=== PATIENT | female | born 1930 | race Hispanic/Latino ===

== ENCOUNTER 2016-07-04 18:50 | Inpatient (IN) | payer MEDICARE, BC ==
[2016-07-04 18:51] VITALS: PULSE 64
--- NOTE | 2016-07-04 19:13 | ED PDOC ---
Arrival/HPI - General Chief Complaint: Altered Mental Status Time Seen by Provider: 07/04/16 19:09 - History of Present Illness Narrative History of Present Illness (Text): 07/04/16 19:38 85-year-old female presents the emergency department stating that she is seeing things and hearing things that are not there. Patient states that she has had these symptoms for the last few weeks. No relieving or exacerbating factors. States her hallucinations are not command, and she denies any suicidal or homicidal ideations. Patient is alert to name, does not know the location or the date. Past Medical History - Provider Review Nursing Documentation Reviewed: Yes - Infectious Disease Hx of Infectious Diseases: None - Tetanus Immunization Tetanus Immunization: Unknown - Reproductive Menopause: Yes - Cardiac Hx Cardiac Disorders: Yes Hx Hypertension: Yes - Pulmonary Hx Chronic Obstructive Pulmonary Disease (COPD): Yes - Neurological HX Cerebrovascular Accident: Yes - HEENT Hx HEENT Disorder: Yes ([place]) - Renal Hx Renal Disorder: No - Endocrine/Metabolic Hx Diabetes Mellitus Type 2: Yes - Hematological/Oncological Hx Cancer: Yes (breast) - Integumentary Hx Dermatological Disorder: No - Musculoskeletal/Rheumatological Hx Falls: Yes - Gastrointestinal Hx Gastrointestinal Disorders: Yes (POOR APPETTITE,) - Genitourinary/Gynecological Hx Genitourinary Disorders: No Hx Reproductive Disorders: No - Psychiatric Hx Psychophysiologic Disorder: No Hx Substance Use: No - Surgical History Hx Open Heart Surgery: Yes Other/Comment: Radical mastectomy. - Anesthesia Hx Anesthesia: Yes Hx Anesthesia Reactions: No Hx Malignant Hyperthermia: No - Suicidal Assessment Feels Threatened In Home Enviroment: No Family/Social History - Physician Review Nursing Documentation Reviewed: Yes Family/Social History: Unknown Family HX Smoking Status: Never Smoked Hx Alcohol Use: No Hx Substance Use: No Hx Substance Use Treatment: No Allergies/Home Meds Allergies/Adverse Reactions: Allergies FISH Allergy (Verified 03/04/16 16:35) NAUSEA Sulfa (Sulfonamide Antibiotics) Allergy (Verified 03/04/16 16:35) HEADACHE Review of Systems - Review of Systems Systems not reviewed;Unavailable: Altered Mental Status Physical Exam - Physical Exam Narrative Physical Exam (Text): Physical exam Patient appears age appropriate in no distress, speaking full sentences without difficulty - Systems Exam Head: Present: Atraumatic, Normocephalic Pupils: Present: PERRL Extroacular Muscles: Present: EOMI Conjunctiva: Present: Normal Mouth: Present: Dry Mucous Membranes Neck: Present: Normal Range of Motion. No: MIDLINE TENDERNESS, Paraspinal Tenderness Respiratory/Chest: Present: Clear to Auscultation, Good Air Exchange. No: Respiratory Distress, Accessory Muscle Use, Tachypneic Cardiovascular: Present: Irregular, Peripheal Pulses Present. Abdomen: Present: Normal Bowel Sounds. No: Tenderness, Distention, Peritoneal Signs, Rebound, Guarding Back: Present: Normal Inspection. No: Midline Tenderness, Paraspinal Tenderness Upper Extremity: Present: Normal Inspection. No: Cyanosis, Edema Lower Extremity: Present: Normal Inspection. No: Edema Neurological: Present: GCS=15, Speech Normal, cranial nerves II through XII fully intact with no cerebellar abnormality, neurosensory fully intact. No focal neurological deficits. Skin: Present: Warm, Dry, Normal Color. No: Rashes Lymphatic: Present: OX3, NI, NC Psychiatric: Present: Alert, not agitated Vital Signs Reviewed: Yes Vital Signs Temp Pulse Resp BP Pulse Ox 07/04/16 21:45 122 H 20 123/91 H 97 07/04/16 21:29 142 H 151/91 H 92 L 07/04/16 21:24 120 H 23 136/114 H 93 L 07/04/16 21:09 119 H 19 150/85 93 L 07/04/16 20:57 155 H 160/107 H 07/04/16 20:55 169 H 160/107 H 07/04/16 20:39 161 H 24 136/105 H 91 L 07/04/16 20:24 151 H 123/74 07/04/16 20:09 130 H 143/88 07/04/16 20:02 130 H 139/63 07/04/16 19:57 172 H 203/127 H 07/04/16 19:55 166 H 197/117 H 07/04/16 19:04 98.3 F 115 H 20 186/109 H 95 Temperature: Afebrile Blood Pressure: Hypertensive Pulse: Tachycardic Respiratory Rate: Normal Appearance: Positive for: Non-Toxic, Comfortable Pain Distress: None Mental Status: Positive for: Confused. No: Agitated, Lethargic Medical Decision Making ED Course and Treatment: 07/04/16 19:13 Previous records reviewed, patient was hospitalized 03/04/16 with altered mental status. Patient has a history of atrial fibrillation on Coumadin, hypertension, diabetes, breast cancer, dementia. 07/04/16 19:40 Elderly female in the emergency department with hallucinations. No focal neurological deficits on examination. Patient is alert to name only. Labs, imaging ordered. Differential diagnoses includes but not limited to: Worsening dementia versus infection versus UTI versus pneumonia 07/04/16 20:31 CXR shows vasc. congestion with L. lobar infiltrate. Cardiomegaly. Interpreted by me. 07/04/16 20:[address] Reyna, recommends lopressor first, and states will send resident to evaluate 07/04/16 21:[address] Reyna to the MICU Dr. Najera paged 07/04/16 22:[address] Najera, accepted pt to her service - Critical Care Critical Care Minutes: 30 minutes Narrative Critical Care (Text): 07/04/16 20:00 Patient in rapid A. fib, also hypertensive, Cardizem IV push ordered - Lab Interpretations Lab Results: 07/04/16 19:30 07/04/16 19:30 Lab Results 07/04/16 21:02: Urine Color Yellow, Urine Appearance Clear, Urine pH 6.0, Ur Specific Campbell 1.020, Urine Protein 30 H, Urine Glucose (UA) 100 H, Urine Ketones 15 H, Urine Blood Trace-intact H, Urine Nitrate Negative, Urine Bilirubin Negative, Urine Urobilinogen 0.2, Ur Leukocyte Esterase Negative, Urine RBC 0 - 2, Urine WBC 0 - 2, Ur Epithelial Cells 0 - 2, Urine Bacteria Few 07/04/16 19:30: WBC 12.3 H D, RBC 4.31, Hgb 13.6, Hct 38.8, MCV 90.0, MCH 31.6, MCHC 35.1, RDW 12.7, Plt Count 242, MPV 10.0, Gran % 74.3 H, Lymph % (Auto) 14.0 L, [place] % (Auto) 9.8 H, Eos % (Auto) 1.3 L, Baso % (Auto) 0.6, Gran # 9.10 H, Lymph # 1.7, [place] # 1.2 H, Eos # 0.2, Baso # 0.07, PT 10.8, INR 1.00, APTT 26.4, pO2 115 H, VBG pH 7.43, VBG pCO2 39.0 L, VBG HCO3 25.9, VBG Total CO2 27.1 , VBG O2 Sat (Calc) 99.5 H, VBG Base Excess 1.5, VBG Potassium 5.3 H, Glucose 196 H, Lactate 1.3, FiO2 21.0, Sodium 137.0, Potassium 3.5 L, Chloride 107.0, Carbon Dioxide 25, Anion Gap 18, BUN 32 H, Creatinine 0.6, Est GFR ( Amer ) > 60, Est GFR (Non-Af Amer) > 60, Random Glucose 186 H, Calcium 9.6, Phosphorus 3.2, Magnesium 1.8, Total Bilirubin 1.1, AST 38, ALT 40, Alkaline Phosphatase 62, Lactate Dehydrogenase 789 H, Total Creatine Kinase 176, Troponin I 0.02 D, NT-Pro-B Natriuret Pep 997 H, Total Protein 8.0, Albumin 4.3 , Globulin 3.6, Albumin/Globulin Ratio 1.2, Free T4 1.31, TSH 3rd Generation 1.13, Venous Blood Potassium 5.3 H - RAD Interpretation Radiology Orders: 07/04/16 19:28 HEAD W/O CONTRAST [CT] Stat CHEST PORTABLE [RAD] Stat - Medication Orders Current Medication Orders: Enoxaparin Sodium (Lovenox) 60 mg SC Q12H REGGIE PRN Reason: Protocol Last Admin: 07/04/16 23:15 Dose: 60 MG Subcutaneous Administrations Document 07/04/16 23:15 YP (Rec: 07/04/16 23:15 YP [id number]) Injection Site MAR Injection Site Right Abdomen Charges for Administration # of Subcutaneous Administrations 1 diltiaZEM IVPB 100mg in NS (Cardizem 100mg In Ns) 100 mls @ 5 mls/hr IV .Q20H PRN; Protocol; 5 MG/HR PRN Reason: TITRATE PER MD ORDER Last Admin: 07/04/16 23:33 Dose: 5 MLS/HR Titration Intervention Document 07/04/16 23:33 MKN (Rec: 07/04/16 23:34 Jameel [id number]) Titration Intake Container Volume 100 Titration Dosing Titration Dose 5 IV Rate 5 Intake/Decrease Start eMAR Start Stop Document 07/04/16 23:33 MKN (Rec: 07/04/16 23:34 [facility] [id number]) Intravenous Solution Start Date 07/04/16 Start Time 23:34 Sodium Chloride (Sodium Chloride 0.9%) 1,000 mls @ 100 mls/hr IV .Q10H REGGIE Last Admin: 07/04/16 23:16 Dose: 100 MLS/HR eMAR Start Stop Document 07/04/16 23:16 YP (Rec: 07/04/16 23:16 YP [id number]) Intravenous Solution Start Date 07/04/16 Start Time 23:16 Pantoprazole Sodium (Protonix Ec Tab) 40 mg PO 0630 REGGIE Last Admin: 07/05/16 06:41 Dose: 40 MG Warfarin Sodium (Coumadin) 3 mg PO 1800 REGGIE PRN Reason: Protocol Discontinued Medications Diltiazem HCl (Cardizem) Confirm Administered Dose 25 mg .ROUTE .STK-MED ONE Stop: 07/04/16 19:57 Last Admin: 07/04/16 20:00 Dose: Diltiazem HCl (Cardizem) 20 mg IVP STAT STA Stop: 07/04/16 20:00 Last Admin: 07/04/16 19:57 Dose: 20 MG MAR Pulse and Blood Pressure Document 07/04/16 19:57 YP (Rec: 07/04/16 20:01 YP [id number]) Pulse Pulse Rate (60-90) 172 Blood Pressure Blood Pressure (100/60-150/90) 203/127 IVP Administration Document 07/04/16 19:57 YP (Rec: 07/04/16 20:01 YP [id number]) Charges for Administration # of IVP Administrations 1 Furosemide (Lasix) 40 mg IVP STAT STA Stop: 07/04/16 20:32 Last Admin: 07/04/16 20:57 Dose: 40 MG MAR Blood Pressure Document 07/04/16 20:57 YP (Rec: 07/04/16 20:57 YP [id number]) Blood Pressure Blood Pressure (100/60-150/90) 160/107 IVP Administration Document 07/04/16 20:57 YP (Rec: 07/04/16 20:57 YP [id number]) Charges for Administration # of IVP Administrations 1 Magnesium Sulfate/Dextrose (Magnesium Sulfate 1 Gm/100 Ml D5w) 100 mls @ 100 mls/hr IVPB ONCE ONE Stop: 07/04/16 21:27 Last Admin: 07/04/16 20:58 Dose: 100 MLS/HR eMAR Start Stop Document 07/04/16 20:58 YP (Rec: 07/04/16 20:58 YP [id number]) Intravenous Solution Start Date 07/04/16 Start Time 20:58 End Date 07/04/16 End time 21:58 Total Infusion Time 60 Azithromycin (Zithromax 500mg In Ns) 250 mls @ 167 mls/hr IVPB STAT STA PRN Reason: Protocol Stop: 07/04/16 22:00 Last Admin: 07/04/16 21:39 Dose: 167 MLS/HR eMAR Start Stop Document 07/04/16 21:39 YP (Rec: 07/04/16 21:39 YP [id number]) Intravenous Solution Start Date 07/04/16 Start Time 21:39 End Date 07/04/16 End time 23:09 Total Infusion Time 90 Ceftriaxone Sodium (Rocephin 1 Gram Ivpb) 100 mls @ 200 mls/hr IV STAT STA PRN Reason: Protocol Stop: 07/04/16 21:00 Last Admin: 07/04/16 20:57 Dose: 200 MLS/HR eMAR Start Stop Document 07/04/16 20:57 YP (Rec: 07/04/16 20:57 YP [id number]) Intravenous Solution Start Date 07/04/16 Start Time 20:57 End Date 07/04/16 End time 21:27 Total Infusion Time 30 Potassium Chloride (Potassium Chloride 20 Meq/100 Ml) 100 mls @ 50 mls/hr IVPB ONCE ONE Stop: 07/04/16 22:42 Last Admin: 07/04/16 20:57 Dose: 50 MLS/HR eMAR Start Stop Document 07/04/16 20:57 YP (Rec: 07/04/16 20:58 YP [id number]) Intravenous Solution Start Date 07/04/16 Start Time 20:57 End Date 07/04/16 End time 22:57 Total Infusion Time 120 Metoprolol Tartrate (Lopressor) 5 mg IVP STAT STA Stop: 07/04/16 20:41 Last Admin: 07/04/16 20:57 Dose: 5 MG MAR Pulse and Blood Pressure Document 07/04/16 20:57 YP (Rec: 07/04/16 20:57 YP [id number]) Pulse Pulse Rate (60-90) 155 Blood Pressure Blood Pressure (100/60-150/90) 160/107 IVP Administration Document 07/04/16 20:57 YP (Rec: 07/04/16 20:57 YP [id number]) Charges for Administration # of IVP Administrations 1 Disposition/Present on Arrival - Present on Arrival Any Indicators Present on Arrival: No History of DVT/PE: No History of Uncontrolled Diabetes: Yes Urinary Catheter: No History of Decub. Ulcer: No History Surgical Site Infection Following: None - Disposition Have Diagnosis and Disposition been Completed?: Yes Diagnosis: Altered mental status Disposition: HOSPITALIZED Disposition Time: 21:38 Patient Plan: Admission Patient Problems: Current Active Problems Problem Status Diagnosed Altered mental status Acute Condition: FAIR
[2016-07-04 20:00] LABS: ADD MANUAL DIFF? NO
[2016-07-04 20:06] LABS: VENOUS BLOOD GAS BASE EXCESS 1.5 mmol/L (0.0-2.0); VENOUS BLOOD PH 7.43 (7.32-7.43)
[2016-07-04 20:12] LABS: BASO # 0.07 K/mm3 (0.0-2.0); BASO % 0.6 % (0.0-3.0); EOS # 0.2 (0.0-0.7); EOS % 1.3 % (1.5-5.0); GRAN % 74.3 % (50.0-68.0); HEMATOCRIT 38.8 % (36.0-48.0); LYMPH # 1.7 (1.2-3.4); MEAN CORPUSCULAR HEMOGLOBIN 31.6 pg (25.0-35.0); MEAN CORPUSCULAR HGB CONC 35.1 g/dl (31.0-37.0); MONO # 1.2 (0.1-0.6); MONO % 9.8 % (1.0-6.0); PLATELET COUNT 242 10^3/uL (120.0-450.0); RED CELL DISTRIBUTION WIDTH 12.7 % (11.5-14.5); WHITE BLOOD COUNT 12.3 10^3/ul (4.5-11.0)
[2016-07-04 20:15] LABS: ALB/GLOB RATIO 1.2 (1.1-1.8); ALKALINE PHOSPHATASE 62 U/L (38-133); ALT/SGPT 40 U/L (7-56); AST/SGOT 38 U/L (15-39); BILIRUBIN,TOTAL 1.1 mg/dL (0.2-1.3); BLOOD UREA NITROGEN 32 mg/dL (7-21); CALCIUM 9.6 mg/dL (8.4-10.5); CARBON DIOXIDE 25 mmol/L (21-33); CHLORIDE 103 mmol/L (98-107); GFR AFRICAN-AMERICAN > 60; GLUCOSE,RANDOM 186 mg/dL (70-110); POTASSIUM 3.5 mmol/L (3.6-5.0); SODIUM 142 mmol/L (132-148)
[2016-07-04 20:23] LABS: PARTIAL THROMBOPLASTIN TIME 26.4 Seconds (23.7-30.8)
[2016-07-04] MEDS ORDERED: Potassium Chloride 20 mEq ER Tab PO STA (20:28)
[2016-07-04] MEDS ORDERED: Azithromycin 500MG/NS 250ml 250 ML IVPB STA (20:31)
[2016-07-04] MEDS ORDERED: cefTRIAXone 1 gm 100 ML IV STA (20:31)
[2016-07-04] MEDS ORDERED: diltiaZEM IVPB 100mg in NS 100 ML IV PRN (20:35)
[2016-07-04] MEDS ORDERED: Metoprolol 1 mg/ml Inj IVP STA (20:40)
[2016-07-04] MEDS ORDERED: Potassium Chloride 20 mEq 100 ML IVPB ONE (20:43)
[2016-07-04 20:48] LABS: TROPONIN I 0.02 ng/mL
[2016-07-04 21:05] LABS: URINE BILIRUBIN NEGATIVE (NEGATIVE); URINE BLOOD TRACE-INTACT (NEGATIVE); URINE GLUCOSE (UA) 100 mg/dL (NEGATIVE); URINE KETONE 15 mg/dL (NEGATIVE); URINE LEUKOCYTE ESTERASE NEGATIVE Leu/uL (NEGATIVE); URINE PROTEIN 30 mg/dL (<30 mg/dL); URINE UROBILINOGEN 0.2 E.U./dL (<1 E.U./dL)
[2016-07-04 21:10] LABS: URINE COLOR YELLOW (YELLOW)
[2016-07-04 21:11] LABS: URINE APPEARANCE CLEAR (CLEAR)
[2016-07-04 21:17] LABS: URINE BACTERIA FEW (NEG); URINE EPITHELIAL CELLS 0 - 2 /hpf (0-5); URINE RBC 0 - 2 /hpf (0-2); URINE WBC 0 - 2 /hpf (0-6)
--- NOTE | 2016-07-04 22:24 | CP.PCM.CON ---
<Laisha Yanes - Last Filed: 07/04/16 22:44> History of Present Illness - History of Present Illness History of Present Illness: Laisha Yanes, PGY-1 Consult Note for ICU Service 85 F with PMHx of HTN, NIDDM, COPD, CAD s/p CABG, Afib on coumadin, breast cancer s/p mastectomy and chemotherapy and dementia presenting [place] [facility] with complaints of AMS. Pt was brought to [facility] by EMS, who reported that she was hallucinating in her apartment. As per EMS, pt was experiencing auditory and visual hallucinations, as she was seeing her dog and hearing laughter. Pt denied homicidal or suicidal ideation. She states that she is currently feeling weak, and has insight into the fact that she is confused. She is alert, orientated to person and more recently to place, is able to follows commands, however is easily distracted. Pt stated that she feels she is on a tv show, everyone is looking at her and laughing. ROS unable to be obtained on account of pts AMS. PMHx: HTN, NIDDM, COPD, CAD s/p CABG, Afib on coumadin, breast cancer and dementia PSHx: Double mastectomy, CABG, "valve replacement" SHx: Denied tobacco/etoh/illicit drug use. Live in [facility] Famhx: Noncontributory Meds: metformin, coumadin, sotolol, seroquel, losartan, glipizide, lipitor Allergies: Fish, Sulfa Review of Systems - Review of Systems Systems not reviewed;Unavailable: Altered Mental Status Past Patient History - Infectious Disease Hx of Infectious Diseases: None - Tetanus Immunizations Tetanus Immunization: Unknown - Past Social History Smoking Status: Never Smoked - CARDIAC Hx Cardiac Disorders: Yes Hx Hypertension: Yes - PULMONARY Hx Chronic Obstructive Pulmonary Disease (COPD): Yes - NEUROLOGICAL HX Cerebrovascular Accident: Yes - HEENT Hx HEENT Problems: Yes ([place]) - RENAL Hx Chronic Kidney Disease: No - ENDOCRINE/METABOLIC Hx Diabetes Mellitus Type 2: Yes - HEMATOLOGICAL/ONCOLOGICAL Hx Cancer: Yes (breast) - INTEGUMENTARY Hx Dermatological Problems: No - MUSCULOSKELETAL/RHEUMATOLOGICAL Hx Falls: Yes - GASTROINTESTINAL Hx Gastrointestinal Disorders: Yes (POOR APPETTITE,) - GENITOURINARY/GYNECOLOGICAL Hx Genitourinary Disorders: No Hx Reproductive Disorders: No - PSYCHIATRIC Hx Psychophysiologic Disorder: No Hx Substance Use: No - SURGICAL HISTORY Hx Open Heart Surgery: Yes Other/Comment: Radical mastectomy. - ANESTHESIA Hx Anesthesia: Yes Hx Anesthesia Reactions: No Hx Malignant Hyperthermia: No Meds Allergies/Adverse Reactions: Allergies Allergy/AdvReac Type Severity Reaction Status Date / Time FISH Allergy NAUSEA Verified 03/04/16 16:35 Sulfa (Sulfonamide Allergy HEADACHE Verified 03/04/16 16:35 Antibiotics) - Medications Medications: Current Medications Enoxaparin Sodium (Lovenox) 60 mg SC Q12H REGGIE PRN Reason: Protocol Potassium Chloride (Potassium Chloride 20 Meq/100 Ml) 100 mls @ 50 mls/hr IVPB ONCE ONE Stop: 07/04/16 22:42 Last Admin: 07/04/16 20:57 Dose: 50 mls/hr diltiaZEM IVPB 100mg in NS (Cardizem 100mg In Ns) 100 mls @ 5 mls/hr IV .Q20H PRN; Protocol; 5 MG/HR PRN Reason: TITRATE PER MD ORDER Sodium Chloride (Sodium Chloride 0.9%) 1,000 mls @ 100 mls/hr IV .Q10H REGGIE Pantoprazole Sodium (Protonix Ec Tab) 40 mg PO 0630 REGGIE Warfarin Sodium (Coumadin) 3 mg PO 1800 REGGIE PRN Reason: Protocol Physical Exam - Constitutional Appears: No Acute Distress, Confused - Head Exam Head Exam: ATRAUMATIC, NORMAL INSPECTION, NORMOCEPHALIC - Eye Exam Eye Exam: EOMI, Normal appearance, PERRL Pupil Exam: NORMAL ACCOMODATION, PERRL - ENT Exam ENT Exam: Mucous Membranes Dry - Neck Exam Neck exam: Positive for: Normal Inspection - Respiratory Exam Respiratory Exam: Clear to Auscultation Bilateral, NORMAL BREATHING PATTERN - Cardiovascular Exam Cardiovascular Exam: Tachycardia, Irregular Rhythm, +S1, +S2 - GI/Abdominal Exam GI & Abdominal Exam: Distended (mildly), Normal Bowel Sounds, Soft. absent: Tenderness - Extremities Exam Extremities exam: Positive for: normal inspection, pedal pulses present. Negative for: pedal edema, tenderness - Back Exam Back exam: NORMAL INSPECTION - Neurological Exam Neurological exam: Alert, Altered, CN II-XII Intact - Psychiatric Exam Psychiatric exam: Normal Affect, Normal Mood - Skin Skin Exam: Dry, Intact, Normal Color, Warm Additional comments: chest scars well healed Results - Vital Signs Recent Vital Signs: Last Vital Signs Temp 98.3 F 07/04/16 19:04 Pulse 142 H 07/04/16 21:29 Resp 23 07/04/16 21:24 BP 151/91 H 07/04/16 21:29 Pulse Ox 92 L 07/04/16 21:29 - Labs Result Diagrams: 07/04/16 19:30 07/04/16 19:30 Assessment & Plan - Assessment and Plan (Free Text) Assessment: 85 F with PMHx of HTN, NIDDM, COPD, CAD s/p CABG, Afib on coumadin, breast cancer and dementia presenting [place] [facility] with complaints of AMS secondary to an unclear etiology, admitted to ICU on account of HD instability. Neuro: - AAOx2, person and place, speaking in full sentences and following commands - Hx of isolated Mood disorder and psychosis - Experiencing Auditory and Visual hallucinations - Neurocheck q4h to monitor for improvement of altered status - CTH pending Pulm: - Hx of COPD - Sat 95% on RA - CXR: Questionable LLL PNA; pt has residual breast tissue s/p mastectomy - Administered Empiric Abx: Rocephin and Azithromax, will hold for now - 02 NC PRN to maintain 02 sat >88% CVS: - Pt is dehydrated, as demonstrated by labwork, will begin IVF, NS@100ml/hr - Hx of Afib on coumadin - currently in Afib with RVR, will begin Cardizem drip and titrate to targer HR <130bpm - Target MAP >70 GI: - Mildly distended abdomen - F/u CT Abd/pelv - Protonix GI ppx - NPO Renal: - Monitor I&Os - Monitor renal fcn - Hypokalemic, supplemented - will continue to monitor electrolytes and supplement as needed ID: - Leukocytosis, empiric abx for questionable pna - Fu Bcx and Ua - Lactate 1.3 - Tylenol prn for fever Heme: - Leukocytosis with WBC of 12.3, Azithromycin and Rocephin empirically administered - Subtherapeutic INR: 1.00, will give therapeutic Lovenox 60mg q12 in addition to home coumadin 3mg 1800 - Fu INR Seen reviewed and discussed with attending <Robert Reyna Q - Last Filed: 07/05/16 04:37> Meds - Medications Medications: Current Medications Enoxaparin Sodium (Lovenox) 60 mg SC Q12H REGGIE PRN Reason: Protocol Last Admin: 07/04/16 23:15 Dose: 60 mg diltiaZEM IVPB 100mg in NS (Cardizem 100mg In Ns) 100 mls @ 5 mls/hr IV .Q20H PRN; Protocol; 5 MG/HR PRN Reason: TITRATE PER MD ORDER Last Admin: 07/04/16 23:33 Dose: 5 mls/hr Sodium Chloride (Sodium Chloride 0.9%) 1,000 mls @ 100 mls/hr IV .Q10H REGGIE Last Admin: 07/04/16 23:16 Dose: 100 mls/hr Pantoprazole Sodium (Protonix Ec Tab) 40 mg PO 0630 REGGIE Warfarin Sodium (Coumadin) 3 mg PO 1800 REGGIE PRN Reason: Protocol Results - Vital Signs Recent Vital Signs: Last Vital Signs Temp 97.1 F L 07/04/16 23:46 Pulse 97 H 07/05/16 00:00 Resp 39 H 07/05/16 00:00 BP 133/76 07/05/16 00:00 Pulse Ox 98 07/05/16 00:00 - Labs Result Diagrams: 07/04/16 19:30 07/04/16 19:30 Attending/Attestation - Attestation I have personally seen and examined this patient.: Yes I have fully participated in the care of the patient.: Yes I have reviewed all pertinent clinical information: Yes Notes (Text): 07/05/16 04:33 I agree with the above mentioned note and exam by Dr. Yanes with the addition/ exception of the followin85 y/o female with a PMHx as listed above was brought in to the ED by EMS due to an apparent "altered mental status." There was not much information available in the ED regarding what prompted the phone call or who called and why regarding the patient's change in mental condition; attempts made to reach the phone numbers in the chart without success. The patient herself happens to be AAOx3 however does speak as if she is having visual hallucinations seeing people and objects that are not present. She also had Afib with RVR in the ED without a clear cut cause as to what caused this. She was admitted to the ICU given that a bolus dose of cardizem did not alleviate her tachycardia; she was placed on a drip and rate controlled. 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 We will have a better picture as to what the patient's baseline is later today when she is seen and examined by her PMD. Case discussed at length with Dr. Rasmussen in the ED labs and images reviewed personally Total time of care: 40 minutes
[2016-07-04 22:37] LABS: MAGNESIUM 1.8 mg/dL (1.7-2.2); PHOSPHOROUS 3.2 mg/dL (2.5-4.5)
[2016-07-04 22:53] LABS: FREE T4 1.31 ng/dL (0.78-2.19)
[2016-07-04 23:07] LABS: THYROID STIMULATING HORMONE 1.13 mIU/mL (0.46-4.68)
[2016-07-04] MEDS: Enoxaparin 60 mg Syringe SC SCH (23:15)
[2016-07-04] MEDS: Sodium Chloride 0.9% 1,000 ML IV SCH (23:16)
[2016-07-04] MEDS: diltiaZEM IVPB 100mg in NS 100 ML IV PRN (23:33)
[2016-07-05 00:39] VITALS: BMI 22.4
[2016-07-05 05:58] LABS: ADD MANUAL DIFF? NO
[2016-07-05 06:03] LABS: BASO # 0.06 K/mm3 (0.0-2.0); BASO % 0.5 % (0.0-3.0); EOS # 0.1 (0.0-0.7); EOS % 0.8 % (1.5-5.0); GRAN # 8.13 (1.4-6.5); GRAN % 71.9 % (50.0-68.0); HEMATOCRIT 40.1 % (36.0-48.0); LYMPH # 1.8 (1.2-3.4); LYMPH % 16.2 % (22.0-35.0); MEAN CELL VOLUME 89.5 fL (80.0-105.0); MEAN CORPUSCULAR HEMOGLOBIN 30.8 pg (25.0-35.0); MEAN CORPUSCULAR HGB CONC 34.4 g/dl (31.0-37.0); MEAN PLATELET VOLUME 10.1 fl (7.0-11.0); MONO # 1.2 (0.1-0.6); MONO % 10.6 % (1.0-6.0); PLATELET COUNT 256 10^3/uL (120.0-450.0); RED CELL DISTRIBUTION WIDTH 12.9 % (11.5-14.5); WHITE BLOOD COUNT 11.3 10^3/ul (4.5-11.0)
[2016-07-05 06:15] LABS: INR 1.07 (0.93-1.08)
[2016-07-05 06:29] LABS: ALB/GLOB RATIO 1.1 (1.1-1.8); ALKALINE PHOSPHATASE 65 U/L (38-133); ALT/SGPT 35 U/L (7-56); AST/SGOT 37 U/L (15-39); BILIRUBIN,TOTAL 1.3 mg/dL (0.2-1.3); BLOOD UREA NITROGEN 23 mg/dL (7-21); CALCIUM 8.6 mg/dL (8.4-10.5); CARBON DIOXIDE 26 mmol/L (21-33); CHLORIDE 102 mmol/L (98-107); GFR AFRICAN-AMERICAN > 60; GLUCOSE,RANDOM 147 mg/dL (70-110); MAGNESIUM 1.8 mg/dL (1.7-2.2); PHOSPHOROUS 3.5 mg/dL (2.5-4.5); POTASSIUM 3.7 mmol/L (3.6-5.0); SODIUM 142 mmol/L (132-148)
[2016-07-05] MEDS: Pantoprazole 40 mg EC Tab PO SCH (06:41)
--- NOTE | 2016-07-05 08:05 | CT ---
PROCEDURE: CT HEAD WITHOUT CONTRAST. HISTORY: MILLER x2 weeks COMPARISON: None available. TECHNIQUE: Axial computed tomography images were obtained through the head/brain without intravenous contrast. Radiation dose: Total exam DLP = mGy-cm. This CT exam was performed using one or more of the following dose reduction techniques: Automated exposure control, adjustment of the mA and/or kV according to patient size, and/or use of iterative reconstruction technique. FINDINGS: HEMORRHAGE: No intracranial hemorrhage. BRAIN: No mass effect or edema. No atrophy or chronic microvascular ischemic changes. VENTRICLES: Unremarkable. No hydrocephalus. CALVARIUM: Unremarkable. PARANASAL SINUSES: Unremarkable as visualized. No significant inflammatory changes. MASTOID AIR CELLS: Unremarkable as visualized. No inflammatory changes. OTHER FINDINGS: None. IMPRESSION: Limited by motion artifact. No acute intracranial hemorrhage.
--- NOTE | 2016-07-05 08:11 | CT ---
PROCEDURE: CT Abdomen and Pelvis without intravenous contrast HISTORY: distended COMPARISON: None. TECHNIQUE: Technique. Contrast Dose: Radiation dose: Total exam DLP = mGy-cm. This CT exam was performed using one or more of the following dose reduction techniques: Automated exposure control, adjustment of the mA and/or kV according to patient size, and/or use of iterative reconstruction technique. FINDINGS: LOWER THORAX: Unremarkable. LIVER: Unremarkable. No gross lesion or ductal dilatation. GALLBLADDER AND BILE DUCTS: Gallstones. PANCREAS: Unremarkable. No gross lesion or ductal dilatation. SPLEEN: Unremarkable. ADRENALS: Unremarkable. No mass. KIDNEYS AND URETERS: Unremarkable. No hydronephrosis. No solid mass. VASCULATURE: Unremarkable. No aortic aneurysm. BOWEL: Colonic diverticulosis. APPENDIX: Unremarkable. Normal appendix. PERITONEUM: 4 centimeter calcified mass in the central mesenteric root. LYMPH NODES: Unremarkable. No enlarged lymph nodes. BLADDER: Unremarkable. REPRODUCTIVE: Unremarkable. BONES: No acute fracture. OTHER FINDINGS: None. IMPRESSION: 4 centimeter calcified mass in the central mesenteric root which is nonspecific. Carcinoid tumor is not excluded. Cholelithiasis.
--- NOTE | 2016-07-05 08:27 | RAD ---
HISTORY: cough COMPARISON: No prior. FINDINGS: LUNGS: Chronic interstitial changes. PLEURA: No significant pleural effusion identified, no pneumothorax apparent. CARDIOVASCULAR: Normal. Status post CABG. OSSEOUS STRUCTURES: No significant abnormalities. VISUALIZED UPPER ABDOMEN: Normal. OTHER FINDINGS: None. IMPRESSION: Chronic interstitial changes. Status post CABG.
--- NOTE | 2016-07-05 08:56 | CON ---
DATE: 07/05/2016 HISTORY OF PRESENT ILLNESS: This is an 85-year-old lady with history of dementia, hypertension, diabetes mellitus, and paroxysmal atrial fibrillation, who presented this time with altered mental status/lethargy. She had mild leukocytosis and concern for community-acquired pneumonia was raised by ER physician. The patient was started on ceftriaxone and azithromycin. IV fluids were initiated. The patient was also noted to have uncontrolled afib with RVR, thus she was put on Cardizem drip with subsequent spontaneous conversion to sinus rhythm. The patient was admitted to ICU with prelim diagnosis of severe sepsis, dehydration, and questionable ability to protect airways. No nausea, no vomiting, no diarrhea, no constipation. PAST MEDICAL HISTORY: Diabetes, hypertension, COPD, coronary artery disease, paroxysmal afib, history of breast cancer with mastectomy, dementia. ALLERGIES: SULFA DRUGS FISH. FAMILY HISTORY: Noncontributory. SOCIAL HISTORY: No alcohol or illicit drug abuse. No tobacco smoking. REVIEW OF SYSTEMS: Revealed 12 organ system other than mentioned in history of present illness is negative. MEDICATIONS AT HOME: Metformin, warfarin, sotalol, Seroquel, Cozaar, glipizide , bacitracin, Lipitor. PHYSICAL EXAMINATION: VITAL SIGNS: Heart rate 88, blood pressure is 191/119 (patient is on Cozaar, which was held yesterday and will be restarted today), Cardizem drip at 5 mg per hour, respiratory rate 20, oxygen saturation 99% on nasal cannula 2 liters per minute. HEAD AND NECK: Atraumatic. LUNGS: Clear to auscultation bilaterally. HEART: Regular rate and rhythm. S1, S2 normal. ABDOMEN: Soft, nontender, nondistended. MUSCULOSKELETAL: No C/C/E. NEUROLOGIC: The patient moves all extremities spontaneously. SKIN: Moist. PSYCHIATRIC: The patient is alert, confused, but not lethargic and clearly able to protect her airways. LABORATORY DATA: WBC 11.3, hemoglobin 13.8, platelet count 256. Sodium 142, potassium 3.7, chloride 102, carbon dioxide 26, BUN 23, creatinine 0.6, glucose 147. Troponin 0.02. INR 1.07. Lactic acid 1.3. Urine showed no nitrites and no leukocyte esterase. BUN 23, creatinine 0.6. MEDICATIONS IN THE HOSPITAL: Cardizem drip 5 per hour, warfarin, Cozaar, metoprolol 25 mg p.o. b.i.d., Lovenox 60 mg subQ q. 12, Protonix 40 mg p.o., ceftriaxone, azithromycin given yesterday. Chest x-ray: No active pulmonary disease. ASSESSMENT AND PLAN: This is an 85-year-old lady who presented with some degree of dehydration that led to atrial fibrillation with rapid ventricular rate and some altered mental status. The patient was fluid resuscitated and started on Cardizem drip with subsequent spontaneous conversion to sinus rhythm. There are no signs of potential sources of infection. Urinalysis is negative for urine nitrites and leukocyte esterase, chest x-ray did not show any distinct infiltrate. The patient is afebrile and has only minimal leukocytosis at 11.3, which likely reactive. The patient is comfortable, able to protect her airways, slightly hypertensive, but otherwise hemodynamically relatively stable. Her oral medication will be restarted. Okay to downgrade to telemetry. We will continue to target euvolemia, euglycemia, normothermia and oxygen saturation more than 90%. We will continue IV fluid until oral hydration and nutrition deemed to be adequate. We will continue with GI prophylaxis. The patient on therapeutic anticoagulation to prevent stroke, proximal atrial fibrillation. Cardiology consult is pending ccm time 40 min Salo Taylor MD cc: [id number] TT: 07/05/2016 08:55:08 Confirmation # [id number] Dictation # [id number] MTDD
[2016-07-05] MEDS: Sodium Chloride 0.9% 1,000 ML IV SCH ×2 (10:56→22:15)
[2016-07-05] MEDS: Enoxaparin 60 mg Syringe SC SCH ×2 (10:57→22:15)
--- NOTE | 2016-07-05 17:06 | CON ---
DATE: 07/05/2016 PULMONARY CRITICAL CARE CONSULTATION I am also covering Dr. Najera for today. REASON FOR CONSULT: Change of mental status, chronic lung disease. HISTORY OF PRESENT ILLNESS: This is an 85-year-old female with known history of hypertension, diabet es, paroxysmal atrial fibrillation, dementia, chronic lung disease, found to be lethargic. In the ER had AFib with rapid ventricular response. Was admitted to intensive care unit. Her atrial fibrilla tion converted to sinus rhythm spontaneously. She was started on antibiotics, fluids, and feels bett er this morning, more awake. No significant cough or sputum production. No chest pain. No hematuri a, no diarrhea. PAST MEDICAL HISTORY: Chronic lung disease, hypertension, diabetes, coronary artery disease, paroxys mal atrial fibrillation, history of breast cancer requiring mastectomy, Alzheimer-type dementia. ALLERGIES: SULFA. SOCIAL HISTORY: No history of smoking or alcohol use. FAMILY HISTORY: No significant cardiopulmonary disease reported. MEDICATIONS: She is on presently diltiazem IV drip, Coumadin 3 mg will be given tonight, Cozaar 100 mg daily, metoprolol tartrate 25 mg twice a day, Lovenox 60 mg subcutaneous twice a day, Protonix 40 mg daily, IV fluid normal saline 100 mL per hour. PHYSICAL EXAMINATION: HEENT: Moist mucous membranes. Crowded. NECK: Supple. No JVD. LUNGS: Have a few scattered rhonchi. HEART: S1 and S2. ABDOMEN: Soft, nontender. No organomegaly. EXTREMITIES: There is no edema. NEUROLOGIC: Awake, alert, follows simple commands, but confused. LABORATORY DATA: Shows hemoglobin 13.8, hematocrit 40.1, WBC 11.3, platelet is 256. INR 1.07. Had a VBG done yesterday, shows pH 7.43, pCO2 39, O2 115. Sodium 142, potassium 3.7, chloride 102, bicar bonate 26, BUN 23, creatinine 0.6, glucose 147, calcium 8.6, phosphorus 3.5, magnesium 1.8, AST 37, A LT 35, alk phos is 65. ProBNP 2180. Albumin is 4.2. TSH is 1.13. Urinalysis shows WBCs 0-2, RBCs 0-2. Had a CAT scan of the abdomen and pelvis done on admission, which shows a 4 cm calcified mass i n the central mesenteric root, which is nonspecific. Carcinoid tumor cannot be excluded. CAT scan o f the head was done, which shows motion artifact, but no sign of a bleed or stroke observed. Chest x -ray done on admission shows chronic interstitial changes. IMPRESSION AND PLAN: Atrial fibrillation with rapid ventricular response with change of mental statu s, chronic lung disease, interstitial lung disease, abdominal mass, Alzheimer-type dementia, hyperten tatyana. I agree with the present management. Continue anticoagulation. Supplement oxygen. Continue IV Cardizem for now. We will get gastroenterology consult to further evaluate the abdominal mass. F ollow up ProBNP, procalcitonin. Continue gastric prophylaxis, anticoagulation. Mynor Ames MD cc: [id number] TT: 07/05/2016 17:05:40 Confirmation # [id number] Dictation # [id number] brittny
[2016-07-05] MEDS: diltiaZEM IVPB 100mg in NS 100 ML IV PRN (17:16)
--- NOTE | 2016-07-05 20:07 | CARD ---
APPROVED REPORT EKG Measurement Heart [id number] <Conclusion> Atrial fibrillation with rapid ventricular response Left axis deviation Moderate voltage criteria for LVH, may be normal variant ST depression, consider subendocardial injury or digitalis effect Abnormal ECG
[2016-07-05 20:42] LABS: FT3 3.4 pg/mL (2.77-5.27)
[2016-07-06 05:45] LABS: ADD MANUAL DIFF? NO
[2016-07-06 05:56] LABS: BASO # 0.07 K/mm3 (0.0-2.0); BASO % 0.7 % (0.0-3.0); EOS # 0.3 (0.0-0.7); GRAN # 7.19 (1.4-6.5); GRAN % 68.2 % (50.0-68.0); HEMATOCRIT 36.1 % (36.0-48.0); LYMPH % 18.6 % (22.0-35.0); MEAN CELL VOLUME 91.9 fL (80.0-105.0); MEAN CORPUSCULAR HEMOGLOBIN 30.5 pg (25.0-35.0); MEAN CORPUSCULAR HGB CONC 33.2 g/dl (31.0-37.0); MEAN PLATELET VOLUME 9.9 fl (7.0-11.0); MONO % 9.5 % (1.0-6.0); PLATELET COUNT 217 10^3/uL (120.0-450.0); WHITE BLOOD COUNT 10.5 10^3/ul (4.5-11.0)
[2016-07-06 06:05] LABS: INR 1.02 (0.93-1.08)
[2016-07-06 06:39] LABS: ALKALINE PHOSPHATASE 51 U/L (38-133); ALT/SGPT 33 U/L (7-56); AST/SGOT 31 U/L (15-39); BILIRUBIN,TOTAL 0.8 mg/dL (0.2-1.3); BLOOD UREA NITROGEN 27 mg/dL (7-21); CALCIUM 8.6 mg/dL (8.4-10.5); CARBON DIOXIDE 28 mmol/L (21-33); CHLORIDE 105 mmol/L (98-107); GFR AFRICAN-AMERICAN > 60; GLUCOSE,RANDOM 145 mg/dL (70-110); POTASSIUM 3.6 mmol/L (3.6-5.0); SODIUM 142 mmol/L (132-148); TOTAL PROTEIN 6.5 g/dL (5.8-8.3)
[2016-07-06] MEDS: Pantoprazole 40 mg EC Tab PO SCH (06:44)
--- NOTE | 2016-07-06 08:17 | RAD ---
HISTORY: chf COMPARISON: No prior. FINDINGS: LUNGS: Chronic interstitial changes. PLEURA: No significant pleural effusion identified, no pneumothorax apparent. CARDIOVASCULAR: Normal. OSSEOUS STRUCTURES: No significant abnormalities. VISUALIZED UPPER ABDOMEN: Normal. OTHER FINDINGS: Status post CABG. IMPRESSION: Chronic interstitial changes.
[2016-07-06] MEDS: Enoxaparin 60 mg Syringe SC SCH ×2 (09:54→21:58)
--- NOTE | 2016-07-06 11:16 | CP.CCUPN ---
<Michael Duke - Last Filed: 07/06/16 11:26> CCU Subjective - Physician Review Subjective (Free Text): 07/06/16 11:07 Patient seen and examined at bedside in the ICU. This is hospital day Overnight , patient's Afib with RVR was brought under control on cardizem drip, and the HR decreased to 50's-60's, so the drip was stopped. This AM however, the AFib with RVR resumed, and with HR from 130-150's, so Cardizem drip was restarted and patient was also started on oral cardizem, 60mg q8h. Today, patient remains AAOx3, but remains intermittently confused, with poor insight into her condition or why she is in the hospital. She denies continued sensation of "being on TV with everyone watching me," but frequently requires re-orientation regarding who staff is and why she was brought to the hospital. ROS limited due to patient's mentation, but denies chest pain, shortness of breath, or new focal deficits. CCU Objective - Vital Signs / Intake & Output Vital Signs (Last 4 hours): Vital Signs Temp Pulse Resp BP Pulse Ox 07/06/16 09:00 119 H 28 H 97/55 L 94 L 07/06/16 08:00 98.6 F 126 H 24 139/79 91 L 07/06/16 07:53 133 H 165/71 H 07/06/16 07:48 135 H 24 07/06/16 07:47 133 H 27 H 07/06/16 07:16 140 H 19 07/06/16 07:15 143 H 19 07/06/16 07:14 135 H 22 Intake and Output (Last 8hrs): Intake & Output 07/05/16 07/06/16 07/06/16 22:59 06:59 14:59 Intake Total 1500 1200 Output Total 400 1040 Balance 1100 160 Weight 56.245 kg Intake: IV 1260 1200 rfa 1200 right forearm 60 1200 Oral 240 Output: Urine 400 1040 Urethral (Milian) 400 1040 Other: # Bowel Movements 0 - Physical Exam Head: Positive for: Atraumatic, Normocephalic. Negative for: Contusion, Swelling, Ecchymosis, Abrasion Pupils: Negative for: Pinpoint Extroacular Muscles: Positive for: EOMI. Negative for: Gaze Palsy, Entrapment Conjunctiva: Positive for: Normal. Negative for: Injected, Icteric Mouth: Positive for: Moist Mucous Membranes, Normal Tounge Nose (External): Positive for: Atraumatic. Negative for: Abrasion, Contusion, Laceration Neck: Positive for: Normal Range of Motion, Trachea Midline. Negative for: MIDLINE TENDERNESS, JVD Respiratory/Chest: Positive for: Clear to Auscultation, Good Air Exchange. Negative for: Respiratory Distress, Accessory Muscle Use, Wheezes, Decreased Breath Sounds, Rales, Rhonchi, Tachypneic, Tender to Palpation Cardiovascular: Positive for: Normal S1, S2, Irregular Rhythm, Peripheal Pulses Present (+2 radials bilaterally), Tachycardic, Other (irregularly irregular, rate on bedside monitor 90's-110's throughout exam). Negative for: Regular Rate and Rhythm, Murmurs, Bradycardic Abdomen: Positive for: Normal Bowel Sounds. Negative for: Tenderness, Distention, Peritoneal Signs, Mass/Organomegaly Upper Extremity: Positive for: Normal Inspection, Normal ROM, NORMAL PULSES (+2 radials bilaterally). Negative for: Cyanosis, Edema, Tenderness, Swelling, Erythema Lower Extremity: Positive for: Normal Inspection. Negative for: CALF TENDERNESS , Cyanosis Neurological: Positive for: GCS=15, CN II-XII Intact, Speech Normal, Motor Func Grossly Intact Skin: Positive for: Warm, Dry, Normal Color. Negative for: Rashes Psychiatric: Positive for: Alert, Oriented x 3 (oriented to self, location, year , president, but intermittenly confused regarding who she is speaking to ( requires freqent re-orientation to staff)), Normal Affect, Anxious. Negative for: Normal Insight, Normal Concentration - Medications Active Medications: Active Medications Generic Name Dose Route Start Last Admin Trade Name Freq PRN Reason Stop Dose Admin Diltiazem HCl 60 mg 07/06/16 14:00 Cardizem PO Q8H [facility] Enoxaparin Sodium 60 mg 07/04/16 22:00 07/06/16 09:54 Lovenox SC 60 mg Q12H [facility] Administration Protocol diltiaZEM IVPB 100mg in NS 100 mls @ 5 mls/hr 07/04/16 21:41 07/05/16 17:16 Cardizem 100mg In Ns IV 5 mls/hr .Q20H PRN Administration TITRATE PER MD ORDER Protocol 5 MG/HR Sodium Chloride 1,000 mls @ 100 mls/hr 07/04/16 22:00 07/05/16 22:15 Sodium Chloride 0.9% IV 100 mls/hr .Q10H REGGIE Administration Losartan Potassium 100 mg 07/05/16 10:00 07/06/16 09:55 Cozaar PO 100 mg DAILY REGGIE Administration Pantoprazole Sodium 40 mg 07/05/16 06:30 07/06/16 06:44 Protonix Ec Tab PO 40 mg 0630 REGGIE Administration Warfarin Sodium 3 mg 07/05/16 18:00 07/05/16 17:19 Coumadin PO 3 mg 1800 REGGIE Administration Protocol - Patient Studies Lab Studies: Microbiology Studies 07/05/16 08:11 MRSA Culture (Admit) - Final Nose MRSA NOT DETECTED Lab Studies 07/06/16 07/04/16 Range/Units 05:00 23:25 WBC 10.5 (4.5-11.0) 10^3/ul RBC 3.93 (3.5-6.1) 10^6/uL Hgb 12.0 (12.0-16.0) gm/dL Hct 36.1 (36.0-48.0) % MCV 91.9 (80.0-105.0) fL MCH 30.5 (25.0-35.0) pg MCHC 33.2 (31.0-37.0) g/dl RDW 13.0 (11.5-14.5) % Plt Count 217 (120.0-450.0) 10^3/uL MPV 9.9 (7.0-11.0) fl Gran % 68.2 H (50.0-68.0) % Lymph % (Auto) 18.6 L (22.0-35.0) % [place] % (Auto) 9.5 H (1.0-6.0) % Eos % (Auto) 3.0 (1.5-5.0) % Baso % (Auto) 0.7 (0.0-3.0) % Gran # 7.19 H (1.4-6.5) Lymph # 2.0 (1.2-3.4) [place] # 1.0 H (0.1-0.6) Eos # 0.3 (0.0-0.7) Baso # 0.07 (0.0-2.0) K/mm3 PT 11.0 (9.9-11.8) Seconds INR 1.02 (0.93-1.08) Sodium 142 (132-148) mmol/L Potassium 3.6 (3.6-5.0) mmol/L Chloride 105 (98-107) mmol/L Carbon Dioxide 28 (21-33) mmol/L Anion Gap 13 (10-20) BUN 27 H (7-21) mg/dL Creatinine 0.6 (0.5-1.4) mg/dL Est GFR ( Amer) > 60 Est GFR (Non-Af Amer) > 60 Random Glucose 145 H (70-110) mg/dL Calcium 8.6 (8.4-10.5) mg/dL Total Bilirubin 0.8 (0.2-1.3) mg/dL AST 31 (15-39) U/L ALT 33 (7-56) U/L Alkaline Phosphatase 51 (38-133) U/L Total Protein 6.5 (5.8-8.3) g/dL Albumin 3.3 (3.0-4.8) g/dL Globulin 3.3 gm/dL Albumin/Globulin Ratio 1.0 L (1.1-1.8) RPR Nonreactive (NONREACTIVE) Laboratory Results - last 24 hr 07/04/16 07/06/16 23:25 05:00 WBC 10.5 RBC 3.93 Hgb 12.0 Hct 36.1 MCV 91.9 MCH 30.5 MCHC 33.2 RDW 13.0 Plt Count 217 MPV 9.9 Gran % 68.2 H Lymph % (Auto) 18.6 L [place] % (Auto) 9.5 H Eos % (Auto) 3.0 Baso % (Auto) 0.7 Gran # 7.19 H Lymph # 2.0 [place] # 1.0 H Eos # 0.3 Baso # 0.07 PT 11.0 INR 1.02 Sodium 142 Potassium 3.6 Chloride 105 Carbon Dioxide 28 Anion Gap 13 BUN 27 H Creatinine 0.6 Est GFR ( Amer) > 60 Est GFR (Non-Af Amer) > 60 Random Glucose 145 H Calcium 8.6 Total Bilirubin 0.8 AST 31 ALT 33 Alkaline Phosphatase 51 Total Protein 6.5 Albumin 3.3 Globulin 3.3 Albumin/Globulin Ratio 1.0 L RPR Nonreactive Review of Systems - Review of Systems Systems not reviewed;Unavailable: Altered Mental Status (AAOx3, but requires frequent orientation to staff, no insight into condition, wandering and illogical thoughts, not reliable historian) Critical Care Progress Note - Nutrition Nutrition: Nutrition Category Date Time Status Heart Healthy Diet [DIET] Diets 07/05/16 Breakfast Ordered Assessment/Plan - Assessment and Plan (Free Text) Assessment: This is an 85 yo F with PMH of HTN, NIDDM, COPD, CAD s/p CABG, Afib on coumadin, breast cancer s/p mastectomy and chemotherapy and dementia who initially presented to [facility] for altered mental status. She was found to have bilateral pulmonary infiltrates, and she was admitted to ICU for possible sepsis and AMS 2/2 sepsis vs septic encephalopathy. She was also being managed for AFib with RVR on cardizem drip, pending transition from drip to oral medication. Plan: Neuro: -AAO x4 (self, location, year, president), but disoriented to staff requiring frequent orientation, poor insight into condition, reason for hospitalization -moving all extremities spontaneously -maintain normothermia -high fall risk given dementia/AMS and on anticoagulation Pulm: -CTAB on exam, satting well on 3L NC -Conservative O2 management, maintain SaO2 > 88% (hx COPD) and paO2 > 60 -Initial presentation was concerning for possible community-acquired pneumonia, given Ceftriaxone and Azithromycin in the ED -CXR on admit read as chronic interstitial changes s/p CABG; repeat CXR today read as chronic interstitial changes, no acute changes or infiltrates noted -Aspiration precautions, head of bed to 30 degrees -Procal ordered, pending -Blood and Urine cultures negative x24 hours -Pulm (Dr. Ames) on board, appreciate all recs Cardio: -AFib with RVR, was previously brought under control on Cardizem drip, relapsed into RVR after drip discontinued, currently on Drip 5mg/hr and started on Cardizem 60mg PO q8 to wean from drip; HR 90's-110's at time of exam -Trop on admit 0.02 -BNP on admit 997, increased to 2180 yesterday -INR subtherapeutic at 1.02 (was 1.07), bridging to Coumadin with therapeutic Lovenox -Continue Losartan for HTN -NS 100cc/hr IVF GI: -Heart-healthy consistent carb diet -Protonix for GI ppx -Incidental 4cm calcified mass found in central mesenteric root on CT Abd/pelvis , suspicious for Carcinoid tumor -GI consulted (Dr. Cardona), appreciate all recs Renal: -Making clear yellow urine -UA on admit notable for 30 protein, 100 glucose, 15 ketones, and trace intact blood -Cr 0.6 -avoid nephrotoxic drugs where feasible -maintain euvolemia and euglycemia (BG 140-180) -monitor and replete electrolytes as needed ID: -Leukocytosis on admit of 12.3, improved to 10.5 today -afebrile -RPR negative -Procal pending, f/u Heme: -Hgb 12.0, was 13.8 -on AC for AFib, but INR subtherapeutic at 1.02, bridging to Coumadin on therapeutic Lovenox Endo: -maintain euglycemia (BG 140-180) Dispo: ICU, pending transfer to telemetry, pending d/c of cardizem drip after transitioned to PO cardizem FEN: Heart-healthy consistent carb Access: Peripheral IV Consults: GI Ppx: Protonix for GI, Coumadin/Therapeutic Lovenox covers for DVT Patient seen, reviewed, and discussed with attending, Dr. Taylor. - Date & Time Date: 07/06/16 Time: 12:25 <Salo Taylor - Last Filed: 07/06/16 13:39> CCU Objective - Vital Signs / Intake & Output Vital Signs (Last 4 hours): Vital Signs Temp Pulse Ox 07/06/16 12:00 98.1 F 95 Intake and Output (Last 8hrs): Intake & Output 07/05/16 07/06/16 07/06/16 22:59 06:59 14:59 Intake Total 1500 1200 Output Total 400 1040 Balance 1100 160 Weight 124 lb Intake: IV 1260 1200 rfa 1200 right forearm 60 1200 Oral 240 Output: Urine 400 1040 Urethral (Milian) 400 1040 Other: # Bowel Movements 0 - Medications Active Medications: Active Medications Generic Name Dose Route Start Last Admin Trade Name Freq PRN Reason Stop Dose Admin Diltiazem HCl 60 mg 07/06/16 14:00 Cardizem PO Q8H REGGIE Enoxaparin Sodium 60 mg 07/04/16 22:00 07/06/16 09:54 Lovenox SC 60 mg Q12H REGGIE Administration Protocol diltiaZEM IVPB 100mg in NS 100 mls @ 5 mls/hr 07/04/16 21:41 07/05/16 17:16 Cardizem 100mg In Ns IV 5 mls/hr .Q20H PRN Administration TITRATE PER MD ORDER Protocol 5 MG/HR Sodium Chloride 1,000 mls @ 100 mls/hr 07/04/16 22:00 07/05/16 22:15 Sodium Chloride 0.9% IV 100 mls/hr .Q10H REGGIE Administration Losartan Potassium 100 mg 07/05/16 10:00 07/06/16 09:55 Cozaar PO 100 mg DAILY REGGIE Administration Pantoprazole Sodium 40 mg 07/05/16 06:30 07/06/16 06:44 Protonix Ec Tab PO 40 mg 0630 REGGIE Administration Warfarin Sodium 3 mg 07/05/16 18:00 07/05/16 17:19 Coumadin PO 3 mg 1800 REGGIE Administration Protocol - Patient Studies Lab Studies: Microbiology Studies 07/05/16 08:11 MRSA Culture (Admit) - Final Nose MRSA NOT DETECTED Lab Studies 07/06/16 07/04/16 Range/Units 05:00 23:25 WBC 10.5 (4.5-11.0) 10^3/ul RBC 3.93 (3.5-6.1) 10^6/uL Hgb 12.0 (12.0-16.0) gm/dL Hct 36.1 (36.0-48.0) % MCV 91.9 (80.0-105.0) fL MCH 30.5 (25.0-35.0) pg MCHC 33.2 (31.0-37.0) g/dl RDW 13.0 (11.5-14.5) % Plt Count 217 (120.0-450.0) 10^3/uL MPV 9.9 (7.0-11.0) fl Gran % 68.2 H (50.0-68.0) % Lymph % (Auto) 18.6 L (22.0-35.0) % [place] % (Auto) 9.5 H (1.0-6.0) % Eos % (Auto) 3.0 (1.5-5.0) % Baso % (Auto) 0.7 (0.0-3.0) % Gran # 7.19 H (1.4-6.5) Lymph # 2.0 (1.2-3.4) [place] # 1.0 H (0.1-0.6) Eos # 0.3 (0.0-0.7) Baso # 0.07 (0.0-2.0) K/mm3 PT 11.0 (9.9-11.8) Seconds INR 1.02 (0.93-1.08) Sodium 142 (132-148) mmol/L Potassium 3.6 (3.6-5.0) mmol/L Chloride 105 (98-107) mmol/L Carbon Dioxide 28 (21-33) mmol/L Anion Gap 13 (10-20) BUN 27 H (7-21) mg/dL Creatinine 0.6 (0.5-1.4) mg/dL Est GFR ( Amer) > 60 Est GFR (Non-Af Amer) > 60 Random Glucose 145 H (70-110) mg/dL Calcium 8.6 (8.4-10.5) mg/dL Total Bilirubin 0.8 (0.2-1.3) mg/dL AST 31 (15-39) U/L ALT 33 (7-56) U/L Alkaline Phosphatase 51 (38-133) U/L Total Protein 6.5 (5.8-8.3) g/dL Albumin 3.3 (3.0-4.8) g/dL Globulin 3.3 gm/dL Albumin/Globulin Ratio 1.0 L (1.1-1.8) RPR Nonreactive (NONREACTIVE) Laboratory Results - last 24 hr 07/04/16 07/06/16 23:25 05:00 WBC 10.5 RBC 3.93 Hgb 12.0 Hct 36.1 MCV 91.9 MCH 30.5 MCHC 33.2 RDW 13.0 Plt Count 217 MPV 9.9 Gran % 68.2 H Lymph % (Auto) 18.6 L [place] % (Auto) 9.5 H Eos % (Auto) 3.0 Baso % (Auto) 0.7 Gran # 7.19 H Lymph # 2.0 [place] # 1.0 H Eos # 0.3 Baso # 0.07 PT 11.0 INR 1.02 Sodium 142 Potassium 3.6 Chloride 105 Carbon Dioxide 28 Anion Gap 13 BUN 27 H Creatinine 0.6 Est GFR ( Amer) > 60 Est GFR (Non-Af Amer) > 60 Random Glucose 145 H Calcium 8.6 Total Bilirubin 0.8 AST 31 ALT 33 Alkaline Phosphatase 51 Total Protein 6.5 Albumin 3.3 Globulin 3.3 Albumin/Globulin Ratio 1.0 L RPR Nonreactive Critical Care Progress Note - Nutrition Nutrition: Nutrition Category Date Time Status Heart Healthy Diet [DIET] Diets 07/05/16 Breakfast Ordered Addendum Addendum: 07/06/16 13:36 patient was seen, examined and discussed shoulder to shoulder with Dr. Duke. His note reflects my exam, assessment and plan except as below. Meds/Labs/ONE reviewed 85 yo female with afib/rvr due to dehydration. Still on cardizem drip at 5 mg/hr , but will overlap with cardizem 60 mg PO q8h and wean drip off. Apart from afib /RVR hemodynamically relatively stable. Ok to downgrade to tele. cardiology consult is recommended. ccm time 40 min
[2016-07-06] MEDS: diltiaZEM IVPB 100mg in NS 100 ML IV PRN (17:56)
[2016-07-06] MEDS: Sodium Chloride 0.9% 1,000 ML IV SCH ×2 (17:58→22:53)
--- NOTE | 2016-07-06 18:42 | PN ---
DATE: 07/06/2016 REFERRING PHYSICIAN: Dr. Najera. Also covering Dr. Najera. SUBJECTIVE: She is sitting up in bed having lunch. Night was unremarkable. Has recurrent atrial fi brillation with rapid ventricular response requiring a bolus of Cardizem and restarting drip with 10 mg per hour. No headache, no rhinitis, no nausea, no vomiting, diarrhea. No leg pain or leg swellin g. OBJECTIVE: GENERAL: No acute distress. VITAL SIGNS: Temperature is 98, heart rate is 120 with AFib, blood pressure 143/51, pulse ox 94% on room air. HEENT: Moist mucous membranes. Small oral cavity. NECK: Supple. No JVD. LUNGS: Has a few scattered rhonchi. HEART: S1 and S2, irregular, tachycardic. ABDOMEN: Soft, nontender. No organomegaly. EXTREMITIES: There is no edema. NEUROLOGIC: Awake, alert, follows simple commands, but confused. MEDICATIONS: She is on Cardizem 60 mg q. 8 hours, also on Cardizem drip, which is decreased to 5 mg per hour, Coumadin 3 mg will be given, Cozaar 100 mg daily, Lovenox 60 mg subQ q. 12 hours, Protonix 40 mg daily, IV fluid normal saline 100 mL per hour. LABORATORY DATA: Shows hemoglobin 12.0, hematocrit 36.1, WBC ____, platelet count is 217. INR 1.02. Sodium 142, potassium 3.6, chloride 105, bicarbonate 28, BUN 27, creatinine 0.6, glucose 145, calci um 8.6, AST 31, ALT 33, alkaline phosphatase is 51. ProBNP ____, albumin is 3.3. MICROBIOLOGY: Blood culture, urine culture ____ is unremarkable. Chest x-ray done today shows chron ic interstitial changes. No new infiltrate reported. IMPRESSION AND PLAN: Atrial fibrillation with rapid ventricular response, chronic lung disease, has interstitial infiltrate, abdominal mass, Alzheimer type dementia, hypertension, diabetes. Case discu ssed with store associate, Dr. Taylor, in detail. I agree with switching to p.o. Cardizem. If able to control rate, may add a small dose of beta sara. Gastric prophylaxis. On anticoagulation. Foll ow up CBC, CMP, chest x-ray in the morning. Procalcitonin level is still pending. Will follow with you. Mynor Ames MD cc: [id number] TT: 07/06/2016 18:42:03 Confirmation # [id number] Dictation # [id number] rn
[2016-07-07] MEDS: Sodium Chloride 0.9% 1,000 ML IV SCH ×3 (01:18→21:55)
--- NOTE | 2016-07-07 01:25 | PN ---
DATE: 07/06/2016 SUBJECTIVE: This patient was seen and evaluated earlier. The patient is comfortable, confused. PHYSICAL EXAMINATION: VITAL SIGNS: Temperature is 98.3, pulse 83, blood pressure is 135/77. HEENT: Atraumatic, anicteric. NECK: Supple. HEART: S1, S2 heard. LUNGS: Bilateral air entry present. ABDOMEN: Soft. There is no tenderness. EXTREMITIES: No cyanosis. No clubbing. NEUROLOGIC: The patient is alert, awake, confused. LABORATORY DATA: Hemoglobin 12, hematocrit 36.1, WBC is 10.5, platelets 20. Chemistry is essentiall y unremarkable. IMPRESSION: This is an 85-year-old patient admitted with a change of mental status, history of atria l fibrillation with rapid ventricular response. The patient was found to have atrial fibrillation wi th rapid ventricular response, history of chronic lung disease, history of infiltrate. The pa tient is on antibiotics. The patient is on Cardizem p.o. The CT scan showed abnormalities in the mi ssion that lesion, but appeared to be present, even the CAT scan done more than 2 years ago. It appe ared to be a benign process , but it is difficult. The patient would need followup studies. We will consider MRI to further evaluate. When the is more optimized. We also reviewed with rad iologist indicating in the previous CAT scan. The name. We will continue with other comorbidities including diabetes mellitus, chronic lung disease, dementia, hypertension. We will continue to review the history. We will continue to closely follow up her care and suggest f urther management based on the clinical course. Gillian Cardona MD cc: [id number] TT: 07/07/2016 01:24:33 Confirmation # [id number] Dictation # [id number] jenny
[2016-07-07 05:42] LABS: ADD MANUAL DIFF? NO
[2016-07-07 05:55] LABS: INR 1.05 (0.93-1.08)
[2016-07-07 06:03] LABS: ALB/GLOB RATIO 1.1 (1.1-1.8); ALKALINE PHOSPHATASE 53 U/L (38-133); ALT/SGPT 35 U/L (7-56); AST/SGOT 24 U/L (15-39); BASO # 0.09 K/mm3 (0.0-2.0); BASO % 0.9 % (0.0-3.0); BILIRUBIN,TOTAL 0.9 mg/dL (0.2-1.3); BLOOD UREA NITROGEN 20 mg/dL (7-21); CALCIUM 8.6 mg/dL (8.4-10.5); CARBON DIOXIDE 26 mmol/L (21-33); CHLORIDE 105 mmol/L (98-107); EOS # 0.4 (0.0-0.7); EOS % 3.8 % (1.5-5.0); GFR AFRICAN-AMERICAN > 60; GLUCOSE,RANDOM 159 mg/dL (70-110); GRAN # 6.35 (1.4-6.5); GRAN % 65.2 % (50.0-68.0); HEMATOCRIT 35.4 % (36.0-48.0); LYMPH # 1.9 (1.2-3.4); LYMPH % 19.4 % (22.0-35.0); MEAN CELL VOLUME 91.5 fL (80.0-105.0); MEAN CORPUSCULAR HEMOGLOBIN 31.5 pg (25.0-35.0); MEAN CORPUSCULAR HGB CONC 34.5 g/dl (31.0-37.0); MEAN PLATELET VOLUME 10.2 fl (7.0-11.0); MONO % 10.7 % (1.0-6.0); PLATELET COUNT 211 10^3/uL (120.0-450.0); POTASSIUM 3.5 mmol/L (3.6-5.0); RED CELL DISTRIBUTION WIDTH 13.1 % (11.5-14.5); SODIUM 140 mmol/L (132-148); TOTAL PROTEIN 6.3 g/dL (5.8-8.3); WHITE BLOOD COUNT 9.7 10^3/ul (4.5-11.0)
[2016-07-07] MEDS: Pantoprazole 40 mg EC Tab PO SCH (06:18)
--- NOTE | 2016-07-07 08:15 | CON ---
DATE: 07/04/2016 This patient was seen and evaluated earlier. I discussed with the visual merchandising coordinator, Dr. Taylor, and als o the nursing staff. This 85-year-old patient with a past medical history of hypertension, COPD, atrial fibrillation, diab etes mellitus, history of breast cancer, bilateral mastectomy, history of dementia, reduced hearing w as presented to the Emergency Room with change of mental status. The patient was found to have AFib with rapid ventricular response, controlled with Cardizem. The patient had a CT of the chest with CT of the abdomen done, which showed some calcified mass in the mesenteric area. GI consultation was r equested to further evaluate. The patient denies any vomiting, abdominal pain. Other past medical h istory is as above. SOCIAL HISTORY: Denies smoking, no alcohol. REVIEW OF SYSTEMS: Positive as above, limited. ____. All systems reviewed. ALLERGIES: FISH AND SULFA. REVIEW OF SYSTEMS: Positive as above. All ____ systems reviewed. PHYSICAL EXAMINATION: GENERAL: The patient is lying on the bed, not in acute distress. HEENT: Atraumatic, anicteric. NECK: Supple. HEART: S1, S2 heard. LUNGS: Bilateral air entry present. ABDOMEN: Soft. There is no tenderness. EXTREMITIES: No edema, no cyanosis. NEUROLOGIC: Alert, confused, awake. LABORATORY DATA: Hemoglobin 13.8, hematocrit 40.1. WBCs 11.3, platelets 256. Chemistry: BUN 23, c reatinine 0.6, glucose 147. The patient had a CT of the abdomen and pelvis done. It was reviewed, and calcified lesion noted in the root of the mesentery. IMPRESSION: This 85-year-old patient admitted with change in mental status, found to be atrial fibri llation with rapid ventricular response. The patient had a CT done, which showed a calcified lesion in the mesenteric root. The differential diagnosis with calcified lesion noted. The etiology is uncl ear. The patient did have a distended abdomen. Now the patient has a Milian catheter. Would recommend: The CT scan done in 01/2013 was reviewed, and that also showed calcified lesions at the root area. It appears to be significantly unchanged. There are no obvious significant change n oticed. Since there is more than ____ years, this lesion present, it appears to be more benign etiol ogy than neoplastic. However, we will review the admitting workup with radiologist and consider abou t further evaluation after the official review addendum report from the radiologist. Thank you very much for allowing us to participate in the care of the patient. Gillian Cardona MD cc: [id number] TT: 07/06/2016 08:57:27 Confirmation # [id number] Dictation # [id number] jn
[2016-07-07] MEDS: Enoxaparin 60 mg Syringe SC SCH ×3 (08:18→21:52)
--- NOTE | 2016-07-07 10:00 | CON ---
DATE: 07/07/2016 HISTORY OF PRESENT ILLNESS: The patient is an 85-year-old woman who presents with atrial fibrillatio n. The patient has had paroxysmal atrial fibrillation which she has been treated with sotalol in the pas t. PAST MEDICAL HISTORY: Includes chronic atrial fibrillation in which she has been treated with sotalo l as well as warfarin. She suffers from hypertension and diabetes mellitus. The patient has chronic dementia. She is status post coronary artery bypass surgery. SOCIAL HISTORY AND REVIEW OF SYSTEMS: Unavailable. PHYSICAL EXAMINATION: VITAL SIGNS: Blood pressure 145/67, heart rate is in the 70s, normal sinus rhythm. NECK: Negative JVD. LUNGS: ____. HEART: A III/ systolic ejection murmur at the base as well as in the apex. EXTREMITIES: Without edema. NEUROLOGIC: The patient is confused with decreased memory. EKG shows atrial fibrillation with nonspecific ST-T changes. LABORATORY DATA: Hemoglobin is 12.2. Chemistries: The BUN and creatinine are unremarkable. Glucos e is 159. Troponins are negative x 1. Her PT/INR is 1.05. IMPRESSION: 1. Paroxysmal atrial fibrillation which the patient is now back in normal sinus rhythm. 2. History of coronary artery bypass surgery. 3. Coronary artery disease. 4. Diabetes mellitus. 5. Hypertension. 6. Hypercholesterolemia. Given these findings, we will restart her sotalol. We will continue her Lovenox until her warfarin b rings her INR back to therapeutic levels. Will order an echocardiogram. Kyree Goins MD cc: [id number] TT: 07/07/2016 10:00:17 Confirmation # [id number] Dictation # [id number] mn
[2016-07-07] MEDS: Insulin Reg-LOW-Coverage SC SCH ×3 (11:50→21:52)
--- NOTE | 2016-07-07 18:04 | CARD ---
APPROVED REPORT EXAM: Two-dimensional and M-mode echocardiogram with Doppler and color Doppler. INDICATION Atrial Fibrillation 2D DIMENSIONS IVSd1.3 (0.7-1.1cm)LVDd3.9 (3.9-5.9cm) PWd1.2 (0.7-1.1cm)LVDs2.5 (2.5-4.0cm) FS (%) 36.3 %LVEF (%)66.7 (>50%) M-Mode DIMENSIONS Aortic Root2.70 (2.2-3.7cm)Aortic Cusp Exc.0.80 (1.5-2.0cm) Aortic Valve AoV Peak Cyditcng018.0cm/sAoV VTI43.7cmAO Peak GR.18mmHg LVOT Peak Udqkeqvm358.0cm/sLVOT VTI26.00cmAO Mean GR.9mmHg Mitral Valve MV E Xfykpjux585.0cm/sMV A Nvmkuakx254.0cm/sMV VKQ553lv E/A ratio1.1MVA (PHT)2.06cm2 TDI Lateral E' Peak V7.21cm/sMedial E' Peak V4.19cm/sE/Lateral E'18.6 E/Medial E'32.0 Pulmonary Valve PV Peak Czwunbsj05.5cm/sPV Peak Grad.2mmHg Tricuspid Valve TR Peak Uptxagli483md/sRAP TZHOUIDV97xaZvZL Peak Gr.15mmHg [id number] LEFT VENTRICLE The left ventricle is normal size. There is mild concentric left ventricular hypertrophy. The left ventricular function is normal. The left ventricular ejection fraction is within the normal range. There is normal LV segmental wall motion. Transmitral Doppler flow pattern is Grade I-abnormal relaxation pattern. RIGHT VENTRICLE The right ventricle is normal size. There is normal right ventricular wall thickness. The right ventricular systolic function is normal. ATRIA The left atrium size is normal. The right atrium size is normal. AORTIC VALVE The aortic valve is mildly calcified. There is mild valvular aortic stenosis. MITRAL VALVE The mitral valve is moderately thickened. TRICUSPID VALVE There is no pulmonary hypertension. GREAT VESSELS The aortic root displays moderate sclerocalcific changes of the aortic root. <Conclusion> The left ventricle is normal size. There is mild concentric left ventricular hypertrophy. The left ventricular function is normal. The left ventricular ejection fraction is within the normal range. Transmitral Doppler flow pattern is Grade I-abnormal relaxation pattern. The aortic valve is mildly calcified. There is mild valvular aortic stenosis.
--- NOTE | 2016-07-07 21:23 | PN ---
DATE: 07/07/2016 REFERRING PHYSICIAN: Dr. Najera. SUBJECTIVE: She is sitting up in a bed. Still on Cardizem, AFib with rapid ventricular respon se. No nausea, no vomiting, diarrhea. No leg pain or leg swelling. OBJECTIVE: GENERAL: No acute distress. VITAL SIGNS: Temperature is 98, heart rate is 73, respiratory rate is 20, blood pressure 169/80, pul se ox 100% on nasal cannula. HEENT: Moist mucous membrane. No ulcer or thrush noted. NECK: Supple. No JVD. LUNGS: Has a fair airflow with few rhonchi. HEART: S1 and S2. Irregular and tachycardic. ABDOMEN: Soft, nontender. No organomegaly. EXTREMITIES: No edema. NEUROLOGIC: Awake, alert, follows simple command. MEDICATIONS: She is on sotalol 80 mg twice a day, Coumadin 5 mg given, Cozaar 100 mg daily, insulin coverage, Lovenox 60 mg q. 12 hours, Protonix 40 mg daily, IV fluid normal saline 100 mL per hour. LABORATORY DATA: Shows hemoglobin 12.2, hematocrit 35.4, WBC 9.7, platelet is 211. INR 1.05. Sodiu m 140, potassium 3.5, chloride 105, bicarbonate 26, BUN 20, creatinine 0.6, glucose 159, calcium 8.6, AST 24, ALT 35, alkaline phosphatase is 53, albumin is 3.3. Procalcitonin 0.05. MICROBIOLOGY: Blood culture, urine culture and nasal is unremarkable. Had echocardiogram done today , which shows the left ventricle is normal size, there is mild concentric left ventricular hypertroph y, left ventricular function is normal, aortic valve is mildly calcified, mild valvular aortic sclero sis, right ventricular systolic pressure is 25. IMPRESSION AND PLAN: Atrial fibrillation with rapid ventricular response, chronic obstructive lung d isease, interstitial infiltrate, has abdominal mass?, Alzheimer type dementia, hypertension, diabetes . Case discussed with bottle washing machine operator. I also spoke to nursing staff. The patient seen by cardiology a nd placed back on sotalol, Cardizem . Pulmonary point of view, she is doing okay, but needs fol lowup x-ray to assure the stability of chest x-ray, aspiration precaution, gastric prophylaxis, GI fo llowup. Thank you and will follow with you. Mynor Ames MD cc: [id number] TT: 07/07/2016 21:23:14 Confirmation # [id number] Dictation # [id number] mn
--- NOTE | 2016-07-08 00:29 | PN ---
DATE: 07/07/2016 SUBJECTIVE: This patient was seen and evaluated earlier today. I spoke with the firebrick layer helper. This 85-year-old patient admitted with change of mental status, atrial fibrillation with rapid ventricular response. The patient is still on Cardizem drip. PHYSICAL EXAMINATION: VITAL SIGNS: Afebrile. Blood pressure is 169/80, O2 sat is 90%, afebrile, heart rate is 73. HEENT: Atraumatic, anicteric. NECK: Supple. HEART: S1, S2 heard, irregular, tachycardic. LUNGS: Bilateral air entry present, occasional rhonchi present. EXTREMITIES: No edema, no cyanosis. NEUROLOGIC: Alert, confused. ABDOMEN: Soft. LABORATORY DATA: Hemoglobin 12.2, hematocrit 35.4, WBC is 9.7, and platelets 211. Chemistry shows L FTs are essentially unremarkable. IMPRESSION: This 85-year-old patient admitted with a change in mental status. The patient is on IV heparin, the patient atrial fibrillation, history of coronary artery disease status CABG, diabe matthew mellitus, hypertension. The patient was found to have a calcified lesion in the mesenteric root. It appears to be present even in the CAT scans done more than 2 years ago. Awaiting for the radiol ogy official addendum report. Continue the present treatment. Thank you very much for allowing us to participate in the care of the patient. Reviewed with the rad iologist. Gillian Cardona MD cc: [id number] TT: 07/08/2016 00:29:05 Confirmation # [id number] Dictation # [id number] mn
[2016-07-08 07:01] LABS: ADD MANUAL DIFF? NO
[2016-07-08 07:46] LABS: BASO # 0.05 K/mm3 (0.0-2.0); BASO % 0.6 % (0.0-3.0); EOS # 0.5 (0.0-0.7); EOS % 5.3 % (1.5-5.0); GRAN # 5.44 (1.4-6.5); GRAN % 62.7 % (50.0-68.0); HEMATOCRIT 36.1 % (36.0-48.0); LYMPH # 1.8 (1.2-3.4); LYMPH % 20.2 % (22.0-35.0); MEAN CELL VOLUME 90.7 fL (80.0-105.0); MEAN CORPUSCULAR HEMOGLOBIN 30.7 pg (25.0-35.0); MEAN CORPUSCULAR HGB CONC 33.8 g/dl (31.0-37.0); MEAN PLATELET VOLUME 10.5 fl (7.0-11.0); MONO % 11.2 % (1.0-6.0); PLATELET COUNT 238 10^3/uL (120.0-450.0); RED CELL DISTRIBUTION WIDTH 12.7 % (11.5-14.5); WHITE BLOOD COUNT 8.7 10^3/ul (4.5-11.0)
[2016-07-08 07:55] LABS: ALB/GLOB RATIO 1.1 (1.1-1.8); ALKALINE PHOSPHATASE 62 U/L (38-133); ALT/SGPT 48 U/L (7-56); AST/SGOT 50 U/L (15-39); BILIRUBIN,TOTAL 0.6 mg/dL (0.2-1.3); BLOOD UREA NITROGEN 15 mg/dL (7-21); CALCIUM 8.9 mg/dL (8.4-10.5); CARBON DIOXIDE 28 mmol/L (21-33); CHLORIDE 103 mmol/L (95-110); GFR AFRICAN-AMERICAN > 60; GLUCOSE,RANDOM 150 mg/dL (70-110); POTASSIUM 3.6 mmol/L (3.6-5.0); SODIUM 140 mmol/L (132-148); TOTAL PROTEIN 6.6 g/dL (5.8-8.3)
--- NOTE | 2016-07-08 08:34 | HP ---
CHIEF COMPLAINT: Altered mental status. HISTORY OF PRESENT ILLNESS: The patient is an 85-year-old, my private patient, came to the Emergency Room Department stating that she is seeing things and hearing things that are not there. The patient stated that she has had these symptoms for at least a few weeks. No relieving or exacerbating factors. The patient states that her hallucinations are not command and she denies any suicidal or homicidal ideation. The patient is actually a very educated lady. She is a middle school art teacher and she knows what she is talking, but she is hearing voices and seeing things. The patient is alert to name, does not know the location or the date at the time of admission, but today, she knows the location , but she does not know the date. We admitted the patient in the unit. diffrent consult called, getting treatment. The patient is improving very slowly. PAST MEDICAL HISTORY: Hypertension, cardiac disease, COPD, cerebrovascular accident, diabetes mellitus type 2, history of breast cancer, status post left mastectomy, poor appetite, history of open heart surgery, radical mastectomy. FAMILY HISTORY: Father and mother noncontributory. She has only 1 brother and that brother has 1 daughter , her niece. Otherwise, she does not have any other relatives. HABITS: No smoking, no drugs, no ethanol. ALLERGIES: THE PATIENT IS ALLERGIC WITH FISH AND SULFA. REVIEW OF SYSTEMS: The patient is seen and examined on the bedside today in the unit, looks a little bit comfortable. No nausea, vomiting, diarrhea. Does not look like toxic. No hematuria, no hematochezia. No swelling of the legs. No headache, no dizziness. PHYSICAL EXAMINATION: VITAL SIGNS: Temperature 98.5, pulse 73, blood pressure 172/72, respiratory rate 16. HEENT: Head normocephalic, atraumatic. Eyes: PERRLA. Extraocular muscles intact. Conjunctivae pink. Eyelids unremarkable. Nose patent. NECK: Supple. No carotid bruit, no JVD, no thyromegaly. CHEST: Bilaterally symmetrical. HEART: S1, S2 positive. LUNGS: Clear to auscultation. ABDOMEN: Soft. Bowel sounds positive. No organomegaly. EXTREMITIES: No edema, no cyanosis. NEUROLOGIC: The patient is awake, alert, getting episodes of confusion, moving all 4 extremities. Cranial nerves II-XII grossly intact. LABORATORIES: White blood cells 9.7, on admission it was 12.3, hemoglobin 12.2 , hematocrit 35.4, platelets 211. Sodium 140, potassium 3.5, BUN 20, creatinine 0.6. Glucose 204, 182, 370, 159. ASSESSMENT AND PLAN: The patient is an 85-year-old lady with history of leukocytosis, got better, hypokalemia, replaced, uncontrolled diabetes mellitus , INR is low, has proteinuria, glucosuria, hematuria, urinary tract infection. Seen by Dr. Ames, Dr. Kyree Goins and Dr. Cardona. History of atrial fibrillation with rapid ventricular response, noncompliant with Coumadin. According to her, Coumadin is giving her hallucinations and delusions. Chronic obstructive lung disease, interstitial infiltrates, has abdominal mass, advanced dementia, hypertension. The patient is in ICU. The patient is put back on sotalol by the lamp wirer and Cardizem. Rule out aspiration pneumonia. Gastric prophylaxis. The patient is partially deaf. Reviewed Dr. Cardona's notes also. CAT scan of the chest done. CAT scan of the abdomen and pelvis done, 4 cm calcified mass in the , which is nonspecific, carcinoid tumor is not to be excluded. Discussion done with patient's nurse. Called psych consult and according to patient, her lamp wirer is Dr. Alex. She wants to see Dr. Alex. We canceled consult with Dr. Kyree Goins, put consult with Dr. Alex. Spoke to patient's niece, phone number [phone] or . According to shaggy , she is power of employment attorney for the patient. Length of time discussion done and looks like patient is not able to live alone by herself. We will try to get rehab as soon as she will get better. Otherwise , gastrointestinal and deep venous thrombosis prophylaxis. Repeat labs. We will follow up. Diana Najera MD cc: [id number] TT: 07/08/2016 08:33:59 en MTDD
[2016-07-08] MEDS: Insulin Reg-LOW-Coverage SC SCH ×4 (10:18→21:30)
[2016-07-08] MEDS: Enoxaparin 60 mg Syringe SC SCH ×2 (10:19→21:38)
[2016-07-08] MEDS: Pantoprazole 40 mg EC Tab PO SCH (10:20)
[2016-07-08] MEDS ORDERED: POLYETHYLENE GLYCOL 3350 17 GM/Dose PACKET PO ONE (13:04)
--- NOTE | 2016-07-08 13:33 | PN ---
DATE: 07/08/2016 The patient is in a chair, awake, alert, confused, but without distress. PHYSICAL EXAMINATION: VITAL SIGNS: Blood pressure is 138/86. The heart rate is approximately 100. NECK: Negative JVD. LUNGS: Without rales. HEART: Reveals S1, S2 with a II/ systolic ejection murmur. EXTREMITIES: Without edema. LABORATORY DATA: The glucose is 150. Hemoglobin is 12.2. Echocardiogram reveals good LV function. Mild aortic sclerosis is noted. IMPRESSION: 1. Paroxysmal atrial fibrillation. The patient is tolerating sotalol. 2. History of coronary artery bypass surgery. 3. Coronary artery disease. 4. Diabetes mellitus. 5. Hypertension. 6. Dementia. PLAN: Given these findings, we will discontinue telemetry. We will keep her on the sotalol. Her IN R is at 1.05 and the patient is currently on Coumadin with adjusting PT/INR. Kyree Goins MD cc: [id number] TT: 07/08/2016 13:33:41 Confirmation # [id number] Dictation # [id number] sn
--- NOTE | 2016-07-08 13:45 | PN ---
DATE: 07/08/2016 Seen and examined at the bedside earlier today. The patient just finished the breakfast. No complai nts of nausea, vomiting or abdominal pain. She is not sure when she last had a bowel movement. No a cute overnight events were reported except that earlier today she was having increase in heart rate. VITAL SIGNS: Temperature is 97.8, blood pressure is 138/86, heart rate is 120, respirations 20, 100% on room air. LABORATORIES: WBC 8.7, H and H is 12.2 and 36.1, platelets of 238. Chem: Sodium 140, K 3.6, BUN 15 , creatinine 0.6. Total bilirubin is 0.6, AST 50, ALT 48, alkaline phosphatase is 62. PHYSICAL EXAMINATION: HEENT: Sclerae anicteric. NECK: Supple. CARDIAC: S1, S2. LUNG SOUNDS: With decreased breath sounds, but good air entry, occasional rhonchi, no wheezing. ABDOMEN: With bowel sounds, soft, softly distended, nontender on palpation. ASSESSMENT: An 85-year-old female, came with change in mental status. The patient was having atrial fibrillation with rapid ventricular response. She has history of coronary artery disease status pos t coronary artery bypass graft, found to have an abnormal CT scan reporting calcified lesion in the m esenteric root, although it appears that the patient's previous CAT scan 2 years ago reported this fi nding. PLAN: We will give patient a dose of MiraLax. She has not had a bowel movement in the past 2 or 3 d ays. She is tolerating her heart healthy diet. We will continue Protonix. She is on Coumadin as we ll as on Lovenox. She is also getting sotalol b.i.d. Continue to follow. The patient was seen and case discussed with Dr. Cardona. Bernice REYNOLDS cc: [id number] TT: 07/08/2016 13:44:38 Confirmation # [id number] Dictation # [id number] en
--- NOTE | 2016-07-08 16:46 | CON ---
DATE: 07/08/2016 HISTORY OF PRESENT ILLNESS: Shortly, patient is an 85-year-old female with history of mult iple medical issues. Also, patient has history of depression and history of admissions to the psychi atric inpatient unit. Most recent was in 02/2015 for depression. This comic book writer is very familiar with this patient from the previous admission on the medical floor. This comic book writer was a [employer] consultant. The pa gary has history of delirium and change in mental status. Also, patient has history of visual hallu cinations and auditory hallucinations and paranoid ideations. The patient was convinced that it was related to Coumadin what she was taking before, as per previous record. The patient was seen and examined today. The patient remembered this comic book writer, but does not remember t his comic book writer's name. The patient said that she is not sure why she is in the hospital, but reported th at she was seeing a dog in her apartment, that is why she called 911. The patient reported that she was no dogs and she was concerned about dog to be in her apartment. As per medical team notes, annabelle vazquez also reported that she had impression that everybody was laughing at her. At present moment, shelley mujica denied any hallucinations, last time was last Thursday, but patient is poor, unreliable historian. The patient has episodes of confusion and hallucinations. VITAL SIGNS: This comic book writer reviewed vital signs. Vital signs are stable. Temperature 98.1, pulse is 64, blood pressure 132/72, respirations 20. MEDICATIONS: Reviewed. The patient is on Lovenox, Humulin, Cozaar, Protonix. Seroquel will be resu med 12.5 mg at the nighttime. The patient responded well to that dose. The patient is also on sodiu m chloride, sotalol, Coumadin. LABORATORY DATA: The patient's labs also reviewed. Seem to be stable at the time of admission. The patient had leukocytosis, but not now. Chemistry also reviewed. Urinalysis showed blood trace. MENTAL STATUS EXAMINATION: The patient appears to be alert, knows that she is in the hospital, does not know what is the date. Intermittent eye contact. The patient described her mood to be fine. Af fect was irritable and annoyed by this comic book writer. Thought process was circumstantial. Thought content: The patient has hallucinations, delusions and paranoia. The patient denied thoughts of harming her self or others, denied intent or plan. Insight and judgment are limited. Impulses are well controll ed at the present moment. IMPRESSION: The patient has multiple medical issues including leukocytosis, noncompliance with the C oumadin because patient's impression is that Coumadin is giving her hallucinations. The patient has electrolyte imbalance. The patient has diabetes. The patient also has urinary tract infection. The patient also has history of atrial fibrillation with rapid ventricular response. The patient ____ i s in ICU. PLAN: This comic book writer reviewed previous record. The patient responded on smaller dose of Seroquel. It will be resumed 12.5 mg at the nighttime to clear delirium stage. Collateral information needs to be obtained from the family. We will definitely do so. As per record, patient's niece has power of at torney for the patient. We are planning to give a call to her tomorrow, or [phone] . Meanwhile, continue current management. This comic book writer cannot exclude after medical issues will be a ddressed, patient will start feeling better and hallucinations will be subsided. Of note, visual briseyda lucinations more related to either neurological problems, Lewy body dementia or delirium stage. Plea se consider to call neurology consult. Case will be discussed with Dr. Najera. Thank you very much for letting me participate in care of your patient. Breanne Eckert MD cc: [id number] TT: 07/08/2016 16:45:45 Confirmation # [id number] Dictation # [id number] sn
--- NOTE | 2016-07-08 22:02 | PN ---
DATE: 07/08/2016 SUBJECTIVE: The patient was seen and examined in the unit. Looks comfortable, but a little bit conf used. Tracy, friend, was on the bedside also. The patient pulled her IV line and was not letting n isabellae staff to do another line. Education done. No nausea, vomiting, or diarrhea. No fever, no chil ls. No headache, no dizziness. PHYSICAL EXAMINATION: VITAL SIGNS: Temperature 98.1, pulse 64, respiratory rate 20, blood pressure 132/72. HEAD: Normocephalic, atraumatic. Eyes: PERRLA. Extraocular movements intact. Conjunctivae clear. Eyelids unremarkable. NOSE: Isaacs nt. Mucous membranes moist. NECK: Supple. No carotid bruit, JVD or thyromegaly. CHEST: Bilaterally symmetrical. HEART: S1, S2 positive. LUNGS: Clear to auscultation. ABDOMEN: Soft. Bowel sounds present. No organomegaly. EXTREMITIES: No edema, no cyanosis. NEUROLOGIC: The patient is awake, moving all 4 extremities, but is confused. MEDICATIONS: Sotalol, Coumadin, losartan, Lovenox, MiraLax, Seroquel, NS. LABORATORY DATA: White blood cells 8.7, hemoglobin 12.2, hematocrit 36.1, platelets 238. Sodium 140 , potassium 3.4, BUN 15, creatinine 0.6, glucose 264, AST 50. ASSESSMENT AND PLAN: The patient is an 85-year-old lady with uncontrolled diabetes mellitus, abnorma l liver function tests, history of leukocytosis, improved. INR is low at 1.05, so she is getting Alexia enox with her Coumadin. The patient was not taking Coumadin at home, given she has atrial fibrillati on, but according to her, Coumadin is bringing hallucinations and delusions. Proteinuria, glucosuria , ketonuria, hematuria, urinary tract infection. RPR nonreactive. Seen by Dr. Breanne Eckert, psy chiatrist, because of her delusions and hallucinations, and seen by GI. Still has change in mental s tatus. History of coronary artery disease, status post coronary artery stents, bypass graft. Found that abnormal CAT scan, calcified lesion in the mesenteric root, although it appears that the patient 's previous CAT scan 2 years ago reported this finding. Gastrointestinal gave patient MiraLax becaus e we are not sure about patient's bowel movement. Continue heart healthy diet. Continue Protonix, Co umadin, Lovenox, getting sotalol. Length of time discussion done with Dr. Ames and the patient's b est friend, Tracy, and planning to send patient to [facility] for rehabilitation. Meanwhile, continu e present treatment. Repeat labs. We will follow up. Diana Najera MD cc: [id number] TT: 07/08/2016 22:01:36 Confirmation # [id number] Dictation # [id number] brook
--- NOTE | 2016-07-09 02:48 | PN ---
DATE: 07/08/2016 REFERRING PHYSICIAN: Dr. Najera. SUBJECTIVE: The patient is lying in the bed, friend is at bedside, nursing staff at bedside, head at 45 degrees, feels much better. No headaches, no rhinitis, no shortness of breath, no nausea, no vom iting, diarrhea. No leg pain or leg swelling. Refusing to get IV, refused medication this morning. OBJECTIVE: GENERAL: No acute distress. VITAL SIGNS: Temp is 98, heart rate is 72, respiratory rate is 20, blood pressure 132/72, pulse ox 9 9% nasal cannula. HEENT: Moist mucous membranes. Small oral cavity. NECK: Supple. No JVD. LUNGS: Has a few scattered rhonchi. HEART: Irregularly irregular. ABDOMEN: Soft, nontender. No organomegaly. EXTREMITIES: There is no edema. NEUROLOGIC: Awake, alert, follows simple commands. MEDICATIONS: She is on Sotalol 80 mg twice a day, Coumadin 5 mg given today, Cozaar 100 mg daily, in sulin coverage, Lovenox 60 mg subQ q. 12 hours, Protonix 40 mg daily, Seroquel 12.5 mg at bedtime, IV fluid normal saline 100 mL per hour. LABORATORY DATA: Shows hemoglobin 12.2, hematocrit 36.1, WBC 8.7, platelet is 238. Sodium 140, pota ssium 3.6, chloride 103, bicarbonate 28, BUN 15, creatinine 0.6, glucose 150, calcium is 8.9. AST 50 , ALT 48, alkaline phosphatase is 62, albumin is 3.5. IMPRESSION AND PLAN: Atrial fibrillation with rapid ventricular response, which is much improved, st arted Sotalol, chronic obstructive lung disease, interstitial infiltrates. Abdominal muscles , dementia, hypertension, diabetes. Case discussed with Dr. Najera, also spoke to friend at bedside. Aspiration precaution. Keep head at 45 degrees. She has some interstitial infiltrate on x-ray. Marilin gs improved, need followup x-ray to assure the stability of her interstitial infiltrates. Fall preca utions. Thank you and will follow with you. Mynor Ames MD cc: [id number] TT: 07/09/2016 02:48:17 Confirmation # [id number] Dictation # [id number] mn
--- NOTE | 2016-07-09 05:37 | PN ---
DATE: 07/08/2016 ADDENDUM This is an addendum to the GI progress report dictated by Bernice Albright NP. The patient was seen and evaluated earlier today, tolerating the diet. PHYSICAL EXAMINATION: ABDOMEN: Soft. There is no tenderness. This 85-year-old with a past medical history of diabetes mellitus, admitted with AFib with rapid vent ricular response, history of dementia, was also found to calcification at the mesenteric root. This lesion appears to be stable. The patient does have only mildly elevated transaminase. We will nava nue to follow. Thank you very much for allowing us to participate in the care of the patient. Gillian Cardona MD cc: [id number] TT: 07/09/2016 05:36:35 Confirmation # [id number] Dictation # [id number] tn
[2016-07-09] MEDS: Pantoprazole 40 mg EC Tab PO SCH (05:48)
[2016-07-09] MEDS: Insulin Reg-LOW-Coverage SC SCH ×4 (07:47→22:25)
[2016-07-09] MEDS: Sodium Chloride 0.9% 1,000 ML IV SCH (09:51)
[2016-07-09] MEDS: Enoxaparin 60 mg Syringe SC SCH ×2 (09:51→22:30)
[2016-07-09] MEDS ORDERED: POLYETHYLENE GLYCOL 3350 17 GM/Dose PACKET PO ONE (11:07)
[2016-07-09] MEDS: POLYETHYLENE GLYCOL 3350 17 GM/Dose PACKET PO SCH (11:42)
--- NOTE | 2016-07-09 11:57 | PN ---
DATE: 07/09/2016 GI FOLLOWUP NOTE Seen and examined at the bedside this morning. The patient was reported to have episodes of confusion last night, but no reports of nausea or vomiting. The patient denies abdominal pain. The patient was unaware of last bowel movement, was given a dose of MiraLax yesterday, and no reports of BM according to nursing staff, although the patient is tolerating oral intake. VITAL SIGNS: Temperature 98.6. Blood pressure is 154/87, pulse 81, respirations 20. LABORATORY DATA: Labs noted were reviewed, and only noted to have POC glucose at 142. PHYSICAL EXAMINATION: HEENT: Sclerae are anicteric. NECK: Supple. CARDIAC: S1, S2. LUNGS: Decreased breath sounds, but good air entry. No rales or wheeze. ABDOMEN: With bowel sounds, soft, nontender on palpation. No rebound or guarding. ASSESSMENT: This is an 85-year-old female with history of diabetes mellitus, admitted with atrial fibrillation with rapid ventricular response. She has a history of dementia and was found to have abnormal CT scan showing calcification at the mesentery ____, although this lesion appears to be stable, as it appears that the patient had a previous CAT scan done more than 2 years ago with this present. The patient was also noted to have mildly elevated LFTs. The patient will continue diet, also continue GI prophylaxis. She is on Protonix. The patient is also on Lovenox, and is also on Coumadin although the patient refused last night's dose. We will start the patient on MiraLax daily, hold for any loose stools. The patient is pending results on 5-HIAA 24-hour urine, rule out any carcinoid tumor. As per medical team, the patient was seen and case discussed with Dr. Cardona. Bernice REYNOLDS cc: [id number] TT: 07/09/2016 11:57:00 Confirmation # [id number] Dictation # [id number] jn MARCELINA
--- NOTE | 2016-07-09 14:50 | PN ---
DATE: 07/09/2016 Shortly, the patient is an 85-year-old female with history of multiple medical issues. The patient also has history of mental illness, depression, history of delirium and psychosis. The shelley ent has history of being admitted to the psychiatric inpatient unit. Most recent was in 2014. The althea malin was admitted on the medical floor for evaluation of change in mental status. The patient was seeing dogs in her house, but apparently the patient does not have any dogs in the house. The khushbu canas also had A-fib and electrolyte imbalance and possible urinary tract infection. Psych consult was trudy alfonso for evaluation of change in mental status and hallucinations. Please see this insurance underwriter sales's initial note for more detailed information. The patient was followed up today. The patient is argumentativ e, was refusing to have IV line place. The patient also is not taking psychotropic medications. The patient does not have any agitation, but the patient is very hard to deal with. From this insurance underwriter sales's perspective evaluation, the patient is still psychotic. The patient said "You are not real, why shoberto garcia I talk to you?" This insurance underwriter sales asked why, the patient feels that this insurance underwriter sales is not real. The patie nt said "you're wearing mask, I don't know you, what is your name?" The patient is acutely psychotic and thought process is disorganized. The patient feels paranoid. This insurance underwriter sales educated patient abou t Seroquel and the patient had good response to that medication before. The patient said "I'm not ta flex it." Besides that, the patient refused to talk further and this insurance underwriter sales repeats herself. The hitesh vega is delirious and psychotic. This insurance underwriter sales reviewed vital signs. Vital signs seem to be stable. Temperature is 98.1, pulse is 81, blood pressure 164/87, respirations 20. MEDICATIONS: Reviewed. Lovenox, Humulin, Cozaar, Protonix, MiraLax, Seroquel 12.5 mg at the nightti me was prescribed, but patient refused to take it. This insurance underwriter sales also will implement Risperdal liquid form as needed for agitation. LABORATORY DATA: Reviewed. Seems to be no leukocytosis. Chemistry also reviewed. AST is 50. Urin alysis: Some blood in there. RPR is negative. Reports reviewed, manager of information, Dr. Ames, GI team as well as Dr. Najera, as well as station cleaning porter reports reviewed. MENTAL STATUS EXAMINATION: The patient appears to be alert. The patient has intense eye contact. S peech was underproductive, low volume, slow. Mood described "I'm fine." Affect was flat. Thought p rocess is disorganized. Thought content: The patient is acutely psychotic. The patient feels that this insurance underwriter sales is not real as well as this insurance underwriter sales ____ and wears masks. This insurance underwriter sales obviously was not w earing any mask. The patient's insight and judgment are very limited. Impulses are well controlled so far, but as per medical team note, the patient was not sleeping, was refusing to be transferred fr ICU to the medical floor and watching TV in standing position for 5 hours. IMPRESSION: Most likely, the patient is in delirium stage. This insurance underwriter sales is not sure if the patient h as history of dementia. The patient had visual hallucinations prior to coming to the hospital. The patient was seeing dogs. Also at present moment, the patient had impression that this insurance underwriter sales wears m ask and this insurance underwriter sales is not real. The patient appeared acutely psychotic. These symptoms more relate d to the neurological problems versus to delirium stage. The patient also has multiple medical issue s which could affect patient's mental status, including possible urinary tract infection, electrolyte imbalance, atrial fibrillation which is improving and also the patient has proteinuria, glucosuria. The patient has coronary artery disease. Please see medical team notes for more detailed informatio n. PLAN: This insurance underwriter sales tried to educate patient about the treatment plan, about medications and risks, be nefits and alternatives were explained, but patient refused to be on Seroquel. This insurance underwriter sales will cont inue the same medication because patient responded well on that medication and also patient will slee p better. In case of acute psychosis and in case of agitation, the patient would benefit from liquid form of Risperdal. The patient is in behavioral control and does not have any aggression or agitati on. From the medical standpoint, the patient might be going to [facility]. There is no objection over that, but the patient needs to be seen by a psychiatrist in the correction within 1 week after transfer. Medications should be continued. This insurance underwriter sales will be monitoring the patient cl osely and advise accordingly. Thank you very much for letting me participate in care of the patient. Should you have any questions , give me a call back. Breanne Eckert MD cc: [id number] TT: 07/09/2016 14:49:00 Confirmation # [id number] Dictation # [id number] tn
--- NOTE | 2016-07-09 15:05 | PN ---
DATE: 07/09/2016 SUBJECTIVE: The patient is confused and refuses IV and IV insertion. The patient was evaluated by althea feliz. PHYSICAL EXAMINATION: VITAL SIGNS: Blood pressure 164/87, heart rate in the 80s. NECK: Negative JVD. LUNGS: Without rales. HEART: Revealed S1, S2. EXTREMITIES: Without edema. LABORATORY DATA: Hemoglobin is 12.2. Chemistries: Glucose is 150. IMPRESSION: 1. Confusion with questionable dementia. 2. Stable angina. 3. Coronary artery disease. 4. History of coronary artery bypass surgery. 5. Paroxysmal atrial fibrillation, on sotalol. 6. Diabetes mellitus. 7. Hypertension. PLAN: Given these findings, I would stop her IV fluids given that the patient is taking p.o. well ac cording to the nurses. No further cardiac workup is necessary. Kyree Goins MD cc: [id number] TT: 07/09/2016 15:04:51 Confirmation # [id number] Dictation # [id number] jenny
--- NOTE | 2016-07-09 15:52 | PN ---
DATE: 07/09/2016 REFERRING PHYSICIAN: Dr. Najera She is sitting up in the bed, having lunch. Night was unremarkable. No headache, no rhinitis. No n ausea, vomiting, diarrhea, leg pain or leg swelling. OBJECTIVE: GENERAL: No acute distress. VITAL SIGNS: Temp is 98, heart rate is 81, respiratory rate is 20, blood pressure 164/87. HEENT: Moist mucous membrane. No ulcer or oral thrush noted. NECK: Supple. No JVD. LUNGS: A few crackles. HEART: Irregularly irregular. ABDOMEN: Soft, nontender. No organomegaly. EXTREMITIES: There is no edema. NEUROLOGIC: Awake, alert, follows simple command. MEDICATIONS: She is on Betapace 80 mg twice a day, Coumadin 5 mg, was not given yesterday; Cozaar 10 0 mg daily, insulin coverage, Lovenox 60 mg subQ twice a day, MiraLax 17 grams daily, Protonix 40 mg daily, Risperdal 0.5 mg twice a day p.r.n., Seroquel 12.5 mg at bedtime, IV fluid normal saline 100 m L per hour. LABORATORY DATA: Shows blood sugar 303. IMPRESSION AND PLAN: Atrial fibrillation with rapid ventricular response, now has a controlled rate since she is on sotalol; chronic obstructive lung disease and interstitial infiltrate, abdominal calc ified mass, hypertension, diabetes, may have Alzheimer type dementia. Pulmonary point of view, she i s doing well. Will continue present care. Keep head elevated at 45 degree. Aspiration precaution. Need to convert to Coumadin, but I believe patient is noncompliant, does not take it. If that is th e case, maybe she can be kept on Lovenox and sent to subacute facility. Out of bed to chair if possi ble. Fall precautions. Thank you and we will follow with you. Mynor Ames MD cc: [id number] TT: 07/09/2016 15:52:01 Confirmation # [id number] Dictation # [id number] sn
[2016-07-09 19:10] VITALS: TEMP 98.6
--- NOTE | 2016-07-09 21:53 | PN ---
DATE: 07/09/2016 ADDENDUM This is an addendum to the GI progress report dictated by Bernice Albright NP. The patient is comfortable, tolerating the diet, more alert now. PHYSICAL EXAMINATION: ABDOMEN: Soft. There is no tenderness. Denies any abdominal complaints. The CT scan findings compared to the old CT root of the mesentery calcification. The calcifica tion appears stable. Would not contemplate any further GI workup, at this time for this 85-year-old patient with multiple other comorbidities. Thank you very much for allowing us to participate in the care of the patient. Gillian Cardona MD cc: [id number] TT: 07/09/2016 21:52:54 Confirmation # [id number] Dictation # [id number] tn
--- NOTE | 2016-07-09 23:54 | PN ---
DATE: 07/09/2016 SUBJECTIVE: The patient was seen and examined on the bedside, looks comfortable. Her friend, Ivonne, was standing on the bedside, but the patient sent her outside because she needed privacy to talk to me, and she was asking about her mental status and she was asking me why she came into the hospital. Sitting comfortable. Night was unremarkable. No fever, no chills, no nausea, vomiting, or diarrhea. No hematuria or hematochezia. Looks like fully awake and alert at this moment. PHYSICAL EXAMINATION: VITAL SIGNS: Temperature 98, heart rate 81, respiratory rate 20, blood pressure 164/87, and pulse oximeter noted HEENT: Normocephalic, atraumatic. Extraocular muscles intact. Conjunctivae are clear. Nose patent. Mucous membranes moist. NECK: Supple. No carotid bruit, JVD or thyromegaly. CHEST: Bilaterally symmetrical. HEART: S1, S2 positive. LUNGS: Clear to auscultation. ABDOMEN: Soft. Bowel sounds present. No organomegaly. EXTREMITIES: No edema, no cyanosis. NEUROLOGIC: The patient is awake, alert, moving all 4 extremities. No focal deficits. MEDICATIONS: Betapace, Coumadin, Cozaar, insulin coverage, Lovenox, MiraLax, Protonix, risperidone, Seroquel, LABORATORY DATA: We do not have recent labs today, but I reviewed old labs. ASSESSMENT AND PLAN: The patient is an 85-year-old female with atrial fibrillation with rapid ventricular response, now is controlled since she is started on sotalol. Asthma, COPD, interstitial infiltrates, abdominal calcified mass, hypertension, diabetes mellitus, dementia Alzheimer type, noncompliant, having a history of depression, sometimes having hallucinations and delusions. Aspiration precautions. The patient needs subacute rehabilitation. I reviewed Dr. Ames's notes. I reviewed Dr. Cardona's notes also. The patient's CAT scan shows that at the mesenteric root there is calcified lesion that looks like it is stable. Do not need any further workup as per Dr. Cardona. Seen by registered route associate, Dr. Kyree Goins's; stable angina, coronary artery disease, history of coronary artery bypass graft. Given these findings, we will stop IV fluid. The patient is taking everything p.o. Physical therapy, subacute rehabilitation. We will follow up. Diana Najera MD cc: [id number] TT: 07/09/2016 23:53:12 Confirmation # [id number] Dictation # [id number] mn MTDD
[2016-07-10] MEDS: Pantoprazole 40 mg EC Tab PO SCH (06:08)
[2016-07-10 07:22] LABS: HEMATOCRIT 35.8 % (36.0-48.0); MEAN CELL VOLUME 90.6 fL (80.0-105.0); MEAN CORPUSCULAR HEMOGLOBIN 30.6 pg (25.0-35.0); MEAN CORPUSCULAR HGB CONC 33.8 g/dl (31.0-37.0); MEAN PLATELET VOLUME 9.9 fl (7.0-11.0); RED CELL DISTRIBUTION WIDTH 12.7 % (11.5-14.5); WHITE BLOOD COUNT 6.9 10^3/ul (4.5-11.0)
[2016-07-10 07:34] LABS: INR 1.3 (0.93-1.08)
[2016-07-10 07:46] LABS: ALB/GLOB RATIO 1.1 (1.1-1.8); ALKALINE PHOSPHATASE 63 U/L (38-133); ALT/SGPT 68 U/L (7-56); AST/SGOT 61 U/L (15-39); BILIRUBIN,TOTAL 0.6 mg/dL (0.2-1.3); BLOOD UREA NITROGEN 19 mg/dL (7-21); CARBON DIOXIDE 31 mmol/L (21-33); CHLORIDE 100 mmol/L (98-107); GFR AFRICAN-AMERICAN > 60; GLUCOSE,RANDOM 130 mg/dL (70-110); POTASSIUM 3.6 mmol/L (3.6-5.0); SODIUM 139 mmol/L (132-148); TOTAL PROTEIN 6.8 g/dL (5.8-8.3)
[2016-07-10 08:08] VITALS: BP 172/80; PULSE 69; RESP 20; O2SAT 94
[2016-07-10] MEDS: Insulin Reg-LOW-Coverage SC SCH ×3 (09:40→17:23)
[2016-07-10] MEDS: Enoxaparin 60 mg Syringe SC SCH ×2 (09:40→13:51)
[2016-07-10] MEDS: POLYETHYLENE GLYCOL 3350 17 GM/Dose PACKET PO SCH (09:41)
[2016-07-10 12:31] LABS: 5-HIAA 3.8 mg/24 h (<=6.0)
--- NOTE | 2016-07-10 15:20 | PN ---
DATE: 07/10/2016 Shortly, the patient is an 85-year-old female with history of paranoia. The patient has mu ltiple medical issues. The patient was admitted on the medical floor for hallucinations. Also, kelvin ge in mental status. Psych consult was called for the same reason. The patient is familiar to this principal technical writer from the previous admissions on the medical floor as a instructional consultant. The patient was followed u p today and discussed with the nursing staff. As per nursing staff, the patient was compliant with t he medication and had a good night's sleep. The patient was seen today. The patient is still psycho tic. The patient said that this principal technical writer is a good copy of what she saw on TV. The patient said that she wants to go home and she does not want to go to rehab. From this principal technical writer's perspective, patient l acks capacity to make decision about disposition plan at present moment and patient's niece, the shelley ent's POA, wants patient to go to rehab. The patient could be argumentative, irritable, but there is no physical aggression. VITAL SIGNS: Reviewed. Temperature 98.6, pulse is 69, blood pressure 172/80, respirations 20, oxyge n saturation 94. MEDICATIONS: Reviewed. Lovenox, Humulin, Cozaar, Protonix, MiraLax, Seroquel was 12.5 mg at the nig httime. This principal technical writer will increase that to 25 mg at the nighttime. Risperdal 0.5 mg as needed for chelo tation and psychosis, and Coumadin. LABORATORY DATA: Reviewed. Most recent was from today. MENTAL STATUS EXAMINATION: The patient was alert, oriented to place as well as time. The patient se ems to be comfortable. Intense eye contact. Speech today was loud. Mood described, "I am fine. I t hought I am in the [place]. What I mean, that I thought I had freedom to go anywhere I wanted. " Mood was irritable. Affect was mood congruent. Thought process is circumstantial. Thought conten t: The patient denied visual, auditory, or tactile hallucinations, but obviously the patient is para noid and thinks that this principal technical writer is not real. Insight and judgment are limited. Impulses are well p redictable. IMPRESSION: Most likely the patient is in delirium stage. It will take a while for delirium to anca r up. This principal technical writer had impression after medical issues would be resolved, patient will start feeling better. The patient has hypertension, non-insulin dependent diabetes mellitus, chronic obstructive p ulmonary disease, coronary artery disease, atrial fibrillation, breast cancer, status post mastectomy and chemotherapy. This principal technical writer is not sure about dementia because patient is alert and oriented, kno ws the circumstances of her admission. PLAN: This principal technical writer will increase the dose of Seroquel to 25 mg at the nighttime. Continue current ma nagement. POA needs to be involved. If POA wants patient to go to rehab, there is no objection over that. Will monitor patient closely. There is no physical aggression or agitation. If patient will stay overnight, we will follow up on this patient tomorrow. We will consider transferring patient t o the psychiatric inpatient unit if patient's POA will be in agreement with that. Should you have an y questions, give me a call back. P.r.n. medications are in the computer. Thank you very much for letting me participate in the care of your patient. Breanne Eckert MD cc: [id number] TT: 07/10/2016 15:19:46 Confirmation # [id number] Dictation # [id number] brook
--- NOTE | 2016-07-10 23:49 | PN ---
DATE: 07/10/2016 REFERRING PHYSICIAN: Dr. Najera SUBJECTIVE: She is sitting in a chair, night was unremarkable, being transferred to subacute for con tinued care. No headache, no rhinitis, no nausea, no vomiting, no diarrhea. No leg pain or leg swel ling. Gets short of breath with exertion. OBJECTIVE: GENERAL: No acute distress. VITAL SIGNS: Temp is 98, heart rate is 60, respiratory rate is 20, blood pressure 172/80, pulse ox 9 4% on nasal cannula. HEENT: Moist mucous membrane. Crowded airway. NECK: Supple, no JVD. LUNGS: Have a fair airflow with few rhonchi. HEART: S1, S2 irregular. ABDOMEN: Soft, nontender. No organomegaly. EXTREMITIES: There is no edema. NEUROLOGIC: Awake, alert, follows simple command. MEDICATIONS: Reviewed. No new medication reported since yesterday. LABORATORY DATA: Reviewed. Hemoglobin is 12.1, hematocrit 35.8, WBC 6.9, and platelet is 226. INR 1.30. Sodium 139, potassium , chloride 100, bicarbonate 31, BUN 19, creatinine 0.7, , gluc ose is 130, calcium 9.0, AST 61, ALT 68, alkaline phosphatase is 63, albumin is 3.5. MICROBIOLOGY: Blood culture, urine culture, nose culture with no growth. IMPRESSION AND PLAN: Atrial fibrillation with rapid ventricular response, presently controlled rate, chronic interstitial lung disease, history of abdominal calcified mass, hypertension, diabetes, Alzh eimer's type dementia. Pulmonary point of view, doing okay. Will need a followup x-ray to assure th e stability of interstitial infiltrate. Fall precaution on anticoagulation, being transferred to sub acute for continued care. Mynor Ames MD cc: [id number] TT: 07/10/2016 23:48:59 Confirmation # [id number] Dictation # [id number]
--- NOTE | 2016-07-11 08:12 | PN ---
DATE: 07/10/2016 Seen and examined at the bedside earlier this morning. The patient was reported to have 2 bowel movements yesterday. The patient remains confused, but no reports of nausea, vomiting, abdominal pain. The patient is tolerating oral intake. VITAL SIGNS: Temperature 98.6, blood pressure is 172/80, pulse 69, respirations 20, 94 O2 saturation. LABORATORY DATA: WBC 6.9, H and H is 12.1 and 35.8, platelets 226. PT 14.0, INR is 1.30. Sodium 139, K is 3.6, BUN 19, creatinine 0.7. Total bilirubin is 0.6, AST 61, ALT 68. Hepatitis panel was negative. PHYSICAL EXAMINATION: HEENT: Sclerae anicteric. NECK: Supple. CARDIAC: S1, S2. LUNGS: Decreased breath sounds but good air entry, no rales or wheeze. ABDOMEN: With bowel sounds, soft, nontender, no organomegaly. EXTREMITIES: No edema. ASSESSMENT: An 85-year-old female with atrial fibrillation with rapid ventricular rate now controlled. The patient reported to have abdominal mass, has calcification messenteric root, history of Alzheimer's dementia, diabetes mellitus, chronic constipation. The patient is noted to have elevated AST, ALT. Hepatitis panel was negative. The patient refused to go for abdominal ultrasound. Had old CT scan with calcification reported previously and remained stable. No further GI workup is planned for this patient with multiple comorbidities. The patient is planned to be sent back to [facility]. The patient was seen and case discussed with nursing staff and also patient was seen and discussed with Dr. Cardona. Bernice REYNOLDS cc: [id number] TT: 07/10/2016 18:14:43 Confirmation # [id number] Dictation # [id number] jn MARCELINA
--- NOTE | 2016-07-21 08:16 | DS ---
The patient was admitted on 07/04/16 to [facility] Emergency Room and discharged to [facility] on 07/10/2016. CHIEF COMPLAINT: Altered mental status. HISTORY OF PRESENT ILLNESS: The patient is an 85-year-old lady, my private patient who came to the Emergency Room because she is seeing things and hearing things that are not there. The patient stated that she has had these symptoms for at least a few weeks. No relieving or exacerbating factors. The patient states that she is depressed and she denies any suicidal or homicidal ideation, but the patient is 85 years old, advance dementia, living alone in her apartment , friends are helping her at home . The patient was refusing a homemaker/visiting nurse. She has only 1 living brother who is 93 living far away and she has Selma ríos, who is a power of staff attorney for the patient. We admitted the patient and did a CAT scan of the head and a CAT scan of abdomen and pelvis. A consult was called to see the psychiatrist. dr. Breanne Wilkins saw the patient, Dr. Ames saw the patient and shirt marker also saw the patient. The patient improved and is still not able to do her adl . Transferred the patient to [facility]. The patient is very noncompliant with office visits and especially medications. She is taking her Coumadin, is giving her hallucinations and she is not taking medicines appropriately. PAST MEDICAL HISTORY: Hypertension, cardiac disease, COPD, diabetes mellitus type 2, history of breast cancer status post left mastectomy . FAMILY HISTORY: noncontributory. HABITS: No smoking, no drugs , no ethnol ALLERGIES: THE PATIENT IS ALLERGIC TO FISH AND SULFA. REVIEW OF SYSTEMS: The patient is seen and examined at the bedside on 07/10/16 and looks comfortable, a lot better. No nausea, vomiting or diarrhea. No hematochezia. No headache, no dizziness. No chest pain, no palpitations. Gets shortness of breath with exertion. PHYSICAL EXAMINATION: VITAL SIGNS: Temperature 98, heart rate 60, respiration 20, blood pressure 170/ 80, pulse 94% on nasal cannula/ HEAD: Normocephalic, atraumatic. EYES: PERRLA. Conjunctiva clear. NOSE: Patent. NECK: Supple. No thyromegaly. CHEST: Bilateral symetricle HEART: S1, S2 positive. LUNGS: Clear to auscultation. ABDOMEN: Soft. Bowel sounds present. No organomegaly. EXTREMITIES: No edema, no cyanosis. NEUROLOGIC: moving all extremities. No focal deficits, but getting episodes of confusion. LABORATORY DATA: Hemoglobin 12.1, hematocrit 35.8, platelets 226. INR 1.30. Sodium 139. BUN 19, creatinine 0.7, glucose 130, AST 61, ALT 68. MEDICATIONS: Betapace, Coumadin, Cozaar, insulin coverage, Lovenox, MiraLax, Protonix, Seroquel. ASSESSMENT AND PLAN: The patient is an 85-year-old lady with multiple medical problems, atrial fibrillation, now is in sinus rythem she is started on sotalol, asthma, chronic obstructive pulmonary disease, interstitial infiltrates , abdominal calcified mass, hypertension, diabetes mellitus, dementia, noncompliant, had depression , aspiration precautions, chronic obstructive pulmonary disease, history of anemia, is seen by Dr. Cardona and Dr. Ames, and by the shirt marker , had coronary artery disease, coronary artery bypass graft, noncompliant with medicines, Transferred to [facility]. Will continue treatment. Diana Najera MD cc: [id number] TT: 07/19/2016 21:17:10 brittny HEWITT
== END 2016-07-10 18:26 | DRG 309 ==
LOC: ED 18:50 → ERH 21:38 → CCU 23:25 → 3RSO 07-08 18:41
PROVIDERS: ADMIT Internal Medicine; ATTEND Internal Medicine
DX: I48.0 Paroxysmal atrial fibrillation (principal); J84.9 Interstitial pulmonary disease, unspecified; E11.65 Type 2 diabetes mellitus with hyperglycemia; G30.9 Alzheimer's disease, unspecified; F02.80 Dementia in other diseases classified elsewhere, unspecified severity, without behavioral disturbance, psychotic disturbance, mood disturbance, and anxiety; J44.9 Chronic obstructive pulmonary disease, unspecified; I10 Essential (primary) hypertension; I25.119 Atherosclerotic heart disease of native coronary artery with unspecified angina pectoris; E87.6 Hypokalemia; E86.0 Dehydration; I48.2 Chronic atrial fibrillation; E78.00 Pure hypercholesterolemia, unspecified; R44.1 Visual hallucinations; J45.909 Unspecified asthma, uncomplicated; K59.00 Constipation, unspecified; R19.00 Intra-abdominal and pelvic swelling, mass and lump, unspecified site; H91.90 Unspecified hearing loss, unspecified ear; Z79.01 Long term (current) use of anticoagulants; Z85.3 Personal history of malignant neoplasm of breast; Z86.73 Personal history of transient ischemic attack (TIA), and cerebral infarction without residual deficits; Z91.14 Patient's other noncompliance with medication regimen; Z79.84 Long term (current) use of oral hypoglycemic drugs; Z90.13 Acquired absence of bilateral breasts and nipples; Z95.1 Presence of aortocoronary bypass graft; Z95.5 Presence of coronary angioplasty implant and graft

== ENCOUNTER 2016-07-23 11:25 | Inpatient (IN) | payer MEDICARE, BC ==
[2016-07-23 11:26] VITALS: PULSE 64
[2016-07-23 11:40] VITALS: BMI 22.1
--- NOTE | 2016-07-23 12:04 | ED PDOC ---
Arrival/HPI - General Chief Complaint: Trauma Time Seen by Provider: 07/23/16 11:42 Historian: Patient, Other (nurse- triage) - History of Present Illness Narrative History of Present Illness (Text): 07/23/16 12:15 An 85 year old female h/o Afib (not on coumadin; previous note says she refuses) , HTN, HLD presents to the emergency department from [facility] after a fall today. Nurse reported patient fell today and hit her head. Patient reports she fell last night and does not remember hitting her head. She also reports she wasn't unconscious during the fall. Patient denies any chest pain, shortness of breath, neck pain, dizziness or any other complaints at this time. Patient is drowsy but alert and oriented x 3. Thought she is a poor historian. PMD: Dr. Najera Symptom Onset: Sudden Activities at Onset: Rest Modifying Factors (Text): none Context: Other ([facility]) Associated Symptoms (Text): none Past Medical History - Provider Review Nursing Documentation Reviewed: Yes - Infectious Disease Hx of Infectious Diseases: None - Tetanus Immunization Tetanus Immunization: Unknown - Reproductive Menopause: Yes - Cardiac Hx Cardiac Disorders: Yes Hx Hypertension: Yes - Pulmonary Hx Chronic Obstructive Pulmonary Disease (COPD): Yes - Neurological HX Cerebrovascular Accident: Yes - HEENT Hx HEENT Disorder: Yes ([place]) - Renal Hx Renal Disorder: No - Endocrine/Metabolic Hx Diabetes Mellitus Type 2: Yes - Hematological/Oncological Hx Cancer: Yes (breast) - Integumentary Hx Dermatological Disorder: No - Musculoskeletal/Rheumatological Hx Falls: Yes - Gastrointestinal Hx Gastrointestinal Disorders: Yes (POOR APPETTITE,) - Genitourinary/Gynecological Hx Genitourinary Disorders: No Hx Reproductive Disorders: No - Psychiatric Hx Psychophysiologic Disorder: No Hx Substance Use: No - Surgical History Hx Open Heart Surgery: Yes Other/Comment: Radical mastectomy. - Anesthesia Hx Anesthesia: Yes Hx Anesthesia Reactions: No Hx Malignant Hyperthermia: No - Suicidal Assessment Feels Threatened In Home Enviroment: No Family/Social History - Physician Review Nursing Documentation Reviewed: Yes Family/Social History: No Known Family HX Smoking Status: Never Smoked Hx Alcohol Use: No Hx Substance Use: No Hx Substance Use Treatment: No Allergies/Home Meds Allergies/Adverse Reactions: Allergies FISH Allergy (Verified 07/23/16 11:51) NAUSEA Sulfa (Sulfonamide Antibiotics) Allergy (Verified 07/23/16 11:51) HEADACHE Home Medications: Home Meds Medication Instructions Recorded Confirmed Donepezil HCl [Aricept] 5 mg PO DAILY 07/23/16 07/23/16 Pantoprazole Sodium [Protonix] 40 mg PO DAILY 07/23/16 07/23/16 Polyethylene Glycol 3350 [Miralax] 1 packet PO DAILY 07/23/16 07/23/16 QUEtiapine [Seroquel] 50 mg PO HS 07/23/16 07/23/16 Risperidone [Risperdal] 0.25 mg PO BID 07/23/16 07/23/16 Risperidone [Risperdal] 0.5 mg PO PRN PRN 07/23/16 07/23/16 Review of Systems - Physician Review All systems were reviewed & negative as marked: Yes - Review of Systems Constitutional: Normal Eyes: Normal ENT: Normal Respiratory: absent: SOB Cardiovascular: absent: Chest Pain Gastrointestinal: Normal Genitourinary Female: Normal Musculoskeletal: absent: Neck Pain Skin: Normal Neurological: absent: Dizziness Endocrine: Normal Hemo/Lymphatic: Normal Psychiatric: Normal Physical Exam Vital Signs Reviewed: Yes Vital Signs Temp Pulse Pulse Resp BP Pulse Ox 07/23/16 17:40 109 H 126/66 07/23/16 17:35 109 H 123/66 07/23/16 17:18 98 F 132 H 132 H 16 139/83 07/23/16 17:08 98 F 132 H 132 H 16 139/83 07/23/16 16:45 132 H 139/83 07/23/16 16:36 98.0 F 134 H 16 134/83 95 07/23/16 11:40 98.8 F 73 16 160/72 H 95 Temperature: Afebrile Blood Pressure: Hypertensive Pulse: Regular Respiratory Rate: Normal Appearance: Positive for: Well-Appearing, Non-Toxic, Comfortable Pain Distress: None Mental Status: Positive for: Alert and Oriented X 3 Finger Stick Blood Glucose: 302 - Systems Exam Head: Present: Atraumatic, Normocephalic Pupils: Present: PERRL Extroacular Muscles: Present: EOMI Conjunctiva: Present: Normal Mouth: Present: Moist Mucous Membranes Neck: Present: Normal Range of Motion Respiratory/Chest: Present: Clear to Auscultation, Good Air Exchange. No: Respiratory Distress, Accessory Muscle Use Cardiovascular: Present: Regular Rate and Rhythm, Normal S1, S2. No: Murmurs Abdomen: Present: Normal Bowel Sounds. No: Tenderness, Distention, Peritoneal Signs Breast/Axillary: Present: Other (double mastectomy) Back: Present: Normal Inspection Upper Extremity: Present: Normal Inspection. No: Cyanosis, Edema Lower Extremity: Present: Normal Inspection. No: Edema Neurological: Present: GCS=15, CN II-XII Intact, Speech Normal Skin: Present: Warm, Dry, Normal Color. No: Rashes Psychiatric: Present: Alert, Oriented x 3, Other (drowsy) Medical Decision Making ED Course and Treatment: 07/23/16 12:03 Impression: An 85 year old female presents after fall. Differential Diagnosis included but are not limited to: sycnope vs. mechanical fall vs. head injury r/o hemorrhage r/o CVA Plan: -- EKG -- CT head -- chest xray -- Radiology pelvis -- labs -- Reassess and disposition Prior Visits: Notes and results from previous visits were reviewed. Patient last reported to emergency department on 07/04/16 for evaluation of hallucinations. Patient was admitted to Dr. Najera's service. Progress Notes: EKG: Ordered, reviewed, and independently interpreted the EKG. Rate : 72 BPM Rhythm : NSR Interpretation : First degree AV block, left axis deviation, LVH Comparison : No previous EKG for comparison. CT head: Creator : Miguel Poole MD 07/23/2016 12:35 IMPRESSION: Chronic microvascular changes. No acute intracranial findings Pelvis xray: Creator : Meredith Aceves V. 07/23/2016 12:58 IMPRESSION: No fracture or dislocation appreciated. If symptoms persist/warrant consider CT or MRI for more sensitive evaluation. chest xray: Creator : Meredith Aceves V. 07/23/2016 13:04 IMPRESSION: No interval acute pathology. Chronic interstitial lung changes. Cardiovascular findings as above When patient came back from CT it was noted that she was not responsive. She was foaming at the both with some light blood. She was not witnessed to be convulsing but reported to be tight in her arms. She did not fall. She slowly woke up from what appeared to be a postictal state. Neuro exam was unchanged from arrival. AAOx3. Drowsy. MS 5/5 AE, sensation intact, no NFD, good finger to nose. CT Head was negative for bleed. Aspirin GA ordered. I discussed case with Dr. Suarez who recommends Keppra 500mg IV dose now and then BID. Dr. Najera is aware of admission to telemetry. 07/23/16 16:55 Patient's HR went into Afib at 140's. Repeat EKG shows Afib at 139 bpm Cardiazem 10mg IV x 2 ordered and HR improved to 90's. Case was discussed with Dr. Najera again with updates of her status. - Critical Care Critical Care Minutes: 60 minutes - Lab Interpretations Lab Results: 07/23/16 12:15 07/23/16 12:15 Lab Results 07/23/16 13:56: Blood Type Confirm A POSITIVE 07/23/16 12:52: POC Glucose (mg/dL) 244 H 07/23/16 12:15: pO2 42, VBG pH 7.33, VBG pCO2 59.0, VBG HCO3 31.1 H, VBG Total CO2 32.9 H, VBG O2 Sat (Calc) 79.1 H, VBG Base Excess 3.6 H, VBG Potassium 4.3, Sodium 134.0, Chloride 102.0, Glucose 268 H, Lactate 1.4, FiO2 21.0, Venous Blood Potassium 4.3 07/23/16 12:15: Blood Type A POSITIVE, Antibody Screen Negative, BBK History Checked No verified bt 07/23/16 12:15: Hemoglobin A1c 7.4 H 07/23/16 12:15: Sodium 136, Chloride 96 L, Potassium 4.3, Carbon Dioxide 31, Anion Gap 13, BUN 18, Creatinine 0.8, Est GFR ( Amer) > 60, Est GFR (Non- Af Amer) > 60, Random Glucose 263 H, Calcium 9.3, Total Bilirubin 0.8, AST 30, ALT 41, Alkaline Phosphatase 68, Lactate Dehydrogenase 693, Total Creatine Kinase 41, Troponin I 0.09 D, Total Protein 7.3, Albumin 3.8, Globulin 3.5, Albumin/Globulin Ratio 1.1, Triglycerides 116, Cholesterol 204 H, LDL Cholesterol Direct 127, HDL Cholesterol 40 07/23/16 12:15: PT 11.5, INR 1.06, APTT 24.7 07/23/16 12:15: WBC 10.4 D, RBC 4.33, Hgb 13.3, Hct 39.1, MCV 90.3, MCH 30.7, MCHC 34.0, RDW 12.6, Plt Count 233, MPV 10.2, Gran % 80.2 H, Lymph % (Auto) 12.1 L, [place] % (Auto) 6.1 H, Eos % (Auto) 0.9 L, Baso % (Auto) 0.7, Gran # 8.35 H, Lymph # 1.3, [place] # 0.6, Eos # 0.1, Baso # 0.07 07/23/16 11:39: POC Glucose (mg/dL) 302 H I have reviewed the lab results: Yes - RAD Interpretation Radiology Orders: 07/23/16 11:55 CHEST PORTABLE [RAD] Stat 07/23/16 11:56 HEAD W/O CONTRAST [CT] Stat 07/23/16 12:03 PELVIS ONE VIEW [RAD] Stat - EKG Interpretation Interpreted by ED Physician: Yes Type: 12 lead EKG - Medication Orders Current Medication Orders: Sodium Chloride (Sodium Chloride 0.9%) 1,000 mls @ 100 mls/hr IV .Q10H REGGIE Last Admin: 07/23/16 16:44 Dose: 100 mls/hr Discontinued Medications Diltiazem HCl (Cardizem) 10 mg IVP STAT STA Stop: 07/23/16 16:44 Last Admin: 07/23/16 16:45 Dose: 10 mg Diltiazem HCl (Cardizem) 30 mg PO STAT STA Stop: 07/23/16 16:51 Last Admin: 07/23/16 17:40 Dose: 30 mg Diltiazem HCl (Cardizem) 10 mg IVP STAT STA Stop: 07/23/16 17:33 Last Admin: 07/23/16 17:35 Dose: 10 mg Levetiracetam (Keppra 500mg Ivpb) 500 mg in 100 mls @ 400 mls/hr IVPB STAT STA Stop: 07/23/16 16:36 Last Admin: 07/23/16 16:43 Dose: 400 mls/hr Pneumococcal Polyvalent Vaccine (Pneumovax 23 Vaccine) 0.5 ml IM .ONCE ONE Stop: 07/23/16 17:39 NIHSS Scale ([place]) Time Performed: 11:42 - How Severe is the Stoke Baseline Level of Consciousness: 0=Alert LOC to Questions: 0=Both comments correct LOC to commands: 0=Obeys both correctly Best Gaze: 0=Normal Visual: 0=No visual loss Facial: 0=Normal Motor Arm - Left: 0=No drift Motor Arm - Right: 0=No drift Motor Leg - Left: 0=No drift Motor Leg - Right: 0=No drift Limb Ataxia: 0=Absent Sensory: 0=Normal Best Language: 0=No aphasia Dysarthia: 0=Normal articulation Extinction & Inattention (Neglect): 0=Normal, no object Score: 0 Risk Level: No Stroke Risk rTPA Inclusion/Exclusion - Refusal of Treatment Patient Refused Treatment: No - Inclusion Criteria for Altepase Patient is 18 years or Older: Yes The Clinical Diagnosis of Ischemic Stroke That is Causing a Potentially Disabling Neurological Deficit: Yes Time of Onset is Well Established to be Less Than 270 Minute Before Treatment Would Begin: No Risk/Benefit Discussed With Patient/Family Member Present: No - Warning to TPA With Conditions Condition: Stroke Serevity Too Mild, Age Greater Than 75 years - Scribe Statement The provider has reviewed the documentation as recorded by the Mario Humphries Provider Scribe Attestation: All medical record entries made by the Scribe were at my direction and personally dictated by me. I have reviewed the chart and agree that the record accurately reflects my personal performance of the history, physical exam, medical decision making, and the department course for this patient. I have also personally directed, reviewed, and agree with the discharge instructions and disposition. Disposition/Present on Arrival - Present on Arrival Any Indicators Present on Arrival: Yes History of DVT/PE: No History of Uncontrolled Diabetes: Yes Urinary Catheter: No History of Decub. Ulcer: No History Surgical Site Infection Following: None - Disposition Have Diagnosis and Disposition been Completed?: Yes Diagnosis: Altered mental status, Seizure, Fall, Head injury, Rapid atrial fibrillation Disposition: HOSPITALIZED Disposition Time: 14:00 Patient Plan: Admission Patient Problems: Current Active Problems Problem Status Onset Altered mental status Acute Fall Acute Head injury Acute Seizure Acute Condition: GUARDED
[2016-07-23 12:29] LABS: ADD MANUAL DIFF? NO
[2016-07-23 12:33] LABS: BASO # 0.07 K/mm3 (0.0-2.0); BASO % 0.7 % (0.0-3.0); EOS # 0.1 (0.0-0.7); EOS % 0.9 % (1.5-5.0); GRAN # 8.35 (1.4-6.5); GRAN % 80.2 % (50.0-68.0); HEMATOCRIT 39.1 % (36.0-48.0); LYMPH # 1.3 (1.2-3.4); LYMPH % 12.1 % (22.0-35.0); MEAN CELL VOLUME 90.3 fL (80.0-105.0); MEAN CORPUSCULAR HEMOGLOBIN 30.7 pg (25.0-35.0); MEAN PLATELET VOLUME 10.2 fl (7.0-11.0); MONO # 0.6 (0.1-0.6); MONO % 6.1 % (1.0-6.0); PLATELET COUNT 233 10^3/uL (120.0-450.0); RED CELL DISTRIBUTION WIDTH 12.6 % (11.5-14.5); WHITE BLOOD COUNT 10.4 10^3/ul (4.5-11.0)
--- NOTE | 2016-07-23 12:34 | CT ---
PROCEDURE: CT HEAD WITHOUT CONTRAST. HISTORY: AMS r/o ICH; on coumadin COMPARISON: 07/04/2016 TECHNIQUE: Axial computed tomography images were obtained through the head/brain without intravenous contrast. Radiation dose: Total exam DLP = 688 mGy-cm. This CT exam was performed using one or more of the following dose reduction techniques: Automated exposure control, adjustment of the mA and/or kV according to patient size, and/or use of iterative reconstruction technique. FINDINGS: HEMORRHAGE: No intracranial hemorrhage. BRAIN: No mass effect or edema. Chronic microvascular changes are seen in the periventricular white matter. VENTRICLES: Unremarkable. No hydrocephalus. CALVARIUM: Unremarkable. PARANASAL SINUSES: Unremarkable as visualized. No significant inflammatory changes. MASTOID AIR CELLS: Unremarkable as visualized. No inflammatory changes. OTHER FINDINGS: None. IMPRESSION: Chronic microvascular changes. No acute intracranial findings
[2016-07-23 12:41] LABS: VENOUS BLOOD GAS BASE EXCESS 3.6 mmol/L (0.0-2.0); VENOUS BLOOD PH 7.33 (7.32-7.43)
[2016-07-23 12:42] LABS: ALB/GLOB RATIO 1.1 (1.1-1.8); ALKALINE PHOSPHATASE 68 U/L (38-133); ALT/SGPT 41 U/L (7-56); AST/SGOT 30 U/L (15-39); BILIRUBIN,TOTAL 0.8 mg/dL (0.2-1.3); BLOOD UREA NITROGEN 18 mg/dL (7-21); CALCIUM 9.3 mg/dL (8.4-10.5); CARBON DIOXIDE 31 mmol/L (21-33); CHLORIDE 96 mmol/L (98-107); CHOLESTEROL 204 mg/dL (130-200); GFR AFRICAN-AMERICAN > 60; GLUCOSE,RANDOM 263 mg/dL (70-110); POTASSIUM 4.3 mmol/L (3.6-5.0); SODIUM 136 mmol/L (132-148); TOTAL PROTEIN 7.3 g/dL (5.8-8.3)
[2016-07-23 12:53] LABS: TROPONIN I 0.09 ng/mL
--- NOTE | 2016-07-23 12:56 | RAD ---
PROCEDURE: Radiographs of the pelvis. HISTORY: fall r/o fx COMPARISON: None. FINDINGS: BONES: Pelvic Bones: No fracture seen. Vague left sacroiliac sclerosis Hips: No fracture dislocation. Bilateral osteoarthrosis JOINTS: Sacroiliac Joints: As above Pubic Symphysis: Joint space narrowing with mild osseous hypertrophy -degenerative changes OTHER FINDINGS: A amorphous coalescent calcification and/or ossification bordering the left L4 vertebral body IMPRESSION: No fracture or dislocation appreciated. If symptoms persist/warrant consider CT or MRI for more sensitive evaluation.
--- NOTE | 2016-07-23 13:03 | RAD ---
HISTORY: altered mental status COMPARISON: No prior. FINDINGS: LUNGS: Chronic appearing interstitial lung changes. No consolidation. Left hemidiaphragm is slightly asymmetrically elevated more so than before PLEURA: No significant pleural effusion identified, no pneumothorax apparent. CARDIOVASCULAR: Cardiomegaly, atherosclerotic vascular calcifications with tortuosity of the thoracic aorta. Aortic valve prosthesis. Intact sternal wires/CABG OSSEOUS STRUCTURES: Generalized osteopenia, thoracic spondylosis. Left shoulder arthrosis VISUALIZED UPPER ABDOMEN: Normal. OTHER FINDINGS: None. IMPRESSION: No interval acute pathology. Chronic interstitial lung changes. Cardiovascular findings as above
[2016-07-23 13:14] LABS: INR 1.06 (0.93-1.08); PARTIAL THROMBOPLASTIN TIME 24.7 Seconds (23.7-30.8)
--- NOTE | 2016-07-23 14:24 | CARD ---
APPROVED REPORT EKG Measurement Heart [id number] MD [id number] <Conclusion> Sinus rhythm with 1st degree AV block Possible Left atrial enlargement Left axis deviation Left ventricular hypertrophy with repolarization abnormality PRWP
[2016-07-23] MEDS ORDERED: levETIRAcetam 500mg IVPB 500 MG/100 ML BAG IVPB STA (16:22)
[2016-07-23] MEDS ORDERED: Sodium Chloride 0.9% 1,000 ML IV SCH (16:30)
[2016-07-23] MEDS ORDERED: Pneumococcal 23-Valent Vaccine IM ONE (17:38)
--- NOTE | 2016-07-23 18:59 | CP.PCM.CON ---
History of Present Illness - History of Present Illness History of Present Illness: Infectious Disease Consultation: July 23, 2016 85 yo female presenting with fall at [facility]. Patient is a poor historian. No major complaints by the patient at this time. No fevers or chills reported. She states she was conscious during the fall. She has an extensive medical history that includes HTN, NIDDM, COPD, CAD, Atrial fibrillation, Dementia, and history of breast cancer. PMHx: HTN, NIDDM, COPD, CAD, Atrial fibrillation, Dementia, and history of breast cancer PSHx: Double mastectomy, CABG, "valve replacement" Allergies: FISH, Sulfa Social Hx: No tobacco, EtOH, or illicit drug use Active Medications Donepezil HCl (Aricept) 5 mg PO DAILY REGGIE Sodium Chloride (Sodium Chloride 0.9%) 1,000 mls @ 100 mls/hr IV .Q10H REGGIE Last Admin: 07/23/16 16:44 Dose: 100 mls/hr Losartan Potassium (Cozaar) 100 mg PO DAILY REGGIE Pantoprazole Sodium (Protonix Ec Tab) 40 mg PO DAILY REGGIE Polyethylene Glycol (Miralax) 17 gm PO DAILY REGGIE Quetiapine Fumarate (Seroquel) 50 mg PO HS REGGIE PRN Reason: Protocol Risperidone (Risperdal Tab) 0.25 mg PO BID REGGIE PRN Reason: Protocol Sotalol HCl (Betapace) 80 mg PO BID REGGIE Warfarin Sodium (Coumadin) 3 mg PO 1800 REGGIE PRN Reason: Protocol Family Hx: none given ROS: No fevers, chills, nausea, vomiting ,diarrhea, headaches, dizziness, chest pain , melena, hematuria, hematemesis, hematochezia, depression, anxiety, vision loss , hearing loss. Patient with baseline dementia and confusion. Past Patient History - Infectious Disease Hx of Infectious Diseases: None - Tetanus Immunizations Tetanus Immunization: Unknown - Past Social History Smoking Status: Never Smoked - CARDIAC Hx Cardiac Disorders: Yes Hx Hypertension: Yes - PULMONARY Hx Chronic Obstructive Pulmonary Disease (COPD): Yes - NEUROLOGICAL HX Cerebrovascular Accident: Yes - HEENT Hx HEENT Problems: Yes ([place]) - RENAL Hx Chronic Kidney Disease: No - ENDOCRINE/METABOLIC Hx Diabetes Mellitus Type 2: Yes - HEMATOLOGICAL/ONCOLOGICAL Hx Cancer: Yes (breast) - INTEGUMENTARY Hx Dermatological Problems: No - MUSCULOSKELETAL/RHEUMATOLOGICAL Hx Falls: Yes - GASTROINTESTINAL Hx Gastrointestinal Disorders: Yes (POOR APPETTITE,) - GENITOURINARY/GYNECOLOGICAL Hx Genitourinary Disorders: No Hx Reproductive Disorders: No - PSYCHIATRIC Hx Psychophysiologic Disorder: No Hx Substance Use: No - SURGICAL HISTORY Hx Open Heart Surgery: Yes Other/Comment: Radical mastectomy. - ANESTHESIA Hx Anesthesia: Yes Hx Anesthesia Reactions: No Hx Malignant Hyperthermia: No Meds Allergies/Adverse Reactions: Allergies Allergy/AdvReac Type Severity Reaction Status Date / Time FISH Allergy NAUSEA Verified 07/23/16 11:51 Sulfa (Sulfonamide Allergy HEADACHE Verified 07/23/16 11:51 Antibiotics) - Medications Medications: Current Medications Donepezil HCl (Aricept) 5 mg PO DAILY REGGIE Sodium Chloride (Sodium Chloride 0.9%) 1,000 mls @ 100 mls/hr IV .Q10H REGGIE Last Admin: 07/23/16 16:44 Dose: 100 mls/hr Losartan Potassium (Cozaar) 100 mg PO DAILY REGGIE Pantoprazole Sodium (Protonix Ec Tab) 40 mg PO DAILY REGGIE Polyethylene Glycol (Miralax) 17 gm PO DAILY REGGIE Quetiapine Fumarate (Seroquel) 50 mg PO HS REGGIE PRN Reason: Protocol Risperidone (Risperdal Tab) 0.25 mg PO BID REGGIE PRN Reason: Protocol Sotalol HCl (Betapace) 80 mg PO BID REGGIE Warfarin Sodium (Coumadin) 3 mg PO 1800 REGGIE PRN Reason: Protocol Physical Exam - Constitutional Appears: Non-toxic, No Acute Distress, Chronically Ill - Head Exam Head Exam: ATRAUMATIC, NORMOCEPHALIC - Eye Exam Eye Exam: EOMI, PERRL Pupil Exam: NORMAL ACCOMODATION, PERRL - ENT Exam ENT Exam: Mucous Membranes Moist, TM's Normal Bilaterally - Respiratory Exam Respiratory Exam: Clear to Auscultation Bilateral, NORMAL BREATHING PATTERN. absent: Rales, Rhonchi, Wheezes - Cardiovascular Exam Cardiovascular Exam: REGULAR RHYTHM, RRR, +S1, +S2 - GI/Abdominal Exam GI & Abdominal Exam: Normal Bowel Sounds, Soft. absent: Distended, Tenderness - Extremities Exam Extremities exam: Positive for: full ROM, normal inspection - Neurological Exam Neurological exam: Alert, CN II-XII Intact, Oriented x3 - Psychiatric Exam Psychiatric exam: Normal Affect, Normal Mood - Skin Skin Exam: Intact, Normal Color Results - Vital Signs Recent Vital Signs: Last Vital Signs Temp 98 F 07/23/16 17:18 Pulse 109 H 07/23/16 17:40 Resp 16 07/23/16 17:18 BP 126/66 07/23/16 17:40 Pulse Ox 95 07/23/16 16:36 - Labs Result Diagrams: 07/23/16 12:15 07/23/16 12:15 Assessment & Plan - Assessment and Plan (Free Text) Assessment: 85 yo female with fall at nursing facility. No documented head trauma. No fevers or leukocytosis. Supportive care. Not currently on IV antibiotics. Would check urinalysis. Chest X-ray showing chronic interstitial changes. CT Head showing no acute intracranial findings. Check urinalysis before consideration of antibiotic use at this point. Supportive care. Thank you for allowing me to participate in the care of the patient, we will follow with you.
--- NOTE | 2016-07-23 19:22 | CON ---
DATE: 07/23/2016 HISTORY OF PRESENT ILLNESS: This is an 85-year-old white female with past medical history of hyperte nsion and hyperlipidemia. The patient is a resident of [facility], fell, and came here, hit her head. No loss of consciousness. Called to evaluate the patient. CAT scan of the head was d one, which was reported as no bleed. The patient is a poor historian, able to show me 2 fingers. PAST MEDICAL HISTORY: Hypertension and also diabetes. ALLERGIES: FISH AND SULFONAMIDE, SULFA. HOME MEDICATIONS: Aricept, Seroquel and Risperdal. REVIEW OF SYSTEMS: A 10-point review of system was negative, except patient is more drowsy and tearf ul. PHYSICAL EXAMINATION: HEENT: Normocephalic, atraumatic. NECK: Supple. NEUROLOGIC: Awake, drowsy. Cranial nerves II through XII were tested. Pupils reactive. Spontaneou s movement of the extremities noted. Deep tendon reflexes 1+. Both plantars are downgoing. Sensory appears intact. Cerebellar, gait deferred. IMPRESSION AND PLAN: Encephalopathy and possibly toxic metabolic. Rule out seizure, though less lik vasquez. We will do EEG in the morning and followup. Mehrdad Suarez MD cc: [id number] TT: 07/23/2016 19:22:19 Confirmation # [id number] Dictation # [id number] brook
--- NOTE | 2016-07-24 07:38 | HP ---
CHIEF COMPLAINT: Fall, hitting head on the floor. HISTORY OF PRESENT ILLNESS: The patient is an 85-year-old lady with history of atrial fibrillation, is on Coumadin, but most of the time she was refusing comedine in rehab in [facility]. As per nursing staff, she had a fall. According to nursing report, patient hit her head. The patient reports that she fell last night and does not remember hitting her head and she also reports that she was not unconscious during the fall. The patient denies loss of consciousness, but has intermittent altered mental status, PAST MEDICAL HISTORY: As above, atrial fibrillation, hypertension, hypercholesterolemia, advanced dementia, COPD, diabetes mellitus, radical mastectomy bilaterally, history of breast cancer. FAMILY HISTORY: Father and mother noncontributory. HABITS: Never smoked, no drugs, no ethanol. HOME MEDICATIONS: Aricept, Protonix, MiraLax, Seroquel, Risperdal. REVIEW OF SYSTEMS: The patient seen and examined in the Emergency Room, looks like change in the status of the mental. No shortness of breath. No nausea, vomiting, or diarrhea. No headache, no dizziness, no fever, no chills. PHYSICAL EXAMINATION: VITAL SIGNS: Temperature 98.2 , pulse 73, respiratory rate 16, blood pressure 160/72. HEENT: Head normocephalic. Eyes: PERRLA. Extraocular muscles intact. Conjunctivae are clear. Nose patent. Mucous membranes moist. NECK: Supple. No carotid bruit, JVD or thyromegaly. CHEST: Bilaterally symmetrical. HEART: S1, S2 positive. LUNGS: Clear to auscultation. ABDOMEN: Soft. Bowel sounds present. No organomegaly. EXTREMITIES: No edema, no cyanosis. NEUROLOGIC: The patient is awake, alert, moving all 4 extremities. No focal deficits. LABORATORY DATA: White blood cells 10.4, hemoglobin 13.3, hematocrit 39.1, platelets , Sodium noted , potassium 4.3, BUN 80, creatinine 0.8, glucose 263. ASSESSMENT AND PLAN: The patient is an 85-year-old lady who has encephalopathy and possibly toxic metabolic, as per Dr. Mehrdad Suarez. Rule out seizure, though it is less likely, as per Dr. Suarez. According to him, he will do EEG in the morning and follow up. CAT scan of the head is done and reviewed by me. The patient has history of hypertension, non-insulin dependent diabetes mellitus , chronic obstructive pulmonary disease, coronary artery disease, atrial fibrillation, dementia, history of breast cancer bilaterally, mastectomy, history of valve replacement. Was getting rehab in [facility]. Rule out sepsis. I appreciated Dr. Golden's input. ____ chronic obstructive pulmonary disease. Supportive care. We will follow up. Diana Najera MD cc: [id number] TT: 07/23/2016 21:19:35 brook 07/24/2016 06:37:06 MARCELINA
[2016-07-24] MEDS: POLYETHYLENE GLYCOL 3350 17 GM/Dose PACKET PO SCH (09:20)
[2016-07-24] MEDS ORDERED: Pantoprazole 40 mg EC Tab PO SCH (10:00)
--- NOTE | 2016-07-24 10:23 | CARD ---
APPROVED REPORT EKG Measurement Heart [id number] <Conclusion> Atrial fibrillation with rapid ventricular response Left axis deviation Moderate voltage criteria for LVH, may be normal variant ST & T wave abnormality, consider lateral ischemia
--- NOTE | 2016-07-24 10:24 | CARD ---
APPROVED REPORT EKG Measurement Heart [id number] <Conclusion> Atrial fib. Left axis deviation Left ventricular hypertrophy STTW changes
[2016-07-24 14:27] LABS: PH,URINE 5.5 (4.7-8.0); URINE BILIRUBIN NEGATIVE (NEGATIVE); URINE BLOOD NEGATIVE (NEGATIVE); URINE GLUCOSE (UA) 250 mg/dL (NEGATIVE); URINE KETONE TRACE mg/dL (NEGATIVE); URINE LEUKOCYTE ESTERASE NEGATIVE Leu/uL (NEGATIVE); URINE PROTEIN TRACE mg/dL (<30 mg/dL); URINE UROBILINOGEN 0.2 E.U./dL (<1 E.U./dL)
[2016-07-24 14:28] LABS: URINE COLOR YELLOW (YELLOW)
[2016-07-24 14:43] LABS: URINE APPEARANCE CLEAR (CLEAR); URINE RBC 0 - 2 /hpf (0-2); URINE WBC 0 - 2 /hpf (0-6)
[2016-07-24 14:44] LABS: URINE BACTERIA MOD (NEG)
--- NOTE | 2016-07-24 18:51 | CON ---
DATE: 07/24/2016 REFERRING PHYSICIAN: . REASON FOR CONSULT: , rule out sleep apnea syndrome, status post syncopal type episode. HISTORY OF PRESENT ILLNESS: This is an 85-year-old female with past medical history significant for hypertension, hyperlipidemia, diabetes, history of breast cancer requiring bilateral mastectomy in e remote past, history of open heart surgery in the remote past. Apparently, has a questionable near syncopal episode. Came into ER, was admitted for further workup including rule out seizure. Presen tly, she is lying in the bed. Her family is at bedside, awake, alert. No headache, no rhinitis, no nausea, no vomiting, no diarrhea. No leg pain or leg swelling. PAST MEDICAL HISTORY: As per history of present illness. Also has chronic obstructive lung disease. ALLERGIES: SULFA. SOCIAL HISTORY: Nonsmoker, nondrinker. FAMILY HISTORY: No significant cardiopulmonary disease reported. MEDICATIONS: She is on Aricept 5 mg daily, Betapace 80 mg twice a day, Coumadin 3 mg will be given t onight, Cozaar 100 mg daily, Keppra 500 mg twice a day, MiraLax 17 grams p.o. daily, Protonix 40 mg d aily, Risperdal 0.25 mg twice a day, Seroquel 50 mg at bedtime. REVIEW OF SYSTEMS: No headache, no rhinitis. Admits to have sleep, being tired during the daytime, and does not know if she snores. No chest pain, no nausea, no vomiting, no diarrhea. No dysuria. N o leg pain or leg swelling. PHYSICAL EXAMINATION: GENERAL: No acute distress. VITAL SIGNS: Temp is 98, heart rate is 62, respiratory rate is 20, blood pressure 120/60, pulse ox 9 5% on nasal cannula. HEENT: Moist mucous membranes. Small oral cavity. NECK: Supple. No JVD. LUNGS: Few scattered rhonchi. HEART: Irregularly, irregular. ABDOMEN: Soft, nontender. No organomegaly. EXTREMITIES: There is no edema. NEUROLOGIC: Awake, alert, follows simple commands. LABORATORY DATA: Shows hemoglobin 13.3, hematocrit 39.1, WBC 10.4, platelet is 233, yesterday INR 1. 06, PTT 25. Blood gases shows VBG, pH 7.33, pCO2 of 59, O2 of 42. Sodium 136, potassium 4.3, chlori de 96, bicarbonate 31, BUN 18, creatinine 0.8, glucose 263. Hemoglobin A1c 7.4, calcium 9.3, AST ___ __, ALT 41, alkaline phosphatase is 68, LDH is 693. Troponin 0.05. Cholesterol is 204. Has a CAT s can of the head done in ER, which shows chronic microvascular changes, otherwise unremarkable. Pelvi c x-ray was done, which shows no fracture or dislocation. Chest x-ray shows chronic interstitial madi nges. No new infiltrate reported. IMPRESSION AND PLAN: Atrial fibrillation with rapid ventricular response, status post controlled rat e, chronic interstitial lung disease, hypertension, diabetes, Alzheimer's type dementia, status post near syncopal episode. Neurology consult has been called and workup is in progress. Pulmonary point of view, she is doing okay. We will keep head elevated at 45 degrees, aspiration precaution. Gastr ic prophylaxis. Continue anticoagulation. Understands risk/benefit ratio. Thank you and will follo w with you. Mynor Ames MD cc: [id number] TT: 07/24/2016 18:50:51 Confirmation # [id number] Dictation # [id number] jenny
--- NOTE | 2016-07-24 19:10 | CON ---
DATE: 07/24/2016 HISTORY OF PRESENT ILLNESS: Shortly, the patient is an 85-year-old female with multiple me dical comorbidities including afib, hypertension and dyslipidemia. The patient also has history of d elirium and psychotic symptoms, visual hallucinations. This keno writer is very familiar with this patien t from the previous admission on the medical floor. The patient was transferred from [facility] status post fall. Psych consult was called for evaluation of possible visual hallucinations. The patient was seen today, this afternoon. The patient presented to be pleasantly confused. The p dea does not remember the circumstances of her admission to the hospital. The patient does not re member this keno writer. The patient reported that she does not know why she is in the hospital and very hard to have meaningful conversation because the patient is very confused, but pleasant. As per [facility] staff report, patient has episodes where she would have visual hallucinations. Last admission, t he patient saw a dogs in her apartment, no dog was there. The patient also has feeling that someone is coming out from the TV today. The patient does not remember such episodes. VITAL SIGNS: Stable. Temperature 98.5, pulse is 62, blood pressure 120/60, respirations 20. MEDICATIONS: Reviewed. The patient is on Aricept 5 mg daily, Keppra 500 mg twice a day, Cozaar, Pro tonix, MiraLax. The patient is on Seroquel 50 mg at the nighttime, Risperdal 0.25 mg twice a day. T he patient is on sotalol and Coumadin. LABORATORY DATA: Reviewed. Seem to be within normal limits. The patient was seen by Dr. Suarez as well as Dr. Golden. MENTAL STATUS EXAMINATION: The patient appears to be alert, but disoriented, intermittent eye contac t, pleasantly confused. The patient was smiling. Mood described as "I am fine". Affect was reactiv e. At times, the patient smiles inappropriately. Thought process is disorganized. Thought content: The patient denied visual, auditory, tactile hallucinations during the interview, but most likely althea malin was not able to understand the context of the question. Earlier, patient complained that some body is coming out from the TV. Insight and judgment are limited. Impulses are well controlled at t he present moment. IMPRESSION: The patient deemed to have delirium symptoms, visual hallucinations are related to medic al issues or withdrawal symptoms or seizures. Very rare patient would have visual hallucinations if patient has mental illness. Most likely the patient has delirium stage. The patient also has multip le medical issues, status post fall. Please see Dr. Najera's note for more detailed information. PLAN: The patient should not be on 2 antipsychotic medications. Seroquel could be discontinued. is keno writer will continue Risperdal only and will give liquid form because sometimes patient has tenden cy of refusing to take medications. Continue current management. The patient will be followed up wi neurology as well as infectious disease. We will follow up on this patient and advise accordingly . Thank you very much for letting me participate in care of your patient. Breanne Eckert MD cc: [id number] TT: 07/24/2016 19:09:39 Confirmation # [id number] Dictation # [id number] ana paula
--- NOTE | 2016-07-24 19:24 | CON ---
DATE: 07/24/2016 FOLLOWUP: This is an 85-year-old white female with a past medical history of hypertension and hyperl ipidemia. The patient fell and hit her head. No loss of consciousness. CAT scan of the head was do ne, which did not show any bleed. The patient is a poor historian. Called to evaluate. Also EEG wa s done which showed isolated sharp waves were noted. We started her on Keppra 500 twice a day. PAST MEDICAL HISTORY: Atrial fibrillation, hypertension, dementia, diabetes and history of breast ca ncer. PHYSICAL EXAMINATION: HEENT: Intermittent confusional. NEUROLOGIC: Pupils reactive. EOM intact. Spontaneous movement of all the extremities noted. Deep tendon reflexes 1+. Both plantars are downgoing. Sensory appears intact. Cerebellar gait deferred. IMPRESSION: This is an 85-year-old white female with a possible seizure and the patient was started on Keppra 500 twice a day. Continue present management. We will follow up. Mehrdad Suarez MD cc: [id number] TT: 07/24/2016 19:23:45 Confirmation # [id number] Dictation # [id number] mn
[2016-07-24] MEDS: Insulin Reg-LOW-Coverage SC SCH (22:08)
--- NOTE | 2016-07-24 22:41 | CP.PCM.CON ---
History of Present Illness - History of Present Illness History of Present Illness: Infectious Disease Follow Up: July 24, 2016 85 yo female presenting with fall at [facility]. Patient is a poor historian. No major complaints by the patient at this time. No fevers or chills reported. She states she was conscious during the fall. She has an extensive medical history that includes HTN, NIDDM, COPD, CAD, Atrial fibrillation, Dementia, and history of breast cancer. Past Patient History - Infectious Disease Hx of Infectious Diseases: None - Tetanus Immunizations Tetanus Immunization: Unknown - Past Social History Smoking Status: Never Smoked - CARDIAC Hx Cardiac Disorders: Yes Hx Hypertension: Yes - PULMONARY Hx Chronic Obstructive Pulmonary Disease (COPD): Yes - NEUROLOGICAL HX Cerebrovascular Accident: Yes - HEENT Hx HEENT Problems: Yes ([place]) - RENAL Hx Chronic Kidney Disease: No - ENDOCRINE/METABOLIC Hx Diabetes Mellitus Type 2: Yes - HEMATOLOGICAL/ONCOLOGICAL Hx Cancer: Yes (breast) - INTEGUMENTARY Hx Dermatological Problems: No - MUSCULOSKELETAL/RHEUMATOLOGICAL Hx Falls: Yes - GASTROINTESTINAL Hx Gastrointestinal Disorders: Yes (POOR APPETTITE,) - GENITOURINARY/GYNECOLOGICAL Hx Genitourinary Disorders: No Hx Reproductive Disorders: No - PSYCHIATRIC Hx Psychophysiologic Disorder: No Hx Substance Use: No - SURGICAL HISTORY Hx Open Heart Surgery: Yes Other/Comment: Radical mastectomy. - ANESTHESIA Hx Anesthesia: Yes Hx Anesthesia Reactions: No Hx Malignant Hyperthermia: No Meds Allergies/Adverse Reactions: Allergies Allergy/AdvReac Type Severity Reaction Status Date / Time FISH Allergy NAUSEA Verified 07/23/16 11:51 Sulfa (Sulfonamide Allergy HEADACHE Verified 07/23/16 11:51 Antibiotics) - Medications Medications: Current Medications Donepezil HCl (Aricept) 5 mg PO DAILY [facility] Last Admin: 07/24/16 09:20 Dose: 5 mg Insulin Human Regular (Humulin R Low) 0 units SC ACHS [facility] PRN Reason: Protocol Last Admin: 07/24/16 22:08 Dose: 2 units Levetiracetam (Keppra) 500 mg PO BID [facility] Last Admin: 07/24/16 17:48 Dose: 500 mg Losartan Potassium (Cozaar) 100 mg PO DAILY [facility] Last Admin: 07/24/16 09:20 Dose: 100 mg Pantoprazole Sodium (Protonix Ec Tab) 40 mg PO ACB REGGIE Polyethylene Glycol (Miralax) 17 gm PO DAILY [facility] Last Admin: 07/24/16 09:20 Dose: 17 gm Risperidone (Risperdal Tab) 0.5 mg PO AMHS [facility] PRN Reason: Protocol Last Admin: 07/24/16 21:27 Dose: 0.5 mg Sotalol HCl (Betapace) 80 mg PO BID [facility] Last Admin: 07/24/16 17:48 Dose: 80 mg Warfarin Sodium (Coumadin) 3 mg PO 1800 [facility] PRN Reason: Protocol Last Admin: 07/24/16 17:48 Dose: 3 mg Physical Exam - Constitutional Appears: Non-toxic, No Acute Distress, Chronically Ill - Head Exam Head Exam: ATRAUMATIC, NORMOCEPHALIC - Eye Exam Eye Exam: EOMI, PERRL Pupil Exam: NORMAL ACCOMODATION, PERRL - ENT Exam ENT Exam: Mucous Membranes Moist, Normal External Ear Exam, TM's Normal Bilaterally - Neck Exam Neck exam: Positive for: Full Rom, Normal Inspection - Respiratory Exam Respiratory Exam: Clear to Auscultation Bilateral, NORMAL BREATHING PATTERN. absent: Rales, Rhonchi, Wheezes - Cardiovascular Exam Cardiovascular Exam: REGULAR RHYTHM, RRR, +S1, +S2 - GI/Abdominal Exam GI & Abdominal Exam: Normal Bowel Sounds, Soft. absent: Distended, Tenderness - Extremities Exam Extremities exam: Positive for: full ROM, normal inspection - Neurological Exam Neurological exam: Alert, CN II-XII Intact, Oriented x3 - Psychiatric Exam Psychiatric exam: Normal Affect, Normal Mood - Skin Skin Exam: Intact, Normal Color Results - Vital Signs Recent Vital Signs: Last Vital Signs Temp 98.4 F 07/24/16 18:00 Pulse 70 07/24/16 18:00 Resp 16 07/24/16 18:00 BP 160/75 H 07/24/16 18:00 Pulse Ox 96 07/24/16 06:14 - Labs Result Diagrams: 07/23/16 12:15 07/23/16 12:15 Labs: Laboratory Results - last 24 hr 07/24/16 07/24/16 13:50 14:01 Troponin I 0.05 D Urine Color Yellow Urine Appearance Clear Urine pH 5.5 Ur Specific [place] >= 1.030 Urine Protein Trace H Urine Glucose (UA) 250 H Urine Ketones Trace H Urine Blood Negative Urine Nitrate Negative Urine Bilirubin Negative Urine Urobilinogen 0.2 Ur Leukocyte Esterase Negative Urine RBC 0 - 2 Urine WBC 0 - 2 Ur Epithelial Cells 6 - 8 Urine Bacteria Mod Assessment & Plan - Assessment and Plan (Free Text) Assessment: 85 yo female with fall at nursing facility. No documented head trauma. No fevers or leukocytosis. Supportive care. Not currently on IV antibiotics. Would check urinalysis. Chest X-ray showing chronic interstitial changes. CT Head showing no acute intracranial findings. Check urinalysis before consideration of antibiotic use at this point. Supportive care. Not on antibiotics... no strong indicators for infection at this time. Thank you for allowing me to participate in the care of the patient, we will follow with you.
[2016-07-25 05:05] VITALS: O2SAT 94
[2016-07-25 06:27] LABS: INR 1.07 (0.93-1.08)
--- NOTE | 2016-07-25 07:03 | PN ---
DATE: 07/24/2016 SUBJECTIVE: The patient seen and examined at the bedside. Still having episodes of altered mental status. According to her, last night her friend, Ivonne, was sitting on the bedside and the TV picture was coming out of TV, talking to me. She had hallucinations and delusions. We called consult with Dr. Eckert, the psychiatrist. Otherwise, no hematuria or hematochezia. The patient is not a good historian. PHYSICAL EXAMINATION: VITAL SIGNS: Temperature 98.4, pulse 59, blood pressure 150/70, respiratory rate is 16. HEAD: Normocephalic, atraumatic. EYES: PERRLA. Extraocular movements intact, conjunctivae clear. NOSE: Patent. MOUTH: Mucous membranes moist. NECK: Supple. No carotid bruit, JVD or thyromegaly. CHEST: Bilaterally symmetrical. HEART: S1, S2 positive. LUNGS: Clear to auscultation. ABDOMEN: Soft. Bowel sounds present. No organomegaly. EXTREMITIES: No edema, no cyanosis. NEUROLOGIC: The patient is awake, alert and moving all 4 extremities. No focal deficits. MEDICATIONS: Aricept, Sotalol, Coumadin, Cozaar, insulin, Keppra, MiraLax, Protonix, Risperdal started by Dr. Eckert. LABORATORY DATA: We do not have recent labs today, but I reviewed old labs. ASSESSMENT AND PLAN: The patient is a 85-year-old lady with diabetes mellitus, hemoglobin A1c 7.4, sugar was high. I put her on sliding scale with regular insulin; hypercholesterolemia, proteinuria, glucosuria, ketonuria, seen by Dr. Golden, ID. Came with head trauma as per nursing staff, but we cannot see any signs or symptoms of head trauma. CT of head showed no acute intracranial finding. It looks like the patient has urinary tract infection, maybe needs antibiotics. I reviewed Dr. Mehrdad Suarez's notes also. The patient has atrial fibrillation and possibly seizures as per Dr. Suarez. He started Keppra 500 mg twice a day and wanted to do EEG on the patient. Seen by Dr. Eckert for her hallucinations and delusions; history of hypertension. According to patient , she does not know why she is the hospital. Altered mental status. Seen by Dr. Ames. The patient has history of chronic obstructive pulmonary disease. The patient has atrial fibrillation with rapid ventricular response, status post controlled rate. The patient has dementia, near syncopal attack, gastric and deep venous thrombosis prophylaxis. We will follow up. Diana Najera MD cc: [id number] TT: 07/25/2016 07:03:31 Confirmation # [id number] Dictation # [id number] nn MTDD
[2016-07-25] MEDS ORDERED: Pantoprazole 40 mg EC Tab PO SCH (07:30)
[2016-07-25] MEDS: Insulin Reg-LOW-Coverage SC SCH ×2 (07:47→13:27)
[2016-07-25] MEDS: POLYETHYLENE GLYCOL 3350 17 GM/Dose PACKET PO SCH (09:04)
--- NOTE | 2016-07-25 10:29 | EEG ---
DATE: 07/25/2016 CONDITION OF RECORDING: Drowsy. DIAGNOSIS: Seizure. MEDICATIONS: On Keppra, Seroquel, risperidone. INTERPRETATION: This is a 16-channel international recording. The background activity was composed of 6-7 cycles per second. There was a small amount of beta activity 16-20 cycles per second seen in this recording. There was an increased amount of theta activity 5-7 cycles per second seen in this t racing. Drowsiness was characterized by mixed beta and theta activities. Sleep was characterized by vertex transient sleep spindles and bilateral slowing. Photic stimulation showed no change in the t racing. No paroxysmal activity noted in this recording. CONCLUSION: Abnormal electroencephalogram due to presence of diffuse slowing throughout the recordin g consistent with bilateral cerebral dysfunction. No evidence of any epileptiform activity. Please clinically correlate. Jovan Suarez MD cc: [id number] TT: 07/25/2016 10:28:59 Confirmation # [id number] Dictation # [id number] en
--- NOTE | 2016-07-25 11:32 | PN ---
DATE: 07/25/2016 Shortly, patient is an 85-year-old with history of hallucinations. The patient was transferred from [facility] for evaluation status post fall, was found to have new onset of seizures. The patient was seen by neurologist. This job specification writer had initial evaluation yesterday. The patient was sta rted on Risperdal. The patient was seen today for followup. The patient presented much better to [facility] with the previous admission on the medical side. The patient is less irritable, pleasant, smil ing appropriately. The patient is hard of hearing. At times, her responses take longer, but it is r elated to the fact that patient is not hearing very well. During the nighttime, patient was calm, co operative, slept good. No agitation, no aggression observed. The patient is not psychotic at presen t moment, but yesterday, patient had impression that somebody is coming out from the TV. The patient also had history of visual hallucinations. The patient was seeing dogs in her apartment, but [facility] has no dog. Going back to the patient's presentation, vital signs are stable. VITAL SIGNS: Temperature is 96.6, pulse is 79, blood pressure 130/60, respirations 20, oxygen satura tion is 94%. MEDICATIONS: Reviewed. The patient is on Aricept 5 mg daily, Humulin, Keppra 500 mg twice a day was started by neurologist, Lizbeth, Protonix, MiraLax, Risperdal 0.5 mg twice a day, sotalol 80 mg twice a day, Coumadin 3 mg at 6 p.m. LABORATORIES: Reviewed. Most recent was from . MENTAL STATUS EXAMINATION: The patient presented to be alert. The patient knows that she is in the hospital. Fair eye contact. Speech was underproductive. Mood described as "I cannot believe that I am in the hospital." Affect was reactive, mood congruent. Thought process was circumstantial, but more organized. Thought content: The patient denied any visual, auditory, tactile hallucinations, d enied paranoid ideations. The patient denied thoughts of harming herself or others, denied intent or plan. Insight and judgment are limited, but improving. Impulses are well predictable. IMPRESSION: The patient has history of delirium. The patient has history of visual hallucinations, which could be related to delirium stage. Neurology is on board. New onset of seizures. The patien t has multiple medical problems. Please see Dr. Najera's notes for more detailed information. PLAN: We will continue current management. Risperdal 0.5 mg twice a day is recommended for visual h allucinations. The patient tolerated that well. The patient does not exhibit any aggressive, agitat ed or psychotic behavior today. The patient deemed to be not in danger to self or others. The patie nt needs to be followed up with [facility]. Advanced directives need to be dis cussed with the patient. Palliative care consult would be beneficial because patient is an 85-year-o ld, has a lot of medical comorbidities and prone to have delirium. Case was discussed with Dr. Gregory kim. Should you have any questions, give me a call back. The patient will be cleared by psychiatry. Breanne Eckert MD cc: [phone] TT: 07/25/2016 11:31:01 Confirmation # [id number] Dictation # [id number] en
--- NOTE | 2016-07-25 11:43 | PN ---
DATE: 07/25/2016 REFERRING PHYSICIAN: Dr. Najera. SUBJECTIVE: She is out of bed to chair. Night was unremarkable. Feels better. Does not remember e xactly what happened when she had a fall. No headache, no rhinitis, no cough, no nausea, no vomiting , diarrhea. No leg pain or leg swelling. OBJECTIVE: GENERAL: No acute distress. VITAL SIGNS: Temperature is 98, heart rate is 79, respiratory rate is 18, blood pressure 130/60, pul se ox 94% on room air. HEENT: Moist mucous membrane. No ulcer or oral thrush noted. NECK: Supple. No JVD. LUNGS: Has a few scattered rhonchi. HEART: S1, S2. ABDOMEN: Soft, nontender. No organomegaly. EXTREMITIES: No edema. NEUROLOGIC: Awake, alert, follows simple commands. MEDICATIONS: She is on Aricept 5 mg daily, Sotalol 80 mg twice a day, Coumadin 3 mg was given last n ight, Cozaar 100 mg daily, insulin coverage, Keppra 500 mg twice a day, MiraLax 17 grams p.o. daily, Protonix 40 mg daily, Risperdal 0.5 mg a.m. and at bedtime. LABORATORY DATA: Reviewed. INR 1.07. Blood sugar 223. IMPRESSION AND PLAN: Atrial fibrillation with rapid ventricular response, presently controlled rate, chronic interstitial lung disease, hypertension, diabetes, Alzheimer's type dementia, status post ne ar syncope, questionable seizure. Pulmonary point of view, doing well. Continue supplemental oxygen if pulse ox less than 90%. Fall precautions. Neurology followup. May give Coumadin 5 mg today. I NR in the morning. We will follow with you. Mynor Ames MD cc: [id number] TT: 07/25/2016 11:43:23 Confirmation # [id number] Dictation # [id number] brook
[2016-07-25 12:45] VITALS: BP 132/65; PULSE 57; RESP 18; TEMP 97
--- NOTE | 2016-07-25 13:06 | CP.PCM.CON ---
History of Present Illness - History of Present Illness History of Present Illness: Palliative consult requested by Dr Luda Najera notified Reason: Advance care planning 85 year old female sent from [facility] after falling and hitting her head. CT scan showed no acute findings. She appeared to have a seizure after returning from CT scan. She was palced on Keppra, no other seizure activity reported. PMH:Atrial fibrillation, HTN, HLD, breast cancer s/p right radical mastectomy, delirium,hallucinations DM,COPD. Social History: Non smoker, no alcohol or drug use. Family History: Non contributory. Advance Care Planning: The patient has an Advance Directive. [phone] Review of System: Patient is confused, unable to participate Past Patient History - Infectious Disease Hx of Infectious Diseases: None - Tetanus Immunizations Tetanus Immunization: Unknown - Past Social History Smoking Status: Never Smoked - CARDIAC Hx Cardiac Disorders: Yes Hx Hypertension: Yes - PULMONARY Hx Chronic Obstructive Pulmonary Disease (COPD): Yes - NEUROLOGICAL HX Cerebrovascular Accident: Yes - HEENT Hx HEENT Problems: Yes ([place]) - RENAL Hx Chronic Kidney Disease: No - ENDOCRINE/METABOLIC Hx Diabetes Mellitus Type 2: Yes - HEMATOLOGICAL/ONCOLOGICAL Hx Cancer: Yes (breast) - INTEGUMENTARY Hx Dermatological Problems: No - MUSCULOSKELETAL/RHEUMATOLOGICAL Hx Falls: Yes - GASTROINTESTINAL Hx Gastrointestinal Disorders: Yes (POOR APPETTITE,) - GENITOURINARY/GYNECOLOGICAL Hx Genitourinary Disorders: No Hx Reproductive Disorders: No - PSYCHIATRIC Hx Psychophysiologic Disorder: No Hx Substance Use: No - SURGICAL HISTORY Hx Open Heart Surgery: Yes Other/Comment: Radical mastectomy. - ANESTHESIA Hx Anesthesia: Yes Hx Anesthesia Reactions: No Hx Malignant Hyperthermia: No Meds Home Medications: Home Medication List Medication Instructions Recorded Confirmed Type levETIRAcetam [Keppra] 500 mg PO BID #30 tab 07/25/16 Rx risperiDONE [RisperDAL Tab] 0.5 mg PO [facility] #60 tab 07/25/16 Rx Allergies/Adverse Reactions: Allergies Allergy/AdvReac Type Severity Reaction Status Date / Time FISH Allergy NAUSEA Verified 07/23/16 11:51 Sulfa (Sulfonamide Allergy HEADACHE Verified 07/23/16 11:51 Antibiotics) - Medications Medications: Current Medications Donepezil HCl (Aricept) 5 mg PO DAILY [facility] Last Admin: 07/25/16 09:03 Dose: 5 mg Insulin Human Regular (Humulin R Low) 0 units SC ACHS [facility] PRN Reason: Protocol Last Admin: 07/25/16 07:47 Dose: 2 units Levetiracetam (Keppra) 500 mg PO BID [facility] Last Admin: 07/24/16 17:48 Dose: 500 mg Losartan Potassium (Cozaar) 100 mg PO DAILY [facility] Last Admin: 07/25/16 09:03 Dose: 100 mg Pantoprazole Sodium (Protonix Ec Tab) 40 mg PO ACB [facility] Last Admin: 07/25/16 07:47 Dose: 40 mg Polyethylene Glycol (Miralax) 17 gm PO DAILY [facility] Last Admin: 07/25/16 09:04 Dose: 17 gm Risperidone (Risperdal Tab) 0.5 mg PO AMHS [facility] PRN Reason: Protocol Last Admin: 07/25/16 09:03 Dose: 0.5 mg Sotalol HCl (Betapace) 80 mg PO BID [facility] Last Admin: 07/25/16 09:02 Dose: 80 mg Warfarin Sodium (Coumadin) 5 mg PO 1800 [facility] PRN Reason: Protocol Results - Vital Signs Recent Vital Signs: Last Vital Signs Temp 97 F L 07/25/16 12:00 Pulse 57 L 07/25/16 12:00 Resp 18 07/25/16 12:00 BP 132/65 07/25/16 12:00 Pulse Ox 94 L 07/25/16 05:04 - Labs Result Diagrams: 07/23/16 12:15 07/23/16 12:15 Labs: Laboratory Results - last 24 hr 07/24/16 07/24/16 07/24/16 07:21 11:04 13:50 PT INR POC Glucose (mg/dL) 199 H 305 H Troponin I Urine Color Yellow Urine Appearance Clear Urine pH 5.5 Ur Specific Honor >= 1.030 Urine Protein Trace H Urine Glucose (UA) 250 H Urine Ketones Trace H Urine Blood Negative Urine Nitrate Negative Urine Bilirubin Negative Urine Urobilinogen 0.2 Ur Leukocyte Esterase Negative Urine RBC 0 - 2 Urine WBC 0 - 2 Ur Epithelial Cells 6 - 8 Urine Bacteria Mod 07/24/16 07/24/16 07/25/16 14:01 16:04 01:46 PT INR POC Glucose (mg/dL) 366 H 188 H Troponin I 0.05 D Urine Color Urine Appearance Urine pH Ur Specific Honor Urine Protein Urine Glucose (UA) Urine Ketones Urine Blood Urine Nitrate Urine Bilirubin Urine Urobilinogen Ur Leukocyte Esterase Urine RBC Urine WBC Ur Epithelial Cells Urine Bacteria 07/25/16 07/25/16 05:30 07:28 PT 11.6 INR 1.07 POC Glucose (mg/dL) 223 H Troponin I Urine Color Urine Appearance Urine pH Ur Specific Honor Urine Protein Urine Glucose (UA) Urine Ketones Urine Blood Urine Nitrate Urine Bilirubin Urine Urobilinogen Ur Leukocyte Esterase Urine RBC Urine WBC Ur Epithelial Cells Urine Bacteria Assessment & Plan - Assessment and Plan (Free Text) Assessment: 85 year old female admitted after syncopal episode resulting in a fall while at [facility]. She is peasantry confused. Denies any complaints. Does not remember why she is here. I spoke with patient's niece (POA) Kimber Ibarra via phone. Niece verifies that patient has an Advanced Directive. A copy is obtained and will be scanned into permanent EMR. Niece confirms patient is is DNR/DNI. Time spent in discussion with niece regarding advance care planning, 15 minutes Plan: Advance care planning - Date & Time Date: 07/25/16 Time: 13:00
--- NOTE | 2016-07-25 16:35 | CP.PCM.PN ---
Subjective - Date & Time of Evaluation Date of Evaluation: 07/25/16 Time of Evaluation: 15:30 - Subjective Subjective: Infectious Disease Follow Up: July 25, 2016 85 yo female presenting with fall at [facility]. Patient is a poor historian. No major complaints by the patient at this time. No fevers or chills reported. She states she was conscious during the fall. She has an extensive medical history that includes HTN, NIDDM, COPD, CAD, Atrial fibrillation, Dementia, and history of breast cancer. At this point, does not appear to have any significant infectious issues. Objective - Vital Signs/Intake and Output Vital Signs (last 24 hours): Temp Pulse Resp BP Pulse Ox 97 F L 57 L 18 132/65 94 L 07/25/16 12:00 07/25/16 12:00 07/25/16 12:00 07/25/16 12:00 07/25/16 05:04 Intake and Output: 07/25/16 07/25/16 06:59 18:59 Intake Total 1010 Output Total 1300 Balance -290 - Medications Medications: Current Medications Donepezil HCl (Aricept) 5 mg PO DAILY [facility] Last Admin: 07/25/16 09:03 Dose: 5 mg Insulin Human Regular (Humulin R Low) 0 units SC ACHS [facility] PRN Reason: Protocol Last Admin: 07/25/16 13:27 Dose: 4 units Levetiracetam (Keppra) 500 mg PO BID [facility] Last Admin: 07/24/16 17:48 Dose: 500 mg Losartan Potassium (Cozaar) 100 mg PO DAILY [facility] Last Admin: 07/25/16 09:03 Dose: 100 mg Pantoprazole Sodium (Protonix Ec Tab) 40 mg PO ACB [facility] Last Admin: 07/25/16 07:47 Dose: 40 mg Polyethylene Glycol (Miralax) 17 gm PO DAILY [facility] Last Admin: 07/25/16 09:04 Dose: 17 gm Risperidone (Risperdal Tab) 0.5 mg PO AMHS [facility] PRN Reason: Protocol Last Admin: 07/25/16 09:03 Dose: 0.5 mg Sotalol HCl (Betapace) 80 mg PO BID [facility] Last Admin: 07/25/16 09:02 Dose: 80 mg Warfarin Sodium (Coumadin) 5 mg PO 1800 [facility] PRN Reason: Protocol - Labs Labs: PT 11.6 Seconds (9.9-11.8) 07/25/16 05:30 INR 1.07 (0.93-1.08) 07/25/16 05:30 APTT 24.7 Seconds (23.7-30.8) 07/23/16 12:15 - Constitutional Appears: Non-toxic, No Acute Distress, Chronically Ill - Head Exam Head Exam: ATRAUMATIC, NORMOCEPHALIC - Eye Exam Eye Exam: EOMI, PERRL Pupil Exam: NORMAL ACCOMODATION, PERRL - ENT Exam ENT Exam: Mucous Membranes Moist, Normal External Ear Exam, TM's Normal Bilaterally - Neck Exam Neck Exam: Full ROM, Normal Inspection - Respiratory Exam Respiratory Exam: Clear to Ausculation Bilateral, NORMAL BREATHING PATTERN. absent: Rales, Rhonchi, Wheezes - Cardiovascular Exam Cardiovascular Exam: REGULAR RHYTHM, RRR, +S1, +S2 - GI/Abdominal Exam GI & Abdominal Exam: Soft, Normal Bowel Sounds. absent: Distended, Tenderness - Extremities Exam Extremities Exam: Full ROM, Normal Inspection - Neurological Exam Neurological Exam: Alert, Awake, CN II-XII Intact - Psychiatric Exam Psychiatric exam: Normal Affect, Normal Mood - Skin Skin Exam: Intact, Normal Color Assessment and Plan - Assessment and Plan (Free Text) Assessment: 85 yo female with fall at nursing facility. No documented head trauma. No fevers or leukocytosis. Supportive care. Not currently on IV antibiotics. Would check urinalysis. Chest X-ray showing chronic interstitial changes. CT Head showing no acute intracranial findings. Check urinalysis before consideration of antibiotic use at this point. Continue supportive care. Not on antibiotics... no strong indicators for infection at this time. Thank you for allowing me to participate in the care of the patient, we will follow with you.
--- NOTE | 2016-08-11 08:22 | DS ---
CHIEF COMPLAINT: Fall, hitting head on the floor. HISTORY OF PRESENT ILLNESS: The patient is an 85-year-old female, has history of atrial fibrillation, was on Coumadin, living alone, is not able to do her activities of daily living, history of atrial fibrillation, has fall, has hallucinations and delusions. The patient denies loss of consciousness. We admitted the patient in the [facility]. The patient was seen by Jo Ann Garcia for palliative care, by Dr. Golden, Dr. Ames, Dr. Breanne Eckert ( psychiatrist), Dr. Suarez (neurologist), and seen by the port patrol officer. Got better. Transferred to [facility] for physical therapy for deconditioning. Will continue treatment there. PAST MEDICAL HISTORY: Atrial fibrillation, hypertension, hypercholesterolemia, dementia, COPD, diabetes mellitus, radical mastectomy, history of breast cancer. FAMILY HISTORY: Father and mother noncontributory. HABITS: Never smoked, no drugs, no ethanol. HOME MEDICATIONS: Aricept, Protonix, MiraLax, Seroquel, Risperdal. REVIEW OF SYSTEMS: The patient was seen and examined on the bedside. Looks comfortable. No nausea, vomiting, or diarrhea. No hematuria or hematochezia. No swelling of the legs. No chest pain or palpitation. PHYSICAL EXAMINATION: VITAL SIGNS: Temperature 98, heart rate 79, respiratory rate 18, blood pressure 130/50, pulse oximetry 94% on room air. HEENT: Head normocephalic, atraumatic. Eyes: PERRLA. Extraocular muscles intact. Conjunctivae are clear. Nose patent. Mucous membranes moist. NECK: Supple. No carotid bruit. No JVD or thyromegaly. CHEST: Bilaterally symmetrical. HEART: S1, S2 positive. LUNGS: Clear to auscultation. ABDOMEN: Soft, nontender. No organomegaly. EXTREMITIES: No edema, no cyanosis. NEUROLOGIC: The patient is awake, alert. Moving all 4 extremities. No focal deficits. MEDICATIONS: Aricept, sotalol, Coumadin, Cozaar, Keppra, MiraLax, Protonix, Risperdal. LABORATORY DATA: INR 1.07. Blood sugar 223. ASSESSMENT AND PLAN: The patient is an 85-year-old female with atrial fibrillation with rapid ventricular response, presented controlled rate, chronic interstitial lung disease, hypertension, diabetes mellitus, dementia, questionable seizures. Pulmonary point of view, she is doing good. Discussion done with patient's friends (Tracy and Ivonne) and patient's family (brother and niece). Plan made. Sending the patient to rehab. Will continue treatment there. Will follow up. Diana Najera MD cc: [id number] TT: 08/11/2016 08:21:09 jenny HEWITT
== END 2016-07-25 16:55 | DRG 92 ==
LOC: ED 11:25 → ERH 14:14 → 2RNO 18:08
PROVIDERS: ADMIT Internal Medicine; ATTEND Internal Medicine
DX: G92 Toxic encephalopathy (principal); J84.9 Interstitial pulmonary disease, unspecified; R56.9 Unspecified convulsions; S09.90XA Unspecified injury of head, initial encounter; I48.91 Unspecified atrial fibrillation; J44.9 Chronic obstructive pulmonary disease, unspecified; G30.9 Alzheimer's disease, unspecified; F02.80 Dementia in other diseases classified elsewhere, unspecified severity, without behavioral disturbance, psychotic disturbance, mood disturbance, and anxiety; W19.XXXA Unspecified fall, initial encounter; F22 Delusional disorders; E78.00 Pure hypercholesterolemia, unspecified; E78.5 Hyperlipidemia, unspecified; H91.90 Unspecified hearing loss, unspecified ear; I10 Essential (primary) hypertension; I25.10 Atherosclerotic heart disease of native coronary artery without angina pectoris; Y92.129 Unspecified place in nursing home as the place of occurrence of the external cause; Z66 Do not resuscitate; E11.9 Type 2 diabetes mellitus without complications; Z79.01 Long term (current) use of anticoagulants; Z79.899 Other long term (current) drug therapy; Z85.3 Personal history of malignant neoplasm of breast; Z86.73 Personal history of transient ischemic attack (TIA), and cerebral infarction without residual deficits; Z95.1 Presence of aortocoronary bypass graft; Z95.2 Presence of prosthetic heart valve; Z88.2 Allergy status to sulfonamides; Z91.013 Allergy to seafood; I44.0 Atrioventricular block, first degree; Z90.13 Acquired absence of bilateral breasts and nipples; R44.1 Visual hallucinations; R41.0 Disorientation, unspecified

== ENCOUNTER 2016-10-08 16:53 | Inpatient (IN) | payer MEDICARE, BC ==
[2016-10-08 16:54] VITALS: PULSE 64
[2016-10-08 17:08] VITALS: BMI 25.0
[2016-10-08 17:36] LABS: ALB/GLOB RATIO 1.4 (1.1-1.8); ALBUMIN 4.3 g/dL (3.0-4.8); ALT/SGPT 23 U/L (7-56); AST/SGOT 31 U/L (15-39); BLOOD UREA NITROGEN 22 mg/dL (7-21); CALCIUM 9.6 mg/dL (8.4-10.5); GFR AFRICAN-AMERICAN > 60; GFR NON-AFRICAN AMERICAN > 60
[2016-10-08 17:38] LABS: BASO # 0.03 K/mm3 (0.0-2.0); BASO % 0.3 % (0.0-3.0); EOS # 0.2 (0.0-0.7); EOS % 1.9 % (1.5-5.0); GRAN # 6.59 (1.4-6.5); GRAN % 73.1 % (50.0-68.0); HEMOGLOBIN 13.6 gm/dL (12.0-16.0); LYMPH # 1.6 (1.2-3.4); LYMPH % 17.2 % (22.0-35.0); MEAN CELL VOLUME 89.2 fL (80.0-105.0); MEAN CORPUSCULAR HEMOGLOBIN 30.7 pg (25.0-35.0); MEAN CORPUSCULAR HGB CONC 34.4 g/dl (31.0-37.0); MEAN PLATELET VOLUME 10.7 fl (7.0-11.0); MONO # 0.7 (0.1-0.6); MONO % 7.5 % (1.0-6.0); PLATELET COUNT 188 10^3/uL (120.0-450.0); RBC 4.43 10^6/uL (3.5-6.1); RED CELL DISTRIBUTION WIDTH 12.8 % (11.5-14.5)
[2016-10-08 17:45] LABS: INR 0.99 (0.93-1.08); PARTIAL THROMBOPLASTIN TIME 24.7 Seconds (23.7-30.8); PROTHROMBIN TIME 10.7 Seconds (9.9-11.8)
--- NOTE | 2016-10-08 17:47 | ED PDOC ---
Arrival/HPI - General Chief Complaint: Seizure Time Seen by Provider: 10/08/16 16:55 - History of Present Illness Narrative History of Present Illness (Text): 10/08/16 17:41 Lee Ann is a 86 year old female with past medical history significant for atrial fibrillation on coumadin, Hypertension, Hypercholesterolemia, advanced dementia , COPD, and diabetes brought in by EMS after patient was witnessed to have a possible syncopal vs. seizure episode while at a [facility]. Pt is noted to be confused and minimally responsive to questioning. Through chart review patient is noted to be historically a poor historian. When questioned the patient is only able to recall going into the [facility] and then ending up in the emergency room. She is alert and oriented to person and time. Patient is joined by friend who was present during her fall. She reports the patient having a normal conversation one moment and then immediately after collapsing into her friend. Patient's friend denies seizure like activity. Past Medical History - Provider Review Nursing Documentation Reviewed: Yes - Infectious Disease Hx of Infectious Diseases: None - Tetanus Immunization Tetanus Immunization: Unknown - Cardiac Hx Cardiac Disorders: Yes Hx Hypertension: Yes - Pulmonary Hx Chronic Obstructive Pulmonary Disease (COPD): Yes - Neurological HX Cerebrovascular Accident: Yes Hx Seizures: Yes - HEENT Hx HEENT Disorder: Yes ([place]) - Renal Hx Renal Disorder: No - Endocrine/Metabolic Hx Diabetes Mellitus Type 2: Yes - Hematological/Oncological Hx Cancer: Yes (breast) - Integumentary Hx Dermatological Disorder: No - Musculoskeletal/Rheumatological Hx Falls: Yes - Gastrointestinal Hx Gastrointestinal Disorders: Yes ([employer],) - Genitourinary/Gynecological Hx Genitourinary Disorders: No Hx Reproductive Disorders: No - Psychiatric Hx Psychophysiologic Disorder: No Hx Substance Use: No - Surgical History Hx Open Heart Surgery: Yes Other/Comment: Radical mastectomy. - Anesthesia Hx Anesthesia: Yes Hx Anesthesia Reactions: No Hx Malignant Hyperthermia: No - Suicidal Assessment Feels Threatened In Home Enviroment: No Family/Social History - Physician Review Nursing Documentation Reviewed: Yes Family/Social History: No Known Family HX Smoking Status: Never Smoked Hx Alcohol Use: No Hx Substance Use: No Hx Substance Use Treatment: No Allergies/Home Meds Allergies/Adverse Reactions: Allergies FISH Allergy (Verified 10/08/16 17:07) NAUSEA Sulfa (Sulfonamide Antibiotics) Allergy (Verified 10/08/16 17:07) HEADACHE Home Medications: Home Meds Medication Instructions Recorded Confirmed Donepezil HCl [Aricept] 5 mg PO DAILY 07/23/16 10/08/16 Pantoprazole Sodium [Protonix] 40 mg PO DAILY 07/23/16 10/08/16 Polyethylene Glycol 3350 [Miralax] 1 packet PO DAILY 07/23/16 10/08/16 Review of Systems - Physician Review All systems were reviewed & negative as marked: Yes - Review of Systems Eyes: absent: Vision Changes Respiratory: absent: SOB Cardiovascular: absent: Chest Pain Neurological: absent: Headache, Dizziness Physical Exam Vital Signs Reviewed: Yes Vital Signs Temp Pulse Resp BP Pulse Ox 10/08/16 17:07 98.0 F 97 H 18 176/95 H 95 Temperature: Afebrile Blood Pressure: Hypertensive Respiratory Rate: Normal Pain Distress: None Mental Status: Positive for: Confused Finger Stick Blood Glucose: 134 - Systems Exam Head: Present: Atraumatic, Normocephalic Pupils: Present: PERRL Extroacular Muscles: Present: EOMI Conjunctiva: Present: Normal Neck: Present: Normal Range of Motion Respiratory/Chest: Present: Clear to Auscultation, Good Air Exchange. No: Respiratory Distress, Accessory Muscle Use Cardiovascular: Present: Regular Rate and Rhythm, Normal S1, S2. No: Murmurs Abdomen: Present: Normal Bowel Sounds. No: Tenderness, Distention, Peritoneal Signs Upper Extremity: Present: Normal Inspection. No: Cyanosis, Edema Lower Extremity: Present: Normal Inspection. No: Edema Neurological: Present: GCS=15, CN II-XII Intact, Motor Func Grossly Intact, Normal Sensory Function Skin: Present: Warm Psychiatric: Present: Alert, Oriented x 3, Normal Insight, Normal Concentration Medical Decision Making ED Course and Treatment: 10/08/16 18:52 Impression: - Patient is a 86 year old female with past medical history significant for dementia, atrial fibrillation, hypertension, hypercholesterolemia, COPD, and Diabetes who presents to the emergency department via EMS after sustaining a fall at a drug store 15 minutes prior to arrival. Differential Diagnosis included but are not limited to: - Syncopal episode - Pre-syncopal episode Plan: - Labs: CBC, CMP, Troponin, Urinalysis, EtOH lvl, PT, PTT - Imaging: CXR, EKG, CT head - Reassess and disposition Progress Notes: 10/08/16 18:57 EKG: Ordered, reviewed, and independently interpreted the EKG. Rate : 97 BPM Rhythm : Atrial fibrillation Interpretation : No ST-segment elevations or depressions, no T-wave inversions, normal intervals. Chest X-Ray COMPARISON: Comparison made with prior chest radiograph 07/23/2016. Comparison also made with CT scan chest abdomen and pelvis 12/24/2012 FINDINGS: LUNGS:Mild bibasilar atelectasis however note that the left lung base remains partially obscured by multiple tiny calcifications left breast of uncertain etiology. There are a few scattered peribronchial cuffing changes with coarsened interstitial markings ; rule out sequela of reactive/inflammatory airway disease. PLEURA:No significant pleural effusion identified, no pneumothorax apparent. CARDIOVASCULAR:Enlarged sternotomy wires and valve replacement again noted. Heart remains enlarged. Aorta is ectatic and uncoiled. OSSEOUS STRUCTURES:No significant abnormalities. VISUALIZED UPPER ABDOMEN:Normal. OTHER FINDINGS:None. IMPRESSION:Mild bibasilar atelectasis however note that the left lung base remains partially obscured by multiple tiny calcifications left breast of uncertain etiology. There are a few scattered peribronchial cuffing changes with coarsened interstitial markings; rule out sequela of reactive/inflammatory airway disease. 10/08/16 19:31 CT Head w/o contrast Brain: Volume loss. Chronic small vessel white matter ischemic change. No acute infarct. Old bilateral caudate nucleus infarcts. Ventricles: No hydrocephalus Bones/joints: Unremarkable. No acute fracture Soft tissues: Unremarkable Vasculature: Calcification along the distal internal carotid and vertebral artery Sinuses: Mild ethmoid sinus mucosal thickening. No fluid levels. Mastoid air cells: Unremarkable as visualized. No mastoid effusion. Impression: No acute findings. Nonacute findings as above. 10/08/16 20:13 Spoke with erasmo regarding patient case and patient will be admitted for remote telemetry - Lab Interpretations Lab Results: 10/08/16 17:10 10/08/16 17:10 Lab Results 10/08/16 17:35: Troponin I < 0.01 D 10/08/16 17:30: Urine Color Yellow, Urine Appearance Sl cloudy, Urine pH 6.0, Ur Specific Hinkle 1.020, Urine Protein 30 H, Urine Glucose (UA) Negative, Urine Ketones Negative, Urine Blood Trace-lysed H, Urine Nitrate Negative, Urine Bilirubin Negative, Urine Urobilinogen 0.2, Ur Leukocyte Esterase Negative , Urine RBC 0 - 2, Urine WBC Negative, Ur Epithelial Cells 0 - 2 10/08/16 17:10: Alcohol, Quantitative < 10 10/08/16 17:10: Sodium 138, Potassium 4.5, Chloride 99, Carbon Dioxide 25, Anion Gap 19, BUN 22 H, Creatinine 0.7, Est GFR ( Amer) > 60, Est GFR ( Non-Af Amer) > 60, Random Glucose 122 H, Calcium 9.6, Total Bilirubin 0.5, AST 31, ALT 23, Alkaline Phosphatase 61, Total Protein 7.4, Albumin 4.3, Globulin 3.2, Albumin/Globulin Ratio 1.4 10/08/16 17:10: PT 10.7, INR 0.99, APTT 24.7 10/08/16 17:10: WBC 9.0, RBC 4.43, Hgb 13.6, Hct 39.5, MCV 89.2, MCH 30.7, MCHC 34.4, RDW 12.8, Plt Count 188, MPV 10.7, Gran % 73.1 H, Lymph % (Auto) 17.2 L, Josephine % (Auto) 7.5 H, Eos % (Auto) 1.9, Baso % (Auto) 0.3, Gran # 6.59 H, Lymph # 1.6, Josephine # 0.7 H, Eos # 0.2, Baso # 0.03 - RAD Interpretation Radiology Orders: 10/08/16 17:20 CHEST PORTABLE [RAD] Stat 10/08/16 18:31 HEAD W/O CONTRAST [CT] Stat - PA / [employer]IE[employer]ETING OFFICER / Resident Statement STEPHAN has reviewed & agrees with the documentation as recorded. / has examined the patient and agrees with the treatment plan. Disposition/Present on Arrival - Present on Arrival Any Indicators Present on Arrival: No History of DVT/PE: No History of Uncontrolled Diabetes: No Urinary Catheter: No History of Decub. Ulcer: No History Surgical Site Infection Following: None - Disposition Have Diagnosis and Disposition been Completed?: Yes Diagnosis: Syncope Disposition: HOSPITALIZED Disposition Time: 20:00 Patient Plan: Admission Patient Problems: Current Active Problems Problem Status Onset Syncope Acute Condition: STABLE Discharge Instructions (ExitCare): Syncope (ED) Forms: [employer] (Ukrainian)
[2016-10-08 18:06] LABS: URINE BILIRUBIN NEGATIVE (NEGATIVE); URINE BLOOD TRACE-LYSED (NEGATIVE); URINE GLUCOSE (UA) NEGATIVE (NEGATIVE); URINE LEUKOCYTE ESTERASE NEGATIVE Leu/uL (NEGATIVE); URINE NITRATE NEGATIVE (NEGATIVE); URINE PROTEIN 30 mg/dL (<30 mg/dL); URINE UROBILINOGEN 0.2 E.U./dL (<1 E.U./dL)
[2016-10-08 18:07] LABS: URINE APPEARANCE SL CLOUDY (CLEAR); URINE COLOR YELLOW (YELLOW)
[2016-10-08 18:17] LABS: URINE EPITHELIAL CELLS 0 - 2 /hpf (0-5); URINE RBC 0 - 2 /hpf (0-2); URINE WBC NEGATIVE /hpf (0-6)
--- NOTE | 2016-10-08 18:40 | RAD ---
HISTORY: seizure COMPARISON: Comparison made with prior chest radiograph 07/23/2016. Comparison also made with CT scan chest abdomen and pelvis 12/24/2012 FINDINGS: LUNGS: Mild bibasilar atelectasis however note that the left lung base remains partially obscured by multiple tiny calcifications left breast of uncertain etiology. There are a few scattered peribronchial cuffing changes with coarsened interstitial markings ; rule out sequela of reactive/inflammatory airway disease. PLEURA: No significant pleural effusion identified, no pneumothorax apparent. CARDIOVASCULAR: Enlarged sternotomy wires and valve replacement again noted. Heart remains enlarged. Aorta is ectatic and uncoiled. OSSEOUS STRUCTURES: No significant abnormalities. VISUALIZED UPPER ABDOMEN: Normal. OTHER FINDINGS: None. IMPRESSION: Mild bibasilar atelectasis however note that the left lung base remains partially obscured by multiple tiny calcifications left breast of uncertain etiology. There are a few scattered peribronchial cuffing changes with coarsened interstitial markings; rule out sequela of reactive/inflammatory airway disease.
--- NOTE | 2016-10-08 20:18 | CARD ---
APPROVED REPORT EKG Measurement Heart [id number] <Conclusion> Normal sinus rhythm Possible Left atrial enlargement Left axis deviation Left ventricular hypertrophy Nonspecific ST and T wave abnormality Prolonged QT Abnormal ECG
[2016-10-09] MEDS: Pantoprazole 40 mg EC Tab PO SCH (06:18)
--- NOTE | 2016-10-09 06:25 | CP.PCM.PN ---
Subjective - Date & Time of Evaluation Date of Evaluation: 10/09/16 Time of Evaluation: 06:23 - Subjective Subjective: Patient was seen at bedside because she had an episode of seizure. As per nurse , had tonic,clonic movement aof whole body for about 30 seconds. There was no incontinence and was little foaming. Medical record was reviewed. This 86 year old white woman was admitted Has PMH of Atrial fibrillation on coumadin, HTN, HLD,dementia,COPD, DM II , breast cancer, multiple falls, radical mastectomy. Objective - Vital Signs/Intake and Output Vital Signs (last 24 hours): Temp Pulse Resp BP Pulse Ox 98.1 F 86 18 141/74 97 10/08/16 22:10 10/09/16 02:00 10/08/16 22:10 10/08/16 22:10 10/08/16 21:14 Intake and Output: 10/08/16 10/09/16 18:59 06:59 Intake Total 120 Output Total 1000 Balance -880 - Medications Medications: Current Medications Donepezil HCl (Aricept) 5 mg PO HS [facility] Last Admin: 10/08/16 23:33 Dose: 5 mg Levetiracetam (Keppra) 500 mg PO BID REGGIE Losartan Potassium (Cozaar) 100 mg PO DAILY REGGIE Pantoprazole Sodium (Protonix Ec Tab) 40 mg PO 0600 [facility] Last Admin: 10/09/16 06:18 Dose: Not Given Polyethylene Glycol (Miralax) 17 gm PO DAILY REGGIE Risperidone (Risperdal Tab) 0.5 mg PO AMHS [facility] PRN Reason: Protocol Sotalol HCl (Betapace) 80 mg PO BID REGGIE Warfarin Sodium (Coumadin) 3 mg PO 1800 [facility] PRN Reason: Protocol - Labs Labs: PT 10.7 Seconds (9.9-11.8) 10/08/16 17:10 INR 0.99 (0.93-1.08) 10/08/16 17:10 APTT 24.7 Seconds (23.7-30.8) 10/08/16 17:10 - Constitutional Appears: Well, No Acute Distress - Head Exam Head Exam: ATRAUMATIC, NORMAL INSPECTION, NORMOCEPHALIC - Eye Exam Eye Exam: Normal appearance - ENT Exam ENT Exam: Normal External Ear Exam - Neck Exam Neck Exam: Normal Inspection - Respiratory Exam Respiratory Exam: NORMAL BREATHING PATTERN - Cardiovascular Exam Cardiovascular Exam: absent: JVD - GI/Abdominal Exam GI & Abdominal Exam: absent: Distended - Rectal Exam Rectal Exam: Deferred - Exam Additional comments: Deferred. - Extremities Exam Extremities Exam: Normal Inspection - Back Exam Back Exam: NORMAL INSPECTION - Neurological Exam Neurological Exam: Altered Additional comments: Post ictal stage. - Psychiatric Exam Additional comments: Post ictal. - Skin Skin Exam: Normal Color Assessment and Plan - Assessment and Plan (Free Text) Assessment: Seizure. Dementia. HTN. Hx breast cancer. Atrial fibrillation-0n coumadin. Plan: Ativan 0.5 mg IV stat. Discussed with . Placed a call to neurologist. Continue monitor and present management.
[2016-10-09 07:02] LABS: BASO # 0.04 K/mm3 (0.0-2.0); BASO % 0.4 % (0.0-3.0); EOS # 0.2 (0.0-0.7); EOS % 1.6 % (1.5-5.0); GRAN # 7.89 (1.4-6.5); GRAN % 74.4 % (50.0-68.0); HEMOGLOBIN 12.9 gm/dL (12.0-16.0); LYMPH # 1.4 (1.2-3.4); LYMPH % 13.3 % (22.0-35.0); MEAN CELL VOLUME 88.7 fL (80.0-105.0); MEAN CORPUSCULAR HEMOGLOBIN 30.5 pg (25.0-35.0); MEAN CORPUSCULAR HGB CONC 34.4 g/dl (31.0-37.0); MEAN PLATELET VOLUME 9.6 fl (7.0-11.0); MONO # 1.1 (0.1-0.6); MONO % 10.3 % (1.0-6.0); PLATELET COUNT 163 10^3/uL (120.0-450.0); RBC 4.23 10^6/uL (3.5-6.1); RED CELL DISTRIBUTION WIDTH 12.7 % (11.5-14.5); WHITE BLOOD COUNT 10.6 10^3/ul (4.5-11.0)
[2016-10-09 07:06] LABS: ALB/GLOB RATIO 1.3 (1.1-1.8); ALBUMIN 4.2 g/dL (3.0-4.8); ALT/SGPT 19 U/L (7-56); AST/SGOT 35 U/L (15-39); BLOOD UREA NITROGEN 17 mg/dL (7-21); CALCIUM 9.2 mg/dL (8.4-10.5); GFR AFRICAN-AMERICAN > 60; GFR NON-AFRICAN AMERICAN > 60; MAGNESIUM 1.6 mg/dL (1.7-2.2)
[2016-10-09 07:23] LABS: ARTERIAL BLOOD GAS HEMOGLOBIN 12.4 g/dL (11.7-17.4); ARTERIAL BLOOD GAS O2 CONTENT 15.9 ML/dl (15-23); ARTERIAL BLOOD GAS O2 SAT 93.8 % (95-98); ARTERIAL BLOOD GAS PCO2 38 mm/Hg (35-45); ARTERIAL BLOOD GAS PH 7.39 (7.35-7.45); ARTERIAL BLOOD GAS TCO2 24.2 mmol.L (22-28)
[2016-10-09 07:23] LABS: TROPONIN I < 0.01 ng/mL
--- NOTE | 2016-10-09 07:59 | CT ---
PROCEDURE: CT HEAD WITHOUT CONTRAST. HISTORY: r/o ICH COMPARISON: 07/23/2016 TECHNIQUE: Axial computed tomography images were obtained through the head/brain without intravenous contrast. Radiation dose: Total exam DLP = 725 mGy-cm. This CT exam was performed using one or more of the following dose reduction techniques: Automated exposure control, adjustment of the mA and/or kV according to patient size, and/or use of iterative reconstruction technique. FINDINGS: HEMORRHAGE: No intracranial hemorrhage. BRAIN: No mass effect or edema. Chronic microvascular changes are seen in the periventricular white matter. VENTRICLES: Unremarkable. No hydrocephalus. CALVARIUM: Unremarkable. PARANASAL SINUSES: Unremarkable as visualized. No significant inflammatory changes. MASTOID AIR CELLS: Unremarkable as visualized. No inflammatory changes. OTHER FINDINGS: The report concurs with the preliminary [facility] report IMPRESSION: No acute intracranial findings
--- NOTE | 2016-10-09 09:43 | HP ---
CHIEF COMPLIANT: Syncope. HISTORY OF PRESENT ILLNESS: Ms. Lee Ann Ledezma is 86 years old female with past medical history significant for atrial fibrillation on Coumadin, hypertension, hypercholesterolemia, advanced dementia, COPD, diabetes mellitus, brought by EMS after the patient was witnessed to have possible syncope/seizure while she was doing a shopping at [facility] . The patient is noted to be confused and minimal responsive to the questioning in the beginning. The patient was with her friend, Tracy, and [facility] 911. The patient is a poor historian. The patient's friend, Ivonne is on the bedside, she gave me the history. The patient is alert and oriented. According to the patient's friend, Tracy, the patient was just very normal conversation and immediately collapsed into her friend's lap. The patient's friend denies seizure-like activity and the patient did not have fall on the ground. PAST MEDICAL HISTORY: Hypertension, COPD, cerebrovascular accident, history of seizures, diabetes mellitus type 2, history of breast cancer, history of multiple falls and radical mastectomy. FAMILY HISTORY: Father and mother, noncontributory. HABITS: Never smoked. No drug and no ethanol. ALLERGIES: THE PATIENT HAS ALLERGIC WITH FISH AND SULFA. HOME MEDICATIONS: Aricept, Protonix and MiraLax. REVIEW OF SYSTEMS: The patient is seen and examined on the bedside in the emergency room. Friend Ivonne was on the bedside. No shortness of breath. No nausea, vomiting, or diarrhea. No hematuria and no hematochezia. No swelling of the leg. No chest pain. No palpitation. No headaches or dizziness. PHYSICAL EXAMINATION: VITAL SIGNS: Temperature of 98, pulse of 97, respiratory rate of 18, blood pressure of 170/95, and pulse oximetry of 95%. HEENT: Head is normocephalic and atraumatic. Eyes: PERRLA. Extraocular movements intact. Conjunctivae are clear. Nose is patent. NECK: Supple. No carotid bruit and no thyromegaly. CHEST: Bilaterally symmetrical. HEART: S1 and S2 positive. LUNGS: Clear to auscultation. ABDOMEN: Soft. Bowel sounds are present. No organomegaly. EXTREMITIES: No edema and no cyanosis. NEUROLOGIC: The patient is awake and alert. Moving all four extremities. No focal deficits. LABORATORY DATA: White blood cells of 9.0, hemoglobin of 13.6, hematocrit of 39.5 and platelets noted . Sodium of 138, potassium of 4.9, BUN of 22, and creatinine of 0.7. Random glucose is 122. Troponin is less than 0.01. Urinalysis shows protein in the urine and blood. ASSESSMENT AND PLAN: Ms. Lee Ann Ledezma is 86 years old my private patient, has hyperglycemia, proteinuria and hematuria. Toxicology is negative with CAT scan of the head, results are pending. She came with like syncopal attack/seizures, atrial fibrillation, she is on Coumadin, hypertension, hypercholesterolemia, dementia, chronic obstructive pulmonary disease, and diabetes mellitus. Neurology consult called and discussion done with the patient's friend Ivonne and Emergency Room physician. The patient is on fall precautions. Chest x-ray done that shows mild bibasilar atelectasis; however, noted that left lung base remains partially obscured by multiple tiny calcification of the left breast of uncertain etiology, rule out inflammatory process. We will keep the patient overnight and neurology consult will follow up. The patient lives alone and she is not able to live alone, but she want to live alone. Last time, we put her in [facility] for physical therapy. The patient's family has one brother and niece. Last time length of time discussion was held with everybody and she was put on Assisted Living Facility, but the patient do not like that is why she was discharged back to home. We will continue follow up. Diana Najera MD [email or web address]
[2016-10-09] MEDS: Magnesium Oxide 400 mg Tab UD PO SCH (10:03)
[2016-10-09] MEDS: POLYETHYLENE GLYCOL 3350 17 GM/Dose PACKET PO SCH (10:04)
--- NOTE | 2016-10-09 11:01 | CARD ---
APPROVED REPORT EKG Measurement Heart [id number] <Conclusion> Sinus rhythm with 1st degree AV block Possible Left atrial enlargement Left axis deviation Left ventricular hypertrophy with repolarization abnormality Abnormal ECG
--- NOTE | 2016-10-09 12:05 | CP.PCM.CON ---
<Benton Goncalves - Last Filed: 10/09/16 11:57> History of Present Illness - History of Present Illness History of Present Illness: PGY-[address] Suarez's Neurology Service: Reason for consult: seizure This is an 86 year old female with PMHx HTN, A-fib, DM, HLD, anxiety, breast cancer s/p mastectomy, chronic hearing difficulties, cognitive impairment who presented to the hospital after a fall. Information obtained from the chart due to patient's current drowsy state. Patient was walking with her friend in [facility] where she suddenly collapsed onto the friend. They were carrying on normal conversation just prior to this. Per patient's friend, she did not witness any seizure-like actvities. This morning at around 6-6:30 AM, the patient was seen experiencing whole body tremors and foaming at the mouth. Ativan 1 mg was given which stopped the convulsions. Patient has since been in a post-ictal state. PMHx: HTN, A-fib, DM, HLD, anxiety, breast cancer s/p mastectomy, chronic hearing difficulties, cognitive impairment PSHx: Mastectomy Allergies: Sulfa and fish Social: No history of tobacco, alcohol, drugs. Review of Systems - Review of Systems Review of Systems: 14-point ROS unable to ascertain due to patient's drowsy and lethargic state Past Patient History - Infectious Disease Hx of Infectious Diseases: None - Tetanus Immunizations Tetanus Immunization: Unknown - Past Social History Smoking Status: Never Smoked - CARDIAC Hx Cardiac Disorders: Yes (Afib (on Coumadin)) Hx Cardia Arrhythmia: Yes (SVT) Hx Hypercholesterolemia: Yes Hx Hypertension: Yes - PULMONARY Hx Chronic Obstructive Pulmonary Disease (COPD): Yes - NEUROLOGICAL HX Cerebrovascular Accident: Yes Hx Dementia: Yes Hx Seizures: Yes - HEENT Hx HEENT Problems: Yes (Hard of hearing) - RENAL Hx Chronic Kidney Disease: No - ENDOCRINE/METABOLIC Hx Diabetes Mellitus Type 2: Yes - HEMATOLOGICAL/ONCOLOGICAL Hx Cancer: Yes (Breast CA) Hx Chemotherapy: Yes - INTEGUMENTARY Hx Dermatological Problems: No - MUSCULOSKELETAL/RHEUMATOLOGICAL Hx Falls: Yes Hx Fractures: Yes (Right ankle) Hx Osteoarthritis: Yes - GASTROINTESTINAL Hx Gastrointestinal Disorders: Yes (POOR APPETTITE,) - GENITOURINARY/GYNECOLOGICAL Hx Urinary Tract Infection: Yes - PSYCHIATRIC Hx Substance Use: No - SURGICAL HISTORY Hx Mastectomy: Yes - ANESTHESIA Hx Anesthesia: Yes Hx Anesthesia Reactions: No Hx Malignant Hyperthermia: No Meds Allergies/Adverse Reactions: Allergies Allergy/AdvReac Type Severity Reaction Status Date / Time FISH Allergy NAUSEA Verified 10/08/16 17:07 Sulfa (Sulfonamide Allergy HEADACHE Verified 10/08/16 17:07 Antibiotics) - Medications Medications: Current Medications Donepezil HCl (Aricept) 5 mg PO HS [facility] Last Admin: 10/08/16 23:33 Dose: 5 mg Insulin Human Regular (Humulin R Low) 0 units SC ACHS [facility] PRN Reason: Protocol Levetiracetam (Keppra) 500 mg PO BID [facility] Last Admin: 10/09/16 10:03 Dose: 500 mg Losartan Potassium (Cozaar) 100 mg PO DAILY [facility] Last Admin: 10/09/16 10:03 Dose: 100 mg Magnesium Oxide (Mag-Ox) 400 mg PO DAILY [facility] Last Admin: 10/09/16 10:03 Dose: 400 mg Pantoprazole Sodium (Protonix Ec Tab) 40 mg PO 0600 [facility] Last Admin: 10/09/16 06:18 Dose: Not Given Polyethylene Glycol (Miralax) 17 gm PO DAILY [facility] Last Admin: 10/09/16 10:04 Dose: 17 gm Risperidone (Risperdal Tab) 0.5 mg PO [facility] PRN Reason: Protocol Sotalol HCl (Betapace) 80 mg PO BID [facility] Last Admin: 10/09/16 10:04 Dose: 80 mg Warfarin Sodium (Coumadin) 3 mg PO 1800 [facility] PRN Reason: Protocol Physical Exam - Constitutional Appears: Confused - Head Exam Head Exam: ATRAUMATIC, NORMAL INSPECTION, NORMOCEPHALIC - Eye Exam Eye Exam: EOMI, PERRL - Respiratory Exam Respiratory Exam: Clear to Auscultation Bilateral - Cardiovascular Exam Cardiovascular Exam: REGULAR RHYTHM - GI/Abdominal Exam GI & Abdominal Exam: Distended, Normal Bowel Sounds, Soft - Neurological Exam Neurological exam: Alert, Oriented x3, Reflexes Normal Additional comments: Patient is alert to person, place, and time. However, she is unaware of her current situation and is confused as to why she is in the hospital. EOM intact. Moving all 4 extremities. Ability to follow directions is intermittent due to present mental status. No pronator drift. Reflexes 2/4 throughout. Results - Vital Signs Recent Vital Signs: Last Vital Signs Temp 98.1 F 10/09/16 06:00 Pulse 93 H 10/09/16 10:04 Resp 20 10/09/16 06:00 BP 166/93 H 10/09/16 10:04 Pulse Ox 95 10/09/16 06:00 - Labs Result Diagrams: 10/09/16 06:30 10/09/16 06:30 Labs: Laboratory Results - last 24 hr 10/09/16 10/09/16 10/09/16 06:30 06:30 07:15 WBC 10.6 RBC 4.23 Hgb 12.9 Hct 37.5 MCV 88.7 MCH 30.5 MCHC 34.4 RDW 12.7 Plt Count 163 MPV 9.6 Gran % 74.4 H Lymph % (Auto) 13.3 L [place] % (Auto) 10.3 H Eos % (Auto) 1.6 Baso % (Auto) 0.4 Gran # 7.89 H Lymph # 1.4 [place] # 1.1 H Eos # 0.2 Baso # 0.04 pCO2 38 pO2 59.0 L HCO3 23.0 ABG pH 7.39 ABG Total CO2 24.2 ABG O2 Saturation 93.8 L ABG O2 Content 15.9 ABG Base Excess -1.7 ABG Hemoglobin 12.4 ABG Carboxyhemoglobin 2.1 H POC ABG HHb (Measured) 6.0 H ABG Methemoglobin 0.4 ABG O2 Capacity 17.0 Hgb O2 Saturation 91.4 L FiO2 21.0 Sodium 138 Potassium 4.0 Chloride 101 Carbon Dioxide 21 Anion Gap 20 BUN 17 Creatinine 0.7 Est GFR ( Amer) > 60 Est GFR (Non-Af Amer) > 60 Random Glucose 179 H Calcium 9.2 Phosphorus 4.3 Magnesium 1.6 L Total Bilirubin 1.0 AST 35 ALT 19 Alkaline Phosphatase 66 Troponin I < 0.01 Total Protein 7.5 Albumin 4.2 Globulin 3.3 Albumin/Globulin Ratio 1.3 Assessment & Plan - Assessment and Plan (Free Text) Assessment: This is an 86 year old female with PMHx HTN, A-fib, DM, HLD, anxiety, breast cancer s/p mastectomy, chronic hearing difficulties, cognitive impairment who presented to the hospital after a fall. It is possible that this is a seizure episode, although previous EEG in 07/25/16 revealed diffuse slowing and bilateral cerebral dysfunction with no elipteform activity. Head CT showed no acute findings. Likely the seizure could be secondary to transient cerebral hypoperfusion and neurodegenerative. Plan: 1) MRI brain to assess for brain abnormalities 2) EEG to assess for epileptiform activity 3) Continue Keppra 500 mg BID 4) Avoid sedative medications 5) delirium, fall, seizure precautions 6) PT evaluation *Try to avoid overuse of antipsychotics as they can lower the seizure threshold. Case discussed with Dr. Erick Goncalves, PGY-1 - Date & Time Date: 10/09/16 Time: 07:30 <Jovan Suarez - Last Filed: 10/09/16 13:59> Meds - Medications Medications: Current Medications Donepezil HCl (Aricept) 5 mg PO HS [facility] Last Admin: 10/08/16 23:33 Dose: 5 mg Insulin Human Regular (Humulin R Low) 0 units SC ACHS [facility] PRN Reason: Protocol Last Admin: 10/09/16 12:28 Dose: Not Given Levetiracetam (Keppra) 500 mg PO BID [facility] Last Admin: 10/09/16 10:03 Dose: 500 mg Losartan Potassium (Cozaar) 100 mg PO DAILY [facility] Last Admin: 10/09/16 10:03 Dose: 100 mg Magnesium Oxide (Mag-Ox) 400 mg PO DAILY [facility] Last Admin: 10/09/16 10:03 Dose: 400 mg Pantoprazole Sodium (Protonix Ec Tab) 40 mg PO 0600 [facility] Last Admin: 10/09/16 06:18 Dose: Not Given Polyethylene Glycol (Miralax) 17 gm PO DAILY [facility] Last Admin: 10/09/16 10:04 Dose: 17 gm Risperidone (Risperdal Tab) 0.5 mg PO [facility] PRN Reason: Protocol Sotalol HCl (Betapace) 80 mg PO BID [facility] Last Admin: 10/09/16 10:04 Dose: 80 mg Warfarin Sodium (Coumadin) 3 mg PO 1800 [facility] PRN Reason: Protocol Results - Vital Signs Recent Vital Signs: Last Vital Signs Temp 98.1 F 10/09/16 12:00 Pulse 66 10/09/16 12:00 Resp 16 10/09/16 12:00 BP 145/69 10/09/16 12:00 Pulse Ox 95 10/09/16 06:00 - Labs Result Diagrams: 10/09/16 06:30 10/09/16 06:30 Attending/Attestation - Attestation I have personally seen and examined this patient.: Yes I have fully participated in the care of the patient.: Yes I have reviewed all pertinent clinical information: Yes
[2016-10-09] MEDS: Insulin Reg-LOW-Coverage SC SCH ×3 (12:28→22:22)
[2016-10-09 16:36] LABS: INR 1.06 (0.93-1.08); PROTHROMBIN TIME 11.4 Seconds (9.9-11.8)
[2016-10-09 17:30] LABS: PH,URINE 7.5 (4.7-8.0); URINE BILIRUBIN NEGATIVE (NEGATIVE); URINE BLOOD NEGATIVE (NEGATIVE); URINE GLUCOSE (UA) NEGATIVE (NEGATIVE); URINE LEUKOCYTE ESTERASE TRACE Leu/uL (NEGATIVE); URINE NITRATE NEGATIVE (NEGATIVE); URINE PROTEIN TRACE mg/dL (<30 mg/dL); URINE UROBILINOGEN 0.2 E.U./dL (<1 E.U./dL)
--- NOTE | 2016-10-09 17:30 | EEG ---
CONDITION OF RECORDING: Drowsy. DIAGNOSIS: Seizure. MEDICATIONS: Reviewed by nurse per reconciliation sheet. INTERPRETATION: This is a 16-channel international recording. Background activity of this patient was composed of 8 cycles per second. There was small amount of beta activity with *------* cycles per second seen in this recording. There was small amount of theta activity of 5-7 cycles per second seen in this tracing. Drowsiness was characterized by mixed beta and theta activities. The sleep was characterized by vertex transients, sleep spindles, and bilateral slowing. Photic stimulation showed no change in the tracing. No paroxysmal activity noted in this recording. CONCLUSION: Normal drowsy EEG. No evidence of any epileptiform activity. Please clinically correlate. Jovan Suarez MD
[2016-10-09 17:32] LABS: URINE APPEARANCE CLEAR (CLEAR); URINE COLOR YELLOW (YELLOW)
--- NOTE | 2016-10-09 20:23 | MRI ---
EXAM: MR Head Without Intravenous Contrast CLINICAL HISTORY: The patient age is 86 years old and is female; Signs and symptoms; Altered mental status/memory loss; Patient HX: Seizure. Limited study patient moving a lot. Patient very confused. Post contrast not done. Pre contrast brain is very limited due to notion. Nurse mari was advised Facility exam id and description: Mri br s brain without contrast TECHNIQUE: Magnetic resonance images of the head/brain without intravenous contrast in multiple planes. EXAM DATE/TIME: 10/09/2016 12:05 PM COMPARISON: CT - HEAD W/O CONTRAST 10/08/2016 6:53:20 PM FINDINGS: Artifacts: Motion artifact significantly limits this study. Brain: There is no restricted diffusion within the brain to suggest acute ischemic change. There are scattered foci of high FLAIR signal intensity within the cerebral white matter, with periventricular hyperintensity. There is no mass effect or restricted diffusion associated with these findings. In a patient this age, this likely represents chronic small vessel ischemic disease. Motion artifact limits evaluation of the cerebral white matter. There is prominence of the ventricles and sulci, compatible with atrophy. Foci of T2 hyperintensity are seen within the bilateral basal ganglia, consistent with chronic ischemic changes. Ventricles: There is mild ventriculomegaly. Bones/joints: No acute abnormality. Sinuses: There is mild mucosal thickening of scattered ethmoid air cells. No acute sinusitis. Mastoid air cells: No mastoid effusion. Orbits: No acute abnormality, as visualized. IMPRESSION: 1. There is no restricted diffusion within the brain to suggest acute ischemic change. 2. There are scattered foci of high FLAIR signal intensity within the cerebral white matter, with periventricular hyperintensity. In a patient this age, this likely represents chronic small vessel ischemic disease. 3. Atrophy. There is mild ventriculomegaly. 4. Foci of T2 hyperintensity are seen within the bilateral basal ganglia, consistent with chronic ischemic changes. 5. Paranasal sinus disease is noted above.
--- NOTE | 2016-10-09 23:53 | CP.PCM.PN ---
Subjective - Date & Time of Evaluation Date of Evaluation: 10/09/16 Time of Evaluation: 11:00 - Subjective Subjective: This is an 86 year old female with PMHx HTN, A-fib, DM, HLD, anxiety, breast cancer s/p mastectomy, chronic hearing difficulties, cognitive impairment who presented to the hospital after a fall. Information obtained from the chart due to patient's current drowsy state. Patient was walking with her friend in [facility] where she suddenly collapsed onto the friend. They were carrying on normal conversation just prior to this. Per patient's friend, she did not witness any seizure-like actvities. This morning at around 6-6:30 AM, the patient was seen experiencing whole body tremors and foaming at the mouth. Ativan 1 mg was given which stopped the convulsions. Patient has since been in a post-ictal state. Objective - Vital Signs/Intake and Output Vital Signs (last 24 hours): Temp Pulse Resp BP Pulse Ox 98.9 F 82 20 166/93 H 95 10/09/16 17:14 10/09/16 18:00 10/09/16 17:14 10/09/16 17:48 10/09/16 06:00 - Medications Medications: Current Medications Donepezil HCl (Aricept) 5 mg PO HS [facility] Last Admin: 10/08/16 23:33 Dose: 5 mg Insulin Human Regular (Humulin R Low) 0 units SC ACHS [facility] PRN Reason: Protocol Last Admin: 10/09/16 22:22 Dose: Not Given Levetiracetam (Keppra) 500 mg PO BID [facility] Last Admin: 10/09/16 17:48 Dose: 500 mg Losartan Potassium (Cozaar) 100 mg PO DAILY [facility] Last Admin: 10/09/16 10:03 Dose: 100 mg Magnesium Oxide (Mag-Ox) 400 mg PO DAILY [facility] Last Admin: 10/09/16 10:03 Dose: 400 mg Pantoprazole Sodium (Protonix Ec Tab) 40 mg PO 0600 [facility] Last Admin: 10/09/16 06:18 Dose: Not Given Polyethylene Glycol (Miralax) 17 gm PO DAILY [facility] Last Admin: 10/09/16 10:04 Dose: 17 gm Risperidone (Risperdal Tab) 0.5 mg PO [facility] PRN Reason: Protocol Last Admin: 10/09/16 10:15 Dose: Not Given Sotalol HCl (Betapace) 80 mg PO BID [facility] Last Admin: 10/09/16 17:48 Dose: 80 mg Warfarin Sodium (Coumadin) 3 mg PO 1800 [facility] PRN Reason: Protocol Last Admin: 10/09/16 17:47 Dose: 3 mg - Labs Labs: PT 11.4 Seconds (9.9-11.8) 10/09/16 16:21 INR 1.06 (0.93-1.08) 10/09/16 16:21 APTT 24.7 Seconds (23.7-30.8) 10/08/16 17:10 - Constitutional Appears: Well - Head Exam Head Exam: ATRAUMATIC, NORMAL INSPECTION, NORMOCEPHALIC - Eye Exam Eye Exam: EOMI, Normal appearance, PERRL Pupil Exam: NORMAL ACCOMODATION, PERRL - ENT Exam ENT Exam: Mucous Membranes Moist, Normal Exam - Neck Exam Neck Exam: Full ROM, Normal Inspection. absent: Lymphadenopathy - Respiratory Exam Respiratory Exam: Clear to Ausculation Bilateral, NORMAL BREATHING PATTERN - Cardiovascular Exam Cardiovascular Exam: REGULAR RHYTHM, +S1, +S2. absent: Murmur - GI/Abdominal Exam GI & Abdominal Exam: Soft, Normal Bowel Sounds. absent: Tenderness - Rectal Exam Rectal Exam: NORMAL INSPECTION - Exam Exam: Circumcision, NORMAL INSPECTION External exam: NORMAL EXTERNAL EXAM Speculum exam: NORMAL SPECULUM EXAM Bimanual exam: NORMAL BIMANUAL EXAM - Extremities Exam Extremities Exam: Full ROM, Normal Capillary Refill, Normal Inspection. absent : Joint Swelling, Pedal Edema - Back Exam Back Exam: NORMAL INSPECTION - Neurological Exam Neurological Exam: Alert, Awake, CN II-XII Intact, Normal Gait, Oriented x3 - Psychiatric Exam Psychiatric exam: Normal Affect, Normal Mood - Skin Skin Exam: Dry, Intact, Normal Color, Warm Assessment and Plan - Assessment and Plan (Free Text) Assessment: - Assessment and Plan (Free Text) Assessment: This is an 86 year old female with PMHx HTN, A-fib, DM, HLD, anxiety, breast cancer s/p mastectomy, chronic hearing difficulties, cognitive impairment who presented to the hospital after a fall. It is possible that this is a seizure episode, although previous EEG in 07/25/16 revealed diffuse slowing and bilateral cerebral dysfunction with no elipteform activity. Head CT showed no acute findings. Likely the seizure could be secondary to transient cerebral hypoperfusion and neurodegenerative. Plan: 1) MRI brain to assess for brain abnormalities 2) EEG to assess for epileptiform activity 3) Continue Keppra 500 mg BID 4) Avoid sedative medications 5) delirium, fall, seizure precautions 6) PT evaluation *Try to avoid overuse of antipsychotics as they can lower the seizure threshold.
[2016-10-10] MEDS: Pantoprazole 40 mg EC Tab PO SCH (05:44)
[2016-10-10 06:43] LABS: ALB/GLOB RATIO 1.1 (1.1-1.8); ALT/SGPT 24 U/L (7-56); AST/SGOT 28 U/L (15-39); BLOOD UREA NITROGEN 21 mg/dL (7-21); GFR AFRICAN-AMERICAN > 60; GFR NON-AFRICAN AMERICAN > 60
[2016-10-10] MEDS: Insulin Reg-LOW-Coverage SC SCH ×4 (08:20→21:27)
--- NOTE | 2016-10-10 09:33 | CP.PCM.PN ---
<Benton Goncalves - Last Filed: 10/10/16 14:06> Subjective - Date & Time of Evaluation Date of Evaluation: 10/10/16 Time of Evaluation: 07:30 - Subjective Subjective: PGY-1 Neurology Progress Note for Dr. Suarez's service: Patient seen and examined at bedside. Patient reports that she feels fine. Patient is still confused. No acute events overnight. Objective - Vital Signs/Intake and Output Vital Signs (last 24 hours): Temp Pulse Resp BP Pulse Ox 98.8 F 82 18 155/79 H 91 L 10/10/16 06:00 10/10/16 06:00 10/10/16 06:00 10/10/16 06:00 10/10/16 06:00 Intake and Output: 10/10/16 10/10/16 06:59 18:59 Intake Total 600 Balance 600 - Medications Medications: Current Medications Donepezil HCl (Aricept) 5 mg PO HS [facility] Last Admin: 10/10/16 01:05 Dose: Not Given Insulin Human Regular (Humulin R Low) 0 units SC ACHS [facility] PRN Reason: Protocol Last Admin: 10/10/16 08:20 Dose: 1 units Levetiracetam (Keppra) 500 mg PO BID [facility] Last Admin: 10/09/16 17:48 Dose: 500 mg Losartan Potassium (Cozaar) 100 mg PO DAILY [facility] Last Admin: 10/09/16 10:03 Dose: 100 mg Magnesium Oxide (Mag-Ox) 400 mg PO DAILY [facility] Last Admin: 10/09/16 10:03 Dose: 400 mg Pantoprazole Sodium (Protonix Ec Tab) 40 mg PO 0600 [facility] Last Admin: 10/10/16 05:44 Dose: 40 mg Polyethylene Glycol (Miralax) 17 gm PO DAILY [facility] Last Admin: 10/09/16 10:04 Dose: 17 gm Risperidone (Risperdal Tab) 0.5 mg PO [facility] PRN Reason: Protocol Last Admin: 10/10/16 01:06 Dose: Not Given Sotalol HCl (Betapace) 80 mg PO BID [facility] Last Admin: 10/09/16 17:48 Dose: 80 mg Warfarin Sodium (Coumadin) 3 mg PO 1800 [facility] PRN Reason: Protocol Last Admin: 10/09/16 17:47 Dose: 3 mg - Labs Labs: 10/10/16 05:30 PT 11.4 Seconds (9.9-11.8) 10/09/16 16:21 INR 1.06 (0.93-1.08) 10/09/16 16:21 APTT 24.7 Seconds (23.7-30.8) 10/08/16 17:10 - Constitutional Appears: Other (drowsy) - Head Exam Head Exam: ATRAUMATIC, NORMAL INSPECTION, NORMOCEPHALIC - Eye Exam Eye Exam: EOMI, PERRL - ENT Exam ENT Exam: Mucous Membranes Dry - Respiratory Exam Respiratory Exam: Clear to Ausculation Bilateral - Cardiovascular Exam Cardiovascular Exam: REGULAR RHYTHM - GI/Abdominal Exam GI & Abdominal Exam: Normal Bowel Sounds - Neurological Exam Additional comments: Patient is alert to person, place, but not time. Patient is still confused. EOM intact. Moving all 4 extremities. Ability to follow directions is intermittent due to present mental status. No pronator drift. Reflexes 2/4 throughout. Assessment and Plan - Assessment and Plan (Free Text) Assessment: This is an 86 year old female with PMHx HTN, A-fib, DM, HLD, anxiety, breast cancer s/p mastectomy, chronic hearing difficulties, cognitive impairment who presented to the hospital after a fall. It is possible that this is a seizure episode, although previous EEG in 07/25/16 revealed diffuse slowing and bilateral cerebral dysfunction with no epileptiform activity. Head CT showed no acute findings. Likely the seizure could be secondary to transient cerebral hypoperfusion and neurodegenerative. EEG done 10/09/16 was unremarkable for epileptiform activity. MRI Brain showed chronic ischemic changes. Patient has UTI and found with gram negative rods which is likely contributing to her confusional mental status and provoking breakthrough seizures. Plan: 1) Keppra 500 mg BID 2) Avoid sedative medications 3) delirium, fall, seizure precautions 4) PT evaluation and treatment 5) Avoid hypoglycemic or hyperglycemic states. Needs better management of diabetes. 6) ASA 81 mg for stroke prevention 7) Medical management for UTI *Try to avoid overuse of antipsychotics as they can lower the seizure threshold. Case Discussed and chart reviewed with Dr. Erick Goncalves, PGY-1 <Jovan Suarez - Last Filed: 10/10/16 14:17> Objective - Vital Signs/Intake and Output Vital Signs (last 24 hours): Temp Pulse Resp BP Pulse Ox 98.2 F 75 20 135/78 91 L 10/10/16 12:00 10/10/16 12:00 10/10/16 12:00 10/10/16 12:00 10/10/16 06:00 Intake and Output: 10/10/16 10/10/16 06:59 18:59 Intake Total 600 Balance 600 - Medications Medications: Current Medications Donepezil HCl (Aricept) 5 mg PO HS [facility] Last Admin: 10/10/16 01:05 Dose: Not Given Insulin Human Regular (Humulin R Low) 0 units SC ACHS [facility] PRN Reason: Protocol Last Admin: 10/10/16 12:31 Dose: 1 units Levetiracetam (Keppra) 500 mg PO BID [facility] Last Admin: 10/10/16 10:55 Dose: 500 mg Losartan Potassium (Cozaar) 100 mg PO DAILY [facility] Last Admin: 10/10/16 10:49 Dose: 100 mg Magnesium Oxide (Mag-Ox) 400 mg PO DAILY [facility] Last Admin: 10/10/16 10:49 Dose: 400 mg Pantoprazole Sodium (Protonix Ec Tab) 40 mg PO 0600 [facility] Last Admin: 10/10/16 05:44 Dose: 40 mg Polyethylene Glycol (Miralax) 17 gm PO DAILY [facility] Last Admin: 10/10/16 10:50 Dose: Not Given Risperidone (Risperdal Tab) 0.5 mg PO [facility] PRN Reason: Protocol Last Admin: 10/10/16 10:55 Dose: Not Given Sotalol HCl (Betapace) 80 mg PO BID [facility] Last Admin: 10/10/16 10:49 Dose: 80 mg Warfarin Sodium (Coumadin) 3 mg PO 1800 [facility] PRN Reason: Protocol Last Admin: 10/09/16 17:47 Dose: 3 mg - Labs Labs: 10/10/16 05:30 PT 11.4 Seconds (9.9-11.8) 10/09/16 16:21 INR 1.06 (0.93-1.08) 10/09/16 16:21 APTT 24.7 Seconds (23.7-30.8) 10/08/16 17:10 Attending/Attestation - Attestation I have personally seen and examined this patient.: Yes I have fully participated in the care of the patient.: Yes I have reviewed all pertinent clinical information, including history, physical exam and plan: Yes
[2016-10-10] MEDS: Magnesium Oxide 400 mg Tab UD PO SCH (10:49)
[2016-10-10] MEDS: POLYETHYLENE GLYCOL 3350 17 GM/Dose PACKET PO SCH (10:50)
--- NOTE | 2016-10-10 14:51 | PN ---
SUBJECTIVE: The patient seen and examined at the bedside, sleepy arousable, moving all four extremities. No focal deficit. No nausea, vomiting, or diarrhea. No hematuria and no hematochezia. No headaches or dizziness. The patient is very poor historian. PHYSICAL EXAMINATION: VITAL SIGNS: Temperature of 98.5, pulse of 95, blood pressure of 143/78, respiratory rate of 18. HEENT: Head is normocephalic and atraumatic. Eyes: PERRLA. Extraocular movements intact. Conjunctivae are clear. Nose is patent. NECK: Supple. No carotid bruit or thyromegaly. CHEST: Bilaterally symmetrical. HEART: S1 and S2 positive. LUNGS: Clear to auscultation. ABDOMEN: Soft. Bowel sounds are present. No organomegaly. EXTREMITIES: No edema and no cyanosis. NEUROLOGIC: The patient is sleepy, but arousable, moving all four extremities. No focal deficits. MEDICATIONS: Aricept, Sotalol, Coumadin, losartan, insulin, sliding scale, Levemir, magnesium oxide, MiraLax, Protonix, Risperdal. LABORATORY DATA: Sodium of 137, potassium of 4.0, BUN of 21, creatinine of 0.7, glucose is 151, INR 1.06. ASSESSMENT AND PLAN: The patient is an [id number] lady with multiple medical problems, atrial fibrillation, is on Coumadin, but is noncompliant with Coumadin, history of hypertension, diabetes mellitus controlled with oral hypoglycemics at home, hypercholesterolemia, anxiety, history of breast cancer, status post mastectomy, chronic hearing difficulties, cognitive impairment, has a history of multiple times falls and seizures. EEG was done on 07/25/2016 . CAT scan of the head done, showed no acute findings. The seizure could be secondary to the transient cerebral hypoperfusion and neuro degenerative. EEG done on 10/09/2016 was unremarkable for epileptiform activity. The patient is getting Keppra, avoid sedative medication; delirium, fall and seizure precautions. Needs physical therapy. The patient lives alone. We will discuss with the family, now she cannot live alone because of presence of multiple falls, is getting Coumadin and now getting seizures. We will follow up. Diana Najera MD MTDD
[2016-10-10] MEDS: cefTRIAXone 1 gm 1 GM/100 ML BAG IVPB SCH (18:01)
[2016-10-10 18:42] LABS: INR 1.06 (0.93-1.08); PROTHROMBIN TIME 11.4 Seconds (9.9-11.8)
[2016-10-11] MEDS: Pantoprazole 40 mg EC Tab PO SCH (05:09)
[2016-10-11 08:06] LABS: ALB/GLOB RATIO 1.1 (1.1-1.8); ALBUMIN 3.6 g/dL (3.0-4.8); ALT/SGPT 21 U/L (7-56); AST/SGOT 25 U/L (15-39); BLOOD UREA NITROGEN 27 mg/dL (7-21); CALCIUM 8.8 mg/dL (8.4-10.5); GFR AFRICAN-AMERICAN > 60; GFR NON-AFRICAN AMERICAN > 60
[2016-10-11] MEDS: Insulin Reg-LOW-Coverage SC SCH ×4 (08:56→21:43)
[2016-10-11] MEDS: POLYETHYLENE GLYCOL 3350 17 GM/Dose PACKET PO SCH (10:08)
[2016-10-11] MEDS: Magnesium Oxide 400 mg Tab UD PO SCH (10:08)
[2016-10-11] MEDS: cefTRIAXone 1 gm 1 GM/100 ML BAG IVPB SCH (10:08)
[2016-10-11 15:41] LABS: INR 1.07 (0.93-1.08); PROTHROMBIN TIME 11.6 Seconds (9.9-11.8)
--- NOTE | 2016-10-11 21:44 | CP.PCM.PN ---
Subjective - Date & Time of Evaluation Date of Evaluation: 10/11/16 Time of Evaluation: 10:00 - Subjective Subjective: Patient seen and examined at bedside. Patient reports that she feels fine. Patient is still confused. No acute events overnight. Objective - Vital Signs/Intake and Output Vital Signs (last 24 hours): Temp Pulse Resp BP Pulse Ox 97.8 F 63 19 159/61 H 96 10/11/16 17:47 10/11/16 18:00 10/11/16 17:47 10/11/16 17:59 10/11/16 05:44 - Medications Medications: Current Medications Donepezil HCl (Aricept) 5 mg PO HS [facility] Last Admin: 10/10/16 21:36 Dose: 5 mg Ceftriaxone Sodium (Rocephin 1 Gram Ivpb) 1 gm in 100 mls @ 100 mls/hr IVPB DAILY REGGIE PRN Reason: Protocol Last Admin: 10/11/16 10:08 Dose: 100 mls/hr Insulin Human Regular (Humulin R Low) 0 units SC ACHS REGGIE PRN Reason: Protocol Last Admin: 10/11/16 18:00 Dose: Not Given Levetiracetam (Keppra) 500 mg PO BID [facility] Last Admin: 10/11/16 18:01 Dose: 500 mg Losartan Potassium (Cozaar) 100 mg PO DAILY [facility] Last Admin: 10/11/16 10:12 Dose: 100 mg Magnesium Oxide (Mag-Ox) 400 mg PO DAILY [facility] Last Admin: 10/11/16 10:08 Dose: 400 mg Pantoprazole Sodium (Protonix Ec Tab) 40 mg PO 0600 [facility] Last Admin: 10/11/16 05:09 Dose: 40 mg Polyethylene Glycol (Miralax) 17 gm PO DAILY [facility] Last Admin: 10/11/16 10:08 Dose: 17 gm Risperidone (Risperdal Tab) 0.5 mg PO [facility] PRN; Protocol PRN Reason: Agitation Sotalol HCl (Betapace) 80 mg PO BID [facility] Last Admin: 10/11/16 17:59 Dose: 80 mg Warfarin Sodium (Coumadin) 3 mg PO 1800 REGGIE PRN Reason: Protocol Last Admin: 10/11/16 17:58 Dose: 3 mg - Labs Labs: 10/11/16 07:35 PT 11.6 Seconds (9.9-11.8) 10/11/16 15:15 INR 1.07 (0.93-1.08) 10/11/16 15:15 APTT 24.7 Seconds (23.7-30.8) 10/08/16 17:10 - Constitutional Appears: Well - Head Exam Head Exam: ATRAUMATIC, NORMAL INSPECTION, NORMOCEPHALIC - Eye Exam Eye Exam: EOMI, Normal appearance, PERRL Pupil Exam: NORMAL ACCOMODATION, PERRL - ENT Exam ENT Exam: Mucous Membranes Moist, Normal Exam - Neck Exam Neck Exam: Full ROM, Normal Inspection. absent: Lymphadenopathy - Respiratory Exam Respiratory Exam: Clear to Ausculation Bilateral, NORMAL BREATHING PATTERN - Cardiovascular Exam Cardiovascular Exam: REGULAR RHYTHM, +S1, +S2. absent: Murmur - GI/Abdominal Exam GI & Abdominal Exam: Soft, Normal Bowel Sounds. absent: Tenderness - Rectal Exam Rectal Exam: NORMAL INSPECTION - Exam Exam: Circumcision, NORMAL INSPECTION External exam: NORMAL EXTERNAL EXAM Speculum exam: NORMAL SPECULUM EXAM Bimanual exam: NORMAL BIMANUAL EXAM - Extremities Exam Extremities Exam: Full ROM, Normal Capillary Refill, Normal Inspection. absent : Joint Swelling, Pedal Edema - Back Exam Back Exam: NORMAL INSPECTION - Neurological Exam Neurological Exam: Alert, Awake, CN II-XII Intact, Normal Gait, Oriented x3 - Psychiatric Exam Psychiatric exam: Normal Affect, Normal Mood - Skin Skin Exam: Dry, Intact, Normal Color, Warm Assessment and Plan - Assessment and Plan (Free Text) Plan: This is an 86 year old female with PMHx HTN, A-fib, DM, HLD, anxiety, breast cancer s/p mastectomy, chronic hearing difficulties, cognitive impairment who presented to the hospital after a fall. It is possible that this is a seizure episode, although previous EEG in 07/25/16 revealed diffuse slowing and bilateral cerebral dysfunction with no epileptiform activity. Head CT showed no acute findings. Likely the seizure could be secondary to transient cerebral hypoperfusion and neurodegenerative. EEG done 10/09/16 was unremarkable for epileptiform activity. MRI Brain showed chronic ischemic changes. Patient has UTI and found with gram negative rods which is likely contributing to her confusional mental status and provoking breakthrough seizures. Plan: 1) Keppra 500 mg BID 2) Avoid sedative medications 3) delirium, fall, seizure precautions 4) PT evaluation and treatment 5) Avoid hypoglycemic or hyperglycemic states. Needs better management of diabetes. 6) ASA 81 mg for stroke prevention 7) Medical management for UTI *Try to avoid overuse of antipsychotics as they can lower the seizure threshold.
[2016-10-12] MEDS: Pantoprazole 40 mg EC Tab PO SCH (05:10)
[2016-10-12] MEDS: Insulin Reg-LOW-Coverage SC SCH ×4 (08:24→21:28)
[2016-10-12] MEDS: Magnesium Oxide 400 mg Tab UD PO SCH (09:38)
[2016-10-12] MEDS: POLYETHYLENE GLYCOL 3350 17 GM/Dose PACKET PO SCH (09:38)
[2016-10-12] MEDS: cefTRIAXone 1 gm 1 GM/100 ML BAG IVPB SCH (09:38)
[2016-10-12 19:27] VITALS: RESP 20
--- NOTE | 2016-10-13 02:16 | PN ---
DATE: 10/12/2016 The patient is an 86 years old female. SUBJECTIVE: The patient seen and examined at the bedside, looking comfortable. No nausea, vomiting or diarrhea. No hematochezia. Feeling better, but getting episodes of confusion. Her friend Ivonne was sitting on the bedside also. PHYSICAL EXAMINATION: VITAL SIGNS: Temperature 97.9, pulse 60, blood pressure 140/72, and respiratory rate 20. HEENT: Head is normocephalic and atraumatic. Eyes: PERRLA. Extraocular movements intact. Conjunctivae clear. Nose is patent. Mucous membrane moist. NECK: Supple. No carotid bruits or thyromegaly. CHEST: Bilaterally symmetrical. HEART: S1 and S2 positive. LUNGS: Clear to auscultation. ABDOMEN: Soft. Bowel sounds are present. No organomegaly. EXTREMITIES: No edema and no cyanosis. NEUROLOGIC: Awake and alert. Moving all four extremities. No focal deficits. MEDICATIONS: Aricept, Sotalol, Coumadin, Cozaar, insulin, Keppra, magnesium oxide, MiraLax, Protonix, Risperdal, Rocephin. LABORATORY DATA: White blood cell 10.6, hemoglobin 12.9, hematocrit 37.5, and platelets 163. Sodium 137, potassium 4.5, BUN 27, creatinine 0.8, and glucose of 153. ASSESSMENT AND PLAN: Ms. Darien Nance is an 86 years old lady with hyperglycemia; history of diabetes mellitus; proteinuria; hematuria; urinary tract infection, came with seizures, seen by Dr. Jovan Suarez, neurologist;history of hypertension; atrial fibrillation, hypercholesterolemia; anxiety; breast cancer, status post mastectomy bilaterally; chronic hearing difficulties; cognitive impairment; history of multiple falls, living alone. The previous EEG on 07/25/2016 revealed diffuse slowing and bilateral cerebral dysfunction with no epileptiform activity. Head CAT scan showed no acute findings. Likely, the seizure could be secondary to transient cerebral hypoperfusion or neuro degenerative changes. EEG done on 10/09/2016 was unremarkable for epileptiform activity. MRI brain shows chronic ischemic changes. The patient had UTI, has gram-negative rods which is likely contributing to her confusion and mental status and provoking a breakthrough seizure. We will continue Keppra, avoid sedative, fall precautions, seizure precautions. Continue antibiotics. We will call ID consult , patient sent to the TCU for deconditioning. We will follow up. Length of time discussion done with the patient's friend, Ivonne and the patient was informed that she cannot live alone according to Ivonne, they are doing arrangement for 24-hour help at home. Diana Najera MD [email or web address]
[2016-10-13] MEDS: Pantoprazole 40 mg EC Tab PO SCH (05:33)
[2016-10-13 06:38] VITALS: O2SAT 93
[2016-10-13 06:58] LABS: INR 1.13 (0.93-1.08); PROTHROMBIN TIME 12.2 Seconds (9.9-11.8)
[2016-10-13] MEDS: Insulin Reg-LOW-Coverage SC SCH ×2 (08:01→11:58)
[2016-10-13] MEDS: POLYETHYLENE GLYCOL 3350 17 GM/Dose PACKET PO SCH (09:03)
[2016-10-13] MEDS: cefTRIAXone 1 gm 1 GM/100 ML BAG IVPB SCH (09:03)
[2016-10-13] MEDS: Magnesium Oxide 400 mg Tab UD PO SCH (09:03)
[2016-10-13 12:19] VITALS: BP 168/76; PULSE 110; TEMP 98.2
--- NOTE | 2016-10-14 00:35 | CP.PCM.DIS ---
Provider - Provider Date of Admission: 10/09/16 , dictating discharge summery for 10/13/16 Attending physician: Diana Najera MD Primary care physician: Diana Najera MD Time Spent in preparation of Discharge (in minutes): 60 Hospital Course - Lab Results Lab Results: Micro Results 10/09/16 16:55 Urine,Clean Catch Urine Culture - Final Morg Morganii Ss Morganii Most Recent Lab Values WBC 10.6 10^3/ul (4.5-11.0) 10/09/16 06:30 RBC 4.23 10^6/uL (3.5-6.1) 10/09/16 06:30 Hgb 12.9 gm/dL (12.0-16.0) 10/09/16 06:30 Hct 37.5 % (36.0-48.0) 10/09/16 06:30 MCV 88.7 fL (80.0-105.0) 10/09/16 06:30 MCH 30.5 pg (25.0-35.0) 10/09/16 06:30 MCHC 34.4 g/dl (31.0-37.0) 10/09/16 06:30 RDW 12.7 % (11.5-14.5) 10/09/16 06:30 Plt Count 163 10^3/uL (120.0-450.0) 10/09/16 06:30 MPV 9.6 fl (7.0-11.0) 10/09/16 06:30 Gran % 74.4 % (50.0-68.0) H 10/09/16 06:30 Lymph % (Auto) 13.3 % (22.0-35.0) L 10/09/16 06:30 [place] % (Auto) 10.3 % (1.0-6.0) H 10/09/16 06:30 Eos % (Auto) 1.6 % (1.5-5.0) 10/09/16 06:30 Baso % (Auto) 0.4 % (0.0-3.0) 10/09/16 06:30 Gran # 7.89 (1.4-6.5) H 10/09/16 06:30 Lymph # 1.4 (1.2-3.4) 10/09/16 06:30 [place] # 1.1 (0.1-0.6) H 10/09/16 06:30 Eos # 0.2 (0.0-0.7) 10/09/16 06:30 Baso # 0.04 K/mm3 (0.0-2.0) 10/09/16 06:30 PT 12.2 Seconds (9.9-11.8) H 10/13/16 06:10 INR 1.13 (0.93-1.08) H 10/13/16 06:10 APTT 24.7 Seconds (23.7-30.8) 10/08/16 17:10 pCO2 38 mm/Hg (35-45) 10/09/16 07:15 pO2 59.0 mm/Hg (80-100) L 10/09/16 07:15 HCO3 23.0 mmol/L (21-28) 10/09/16 07:15 ABG pH 7.39 (7.35-7.45) 10/09/16 07:15 ABG Total CO2 24.2 mmol.L (22-28) 10/09/16 07:15 ABG O2 Saturation 93.8 % (95-98) L 10/09/16 07:15 ABG O2 Content 15.9 ML/dl (15-23) 10/09/16 07:15 ABG Base Excess -1.7 mmol/L (-2.0-3.0) 10/09/16 07:15 ABG Hemoglobin 12.4 g/dL (11.7-17.4) 10/09/16 07:15 ABG Carboxyhemoglobin 2.1 % (0.5-1.5) H 10/09/16 07:15 POC ABG HHb (Measured) 6.0 % (0-5) H 10/09/16 07:15 ABG Methemoglobin 0.4 % (0.0-3.0) 10/09/16 07:15 ABG O2 Capacity 17.0 mL/dl (16-24) 10/09/16 07:15 Hgb O2 Saturation 91.4 % (95.0-98.0) L 10/09/16 07:15 FiO2 21.0 % 10/09/16 07:15 Sodium 137 mmol/L (132-148) 10/11/16 07:35 Potassium 4.5 mmol/L (3.6-5.0) 10/11/16 07:35 Chloride 100 mmol/L (98-107) 10/11/16 07:35 Carbon Dioxide 28 mmol/L (21-33) 10/11/16 07:35 Anion Gap 14 (10-20) 10/11/16 07:35 BUN 27 mg/dL (7-21) H 10/11/16 07:35 Creatinine 0.8 mg/dL (0.5-1.4) 10/11/16 07:35 Est GFR ( Amer) > 60 10/11/16 07:35 Est GFR (Non-Af Amer) > 60 10/11/16 07:35 POC Glucose (mg/dL) 137 mg/dL (65-110) H 10/09/16 21:31 Random Glucose 153 mg/dL (70-110) H 10/11/16 07:35 Hemoglobin A1c 8.6 % (4.2-6.5) H 10/09/16 07:30 Calcium 8.8 mg/dL (8.4-10.5) 10/11/16 07:35 Phosphorus 4.3 mg/dL (2.5-4.5) 10/09/16 06:30 Magnesium 1.6 mg/dL (1.7-2.2) L 10/09/16 06:30 Total Bilirubin 0.8 mg/dL (0.2-1.3) 10/11/16 07:35 AST 25 U/L (15-39) 10/11/16 07:35 ALT 21 U/L (7-56) 10/11/16 07:35 Alkaline Phosphatase 67 U/L (38-133) 10/11/16 07:35 Ammonia 12 umol/L (9-33) 10/10/16 15:15 Troponin I < 0.01 ng/mL 10/09/16 06:30 Total Protein 7.0 g/dL (5.8-8.3) 10/11/16 07:35 Albumin 3.6 g/dL (3.0-4.8) 10/11/16 07:35 Globulin 3.3 gm/dL 10/11/16 07:35 Albumin/Globulin Ratio 1.1 (1.1-1.8) 10/11/16 07:35 Urine Color Yellow (YELLOW) 10/09/16 16:55 Urine Appearance Clear (CLEAR) 10/09/16 16:55 Urine pH 7.5 (4.7-8.0) 10/09/16 16:55 Ur Specific [place] 1.015 (1.005-1.035) 10/09/16 16:55 Urine Protein Trace mg/dL (<30 mg/dL) H 10/09/16 16:55 Urine Glucose (UA) Negative mg/dL (NEGATIVE) 10/09/16 16:55 Urine Ketones Negative mg/dL (NEGATIVE) 10/09/16 16:55 Urine Blood Negative (NEGATIVE) 10/09/16 16:55 Urine Nitrate Negative (NEGATIVE) 10/09/16 16:55 Urine Bilirubin Negative (NEGATIVE) 10/09/16 16:55 Urine Urobilinogen 0.2 E.U./dL (<1 E.U./dL) 10/09/16 16:55 Ur Leukocyte Esterase Trace [place]/uL (NEGATIVE) H 10/09/16 16:55 Urine RBC TEST NOT PERFORMED 10/09/16 16:55 Urine WBC 2 - 5 /hpf (0-6) 10/09/16 16:55 Ur Epithelial Cells 6 - 8 /hpf (0-5) 10/09/16 16:55 Alcohol, Quantitative < 10 mg/dL (0-10) 10/08/16 17:10 - Hospital Course Hospital Course: Lee Ann is a 86 year old female with past medical history significant for atrial fibrillation on coumadin, Hypertension, Hypercholesterolemia, advanced dementia , COPD, and diabetes brought in by EMS after patient was witnessed to have a possible syncopal vs. seizure episode while at a [facility]. Pt is noted to be confused and minimally responsive to questioning. Through chart review patient is noted to be historically a poor historian. When questioned the patient is only able to recall going into the [facility] and then ending up in the emergency room. She is alert and oriented to person and time. Patient is joined by friend who was present during her fall. She reports the patient having a normal conversation one moment and then immediately after collapsing into her friend. Patient's friend denies seizure like activity. Assessment: This is an 86 year old female with PMHx HTN, A-fib, DM, HLD, anxiety, breast cancer s/p mastectomy, chronic hearing difficulties, cognitive impairment who presented to the hospital after a fall. It is possible that this is a seizure episode, although previous EEG in 07/25/16 revealed diffuse slowing and bilateral cerebral dysfunction with no epileptiform activity. Head CT showed no acute findings. Likely the seizure could be secondary to transient cerebral hypoperfusion and neurodegenerative. EEG done 10/09/16 was unremarkable for epileptiform activity. MRI Brain showed chronic ischemic changes. Patient has UTI and found with gram negative rods which is likely contributing to her confusional mental status and provoking breakthrough seizures. Plan: 1) Keppra 500 mg BID 2) Avoid sedative medications 3) delirium, fall, seizure precautions 4) PT evaluation and treatment 5) Avoid hypoglycemic or hyperglycemic states. Needs better management of diabetes. 6) ASA 81 mg for stroke prevention 7) Medical management for UTI *Try to avoid overuse of antipsychotics as they can lower the seizure thresure Discharge Exam - Head Exam Head Exam: ATRAUMATIC, NORMAL INSPECTION, NORMOCEPHALIC - Eye Exam Eye Exam: EOMI, Normal appearance, PERRL Pupil Exam: NORMAL ACCOMODATION, PERRL - GI/Abdominal Exam GI & Abdominal Exam: Normal Bowel Sounds - Rectal Exam Rectal Exam: NORMAL INSPECTION - Exam Exam: Circumcision, NORMAL INSPECTION External exam: NORMAL EXTERNAL EXAM Speculum exam: NORMAL SPECULUM EXAM Bimanual exam: NORMAL BIMANUAL EXAM - Neurological Exam Neurological exam: Alert, CN II-XII Intact, Normal Gait, Oriented x3, Reflexes Normal - Psychiatric Exam Psychiatric exam: Normal Affect, Normal Mood - Skin Skin Exam: Dry, Intact, Normal Color, Warm Discharge Plan - Follow Up Plan Condition: STABLE Disposition: TRANSF TO SNF Instructions: Syncope (DC), Syncope (GEN), Nonepileptic Seizures (DC), Suicide Prevention for Geriatrics (DC), Weakness (GEN), Near Syncope (ED), Altered Mental Status (GEN) Referrals: Diana Najera MD [Primary Care Provider] -
== END 2016-10-13 14:44 | DRG 101 ==
LOC: ED 16:53 → ERH 19:50 → 2RNO 21:39 → OBSVTOIN 10-09 12:56
PROVIDERS: ADMIT Internal Medicine; ATTEND Internal Medicine
DX: R56.9 Unspecified convulsions (principal); E11.65 Type 2 diabetes mellitus with hyperglycemia; F03.90 Unspecified dementia, unspecified severity, without behavioral disturbance, psychotic disturbance, mood disturbance, and anxiety; N39.0 Urinary tract infection, site not specified; J98.11 Atelectasis; J44.9 Chronic obstructive pulmonary disease, unspecified; I48.91 Unspecified atrial fibrillation; Z79.01 Long term (current) use of anticoagulants; I10 Essential (primary) hypertension; E78.00 Pure hypercholesterolemia, unspecified; R29.6 Repeated falls; E78.5 Hyperlipidemia, unspecified; H91.90 Unspecified hearing loss, unspecified ear; F41.9 Anxiety disorder, unspecified; Z91.14 Patient's other noncompliance with medication regimen; Z91.81 History of falling; Z85.3 Personal history of malignant neoplasm of breast; Z90.13 Acquired absence of bilateral breasts and nipples; Z86.73 Personal history of transient ischemic attack (TIA), and cerebral infarction without residual deficits

== ENCOUNTER 2016-10-13 14:44 | Inpatient (IN) | payer OTHER, BC ==
[2016-10-13] MEDS: Insulin Reg-LOW-Coverage SC SCH ×2 (17:19→21:40)
--- NOTE | 2016-10-13 17:24 | CON ---
DATE: 10/13/2016 CHIEF COMPLAINT: Status post fall. HISTORY OF PRESENT ILLNESS: The patient is an 86-year-old woman with history of hypertension, AFib, diabetes, hyperlipidemia, anxiety, breast cancer, status post mastectomy, chronic hearing difficulties, cognitive impairment presenting to the hospital after a fall. It is questionable if she had a possible seizure episode; therefore, she had an EEG on 07/25/2016 which revealed diffuse slowing and considered bilateral cerebral dysfunction. No evidence of any epileptiform activity. CT head showed no acute intracranial abnormalities. MRI showed chronic ischemic changes. No acute abnormalities. She was found to have urinary tract infection with gram-negative rods contributing to her confusional state and possibly causing breakthrough seizures. She is currently in TCU for deconditioned state. She is on Keppra 500 mg p.o. b.i.d. for seizure prophylaxis and Aricept for cognitive impairment. PAST MEDICAL HISTORY: Hypertension, AFib, diabetes, hyperlipidemia, anxiety, breast cancer status post mastectomy, chronic hearing difficulty, cognitive impairment. ALLERGIES: ALLERGIC TO FISH AND SULFA DRUGS. REVIEW OF SYSTEMS: A 14-point review of system is negative except as in the HPI. FAMILY HISTORY: Noncontributory. MEDICATIONS: Reviewed by nurse practitioner, see med reconciliation sheet. PHYSICAL EXAMINATION VITAL SIGNS: Temperature 97.6, pulse rate 60, blood pressure 160/78, respiratory rate of 14, oxygen saturation 96% on room air. GENERAL: The patient seen up in bed. No acute distress. HEENT: Atraumatic and normocephalic. PERRLA. Extraocular muscles intact. NECK: Supple. No JVD. No adenopathy noted. LUNGS: Clear to auscultation. No adventitious sounds. HEART: S1 and S2. Normal rate and rhythm. No murmurs, rubs, or gallops. ABDOMEN: Soft, nontender, nondistended. Bowel sounds are present. EXTREMITIES: No clubbing. No cyanosis. Peripheral pulses 2+ felt bilaterally. NEUROLOGIC: The patient is alert and oriented to person and place, not much to time or month. Recall after 5 minutes 0 out of 3. Poor attention span, slow thought process. Cranial nerves II through XII intact. Speech is fluent without any errors. Motor exam: Slight increased tone throughout. Moves all extremities equally. No pronator drift seen. Sensory exam: Light touch and pinprick is diffuse up to calves bilaterally. Decreased vibration of the toes. DTRs are 2+ throughout and 1 at the ankles. Coordination: [id number] intact. Gait is deferred for now. LABORATORY DATA: Sodium is 137, potassium is 4.5, chloride 100, carbon dioxide 28, BUN of 27, creatinine of 0.8, random glucose of 153. ASSESSMENT AND PLAN: This is an 86-year-old woman with past medical history of hypertension, AFib, diabetes, hyperlipidemia, anxiety, breast cancer status post mastectomy, chronic hearing difficulties, cognitive impairment, presenting to the hospital after a fall which she was worked up to have a possible seizure likely secondary to urinary tract infection which showed gram-negative rods, but she is on antibiotic and was likely responsible for intermittent confusional state. Her EEG on 07/25/2016 revealed bilateral cerebral dysfunction. No evidence of epileptiform activity. MRI brain showed no acute intracranial abnormalities, chronic ischemic changes. At this time, the patient had UTI and found to have gram-negative rods likely contributed to her confusional state and mental status and provoking questionable breakthrough seizures. She is in TCU for underlying deconditioned state for physical and occupational therapy. At this time recommended: 1. Continue physical and occupational therapy and rehabilitate the patient. 2. Continue with Keppra 500 mg p.o. b.i.d. for seizure prophylaxis. 3. Delirium precautions. Avoid nighttime interruptions and avoid sedative medications. 4. Avoid hypoglycemic or hyperglycemic state, needs better management of diabetes. 5. Continue with aspirin 81 mg for stroke prevention. 6. Try to avoid overuse of anti-psychotic drugs that can lower the seizure threshold. 7. 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 Thank you for this consult. We will follow up as an outpatient. Jovan Suarez MD
--- NOTE | 2016-10-13 20:14 | CP.PCM.CON ---
History of Present Illness - History of Present Illness History of Present Illness: Infectious Disease Consultation: October 13, 2016 86 yo female with extensive medical history that includes hypertension , atrial fibrillation, diabetes, hyperlipidemia, anxiety, breast cancer history , chronic hearing difficulties, and cognitive impairment sent to hospital after a fall at home. She was evaluated for potential seizures. A urinary tract infection with Morganella was found and is currently being treated with Rocephin. The patient was transferred to the [facility] for deconditioned state. My understanding is that the patient lives alone. It appears that the patient may not be able to live on her own. PMHx: Hypertension, Atrial Fibrillation, Diabetes Mellitus, Hyperlipidemia, Anxiety, Breast Cancer, chronic hearing difficult/loss, cognitive impairment PSHx: mastectomy Allergies: Fish and sulfa drugs Social Hx: Unable to Obtain from the patient Active Medications Donepezil HCl (Aricept) 5 mg PO HS [facility] PRN Reason: Protocol Ceftriaxone Sodium (Rocephin 1 Gram Ivpb) 1 gm in 100 mls @ 100 mls/hr IVPB DAILY [facility] PRN Reason: Protocol Insulin Human Regular (Humulin R Low) 0 units SC ACHS [facility] PRN Reason: Protocol Last Admin: 10/13/16 17:19 Dose: 1 units Levetiracetam (Keppra) 500 mg PO BID [facility] PRN Reason: Protocol Last Admin: 10/13/16 17:47 Dose: 500 mg Losartan Potassium (Cozaar) 100 mg PO DAILY [facility] PRN Reason: Protocol Magnesium Oxide (Mag-Ox) 400 mg PO DAILY [facility] PRN Reason: Protocol Pantoprazole Sodium (Protonix Ec Tab) 40 mg PO 0600 [facility] PRN Reason: Protocol Polyethylene Glycol (Miralax) 17 gm PO DAILY [facility] PRN Reason: Protocol Risperidone (Risperdal Tab) 0.5 mg PO [facility] PRN; Protocol PRN Reason: Agitation Last Admin: 10/13/16 19:55 Dose: 0.5 mg Sotalol HCl (Betapace) 80 mg PO BID [facility] PRN Reason: Protocol Last Admin: 10/13/16 17:47 Dose: 80 mg Warfarin Sodium (Coumadin) 3 mg PO 1800 RE[facility] PRN Reason: Protocol Last Admin: 10/13/16 17:47 Dose: 3 mg Family Hx: none given ROS: Unable to Obtain from patient Past Patient History - Infectious Disease Hx of Infectious Diseases: None - Tetanus Immunizations Tetanus Immunization: Unknown - Past Social History Smoking Status: Never Smoked - CARDIAC Hx Cardiac Disorders: Yes (Afib (on Coumadin)) Hx Hypercholesterolemia: Yes Hx Hypertension: Yes - PULMONARY Hx Chronic Obstructive Pulmonary Disease (COPD): Yes - NEUROLOGICAL HX Cerebrovascular Accident: Yes - HEENT Hx HEENT Problems: Yes (Hard of hearing) - RENAL Hx Chronic Kidney Disease: No - ENDOCRINE/METABOLIC Hx Diabetes Mellitus Type 2: Yes - HEMATOLOGICAL/ONCOLOGICAL Hx Cancer: Yes (Breast CA) Hx Chemotherapy: Yes - INTEGUMENTARY Hx Dermatological Problems: No - MUSCULOSKELETAL/RHEUMATOLOGICAL Hx Falls: Yes Hx Fractures: Yes (Right ankle) Hx Osteoarthritis: Yes - GASTROINTESTINAL Hx Gastrointestinal Disorders: Yes (POOR APPETTITE,) - GENITOURINARY/GYNECOLOGICAL Hx Urinary Tract Infection: Yes - PSYCHIATRIC Hx Substance Use: No - SURGICAL HISTORY Hx Mastectomy: Yes - ANESTHESIA Hx Anesthesia: Yes Hx Anesthesia Reactions: No Hx Malignant Hyperthermia: No Meds Allergies/Adverse Reactions: Allergies Allergy/AdvReac Type Severity Reaction Status Date / Time FISH Allergy NAUSEA Verified 10/08/16 17:07 Sulfa (Sulfonamide Allergy HEADACHE Verified 10/08/16 17:07 Antibiotics) - Medications Medications: Current Medications Donepezil HCl (Aricept) 5 mg PO HS REGGIE PRN Reason: Protocol Ceftriaxone Sodium (Rocephin 1 Gram Ivpb) 1 gm in 100 mls @ 100 mls/hr IVPB DAILY REGGIE PRN Reason: Protocol Insulin Human Regular (Humulin R Low) 0 units SC ACHS REGGIE PRN Reason: Protocol Last Admin: 10/13/16 17:19 Dose: 1 units Levetiracetam (Keppra) 500 mg PO BID [facility] PRN Reason: Protocol Last Admin: 10/13/16 17:47 Dose: 500 mg Losartan Potassium (Cozaar) 100 mg PO DAILY REGGIE PRN Reason: Protocol Magnesium Oxide (Mag-Ox) 400 mg PO DAILY REGGIE PRN Reason: Protocol Pantoprazole Sodium (Protonix Ec Tab) 40 mg PO 0600 RGEGIE PRN Reason: Protocol Polyethylene Glycol (Miralax) 17 gm PO DAILY REGGIE PRN Reason: Protocol Risperidone (Risperdal Tab) 0.5 mg PO [facility] PRN; Protocol PRN Reason: Agitation Sotalol HCl (Betapace) 80 mg PO BID [facility] PRN Reason: Protocol Last Admin: 10/13/16 17:47 Dose: 80 mg Warfarin Sodium (Coumadin) 3 mg PO 1800 REGGIE PRN Reason: Protocol Last Admin: 10/13/16 17:47 Dose: 3 mg Physical Exam - Constitutional Appears: Non-toxic, No Acute Distress, Confused, Chronically Ill - Head Exam Head Exam: ATRAUMATIC, NORMOCEPHALIC - Eye Exam Eye Exam: EOMI, PERRL Pupil Exam: NORMAL ACCOMODATION, PERRL - ENT Exam ENT Exam: Mucous Membranes Moist, Normal External Ear Exam, TM's Normal Bilaterally - Neck Exam Neck exam: Positive for: Full Rom, Normal Inspection - Respiratory Exam Respiratory Exam: Clear to Auscultation Bilateral, NORMAL BREATHING PATTERN. absent: Rales, Rhonchi, Wheezes - Cardiovascular Exam Cardiovascular Exam: REGULAR RHYTHM, RRR, +S1, +S2 - GI/Abdominal Exam GI & Abdominal Exam: Normal Bowel Sounds, Soft. absent: Distended, Tenderness - Extremities Exam Additional comments: No c/c/e. adequate distal pulses. - Neurological Exam Neurological exam: Alert, CN II-XII Intact Additional comments: AAO x 1-2, slow recognition and thought process. Very forgetful. Highly agitated when I saw the patient. - Psychiatric Exam Psychiatric exam: Agitated, Anxious - Skin Skin Exam: Intact, Normal Color Results - Vital Signs Recent Vital Signs: Last Vital Signs Temp 97.6 F 10/13/16 15:30 Pulse 60 10/13/16 17:47 Resp 14 10/13/16 15:30 BP 162/78 H 10/13/16 17:47 Pulse Ox 96 10/13/16 15:30 Assessment & Plan - Assessment and Plan (Free Text) Assessment: 86 yo female with a fall at home and possible seizure and current finding of UTI with Morganella. Started on Rocephin for antibiotic treatment. Supportive care. Patient on Keppra for seizure prophylaxis. Patient is currently agitated and anxious. Continue with Rocephin for treatment. Thank you for allowing me to participate in the care of the patient, we will follow with you.
[2016-10-14] MEDS: Pantoprazole 40 mg EC Tab PO SCH (05:45)
[2016-10-14] MEDS: cefTRIAXone 1 gm 1 GM/100 ML BAG IVPB SCH ×2 (05:45→10:47)
[2016-10-14] MEDS: Insulin Reg-LOW-Coverage SC SCH ×4 (07:08→22:21)
[2016-10-14 09:01] LABS: BASO # 0.09 K/mm3 (0.0-2.0); BASO % 1.2 % (0.0-3.0); EOS # 0.3 (0.0-0.7); EOS % 4.4 % (1.5-5.0); GRAN # 4.96 (1.4-6.5); GRAN % 63.5 % (50.0-68.0); HEMOGLOBIN 13.5 gm/dL (12.0-16.0); LYMPH # 1.5 (1.2-3.4); LYMPH % 19.4 % (22.0-35.0); MEAN CELL VOLUME 87.8 fL (80.0-105.0); MEAN CORPUSCULAR HEMOGLOBIN 29.9 pg (25.0-35.0); MEAN CORPUSCULAR HGB CONC 34.1 g/dl (31.0-37.0); MEAN PLATELET VOLUME 9.9 fl (7.0-11.0); MONO # 0.9 (0.1-0.6); MONO % 11.5 % (1.0-6.0); PLATELET COUNT 193 10^3/uL (120.0-450.0); RBC 4.51 10^6/uL (3.5-6.1); RED CELL DISTRIBUTION WIDTH 12.3 % (11.5-14.5); WHITE BLOOD COUNT 7.8 10^3/ul (4.5-11.0)
[2016-10-14 09:05] LABS: INR 1.16 (0.93-1.08); PROTHROMBIN TIME 12.5 Seconds (9.9-11.8)
[2016-10-14 09:15] LABS: ALB/GLOB RATIO 1.2 (1.1-1.8); ALT/SGPT 24 U/L (7-56); AST/SGOT 28 U/L (15-39); BLOOD UREA NITROGEN 27 mg/dL (7-21); CALCIUM 9.3 mg/dL (8.4-10.5); GFR AFRICAN-AMERICAN > 60; GFR NON-AFRICAN AMERICAN > 60
[2016-10-14] MEDS: Magnesium Oxide 400 mg Tab UD PO SCH (10:45)
[2016-10-14] MEDS: POLYETHYLENE GLYCOL 3350 17 GM/Dose PACKET PO SCH (10:46)
--- NOTE | 2016-10-14 17:45 | CP.PCM.PN ---
Subjective - Date & Time of Evaluation Date of Evaluation: 10/14/16 Time of Evaluation: 16:45 - Subjective Subjective: Infectious Disease Follow Up: October 14, 2016 86 yo female with extensive medical history that includes hypertension , atrial fibrillation, diabetes, hyperlipidemia, anxiety, breast cancer history , chronic hearing difficulties, and cognitive impairment sent to hospital after a fall at home. She was evaluated for potential seizures. A urinary tract infection with Morganella was found and is currently being treated with Rocephin. The patient was transferred to the [facility] for deconditioned state. My understanding is that the patient lives alone. It appears that the patient may not be able to live on her own. She remains distressed when seen today. Reviewing nursing notes, the patient has periods where she is calm. Objective - Vital Signs/Intake and Output Vital Signs (last 24 hours): Temp Pulse Resp BP Pulse Ox 98.2 F 63 14 156/77 H 94 L 10/14/16 17:14 10/14/16 17:14 10/14/16 17:14 10/14/16 17:14 10/14/16 17:14 - Medications Medications: Current Medications Acetaminophen (Tylenol 325mg Tab) 650 mg PO Q6H PRN; Protocol PRN Reason: Pain, moderate (4-7) Last Admin: 10/14/16 17:15 Dose: 650 mg Donepezil HCl (Aricept) 5 mg PO HS REGGIE PRN Reason: Protocol Last Admin: 10/13/16 22:11 Dose: 5 mg Ceftriaxone Sodium (Rocephin 1 Gram Ivpb) 1 gm in 100 mls @ 100 mls/hr IVPB 0600 REGGIE PRN Reason: Protocol Insulin Human Regular (Humulin R Low) 0 units SC ACHS REGGIE PRN Reason: Protocol Last Admin: 10/14/16 17:10 Dose: 3 units Levetiracetam (Keppra) 500 mg PO BID REGGIE PRN Reason: Protocol Last Admin: 10/14/16 17:17 Dose: 500 mg Losartan Potassium (Cozaar) 100 mg PO DAILY REGGIE PRN Reason: Protocol Last Admin: 10/14/16 10:45 Dose: 100 mg Magnesium Oxide (Mag-Ox) 400 mg PO DAILY REGGIE PRN Reason: Protocol Last Admin: 10/14/16 10:45 Dose: 400 mg Pantoprazole Sodium (Protonix Ec Tab) 40 mg PO 0600 REGGIE PRN Reason: Protocol Last Admin: 10/14/16 05:45 Dose: 40 mg Polyethylene Glycol (Miralax) 17 gm PO DAILY REGGIE PRN Reason: Protocol Last Admin: 10/14/16 10:46 Dose: 17 gm Risperidone (Risperdal Tab) 0.5 mg PO AMHS PRN; Protocol PRN Reason: Agitation Last Admin: 10/13/16 19:55 Dose: 0.5 mg Sotalol HCl (Betapace) 80 mg PO BID REGGIE PRN Reason: Protocol Last Admin: 10/14/16 17:03 Dose: 80 mg Warfarin Sodium (Coumadin) 3 mg PO 1800 REGGIE PRN Reason: Protocol Last Admin: 10/14/16 17:08 Dose: 3 mg - Labs Labs: 10/14/16 08:30 10/14/16 08:30 PT 12.5 Seconds (9.9-11.8) H 10/14/16 08:30 INR 1.16 (0.93-1.08) H 10/14/16 08:30 - Constitutional Appears: Non-toxic, No Acute Distress, Chronically Ill - Head Exam Head Exam: ATRAUMATIC, NORMOCEPHALIC - Eye Exam Eye Exam: EOMI, PERRL Pupil Exam: NORMAL ACCOMODATION, PERRL - ENT Exam ENT Exam: Mucous Membranes Moist, Normal External Ear Exam, TM's Normal Bilaterally - Neck Exam Neck Exam: Full ROM, Normal Inspection - Respiratory Exam Respiratory Exam: Clear to Ausculation Bilateral, NORMAL BREATHING PATTERN. absent: Rales, Rhonchi, Wheezes - Cardiovascular Exam Cardiovascular Exam: REGULAR RHYTHM, RRR, +S1, +S2 - GI/Abdominal Exam GI & Abdominal Exam: Soft, Normal Bowel Sounds. absent: Distended, Tenderness - Extremities Exam Additional comments: No c/c/e. adequate distal pulses. - Neurological Exam Neurological Exam: Alert, Awake, CN II-XII Intact Additional comments: AAO x 1-2. slow recognition and thought process. Very forgetful. Periods of agitation. - Psychiatric Exam Psychiatric exam: Agitated, Anxious - Skin Skin Exam: Intact, Normal Color Assessment and Plan - Assessment and Plan (Free Text) Assessment: 86 yo female with a fall at home and possible seizure and current finding of UTI with Morganella. Started on Rocephin for antibiotic treatment. Supportive care. Patient on Keppra for seizure prophylaxis. Patient with periods of being agitated and anxious and periods of being calm. Continue with Rocephin for treatment of UTI. Thank you for allowing me to participate in the care of the patient, we will follow with you.
--- NOTE | 2016-10-14 23:26 | CP.PCM.HP ---
History of Present Illness - History of Present Illness History of Present Illness: 86 yo female with extensive medical history that includes hypertension , atrial fibrillation, diabetes, hyperlipidemia, anxiety, breast cancer history , chronic hearing difficulties, and cognitive impairment sent to hospital after a fall at home. She was evaluated for potential seizures. A urinary tract infection with Morganella was found and is currently being treated with Rocephin. The patient was transferred to the [facility] for deconditioned state. My understanding is that the patient lives alone. It appears that the patient may not be able to live on her own. Present on Admission - Present on Admission Any Indicators Present on Admission: No Review of Systems - Constitutional Constitutional: As Per HPI - EENT Eyes: As Per HPI Ears: Decreased Hearing Nose/Mouth/Throat: As Per HPI - Breasts Additional comments: b/l mastectmy - Cardiovascular Cardiovascular: As Per HPI - Respiratory Respiratory: As Per HPI - Gastrointestinal Gastrointestinal: As Per HPI Past Patient History - Infectious Disease Hx of Infectious Diseases: None - Tetanus Immunizations Tetanus Immunization: Unknown - Past Social History Smoking Status: Never Smoked - CARDIAC Hx Cardiac Disorders: Yes (Afib (on Coumadin)) Hx Hypercholesterolemia: Yes Hx Hypertension: Yes - PULMONARY Hx Chronic Obstructive Pulmonary Disease (COPD): Yes - NEUROLOGICAL HX Cerebrovascular Accident: Yes - HEENT Hx HEENT Problems: Yes (Hard of hearing) - RENAL Hx Chronic Kidney Disease: No - ENDOCRINE/METABOLIC Hx Diabetes Mellitus Type 2: Yes - HEMATOLOGICAL/ONCOLOGICAL Hx Cancer: Yes (Breast CA) Hx Chemotherapy: Yes - INTEGUMENTARY Hx Dermatological Problems: No - MUSCULOSKELETAL/RHEUMATOLOGICAL Hx Falls: Yes Hx Fractures: Yes (Right ankle) Hx Osteoarthritis: Yes - GASTROINTESTINAL Hx Gastrointestinal Disorders: Yes (POOR APPETTITE,) - GENITOURINARY/GYNECOLOGICAL Hx Urinary Tract Infection: Yes - PSYCHIATRIC Hx Substance Use: No - SURGICAL HISTORY Hx Mastectomy: Yes - ANESTHESIA Hx Anesthesia: Yes Hx Anesthesia Reactions: No Hx Malignant Hyperthermia: No Meds Allergies/Adverse Reactions: Allergies Allergy/AdvReac Type Severity Reaction Status Date / Time FISH Allergy NAUSEA Verified 10/08/16 17:07 Sulfa (Sulfonamide Allergy HEADACHE Verified 10/08/16 17:07 Antibiotics) Physical Exam - Constitutional Appears: Well - Head Exam Head Exam: ATRAUMATIC, NORMAL INSPECTION, NORMOCEPHALIC - Eye Exam Eye Exam: EOMI, Normal appearance, PERRL Pupil Exam: NORMAL ACCOMODATION, PERRL - ENT Exam ENT Exam: Mucous Membranes Moist, Normal Exam - Neck Exam Neck exam: Positive for: Normal Inspection - Respiratory Exam Respiratory Exam: Clear to Auscultation Bilateral, NORMAL BREATHING PATTERN - Cardiovascular Exam Cardiovascular Exam: REGULAR RHYTHM - GI/Abdominal Exam GI & Abdominal Exam: Normal Bowel Sounds, Soft. absent: Tenderness - Rectal Exam Rectal Exam: NORMAL INSPECTION - Exam Exam: Circumcision, NORMAL INSPECTION External exam: NORMAL EXTERNAL EXAM Speculum exam: NORMAL SPECULUM EXAM Bimanual exam: NORMAL BIMANUAL EXAM - Extremities Exam Extremities exam: Positive for: normal inspection - Back Exam Back exam: NORMAL INSPECTION - Neurological Exam Neurological exam: Alert, CN II-XII Intact, Normal Gait, Oriented x3, Reflexes Normal - Psychiatric Exam Psychiatric exam: Agitated, Anxious - Skin Skin Exam: Dry, Intact, Normal Color, Warm Results - Vital Signs Recent Vital Signs: Last Vital Signs Temp 98.2 F 10/14/16 17:14 Pulse 63 10/14/16 17:14 Resp 14 10/14/16 17:14 BP 156/77 H 10/14/16 17:14 Pulse Ox 94 L 10/14/16 17:14 - Labs Result Diagrams: 10/14/16 08:30 10/14/16 08:30 Labs: Laboratory Results - last 24 hr 10/14/16 10/14/16 10/14/16 06:55 08:30 08:30 WBC 7.8 D RBC 4.51 Hgb 13.5 Hct 39.6 MCV 87.8 MCH 29.9 MCHC 34.1 RDW 12.3 Plt Count 193 MPV 9.9 Gran % 63.5 Lymph % (Auto) 19.4 L [place] % (Auto) 11.5 H Eos % (Auto) 4.4 Baso % (Auto) 1.2 Gran # 4.96 Lymph # 1.5 [place] # 0.9 H Eos # 0.3 Baso # 0.09 PT 12.5 H INR 1.16 H Sodium Potassium Chloride Carbon Dioxide Anion Gap BUN Creatinine Est GFR ( Amer) Est GFR (Non-Af Amer) POC Glucose (mg/dL) 165 H Random Glucose Calcium Total Bilirubin AST ALT Alkaline Phosphatase Total Protein Albumin Globulin Albumin/Globulin Ratio 10/14/16 10/14/16 10/14/16 08:30 11:40 21:55 WBC RBC Hgb Hct MCV MCH MCHC RDW Plt Count MPV Gran % Lymph % (Auto) [place] % (Auto) Eos % (Auto) Baso % (Auto) Gran # Lymph # [place] # Eos # Baso # PT INR Sodium 140 Potassium 4.4 Chloride 99 Carbon Dioxide 28 Anion Gap 17 BUN 27 H Creatinine 0.7 Est GFR ( Amer) > 60 Est GFR (Non-Af Amer) > 60 POC Glucose (mg/dL) 312 H 217 H Random Glucose 187 H Calcium 9.3 Total Bilirubin 0.4 AST 28 ALT 24 Alkaline Phosphatase 76 Total Protein 7.5 Albumin 4.0 Globulin 3.5 Albumin/Globulin Ratio 1.2 Assessment & Plan - Assessment and Plan (Free Text) Assessment: Assessment: 86 yo female with a fall at home and possible seizure and current finding of UTI with Morganella. Started on Rocephin for antibiotic treatment. Supportive care. Patient on Keppra for seizure prophylaxis.h/o seizures x2 Patient is currently agitated and anxious, is on 1:1 Continue with Rocephin for uti
[2016-10-15] MEDS: cefTRIAXone 1 gm 1 GM/100 ML BAG IVPB SCH (05:08)
[2016-10-15] MEDS: Pantoprazole 40 mg EC Tab PO SCH (05:08)
[2016-10-15] MEDS: Insulin Reg-LOW-Coverage SC SCH ×4 (08:00→22:14)
[2016-10-15] MEDS: Magnesium Oxide 400 mg Tab UD PO SCH (09:52)
[2016-10-15] MEDS: POLYETHYLENE GLYCOL 3350 17 GM/Dose PACKET PO SCH (09:53)
--- NOTE | 2016-10-15 16:00 | CP.PCM.PN ---
Subjective - Date & Time of Evaluation Date of Evaluation: 10/15/16 Time of Evaluation: 15:15 - Subjective Subjective: Infectious Disease Follow Up: October 15, 2016 86 yo female with extensive medical history that includes hypertension , atrial fibrillation, diabetes, hyperlipidemia, anxiety, breast cancer history , chronic hearing difficulties, and cognitive impairment sent to hospital after a fall at home. She was evaluated for potential seizures. A urinary tract infection with Morganella was found and is currently being treated with Rocephin. The patient was transferred to the [facility] for deconditioned state. My understanding is that the patient lives alone. It appears that the patient may not be able to live on her own. She remains distressed when seen today. Reviewing nursing notes, the patient has periods where she is calm. To me she appears to overall confused. Objective - Vital Signs/Intake and Output Vital Signs (last 24 hours): Temp Pulse Resp BP Pulse Ox 98.2 F 73 18 115/70 100 10/15/16 10:42 10/15/16 10:42 10/15/16 10:42 10/15/16 10:42 10/15/16 10:42 - Medications Medications: Current Medications Acetaminophen (Tylenol 325mg Tab) 650 mg PO Q6H PRN; Protocol PRN Reason: Pain, moderate (4-7) Last Admin: 10/14/16 17:15 Dose: 650 mg Donepezil HCl (Aricept) 5 mg PO HS REGGIE PRN Reason: Protocol Last Admin: 10/14/16 22:21 Dose: 5 mg Ceftriaxone Sodium (Rocephin 1 Gram Ivpb) 1 gm in 100 mls @ 100 mls/hr IVPB 0600 REGGIE PRN Reason: Protocol Last Admin: 10/15/16 05:08 Dose: 100 mls/hr Insulin Human Regular (Humulin R Low) 0 units SC ACHS REGGIE PRN Reason: Protocol Last Admin: 10/15/16 12:58 Dose: 4 units Levetiracetam (Keppra) 500 mg PO BID REGGIE PRN Reason: Protocol Last Admin: 10/15/16 09:51 Dose: 500 mg Losartan Potassium (Cozaar) 100 mg PO DAILY REGGIE PRN Reason: Protocol Last Admin: 10/15/16 09:51 Dose: 100 mg Magnesium Oxide (Mag-Ox) 400 mg PO DAILY REGGIE PRN Reason: Protocol Last Admin: 10/15/16 09:52 Dose: 400 mg Pantoprazole Sodium (Protonix Ec Tab) 40 mg PO 0600 REGGIE PRN Reason: Protocol Last Admin: 10/15/16 05:08 Dose: 40 mg Polyethylene Glycol (Miralax) 17 gm PO DAILY REGGIE PRN Reason: Protocol Last Admin: 10/15/16 09:53 Dose: Not Given Risperidone (Risperdal Tab) 0.5 mg PO AMHS PRN; Protocol PRN Reason: Agitation Last Admin: 10/13/16 19:55 Dose: 0.5 mg Sotalol HCl (Betapace) 80 mg PO BID REGGIE PRN Reason: Protocol Last Admin: 10/15/16 09:51 Dose: 80 mg Warfarin Sodium (Coumadin) 3 mg PO 1800 REGGIE PRN Reason: Protocol Last Admin: 10/14/16 17:08 Dose: 3 mg - Labs Labs: 10/14/16 08:30 10/14/16 08:30 PT 12.5 Seconds (9.9-11.8) H 10/14/16 08:30 INR 1.16 (0.93-1.08) H 10/14/16 08:30 - Constitutional Appears: Non-toxic, No Acute Distress, Chronically Ill - Head Exam Head Exam: ATRAUMATIC, NORMOCEPHALIC - Eye Exam Eye Exam: EOMI, PERRL Pupil Exam: NORMAL ACCOMODATION, PERRL - ENT Exam ENT Exam: Mucous Membranes Moist, Normal External Ear Exam, TM's Normal Bilaterally - Neck Exam Neck Exam: Full ROM, Normal Inspection - Respiratory Exam Respiratory Exam: Clear to Ausculation Bilateral, NORMAL BREATHING PATTERN. absent: Rales, Rhonchi, Wheezes - Cardiovascular Exam Cardiovascular Exam: REGULAR RHYTHM, RRR, +S1, +S2 - GI/Abdominal Exam GI & Abdominal Exam: Soft, Normal Bowel Sounds. absent: Distended, Tenderness - Extremities Exam Additional comments: No c/c/e. adequate distal pulses. - Neurological Exam Neurological Exam: Alert, Awake, CN II-XII Intact Additional comments: AAO x 1-2. slow recognition and thought process. Very forgetful. Periods of agitation. - Psychiatric Exam Psychiatric exam: Agitated, Anxious - Skin Skin Exam: Intact, Normal Color Assessment and Plan - Assessment and Plan (Free Text) Assessment: 86 yo female with a fall at home and possible seizure and current finding of UTI with Morganella. Started on Rocephin for antibiotic treatment. Supportive care. Patient on Keppra for seizure prophylaxis. Patient with periods of being agitated and anxious and periods of being calm. Continue with Rocephin for treatment of UTI for total of 7 days. Thank you for allowing me to participate in the care of the patient, we will follow with you.
--- NOTE | 2016-10-15 23:55 | PN ---
SUBJECTIVE: The patient was seen and examined on the bedside, looking comfortable. No nausea, vomiting, diarrhea. No hematuria. No hematochezia. No swelling of the legs. No chest pain, no palpitation, but the patient is getting attacks of nervousness, anxiety, shouting, yelling, getting very angry, sometime looks like she is alone, she is not safe. We put her on 1:1 for her safty . PHYSICAL EXAMINATION VITAL SIGNS: Temperature 98.8, pulse 62, blood pressure 137/73, respiratory rate 14. HEENT: Head is normocephalic, atraumatic. Eyes; PERRLA, extraocular movements intact. Conjunctivae are clear. Nose is potent. Mucous membrane moist. NECK: Supple. No carotid bruits. No JVD or thyromegaly. CHEST: Bilaterally symmetrical. HEART: S1 and S2 positive. LUNGS: Clear to auscultation. ABDOMEN: Soft. Bowel sounds present. No organomegaly. EXTREMITIES: No edema. No cyanosis. NEUROLOGIC: The patient is awake and alert. Moving all four extremities. No focal deficits. MEDICATIONS: Aricept, sotalol, Coumadin, Cozaar, insulin, Keppra, magnesium oxide, MiraLax, Protonix, Risperdal. LABORATORY DATA: White blood cell 7.8, hemoglobin 13.5, hematocrit 39.6, platelet 193. Sodium 140, potassium 4.4, BUN 27, creatinine 0.29, glucose 217, 312, coagulation INR is 1.16 ASSESSMENT AND PLAN: The patient is an 86-year-old lady with hyperglycemia, hypertension, atrial fibrillation, hypercholesterolemia, anxiety, history of breast cancer, chronic hearing difficulties, cognitive impairment, history of fall, new onset of diseases, urinary tract infection with Morganella and getting treatment with Rocephin started by me. The patient was seen on medical floor then transferred to TCU. This patient is living alone and looks like the patient does not live alone. Her power of sports attorney is her niece, Meredith. Today, we had length of time discussion done with Meredith and she will talk to her father and her father is brother of the patient. We talked to the patient's best friend, Tracy and I personally talked to the patient's friend, Ivonne. The patient wanted to go home, but she is not able to live alone. Family and friends were talking together to get some solution, meanwhile we are giving antibiotics. Diana Najera MD [email or web address]
[2016-10-16] MEDS: Pantoprazole 40 mg EC Tab PO SCH (06:44)
[2016-10-16] MEDS: cefTRIAXone 1 gm 1 GM/100 ML BAG IVPB SCH (06:44)
[2016-10-16] MEDS: Insulin Reg-LOW-Coverage SC SCH ×4 (06:53→22:06)
[2016-10-16] MEDS: POLYETHYLENE GLYCOL 3350 17 GM/Dose PACKET PO SCH (09:32)
[2016-10-16] MEDS: Magnesium Oxide 400 mg Tab UD PO SCH (09:33)
--- NOTE | 2016-10-16 17:51 | CP.PCM.PN ---
Subjective - Date & Time of Evaluation Date of Evaluation: 10/16/16 Time of Evaluation: 16:00 - Subjective Subjective: Infectious Disease Follow Up: October 16, 2016 86 yo female with extensive medical history that includes hypertension , atrial fibrillation, diabetes, hyperlipidemia, anxiety, breast cancer history , chronic hearing difficulties, and cognitive impairment sent to hospital after a fall at home. She was evaluated for potential seizures. A urinary tract infection with Morganella was found and is currently being treated with Rocephin. The patient was transferred to the [facility] for deconditioned state. My understanding is that the patient lives alone. It appears that the patient may not be able to live on her own. She remains distressed when seen today. Reviewing nursing notes, the patient has periods where she is calm. To me she appears to overall confused. As patient remains hospitalized, the patient is yelling and screaming more each day. She has become more emotionally volatile. Objective - Vital Signs/Intake and Output Vital Signs (last 24 hours): Temp Pulse Resp BP Pulse Ox 97.9 F 59 L 15 141/71 93 L 10/16/16 16:00 10/16/16 16:00 10/16/16 16:00 10/16/16 16:00 10/15/16 16:35 Intake and Output: 10/16/16 10/16/16 06:59 18:59 Intake Total 800 Balance 800 - Medications Medications: Current Medications Acetaminophen (Tylenol 325mg Tab) 650 mg PO Q6H PRN; Protocol PRN Reason: Pain, moderate (4-7) Last Admin: 10/15/16 17:09 Dose: 650 mg Donepezil HCl (Aricept) 5 mg PO HS REGGIE PRN Reason: Protocol Last Admin: 10/15/16 21:29 Dose: 5 mg Ceftriaxone Sodium (Rocephin 1 Gram Ivpb) 1 gm in 100 mls @ 100 mls/hr IVPB 0600 REGGIE PRN Reason: Protocol Last Admin: 10/16/16 06:44 Dose: 100 mls/hr Insulin Human Regular (Humulin R Low) 0 units SC ACHS REGGIE PRN Reason: Protocol Last Admin: 10/16/16 06:53 Dose: 2 units Levetiracetam (Keppra) 500 mg PO BID REGGIE PRN Reason: Protocol Last Admin: 10/16/16 09:32 Dose: 500 mg Losartan Potassium (Cozaar) 100 mg PO DAILY REGGIE PRN Reason: Protocol Last Admin: 10/16/16 09:33 Dose: 100 mg Magnesium Oxide (Mag-Ox) 400 mg PO DAILY REGGIE PRN Reason: Protocol Last Admin: 10/16/16 09:33 Dose: 400 mg Pantoprazole Sodium (Protonix Ec Tab) 40 mg PO 0600 REGGIE PRN Reason: Protocol Last Admin: 10/16/16 06:44 Dose: 40 mg Polyethylene Glycol (Miralax) 17 gm PO DAILY REGGIE PRN Reason: Protocol Last Admin: 10/16/16 09:32 Dose: 17 gm Risperidone (Risperdal Tab) 0.5 mg PO AMHS PRN; Protocol PRN Reason: Agitation Last Admin: 10/13/16 19:55 Dose: 0.5 mg Sotalol HCl (Betapace) 80 mg PO BID REGGIE PRN Reason: Protocol Last Admin: 10/16/16 09:34 Dose: 80 mg Warfarin Sodium (Coumadin) 3 mg PO 1800 REGGIE PRN Reason: Protocol Last Admin: 10/15/16 17:07 Dose: 3 mg - Labs Labs: 10/14/16 08:30 10/14/16 08:30 PT 12.5 Seconds (9.9-11.8) H 10/14/16 08:30 INR 1.16 (0.93-1.08) H 10/14/16 08:30 - Constitutional Appears: Non-toxic, No Acute Distress, Chronically Ill - Head Exam Head Exam: ATRAUMATIC, NORMOCEPHALIC - Eye Exam Eye Exam: EOMI, PERRL Pupil Exam: NORMAL ACCOMODATION, PERRL - ENT Exam ENT Exam: Mucous Membranes Moist, Normal External Ear Exam, TM's Normal Bilaterally - Neck Exam Neck Exam: Full ROM, Normal Inspection - Respiratory Exam Respiratory Exam: Clear to Ausculation Bilateral, NORMAL BREATHING PATTERN. absent: Rales, Rhonchi, Wheezes - Cardiovascular Exam Cardiovascular Exam: REGULAR RHYTHM, RRR, +S1, +S2 - GI/Abdominal Exam GI & Abdominal Exam: Soft, Normal Bowel Sounds. absent: Distended, Tenderness - Extremities Exam Additional comments: No c/c/e. adequate distal pulses. - Neurological Exam Neurological Exam: Alert, Awake, CN II-XII Intact Additional comments: AAO x 1-2. slow recognition and thought process. Very forgetful. Periods of agitation. - Psychiatric Exam Psychiatric exam: Agitated, Anxious - Skin Skin Exam: Intact, Normal Color Assessment and Plan - Assessment and Plan (Free Text) Assessment: 86 yo female with a fall at home and possible seizure and current finding of UTI with Morganella. Started on Rocephin for antibiotic treatment. Supportive care. Patient on Keppra for seizure prophylaxis. Patient with periods of being agitated and anxious and periods of being calm. She has been more emotionally labile. Continue with Rocephin for treatment of UTI for total of 7 days. Thank you for allowing me to participate in the care of the patient, we will follow with you.
--- NOTE | 2016-10-17 | CP.PCM.PN ---
Subjective - Date & Time of Evaluation Date of Evaluation: 10/16/16 Time of Evaluation: 03:00 - Subjective Subjective: 86 yo female with extensive medical history that includes hypertension , atrial fibrillation, diabetes, hyperlipidemia, anxiety, breast cancer history , chronic hearing difficulties, and cognitive impairment sent to hospital after a fall at home. She was evaluated for potential seizures. A urinary tract infection with Morganella was found and is currently being treated with Rocephin. The patient was transferred to the [facility] for deconditioned state. patient lives alone. It appears that the patient may not be able to live on her own , cannot do her adl. She remains distressed when seen today. Reviewing nursing notes, the patient has periods where she is calm. To me she appears to overall confused. As patient remains hospitalized, the patient is yelling and screaming more each day. She has become more emotionally volatile. Objective - Vital Signs/Intake and Output Vital Signs (last 24 hours): Temp Pulse Resp BP Pulse Ox 97.9 F 59 L 15 141/71 93 L 10/16/16 16:00 10/16/16 17:50 10/16/16 16:00 10/16/16 17:50 10/15/16 16:35 Intake and Output: 10/16/16 10/17/16 18:59 06:59 Intake Total 800 Balance 800 - Medications Medications: Current Medications Acetaminophen (Tylenol 325mg Tab) 650 mg PO Q6H PRN; Protocol PRN Reason: Pain, moderate (4-7) Last Admin: 10/16/16 21:59 Dose: 650 mg Donepezil HCl (Aricept) 5 mg PO HS REGGIE PRN Reason: Protocol Last Admin: 10/16/16 21:11 Dose: 5 mg Ceftriaxone Sodium (Rocephin 1 Gram Ivpb) 1 gm in 100 mls @ 100 mls/hr IVPB 0600 REGGIE PRN Reason: Protocol Last Admin: 10/16/16 06:44 Dose: 100 mls/hr Insulin Human Regular (Humulin R Low) 0 units SC ACHS REGGIE PRN Reason: Protocol Last Admin: 10/16/16 22:06 Dose: Not Given Levetiracetam (Keppra) 500 mg PO BID REGGIE PRN Reason: Protocol Last Admin: 10/16/16 17:54 Dose: 500 mg Losartan Potassium (Cozaar) 100 mg PO DAILY REGGIE PRN Reason: Protocol Last Admin: 10/16/16 09:33 Dose: 100 mg Magnesium Oxide (Mag-Ox) 400 mg PO DAILY REGGIE PRN Reason: Protocol Last Admin: 10/16/16 09:33 Dose: 400 mg Pantoprazole Sodium (Protonix Ec Tab) 40 mg PO 0600 REGGIE PRN Reason: Protocol Last Admin: 10/16/16 06:44 Dose: 40 mg Polyethylene Glycol (Miralax) 17 gm PO DAILY REGGIE PRN Reason: Protocol Last Admin: 10/16/16 09:32 Dose: 17 gm Risperidone (Risperdal Tab) 0.5 mg PO AMHS PRN; Protocol PRN Reason: Agitation Last Admin: 10/16/16 21:59 Dose: 0.5 mg Sotalol HCl (Betapace) 80 mg PO BID REGGIE PRN Reason: Protocol Last Admin: 10/16/16 17:50 Dose: 80 mg Warfarin Sodium (Coumadin) 3 mg PO 1800 REGGIE PRN Reason: Protocol Last Admin: 10/16/16 17:53 Dose: 3 mg - Labs Labs: 10/14/16 08:30 10/14/16 08:30 PT 12.5 Seconds (9.9-11.8) H 10/14/16 08:30 INR 1.16 (0.93-1.08) H 10/14/16 08:30 - Constitutional Appears: Well - Head Exam Head Exam: ATRAUMATIC, NORMAL INSPECTION, NORMOCEPHALIC - Eye Exam Eye Exam: EOMI, Normal appearance, PERRL Pupil Exam: NORMAL ACCOMODATION, PERRL - ENT Exam ENT Exam: Mucous Membranes Moist, Normal Exam - Neck Exam Neck Exam: Full ROM, Normal Inspection. absent: Lymphadenopathy - Respiratory Exam Respiratory Exam: Clear to Ausculation Bilateral, NORMAL BREATHING PATTERN - Cardiovascular Exam Cardiovascular Exam: REGULAR RHYTHM, +S1, +S2. absent: Murmur - GI/Abdominal Exam GI & Abdominal Exam: Soft, Normal Bowel Sounds. absent: Tenderness - Rectal Exam Rectal Exam: NORMAL INSPECTION - Exam Exam: Circumcision, NORMAL INSPECTION External exam: NORMAL EXTERNAL EXAM Speculum exam: NORMAL SPECULUM EXAM Bimanual exam: NORMAL BIMANUAL EXAM - Extremities Exam Extremities Exam: Full ROM, Normal Capillary Refill, Normal Inspection. absent : Joint Swelling, Pedal Edema - Back Exam Back Exam: NORMAL INSPECTION - Neurological Exam Neurological Exam: Alert, Awake, CN II-XII Intact, Normal Gait, Oriented x3 - Psychiatric Exam Psychiatric exam: Normal Affect, Normal Mood - Skin Skin Exam: Dry, Intact, Normal Color, Warm Assessment and Plan - Assessment and Plan (Free Text) Assessment: Assessment: 86 yo female with a fall at home and possible seizure and current finding of UTI with Morganella. Started on Rocephin for antibiotic treatment. Supportive care. Patient on Keppra for seizure prophylaxis. Patient with periods of being agitated and anxious and periods of being calm. She has been more emotionally labile. Continue with Rocephin for treatment of UTI for total of 7 days. d/d with pt friend Ivonne
[2016-10-17] MEDS: Pantoprazole 40 mg EC Tab PO SCH (07:23)
[2016-10-17] MEDS: cefTRIAXone 1 gm 1 GM/100 ML BAG IVPB SCH (07:23)
[2016-10-17] MEDS: Insulin Reg-LOW-Coverage SC SCH ×4 (07:25→23:02)
[2016-10-17] MEDS: POLYETHYLENE GLYCOL 3350 17 GM/Dose PACKET PO SCH (10:29)
[2016-10-17] MEDS: Magnesium Oxide 400 mg Tab UD PO SCH (10:29)
--- NOTE | 2016-10-17 15:29 | CP.PCM.PN ---
Subjective - Date & Time of Evaluation Date of Evaluation: 10/17/16 Time of Evaluation: 15:15 - Subjective Subjective: Infectious Disease Follow Up: October 17, 2016 86 yo female with extensive medical history that includes hypertension , atrial fibrillation, diabetes, hyperlipidemia, anxiety, breast cancer history , chronic hearing difficulties, and cognitive impairment sent to hospital after a fall at home. She was evaluated for potential seizures. A urinary tract infection with Morganella was found and is currently being treated with Rocephin. The patient was transferred to the [facility] for deconditioned state. My understanding is that the patient lives alone. It appears that the patient may not be able to live on her own. She remains distressed when seen today. Reviewing nursing notes, the patient has periods where she is calm. To me she appears to overall confused. As patient remains hospitalized, the patient is yelling and screaming more each day. She has become more emotionally volatile. Objective - Vital Signs/Intake and Output Vital Signs (last 24 hours): Temp Pulse Resp BP Pulse Ox 98.0 F 70 18 132/70 98 10/17/16 10:48 10/17/16 10:48 10/17/16 10:48 10/17/16 10:48 10/17/16 10:48 - Medications Medications: Current Medications Acetaminophen (Tylenol 325mg Tab) 650 mg PO Q6H PRN; Protocol PRN Reason: Pain, moderate (4-7) Last Admin: 10/16/16 21:59 Dose: 650 mg Donepezil HCl (Aricept) 5 mg PO HS REGGIE PRN Reason: Protocol Last Admin: 10/16/16 21:11 Dose: 5 mg Ceftriaxone Sodium (Rocephin 1 Gram Ivpb) 1 gm in 100 mls @ 100 mls/hr IVPB 0600 REGGIE PRN Reason: Protocol Last Admin: 10/17/16 07:23 Dose: 100 mls/hr Insulin Human Regular (Humulin R Low) 0 units SC ACHS REGGIE PRN Reason: Protocol Last Admin: 10/17/16 12:57 Dose: 4 units Levetiracetam (Keppra) 500 mg PO BID REGGIE PRN Reason: Protocol Last Admin: 10/17/16 11:00 Dose: 500 mg Losartan Potassium (Cozaar) 100 mg PO DAILY REGGIE PRN Reason: Protocol Last Admin: 10/17/16 10:29 Dose: 100 mg Magnesium Oxide (Mag-Ox) 400 mg PO DAILY REGGIE PRN Reason: Protocol Last Admin: 10/17/16 10:29 Dose: 400 mg Pantoprazole Sodium (Protonix Ec Tab) 40 mg PO 0600 REGGIE PRN Reason: Protocol Last Admin: 10/17/16 07:23 Dose: 40 mg Polyethylene Glycol (Miralax) 17 gm PO DAILY REGGIE PRN Reason: Protocol Last Admin: 10/17/16 10:29 Dose: 17 gm Risperidone (Risperdal Tab) 0.5 mg PO AMHS PRN; Protocol PRN Reason: Agitation Last Admin: 10/16/16 21:59 Dose: 0.5 mg Sotalol HCl (Betapace) 80 mg PO BID REGGIE PRN Reason: Protocol Last Admin: 10/17/16 10:28 Dose: 80 mg Warfarin Sodium (Coumadin) 3 mg PO 1800 REGGIE PRN Reason: Protocol Last Admin: 10/16/16 17:53 Dose: 3 mg - Labs Labs: 10/14/16 08:30 10/14/16 08:30 PT 12.5 Seconds (9.9-11.8) H 10/14/16 08:30 INR 1.16 (0.93-1.08) H 10/14/16 08:30 - Constitutional Appears: Non-toxic, No Acute Distress, Chronically Ill - Head Exam Head Exam: ATRAUMATIC, NORMOCEPHALIC - Eye Exam Eye Exam: EOMI, PERRL Pupil Exam: NORMAL ACCOMODATION, PERRL - ENT Exam ENT Exam: Mucous Membranes Moist, Normal External Ear Exam, TM's Normal Bilaterally - Neck Exam Neck Exam: Full ROM, Normal Inspection - Respiratory Exam Respiratory Exam: Clear to Ausculation Bilateral, NORMAL BREATHING PATTERN. absent: Rales, Rhonchi, Wheezes - Cardiovascular Exam Cardiovascular Exam: REGULAR RHYTHM, RRR, +S1, +S2 - GI/Abdominal Exam GI & Abdominal Exam: Soft, Normal Bowel Sounds. absent: Distended, Tenderness - Extremities Exam Additional comments: No c/c/e. adequate distal pulses. - Neurological Exam Neurological Exam: Alert, Awake, CN II-XII Intact Additional comments: AAO x 1. slow recognition and thought process. Very forgetful. Periods of agitation. - Psychiatric Exam Psychiatric exam: Agitated, Anxious - Skin Skin Exam: Intact, Normal Color Assessment and Plan - Assessment and Plan (Free Text) Assessment: 86 yo female with a fall at home and possible seizure and current finding of UTI with Morganella. Started on Rocephin for antibiotic treatment. Supportive care. Patient on Keppra for seizure prophylaxis. Patient with periods of being agitated and anxious and periods of being calm. She has been more emotionally labile. Continue with Rocephin for treatment of UTI for total of 7 days. Thank you for allowing me to participate in the care of the patient, we will follow with you.
--- NOTE | 2016-10-18 00:12 | PN ---
SUBJECTIVE: The patient seen and examined at the bedside, having dinner, feeling better. No more confusion, no more one-to-one. No nausea, vomiting, diarrhea. No hematuria, no hematochezia. No swelling of the legs. No chest pain or palpitation. PHYSICAL EXAMINATION. VITAL SIGNS: Temperature 98.5, pulse 60, blood pressure 132/63, respiratory rate is 18. HEENT: Head is normocephalic and atraumatic. Eyes; PERRLA. Extraocular muscles intact. Conjunctivae clear. Nose is patent. NECK: Supple. No carotid bruits. No JVD or thyromegaly. CHEST: Bilaterally symmetrical. HEART: S1 and S2 positive. LUNGS: Clear to auscultation. ABDOMEN: Soft. Bowel sounds present. No organomegaly. EXTREMITIES: No edema. No cyanosis. NEUROLOGIC: The patient is awake and alert. Moving all 4 extremities. No focal deficit. MEDICATIONS: Aricept, sotalol, Coumadin, Cozaar, insulin, Keppra, magnesium oxide, MiraLax, pantoprazole, Respirol, antibiotics. LABORATORY DATA: We do not have recent labs today, but I reviewed old labs. Glucose is 319, 199, 200, 250. ASSESSMENT AND PLAN: The patient is an 86-year-old lady with history of hypertension, atrial fibrillation, is on Coumadin, diabetes mellitus, hypercholesterolemia, anxiety, history of breast cancer, history of mastectomy, chronic hearing difficulties, cognitive impairment, status post fall, seizures, urinary tract infection with Morganella, getting Rocephin. Getting physical therapy in TCU. She lives alone, going her home is not safe, but she want to go home. Discussion done with the patient's power of employment law attorney, Meredith, patient's niece, patient's friend Jim. Getting supportive care. Getting Keppra for seizures. Has complete the course of Rocephin of 7 days as per infectious disease. We will follow up. Diana Najera MD
[2016-10-18] MEDS: Pantoprazole 40 mg EC Tab PO SCH (05:07)
[2016-10-18] MEDS: cefTRIAXone 1 gm 1 GM/100 ML BAG IVPB SCH (05:07)
[2016-10-18] MEDS: Insulin Reg-LOW-Coverage SC SCH ×4 (06:33→22:24)
[2016-10-18] MEDS: Magnesium Oxide 400 mg Tab UD PO SCH (10:45)
[2016-10-18] MEDS: POLYETHYLENE GLYCOL 3350 17 GM/Dose PACKET PO SCH (10:46)
--- NOTE | 2016-10-18 17:20 | CP.PCM.PN ---
Subjective - Date & Time of Evaluation Date of Evaluation: 10/18/16 Time of Evaluation: 16:15 - Subjective Subjective: Infectious Disease Follow Up: October 18, 2016 86 yo female with extensive medical history that includes hypertension , atrial fibrillation, diabetes, hyperlipidemia, anxiety, breast cancer history , chronic hearing difficulties, and cognitive impairment sent to hospital after a fall at home. She was evaluated for potential seizures. A urinary tract infection with Morganella was found and is currently being treated with Rocephin. The patient was transferred to the [facility] for deconditioned state. My understanding is that the patient lives alone. It appears that the patient may not be able to live on her own. She remains distressed when seen today. Reviewing nursing notes, the patient has periods where she is calm. To me she appears to overall agitated and at times confused. She is nearing completion of her antibiotics. Objective - Vital Signs/Intake and Output Vital Signs (last 24 hours): Temp Pulse Resp BP Pulse Ox 97.6 F 62 18 168/59 H 95 10/18/16 16:00 10/18/16 16:00 10/18/16 16:00 10/18/16 16:00 10/18/16 16:00 - Medications Medications: Current Medications Acetaminophen (Tylenol 325mg Tab) 650 mg PO Q6H PRN; Protocol PRN Reason: Pain, moderate (4-7) Last Admin: 10/18/16 15:15 Dose: 650 mg Donepezil HCl (Aricept) 5 mg PO HS REGGIE PRN Reason: Protocol Last Admin: 10/17/16 21:49 Dose: 5 mg Ceftriaxone Sodium (Rocephin 1 Gram Ivpb) 1 gm in 100 mls @ 100 mls/hr IVPB 0600 REGGIE PRN Reason: Protocol Last Admin: 10/18/16 05:07 Dose: 100 mls/hr Insulin Human Regular (Humulin R Low) 0 units SC ACHS REGGIE PRN Reason: Protocol Last Admin: 10/18/16 11:58 Dose: 4 units Levetiracetam (Keppra) 500 mg PO BID REGGIE PRN Reason: Protocol Last Admin: 10/18/16 10:45 Dose: 500 mg Losartan Potassium (Cozaar) 100 mg PO DAILY REGGIE PRN Reason: Protocol Last Admin: 10/18/16 10:45 Dose: 100 mg Magnesium Oxide (Mag-Ox) 400 mg PO DAILY REGGIE PRN Reason: Protocol Last Admin: 10/18/16 10:45 Dose: 400 mg Pantoprazole Sodium (Protonix Ec Tab) 40 mg PO 0600 REGGIE PRN Reason: Protocol Last Admin: 10/18/16 05:07 Dose: 40 mg Polyethylene Glycol (Miralax) 17 gm PO DAILY REGGIE PRN Reason: Protocol Last Admin: 10/18/16 10:46 Dose: 17 gm Risperidone (Risperdal Tab) 0.5 mg PO AMHS PRN; Protocol PRN Reason: Agitation Last Admin: 10/16/16 21:59 Dose: 0.5 mg Sotalol HCl (Betapace) 80 mg PO BID REGGIE PRN Reason: Protocol Last Admin: 10/18/16 11:14 Dose: 80 mg Warfarin Sodium (Coumadin) 3 mg PO 1800 REGGIE PRN Reason: Protocol Last Admin: 10/17/16 17:33 Dose: 3 mg - Labs Labs: 10/14/16 08:30 10/14/16 08:30 PT 12.5 Seconds (9.9-11.8) H 10/14/16 08:30 INR 1.16 (0.93-1.08) H 10/14/16 08:30 - Constitutional Appears: Non-toxic, No Acute Distress, Chronically Ill - Head Exam Head Exam: ATRAUMATIC, NORMOCEPHALIC - Eye Exam Eye Exam: EOMI, PERRL Pupil Exam: NORMAL ACCOMODATION, PERRL - ENT Exam ENT Exam: Mucous Membranes Moist, Normal External Ear Exam, TM's Normal Bilaterally - Neck Exam Neck Exam: Full ROM, Normal Inspection - Respiratory Exam Respiratory Exam: Clear to Ausculation Bilateral, NORMAL BREATHING PATTERN. absent: Rales, Rhonchi, Wheezes - Cardiovascular Exam Cardiovascular Exam: REGULAR RHYTHM, RRR, +S1, +S2 - GI/Abdominal Exam GI & Abdominal Exam: Soft, Normal Bowel Sounds. absent: Distended, Tenderness - Extremities Exam Additional comments: No c/c/e. adequate distal pulses. - Neurological Exam Neurological Exam: Alert, Awake, CN II-XII Intact Additional comments: AAO x 1. slow recognition and thought process. Very forgetful. Periods of agitation. - Psychiatric Exam Psychiatric exam: Agitated, Anxious - Skin Skin Exam: Intact, Normal Color
--- NOTE | 2016-10-18 20:16 | PN ---
DATE: 10/18/2016 SUBJECTIVE: The patient was seen and examined at the bedside looking comfortable. No nausea, vomiting, diarrhea. No hematuria, no hematochezia. No swelling of the legs. No chest pain or palpitation. No headache and no dizziness. PHYSICAL EXAMINATION: VITAL SIGNS: Temperature 97.2, pulse 62, blood pressure 116/50, respiratory rate 18. HEENT: Head is normocephalic and atraumatic. Eyes; PERRLA. Extraocular muscles intact. Conjunctivae clear. Nose is patent. Mucous membrane moist. NECK: Supple. No carotid bruits. No JVD or thyromegaly. CHEST: Bilaterally symmetrical. HEART: S1 and S2 positive. LUNGS: Clear to auscultation. ABDOMEN: Soft. Bowel sounds present. No organomegaly. EXTREMITIES: No edema. No cyanosis. NEUROLOGIC: The patient is awake and alert. Moving all 4 extremities. No focal deficit. MEDICATIONS: Aricept, sotalol, clonidine, Cozaar, insulin, Keppra, magnesium oxide, MiraLAX, Protonix, aspirin, Rocephin, and Tylenol. LABORATORY DATA: We do not have recent labs today, but I reviewed old labs. Note has been repeated. ASSESSMENT AND PLAN: Ms. Lee Ann Ledezma is 86 years old lady with multiple medical problems, advanced dementia, seizures, history of fall, urinary tract infection with Morganella. Getting Rocephin, supportive care. The patient is getting Keppra for seizure, need Coumadin for atrial fibrillation. ID on that case. The patient has multiple medicle problem, lives alone, want to go home, but [facility] is not safe discharge, but the patient is looking mentally competent. She is deciding to go home. The patient's niece power of tub attendant knows about that. The patient's friends knows about that also. We will continue further treatment. GI and DVT prophylaxis . We will follow up with inr . Diana Najera MD MARCELINA
[2016-10-19] MEDS: Pantoprazole 40 mg EC Tab PO SCH (05:32)
[2016-10-19] MEDS: cefTRIAXone 1 gm 1 GM/100 ML BAG IVPB SCH (05:32)
[2016-10-19] MEDS: Insulin Reg-LOW-Coverage SC SCH ×4 (06:33→21:41)
[2016-10-19 06:42] LABS: INR 1.56 (0.93-1.08); PROTHROMBIN TIME 16.8 Seconds (9.9-11.8)
[2016-10-19 06:46] LABS: HEMOGLOBIN 12.4 gm/dL (12.0-16.0); MEAN CELL VOLUME 87.1 fL (80.0-105.0); MEAN CORPUSCULAR HEMOGLOBIN 29.7 pg (25.0-35.0); MEAN CORPUSCULAR HGB CONC 34.2 g/dl (31.0-37.0); MEAN PLATELET VOLUME 10.2 fl (7.0-11.0); RBC 4.17 10^6/uL (3.5-6.1); RED CELL DISTRIBUTION WIDTH 12.4 % (11.5-14.5); WHITE BLOOD COUNT 8.2 10^3/ul (4.5-11.0)
[2016-10-19 06:47] LABS: BLOOD UREA NITROGEN 29 mg/dL (7-21); CALCIUM 9.1 mg/dL (8.4-10.5); GFR AFRICAN-AMERICAN > 60; GFR NON-AFRICAN AMERICAN > 60
[2016-10-19] MEDS: Magnesium Oxide 400 mg Tab UD PO SCH (10:35)
[2016-10-19] MEDS: POLYETHYLENE GLYCOL 3350 17 GM/Dose PACKET PO SCH (10:35)
--- NOTE | 2016-10-19 17:20 | CP.PCM.PN ---
Subjective - Date & Time of Evaluation Date of Evaluation: 10/19/16 Time of Evaluation: 16:15 - Subjective Subjective: Infectious Disease Follow Up: October 19, 2016 86 yo female with extensive medical history that includes hypertension , atrial fibrillation, diabetes, hyperlipidemia, anxiety, breast cancer history , chronic hearing difficulties, and cognitive impairment sent to hospital after a fall at home. She was evaluated for potential seizures. A urinary tract infection with Morganella was found and is currently being treated with Rocephin. The patient was transferred to the [facility] for deconditioned state. My understanding is that the patient lives alone. It appears that the patient may not be able to live on her own. She remains distressed when seen today. Reviewing nursing notes, the patient has periods where she is calm. To me she appears to overall agitated and at times confused. She is nearing completion of her antibiotics. She appears a little calmer today than previous days. When she is calm, she is able to make what appears to be clear and competent decisions. Objective - Vital Signs/Intake and Output Vital Signs (last 24 hours): Temp Pulse Resp BP Pulse Ox 97.5 F L 54 L 18 138/60 95 10/19/16 16:08 10/19/16 16:08 10/19/16 16:08 10/19/16 16:08 10/19/16 16:08 - Medications Medications: Current Medications Acetaminophen (Tylenol 325mg Tab) 650 mg PO Q6H PRN; Protocol PRN Reason: Pain, moderate (4-7) Last Admin: 10/19/16 04:26 Dose: 650 mg Donepezil HCl (Aricept) 5 mg PO HS REGGIE PRN Reason: Protocol Last Admin: 10/18/16 21:50 Dose: 5 mg Ceftriaxone Sodium (Rocephin 1 Gram Ivpb) 1 gm in 100 mls @ 100 mls/hr IVPB 0600 REGGIE PRN Reason: Protocol Last Admin: 10/19/16 05:32 Dose: 100 mls/hr Insulin Human Regular (Humulin R Low) 0 units SC ACHS REGGIE PRN Reason: Protocol Last Admin: 10/19/16 11:51 Dose: 3 units Levetiracetam (Keppra) 500 mg PO BID REGGIE PRN Reason: Protocol Last Admin: 10/19/16 11:19 Dose: 500 mg Losartan Potassium (Cozaar) 100 mg PO DAILY REGGIE PRN Reason: Protocol Last Admin: 10/19/16 10:34 Dose: 100 mg Magnesium Oxide (Mag-Ox) 400 mg PO DAILY REGGIE PRN Reason: Protocol Last Admin: 10/19/16 10:35 Dose: 400 mg Pantoprazole Sodium (Protonix Ec Tab) 40 mg PO 0600 REGGIE PRN Reason: Protocol Last Admin: 10/19/16 05:32 Dose: 40 mg Polyethylene Glycol (Miralax) 17 gm PO DAILY REGGIE PRN Reason: Protocol Last Admin: 10/19/16 10:35 Dose: Not Given Risperidone (Risperdal Tab) 0.5 mg PO AMHS PRN; Protocol PRN Reason: Agitation Last Admin: 10/18/16 21:50 Dose: 0.5 mg Sotalol HCl (Betapace) 80 mg PO BID REGGIE PRN Reason: Protocol Last Admin: 10/19/16 10:34 Dose: 80 mg Warfarin Sodium (Coumadin) 3 mg PO 1800 REGGIE PRN Reason: Protocol Last Admin: 10/18/16 17:23 Dose: 3 mg - Labs Labs: 10/19/16 06:00 10/19/16 06:00 PT 16.8 Seconds (9.9-11.8) H 10/19/16 06:00 INR 1.56 (0.93-1.08) H 10/19/16 06:00 - Constitutional Appears: Non-toxic, No Acute Distress, Chronically Ill - Head Exam Head Exam: ATRAUMATIC, NORMOCEPHALIC - Eye Exam Eye Exam: EOMI, PERRL Pupil Exam: NORMAL ACCOMODATION, PERRL - ENT Exam ENT Exam: Mucous Membranes Moist, Normal External Ear Exam, TM's Normal Bilaterally - Neck Exam Neck Exam: Full ROM, Normal Inspection - Respiratory Exam Respiratory Exam: Clear to Ausculation Bilateral, NORMAL BREATHING PATTERN. absent: Rales, Rhonchi, Wheezes - Cardiovascular Exam Cardiovascular Exam: REGULAR RHYTHM, RRR, +S1, +S2 - GI/Abdominal Exam GI & Abdominal Exam: Soft, Normal Bowel Sounds. absent: Distended, Tenderness - Extremities Exam Additional comments: No c/c/e. adequate distal pulses. - Neurological Exam Neurological Exam: Alert, Awake, CN II-XII Intact Additional comments: AAO x 1. slow recognition and thought process. Very forgetful. Periods of agitation. AAOx2 when calm however. - Psychiatric Exam Psychiatric exam: Normal Affect, Normal Mood - Skin Skin Exam: Intact, Normal Color Assessment and Plan - Assessment and Plan (Free Text) Assessment: 86 yo female with a fall at home and possible seizure and current finding of UTI with Morganella. Started on Rocephin for antibiotic treatment. Supportive care. Patient on Keppra for seizure prophylaxis. Patient with periods of being agitated and anxious and periods of being calm. She has been more emotionally labile. Continue with Rocephin for treatment of UTI for total of 7 days. Nearing completion. Thank you for allowing me to participate in the care of the patient, we will follow with you.
[2016-10-20] MEDS: cefTRIAXone 1 gm 1 GM/100 ML BAG IVPB SCH (05:26)
[2016-10-20] MEDS: Pantoprazole 40 mg EC Tab PO SCH (05:27)
[2016-10-20] MEDS: Insulin Reg-LOW-Coverage SC SCH ×4 (06:31→22:17)
[2016-10-20 10:00] VITALS: RESP 18
[2016-10-20] MEDS: POLYETHYLENE GLYCOL 3350 17 GM/Dose PACKET PO SCH (10:01)
[2016-10-20] MEDS: Magnesium Oxide 400 mg Tab UD PO SCH (10:02)
--- NOTE | 2016-10-20 18:39 | CP.PCM.PN ---
Subjective - Date & Time of Evaluation Date of Evaluation: 10/20/16 Time of Evaluation: 17:00 - Subjective Subjective: Infectious Disease Follow Up: October 20, 2016 86 yo female with extensive medical history that includes hypertension , atrial fibrillation, diabetes, hyperlipidemia, anxiety, breast cancer history , chronic hearing difficulties, and cognitive impairment sent to hospital after a fall at home. She was evaluated for potential seizures. A urinary tract infection with Morganella was found and is currently being treated with Rocephin. The patient was transferred to the [facility] for deconditioned state. My understanding is that the patient lives alone. It appears that the patient may not be able to live on her own. She remains distressed when seen today. Reviewing nursing notes, the patient has periods where she is calm. To me she appears to overall agitated and at times confused. She is nearing completion of her antibiotics. She appears a little calmer today than previous days. When she is calm, she is able to make what appears to be clear and competent decisions. Question of whether the patient is competent to live on her own. Objective - Vital Signs/Intake and Output Vital Signs (last 24 hours): Temp Pulse Resp BP Pulse Ox 97.9 F 62 18 125/61 98 10/20/16 10:00 10/20/16 17:06 10/20/16 10:00 10/20/16 17:06 10/20/16 10:00 Intake and Output: 10/20/16 10/20/16 06:59 18:59 Intake Total 250 Balance 250 - Medications Medications: Current Medications Acetaminophen (Tylenol 325mg Tab) 650 mg PO Q6H PRN; Protocol PRN Reason: Pain, moderate (4-7) Last Admin: 10/19/16 04:26 Dose: 650 mg Donepezil HCl (Aricept) 5 mg PO HS REGGIE PRN Reason: Protocol Last Admin: 10/19/16 21:17 Dose: 5 mg Ceftriaxone Sodium (Rocephin 1 Gram Ivpb) 1 gm in 100 mls @ 100 mls/hr IVPB 0600 REGGIE PRN Reason: Protocol Last Admin: 10/20/16 05:26 Dose: 100 mls/hr Insulin Human Regular (Humulin R Low) 0 units SC ACHS REGGIE PRN Reason: Protocol Last Admin: 10/20/16 18:06 Dose: Not Given Levetiracetam (Keppra) 500 mg PO BID REGGIE PRN Reason: Protocol Last Admin: 10/20/16 17:39 Dose: 500 mg Losartan Potassium (Cozaar) 100 mg PO DAILY REGGIE PRN Reason: Protocol Last Admin: 10/20/16 10:04 Dose: 100 mg Magnesium Oxide (Mag-Ox) 400 mg PO DAILY REGGIE PRN Reason: Protocol Last Admin: 10/20/16 10:02 Dose: 400 mg Pantoprazole Sodium (Protonix Ec Tab) 40 mg PO 0600 REGGIE PRN Reason: Protocol Last Admin: 10/20/16 05:27 Dose: 40 mg Polyethylene Glycol (Miralax) 17 gm PO DAILY REGGIE PRN Reason: Protocol Last Admin: 10/20/16 10:01 Dose: 17 gm Risperidone (Risperdal Tab) 0.5 mg PO AMHS PRN; Protocol PRN Reason: Agitation Last Admin: 10/18/16 21:50 Dose: 0.5 mg Sotalol HCl (Betapace) 80 mg PO BID REGGIE PRN Reason: Protocol Last Admin: 10/20/16 17:06 Dose: 80 mg Warfarin Sodium (Coumadin) 3 mg PO 1800 REGGIE PRN Reason: Protocol Last Admin: 10/20/16 17:07 Dose: 3 mg - Labs Labs: 10/19/16 06:00 10/19/16 06:00 PT 16.8 Seconds (9.9-11.8) H 10/19/16 06:00 INR 1.56 (0.93-1.08) H 10/19/16 06:00 - Constitutional Appears: Non-toxic, No Acute Distress, Chronically Ill - Head Exam Head Exam: ATRAUMATIC, NORMOCEPHALIC - Eye Exam Eye Exam: EOMI, PERRL Pupil Exam: NORMAL ACCOMODATION, PERRL - ENT Exam ENT Exam: Mucous Membranes Moist, Normal External Ear Exam, TM's Normal Bilaterally - Neck Exam Neck Exam: Full ROM, Normal Inspection - Respiratory Exam Respiratory Exam: Clear to Ausculation Bilateral, NORMAL BREATHING PATTERN. absent: Rales, Rhonchi, Wheezes - Cardiovascular Exam Cardiovascular Exam: REGULAR RHYTHM, RRR, +S1, +S2 - GI/Abdominal Exam GI & Abdominal Exam: Soft, Normal Bowel Sounds. absent: Distended, Tenderness - Extremities Exam Additional comments: No c/c/e. adequate distal pulses. - Neurological Exam Neurological Exam: Alert, Awake, CN II-XII Intact Additional comments: AAO x 1. slow recognition and thought process. Very forgetful. Periods of agitation. AAOx2 when calm however. - Psychiatric Exam Psychiatric exam: Normal Affect, Normal Mood - Skin Skin Exam: Intact, Normal Color Assessment and Plan - Assessment and Plan (Free Text) Assessment: 86 yo female with a fall at home and possible seizure and current finding of UTI with Morganella. Started on Rocephin for antibiotic treatment. Supportive care. Patient on Keppra for seizure prophylaxis. Patient with periods of being agitated and anxious and periods of being calm. She has been more emotionally labile. Continue with Rocephin for treatment of UTI for total of 7 days. Completed. Thank you for allowing me to participate in the care of the patient, we will follow with you.
--- NOTE | 2016-10-21 01:05 | CP.PCM.PN ---
Subjective - Date & Time of Evaluation Date of Evaluation: 09/20/16 Time of Evaluation: 06:30 - Subjective Subjective: 86 yo female with extensive medical history that includes hypertension , atrial fibrillation, diabetes, hyperlipidemia, anxiety, breast cancer history , chronic hearing difficulties, and cognitive impairment sent to hospital after a fall at home. She was evaluated for potential seizures. A urinary tract infection with Morganella was found and is currently being treated with Rocephin. The patient was transferred to the [facility] for deconditioned state. My understanding is that the patient lives alone. It appears that the patient may not be able to live on her own. She remains distressed when seen today. Reviewing nursing notes, the patient has periods where she is calm. To me she appears to overall agitated and at times confused. She is nearing completion of her antibiotics. She appears a little calmer today than previous days. When she is calm, she is able to make what appears to be clear and competent decisions. Question of whether the patient is competent to live alone Objective - Vital Signs/Intake and Output Vital Signs (last 24 hours): Temp Pulse Resp BP Pulse Ox 97.9 F 62 18 125/61 98 10/20/16 10:00 10/20/16 17:06 10/20/16 10:00 10/20/16 17:06 10/20/16 10:00 - Medications Medications: Current Medications Acetaminophen (Tylenol 325mg Tab) 650 mg PO Q6H PRN; Protocol PRN Reason: Pain, moderate (4-7) Last Admin: 10/20/16 23:38 Dose: 650 mg Donepezil HCl (Aricept) 5 mg PO HS REGGIE PRN Reason: Protocol Last Admin: 10/20/16 22:23 Dose: 5 mg Ceftriaxone Sodium (Rocephin 1 Gram Ivpb) 1 gm in 100 mls @ 100 mls/hr IVPB 0600 REGGIE PRN Reason: Protocol Last Admin: 10/20/16 05:26 Dose: 100 mls/hr Insulin Human Regular (Humulin R Low) 0 units SC ACHS REGGIE PRN Reason: Protocol Last Admin: 10/20/16 22:17 Dose: Not Given Levetiracetam (Keppra) 500 mg PO BID REGGIE PRN Reason: Protocol Last Admin: 10/20/16 17:39 Dose: 500 mg Losartan Potassium (Cozaar) 100 mg PO DAILY REGGIE PRN Reason: Protocol Last Admin: 10/20/16 10:04 Dose: 100 mg Magnesium Oxide (Mag-Ox) 400 mg PO DAILY REGGIE PRN Reason: Protocol Last Admin: 10/20/16 10:02 Dose: 400 mg Pantoprazole Sodium (Protonix Ec Tab) 40 mg PO 0600 REGGIE PRN Reason: Protocol Last Admin: 10/20/16 05:27 Dose: 40 mg Polyethylene Glycol (Miralax) 17 gm PO DAILY REGGIE PRN Reason: Protocol Last Admin: 10/20/16 10:01 Dose: 17 gm Risperidone (Risperdal Tab) 0.5 mg PO AMHS PRN; Protocol PRN Reason: Agitation Last Admin: 10/18/16 21:50 Dose: 0.5 mg Sotalol HCl (Betapace) 80 mg PO BID REGGIE PRN Reason: Protocol Last Admin: 10/20/16 17:06 Dose: 80 mg Warfarin Sodium (Coumadin) 3 mg PO 1800 REGGIE PRN Reason: Protocol Last Admin: 10/20/16 17:07 Dose: 3 mg - Labs Labs: 10/19/16 06:00 10/19/16 06:00 PT 16.8 Seconds (9.9-11.8) H 10/19/16 06:00 INR 1.56 (0.93-1.08) H 10/19/16 06:00 - Constitutional Appears: Well - Head Exam Head Exam: ATRAUMATIC, NORMAL INSPECTION, NORMOCEPHALIC - Eye Exam Eye Exam: EOMI, Normal appearance, PERRL Pupil Exam: NORMAL ACCOMODATION, PERRL - ENT Exam ENT Exam: Mucous Membranes Moist, Normal Exam - Neck Exam Neck Exam: Full ROM, Normal Inspection. absent: Lymphadenopathy - Respiratory Exam Respiratory Exam: Clear to Ausculation Bilateral, NORMAL BREATHING PATTERN - Cardiovascular Exam Cardiovascular Exam: REGULAR RHYTHM, +S1, +S2. absent: Murmur - GI/Abdominal Exam GI & Abdominal Exam: Soft, Normal Bowel Sounds. absent: Tenderness - Rectal Exam Rectal Exam: NORMAL INSPECTION - Exam Exam: Circumcision, NORMAL INSPECTION External exam: NORMAL EXTERNAL EXAM Speculum exam: NORMAL SPECULUM EXAM Bimanual exam: NORMAL BIMANUAL EXAM - Extremities Exam Extremities Exam: Full ROM, Normal Capillary Refill, Normal Inspection. absent : Joint Swelling, Pedal Edema - Back Exam Back Exam: NORMAL INSPECTION - Neurological Exam Neurological Exam: Alert, Awake, CN II-XII Intact, Normal Gait, Oriented x3 - Psychiatric Exam Psychiatric exam: Normal Affect, Normal Mood - Skin Skin Exam: Dry, Intact, Normal Color, Warm Assessment and Plan - Assessment and Plan (Free Text) Assessment: Assessment: 86 yo female with a fall at home and possible seizure and current finding of UTI with Morganella. Started on Rocephin for antibiotic treatment. Supportive care. Patient on Keppra for seizure prophylaxis. Patient with periods of being agitated and anxious and periods of being calm. She has been more emotionally labile. Continue with Rocephin for treatment of UTI for total of 7 days. Completed. Thank you for allowing me to participate in the care of the patient, we will follow with you.
[2016-10-21] MEDS: cefTRIAXone 1 gm 1 GM/100 ML BAG IVPB SCH (05:30)
[2016-10-21] MEDS: Pantoprazole 40 mg EC Tab PO SCH (05:30)
[2016-10-21] MEDS: Insulin Reg-LOW-Coverage SC SCH (09:22)
[2016-10-21] MEDS: Magnesium Oxide 400 mg Tab UD PO SCH (10:42)
[2016-10-21] MEDS: POLYETHYLENE GLYCOL 3350 17 GM/Dose PACKET PO SCH (10:42)
[2016-10-21 10:45] VITALS: BP 158/74; PULSE 69; TEMP 99.9; O2SAT 97
--- NOTE | 2016-10-21 17:54 | CP.PCM.PN ---
Subjective - Date & Time of Evaluation Date of Evaluation: 10/21/16 Time of Evaluation: 14:00 - Subjective Subjective: Infectious Disease Follow Up: October 21, 2016 86 yo female with extensive medical history that includes hypertension , atrial fibrillation, diabetes, hyperlipidemia, anxiety, breast cancer history , chronic hearing difficulties, and cognitive impairment sent to hospital after a fall at home. She was evaluated for potential seizures. A urinary tract infection with Morganella was found and is currently being treated with Rocephin. The patient was transferred to the [id number] for deconditioned state. My understanding is that the patient lives alone. It appears that the patient may not be able to live on her own. She remains distressed when seen today. Reviewing nursing notes, the patient has periods where she is calm. To me she appears to overall agitated and at times confused. She is nearing completion of her antibiotics. She appears a little calmer today than previous days. When she is calm, she is able to make what appears to be clear and competent decisions. Question of whether the patient is competent to live on her own. Objective - Vital Signs/Intake and Output Vital Signs (last 24 hours): Temp Pulse Resp BP Pulse Ox 99.9 F H 69 18 158/74 H 97 10/21/16 10:45 10/21/16 10:45 10/21/16 10:45 10/21/16 10:45 10/21/16 10:45 - Labs Labs: 10/19/16 06:00 10/19/16 06:00 PT 16.8 Seconds (9.9-11.8) H 10/19/16 06:00 INR 1.56 (0.93-1.08) H 10/19/16 06:00 - Constitutional Appears: Non-toxic, No Acute Distress, Chronically Ill - Head Exam Head Exam: ATRAUMATIC, NORMOCEPHALIC - Eye Exam Eye Exam: EOMI, PERRL Pupil Exam: NORMAL ACCOMODATION, PERRL - ENT Exam ENT Exam: Mucous Membranes Moist, Normal External Ear Exam, TM's Normal Bilaterally - Neck Exam Neck Exam: Full ROM, Normal Inspection - Respiratory Exam Respiratory Exam: Clear to Ausculation Bilateral, NORMAL BREATHING PATTERN. absent: Rales, Rhonchi, Wheezes - Cardiovascular Exam Cardiovascular Exam: REGULAR RHYTHM, RRR, +S1, +S2 - GI/Abdominal Exam GI & Abdominal Exam: Soft, Normal Bowel Sounds. absent: Distended, Tenderness - Extremities Exam Additional comments: No c/c/e. adequate distal pulses. - Neurological Exam Neurological Exam: Alert, Awake, CN II-XII Intact Additional comments: AAO x 1. slow recognition and thought process. Very forgetful. Periods of agitation. AAOx2 when calm however. - Psychiatric Exam Psychiatric exam: Normal Affect, Normal Mood - Skin Skin Exam: Intact, Normal Color Assessment and Plan - Assessment and Plan (Free Text) Assessment: 86 yo female with a fall at home and possible seizure and current finding of UTI with Morganella. Started on Rocephin for antibiotic treatment. Supportive care. Patient on Keppra for seizure prophylaxis. Patient with periods of being agitated and anxious and periods of being calm. She has been more emotionally labile. Continue with Rocephin for treatment of UTI for total of 7 days. Completed. Thank you for allowing me to participate in the care of the patient, we will follow with you.
== END 2016-10-21 15:52 | disposition home or self-care (01) | DRG 101 ==
LOC: TRCU 14:44
PROVIDERS: ADMIT Internal Medicine; ATTEND Internal Medicine
PROC: F07Z9FZ Gait Training/Functional Ambulation Treatment using Assistive, Adaptive, Supportive or Protective Equipment (ICD-10-PCS; principal; 2016-10-15)
PROC: F07Z5ZZ Bed Mobility Treatment (ICD-10-PCS; 2016-10-15)
PROC: F07Z8ZZ Transfer Training Treatment (ICD-10-PCS; 2016-10-15)
PROC: F08Z2FZ Grooming/Personal Hygiene Treatment using Assistive, Adaptive, Supportive or Protective Equipment (ICD-10-PCS; 2016-10-18)
PROC: F08Z1FZ Dressing Techniques Treatment using Assistive, Adaptive, Supportive or Protective Equipment (ICD-10-PCS; 2016-10-20)
DX: R56.9 Unspecified convulsions (principal); N39.0 Urinary tract infection, site not specified; I48.91 Unspecified atrial fibrillation; E11.9 Type 2 diabetes mellitus without complications; F03.90 Unspecified dementia, unspecified severity, without behavioral disturbance, psychotic disturbance, mood disturbance, and anxiety; I10 Essential (primary) hypertension; B96.89 Other specified bacterial agents as the cause of diseases classified elsewhere; E78.5 Hyperlipidemia, unspecified; G31.84 Mild cognitive impairment of uncertain or unknown etiology; F41.9 Anxiety disorder, unspecified; H91.90 Unspecified hearing loss, unspecified ear; Z88.2 Allergy status to sulfonamides; Z85.3 Personal history of malignant neoplasm of breast; Z79.01 Long term (current) use of anticoagulants

== ENCOUNTER 2017-06-23 19:35 | Observation (INO) | payer MEDICARE, BC ==
[2017-06-23 19:36] VITALS: PULSE 64
--- NOTE | 2017-06-23 21:35 | ED PDOC ---
Arrival/HPI - General Chief Complaint: Altered Mental Status Time Seen by Provider: 06/23/17 19:46 Historian: Patient - History of Present Illness Narrative History of Present Illness (Text): 06/23/17 20:15 Lee Ann Huitron is an 86 year old female, whose past medical history includes hypertension, atrial fibrillation, COPD, CVA, seizures, diabetes, breast cancer s/p radical mastectomy, dementia, and multiple falls, who presents to the Emergency department brought in by EMS for altered mental status tonight. As per EMS, they were notified by patient's building construction estimator who states patient was calling him repeatedly tonight. Patient denies any chest pain, abdominal pain, vomiting, or diarrhea. Limited HPI and ROS secondary to patient's altered mental status. Time/Duration: Other (tonight) Symptom Onset: Gradual Symptom Course: Unchanged Activities at Onset: Light Context: Home Past Medical History - Provider Review Nursing Documentation Reviewed: Yes - Infectious Disease Hx of Infectious Diseases: None - Tetanus Immunization Tetanus Immunization: Unknown - Reproductive Menopause: Yes - Cardiac Hx Cardiac Disorders: Yes (Afib (on Coumadin)) Hx Hypertension: Yes - Pulmonary Hx Chronic Obstructive Pulmonary Disease (COPD): Yes - Neurological HX Cerebrovascular Accident: Yes - HEENT Hx HEENT Disorder: Yes (Hard of hearing) - Renal Hx Renal Disorder: No - Endocrine/Metabolic Hx Diabetes Mellitus Type 2: Yes - Hematological/Oncological Hx Cancer: Yes (Breast CA) Hx Chemotherapy: Yes - Integumentary Hx Dermatological Disorder: No - Musculoskeletal/Rheumatological Hx Falls: Yes Hx Fractures: Yes (Right ankle) Hx Osteoarthritis: Yes - Gastrointestinal Hx Gastrointestinal Disorders: Yes (POOR APPETTITE,) - Genitourinary/Gynecological Hx Urinary Tract Infection: Yes - Psychiatric Hx Psychophysiologic Disorder: No Hx Substance Use: No - Surgical History Hx Mastectomy: Yes - Anesthesia Hx Anesthesia: Yes Hx Anesthesia Reactions: No Hx Malignant Hyperthermia: No - Suicidal Assessment Feels Threatened In Home Enviroment: No Family/Social History - Physician Review Nursing Documentation Reviewed: Yes Family/Social History: Unknown Family HX Smoking Status: Never Smoked Hx Alcohol Use: No Hx Substance Use: No Hx Substance Use Treatment: No Allergies/Home Meds Allergies/Adverse Reactions: Allergies FISH Allergy (Verified 10/08/16 17:07) NAUSEA Sulfa (Sulfonamide Antibiotics) Allergy (Verified 10/08/16 17:07) HEADACHE Review of Systems - Review of Systems Systems not reviewed;Unavailable: Altered Mental Status Respiratory: absent: SOB, Cough Cardiovascular: absent: Chest Pain Gastrointestinal: absent: Abdominal Pain, Diarrhea, Nausea, Vomiting Musculoskeletal: absent: Back Pain, Neck Pain Skin: absent: Rash Neurological: Other (+altered mental status) Physical Exam Vital Signs Reviewed: Yes Vital Signs Temp Pulse Resp BP Pulse Ox 06/24/17 02:16 98 F 76 18 121/67 95 06/23/17 23:12 98 F 85 18 127/60 95 06/23/17 20:00 98.2 F 77 20 169/85 H 98 Temperature: Afebrile Blood Pressure: Normal Pulse: Regular Respiratory Rate: Normal Appearance: Positive for: Well-Appearing, Non-Toxic, Comfortable Pain Distress: None Mental Status: Positive for: Alert and Oriented X 3 Finger Stick Blood Glucose: 92 - Systems Exam Head: Present: Atraumatic, Normocephalic Pupils: Present: PERRL Extroacular Muscles: Present: EOMI Conjunctiva: Present: Normal Mouth: Present: Moist Mucous Membranes Neck: Present: Normal Range of Motion Respiratory/Chest: Present: Clear to Auscultation, Good Air Exchange. No: Respiratory Distress, Accessory Muscle Use Cardiovascular: Present: Regular Rate and Rhythm, Normal S1, S2. No: Murmurs Abdomen: No: Tenderness, Distention, Peritoneal Signs Back: Present: Normal Inspection Upper Extremity: Present: Normal Inspection. No: Cyanosis, Edema Lower Extremity: Present: Normal Inspection. No: Edema Neurological: Present: GCS=15, CN II-XII Intact, Speech Normal Skin: Present: Warm, Dry, Normal Color. No: Rashes Psychiatric: Present: Alert, Oriented x 3, Normal Insight, Normal Concentration Medical Decision Making ED Course and Treatment: 06/23/17 20:15 Impression: 86 year old female brought in for altered mental status. Plan: -- CT Head w/o contrast -- EKG -- CXR -- Labs, cardiac enzymes, alcohol level, TSH, blood cultures -- Urinalysis, urine drug screen, urine cultures -- Reassess and disposition Prior Visits: Notes and results from previous visits were reviewed. On 10/08/2016, pt was seen in the Emergency department s/p syncopal/seizure disorder. Pt was admitted to the hospital for further evaluation. Progress Notes: 06/23/17 21:02 Chest X-ray reviewed, shows no acute processes. 06/23/17 23:07 CT Head shows: Brain: There is mild diffuse cerebral atrophy present, consistent with this patient's age. There is moderate diffuse heterogeneity of the white matter attenuation, consistent with chronic white matter ischemic changes. No hemorrhage. Ventricles: The ventricular system demonstrates mild diffuse compensatory enlargement. Bones/joints: Unremarkable. No acute fracture. Soft tissues: Unremarkable. Sinuses: Unremarkable as visualized. No acute sinusitis. Mastoid air cells: Unremarkable as visualized. No mastoid effusion. IMPRESSION: Age-related atrophy and chronic white matter ischemic changes, with no evidence of an acute intracranial abnormality. 06/23/17 23:09 Reviewed EKG, NSR at 83 bpm. 1st degree AV block. LAD. Non-specific ST/T wave changes. 06/23/17 23:[address] Najera, who is aware and agrees with plan. Accepts pt in to her service. Pt will go to [facility] observation for altered mental status. Requests Dr. Suarez on consult. - Lab Interpretations Microbiology Results: Microbiology Results 06/23/17 22:13 Blood-Venous Blood Culture - Preliminary NO GROWTH AFTER 24 HOURS 06/23/17 20:42 Blood-Venous Blood Culture - Preliminary NO GROWTH AFTER 24 HOURS Lab Results: 06/23/17 20:42 06/23/17 20:42 Lab Results 06/23/17 20:42: Acetaminophen < 10.0 L 06/23/17 20:42: TSH 3rd Generation 0.23 L, Alcohol, Quantitative < 10 06/23/17 20:42: Sodium 143, Potassium 4.1, Chloride 105, Carbon Dioxide 28, Anion Gap 15, BUN 25 H, Creatinine 0.7, Est GFR ( Amer) > 60, Est GFR ( Non-Af Amer) > 60, Random Glucose 91, Calcium 9.9, Phosphorus 3.3, Magnesium 1.7 , Total Bilirubin 0.4, AST 25, ALT 28, Alkaline Phosphatase 59, Lactate Dehydrogenase 660, Total Creatine Kinase 57, Troponin I 0.01, Total Protein 6.7 , Albumin 3.9, Globulin 2.9, Albumin/Globulin Ratio 1.3 06/23/17 20:42: PT 11.9, INR 1.04, APTT 28.4 06/23/17 20:42: WBC 8.9, RBC 4.18, Hgb 12.7, Hct 37.5, MCV 89.7, MCH 30.4, MCHC 33.9, RDW 13.0, Plt Count 210, MPV 10.0, Gran % 72.2 H, Lymph % (Auto) 12.4 L, [place] % (Auto) 12.8 H, Eos % (Auto) 1.9, Baso % (Auto) 0.7, Gran # 6.46, Lymph # (Auto) 1.1 L, [place] # (Auto) 1.1 H, Eos # (Auto) 0.2, Baso # (Auto) 0.06 06/23/17 19:53: POC Glucose (mg/dL) 92 I have reviewed the lab results: Yes - RAD Interpretation Radiology Orders: 06/23/17 20:15 HEAD W/O CONTRAST [CT] Stat 06/23/17 20:16 CHEST PORTABLE [RAD] Stat Well Flow Operator: ED Physician - EKG Interpretation Interpreted by ED Physician: Yes Type: 12 lead EKG - Medication Orders Current Medication Orders: Acetaminophen (Tylenol 325mg Tab) 650 mg PO Q6H PRN PRN Reason: Pain, Mild (1-3) Donepezil HCl (Aricept) 5 mg PO HS [facility] Last Admin: 06/24/17 22:22 Dose: 5 mg Dextrose/Sodium Chloride (Dextrose 5%/0.45% Ns 1000 Ml) 1,000 mls @ 60 mls/hr IV .[id number] [facility] Last Admin: 06/24/17 22:53 Dose: 60 mls/hr eMAR Start Stop Document 06/24/17 22:53 [facility] (Rec: 06/24/17 22:53 [id number]) Intravenous Solution Start Date 06/24/17 Start Time 22:53 Insulin Human Lispro (Humalog Low) 0 units SC ACHS [facility] PRN Reason: Protocol Last Admin: 06/24/17 22:54 Dose: Not Given Non-Admin Reason: Blood Sugar Parameter MAR Blood Glucose Document 06/24/17 22:54 [facility] (Rec: 06/24/17 22:55 [id number]) Blood Glucose Finger Stick Blood Glucose (70-120) 144 Levetiracetam (Keppra) 500 mg PO BID [facility] Last Admin: 06/24/17 18:11 Dose: 500 mg Losartan Potassium (Cozaar) 25 mg PO DAILY [facility] Last Admin: 06/24/17 11:14 Dose: 25 mg MAR Pulse and Blood Pressure Document 06/24/17 11:14 DAVID (Rec: 06/24/17 11:14 [id number] Pulse Pulse Rate (60-90) 81 Blood Pressure Blood Pressure (100/60-150/90) 147/70 Pantoprazole Sodium (Protonix Ec Tab) 40 mg PO DAILY [facility] Last Admin: 06/24/17 11:13 Dose: 40 mg Polyethylene Glycol (Miralax) 17 gm PO DAILY [facility] Last Admin: 06/24/17 11:12 Dose: 17 gm Risperidone (Risperdal Tab) 0.5 mg PO AMHS [facility] PRN Reason: Protocol Last Admin: 06/24/17 22:22 Dose: 0.5 mg Behavioural Document 06/24/17 22:22 MAD (Rec: 06/24/17 22:22 [place] [facility] [id number][place] Maintenance Maintenance Dose Yes Behavior Behavior for Medication: Anxiety Insomnia Sotalol HCl (Betapace) 80 mg PO DAILY [facility] Last Admin: 06/24/17 11:13 Dose: 80 mg MAR Pulse and Blood Pressure Document 06/24/17 11:13 DAVID (Rec: 06/24/17 11:13 [id number]) Pulse Pulse Rate (60-90) 81 Blood Pressure Blood Pressure (100/60-150/90) 147/70 Warfarin Sodium (Coumadin) 5 mg PO 1800 [facility] Last Admin: 06/24/17 18:11 Dose: 5 mg Discontinued Medications Dextrose (Dextrose 50% Inj) 50 ml IVP STAT STA Stop: 06/24/17 01:14 Last Admin: 06/24/17 01:15 Dose: 50 ml IVP Administration Document 06/24/17 01:15 SS (Rec: 06/24/17 02:11 SS [id number]) Charges for Administration # of IVP Administrations 1 Sodium Chloride (Sodium Chloride 0.9%) 1,000 mls @ 60 mls/hr IV .[id number] STA Stop: 06/24/17 16:54 Last Admin: 06/24/17 00:21 Dose: 60 mls/hr eMAR Start Stop Document 06/24/17 00:21 LA (Rec: 06/24/17 00:22 MALIHA [id number]) Intravenous Solution Start Date 06/24/17 Start Time 00:21 Losartan Potassium (Cozaar) 25 mg PO DAILY REGGIE Warfarin Sodium (Coumadin) 5 mg PO 1800 REGGIE PRN Reason: Protocol - Scribe Statement The provider has reviewed the documentation as recorded by the Mario Myles Provider Scribe Attestation: All medical record entries made by the Scribe were at my direction and personally dictated by me. I have reviewed the chart and agree that the record accurately reflects my personal performance of the history, physical exam, medical decision making, and the department course for this patient. I have also personally directed, reviewed, and agree with the discharge instructions and disposition. Disposition/Present on Arrival - Present on Arrival Any Indicators Present on Arrival: No History of DVT/PE: No History of Uncontrolled Diabetes: No Urinary Catheter: No History of Decub. Ulcer: No History Surgical Site Infection Following: None - Disposition Have Diagnosis and Disposition been Completed?: Yes Diagnosis: Altered mental status Disposition: HOSPITALIZED Disposition Time: 23:55 Condition: FAIR
[2017-06-23 21:40] LABS: BASO # 0.06 K/mm3 (0.0-2.0); BASO % 0.7 % (0.0-3.0); EOS # 0.2 (0.0-0.7); EOS % 1.9 % (1.5-5.0); GRAN # 6.46 (1.4-6.5); GRAN % 72.2 % (50.0-68.0); HEMOGLOBIN 12.7 g/dL (12.0-16.0); LYMPH # 1.1 (1.2-3.4); LYMPH % 12.4 % (22.0-35.0); MEAN CELL VOLUME 89.7 fl (80.0-105.0); MEAN CORPUSCULAR HEMOGLOBIN 30.4 pg (25.0-35.0); MEAN CORPUSCULAR HGB CONC 33.9 g/dl (31.0-37.0); MONO # 1.1 (0.1-0.6); MONO % 12.8 % (1.0-6.0); RBC 4.18 10^6/uL (3.5-6.1); WHITE BLOOD COUNT 8.9 10^3/ul (4.5-11.0)
[2017-06-23 21:49] LABS: INR 1.04 (0.93-1.08); PARTIAL THROMBOPLASTIN TIME 28.4 Seconds (25.1-36.5); PROTHROMBIN TIME 11.9 SECONDS (9.4-12.5)
[2017-06-23 21:53] LABS: ALB/GLOB RATIO 1.3 (1.1-1.8); ALBUMIN 3.9 g/dL (3.0-4.8); ALT/SGPT 28 U/L (7-56); AST/SGOT 25 U/L (14-36); BLOOD UREA NITROGEN 25 mg/dL (7-21); CALCIUM 9.9 mg/dL (8.4-10.5); GFR AFRICAN-AMERICAN > 60; GFR NON-AFRICAN AMERICAN > 60
[2017-06-23 22:04] LABS: TROPONIN I 0.01 ng/mL
--- NOTE | 2017-06-23 23:07 | CT ---
EXAM: CT Head Without Intravenous Contrast CLINICAL HISTORY: 86 years old, female; Signs and symptoms; Altered mental status/memory loss; Confusion or disorientation; Additional info: AMS TECHNIQUE: Axial computed tomography images of the head/brain without intravenous contrast. All CT scans at this facility use one or more dose reduction techniques, viz.: automated exposure control; ma/kV adjustment per patient size (including targeted exams where dose is matched to indication; i.e. head); or iterative reconstruction technique. Coronal and sagittal reformatted images were created and reviewed. COMPARISON: CT - HEAD W/O CONTRAST 2016-10-08 18:53 FINDINGS: Brain: There is mild diffuse cerebral atrophy present, consistent with this patient's age. There is moderate diffuse heterogeneity of the white matter attenuation, consistent with chronic white matter ischemic changes. No hemorrhage. Ventricles: The ventricular system demonstrates mild diffuse compensatory enlargement. Bones/joints: Unremarkable. No acute fracture. Soft tissues: Unremarkable. Sinuses: Unremarkable as visualized. No acute sinusitis. Mastoid air cells: Unremarkable as visualized. No mastoid effusion. IMPRESSION: Age-related atrophy and chronic white matter ischemic changes, with no evidence of an acute intracranial abnormality. .
[2017-06-24] MEDS ORDERED: Sodium Chloride 0.9% 1,000 ML IV STA (00:15)
[2017-06-24] MEDS ORDERED: Dextrose 50% SYRINGE Inj (50 ml) IVP STA (01:13)
[2017-06-24] MEDS: Dextrose 5%/0.45% NS 1,000 ML IV SCH ×2 (02:11→22:53)
--- NOTE | 2017-06-24 09:16 | RAD ---
HISTORY: Altered mental status. COMPARISON: 10/08/2016 FINDINGS: LUNGS: No active pulmonary disease. PLEURA: No significant pleural effusion identified, no pneumothorax apparent. CARDIOVASCULAR: No radiographic findings to suggest acute or significant cardiovascular disease. Incidental Finding(s): Postoperative changes related to sternotomy. OSSEOUS STRUCTURES: No significant abnormalities. VISUALIZED UPPER ABDOMEN: Normal. OTHER FINDINGS: Punctate calcifications overlying the left britney thorax reside in the left chest wall, left breast, a finding confirmed on CT scan 07/04/2016. IMPRESSION: No active disease. No significant interval change compared to the prior examination(s).
[2017-06-24] MEDS ORDERED: POLYETHYLENE GLYCOL 3350 17 GM/Dose PACKET PO SCH (10:00)
[2017-06-24] MEDS: POLYETHYLENE GLYCOL 3350 17 GM/Dose PACKET PO SCH (11:12)
[2017-06-24] MEDS: Pantoprazole 40 mg EC Tab PO SCH (11:13)
--- NOTE | 2017-06-24 11:20 | CARD ---
APPROVED REPORT EKG Measurement Heart [id number] <Conclusion> Sinus rhythm with 1st degree AV block Left axis deviation possible anterior infarct, age undetermined Suspect lead reversal V2-3 Abnormal ECG
--- NOTE | 2017-06-24 13:54 | CON ---
DATE: HISTORY OF PRESENT ILLNESS: In short, the patient is an 86-year-old female. The patient has multiple medical issues including atrial fibrillation, COPD, CVA, seizures, diabetes. The patient had history of breast cancer, status post right radical mastectomy, history of multiple falls. The patient also has history of altered mental status and delirium. Of note, the patient prone to have delirium. The patient is very familiar to this teletypewriter operator from the previous admission to the medical side and altered mental status, delirium with visual hallucinations. The patient was admitted on the medical side for altered mental status and because the patient was kept calling to the [employer] of the building during the nighttime and [facility] had impression that the patient was not doing well and brought her to the hospital. The patient was admitted on the medical side for possible delirium. A psych consult was called for evaluation of change in mental status. The patient was seen and examined. The patient presented to have good personal hygiene. The patient is very hard of hearing. At times, the patient was not able to comprehend question because of that. The patient was alert and oriented in self, place. The patient was off with 1 day of this month. The patient said that today is 06/23/2017, but today is 06/24/2017. The patient correct herself very fast and the patient explained that she came to the hospital on 06/23/2017. The patient remembered this teletypewriter operator, but does not remember her name. The patient presented very well during the conversation. The patient is aware of the circumstances of her admission to the medical side. The patient said that she was not able to close the hot water and that is why she was very concerned and that is why she was keep calling to the [facility] and this history is matching with emergency room HPI. The patient said that she does not feel confused. The patient is aware of what is going on with her from the medical standpoint. The patient said that she is compliant with the medications. The patient said that she is able to manage her bills as well as she is ordering food from the company called [employer]. The patient reported that she was not feeling depressed. The patient has fair appetite. The patient reported she has good support in the community. The patient said that she has power of family law attorney, her name is Selma Serrano. This teletypewriter operator was not able to identify that information. The patient denied hearing things, denied seeing things. Of note from the previous admission, the patient had visual hallucinations. The patient was seeing dogs, but this admission it is not the case. The patient presented very well and deemed to be at her baseline of functioning. Temperature 98.2, pulse is 81, blood pressure 147/70, respirations 20, oxygen saturation is 96. Medications reviewed. Tylenol, Aricept 5 mg at the nighttime, Keppra 500 mg twice a day, Cozaar, Protonix, MiraLax, Risperdal 0.5 mg twice a day. This teletypewriter operator is not sure if she is taking her medications or not. Sotalol as well as Coumadin. Labs reviewed. MENTAL STATUS EXAMINATION: The patient appears to be alert and oriented, pleasant AND cooperative, intermittent eye contact. The patient is hard of hearing. Speech was monotonic, but normal volume. Mood described, "I am feeling fine." Affect was reactive. Mood congruent. Thought process was goal directed. At times, the patient was circumstantial. Thought content, the patient denied visual, auditory or tactile hallucinations. The patient does not present to be psychotic or paranoid, but it was the case last admission. Insight and judgment are fair. Impulses are well controlled. IMPRESSION: Most likely, the patient had altered mental status and which could be related to sleep deprivation, but during the conversation, the patient was fully alert and oriented, know the circumstances of her admission. This teletypewriter operator cannot exclude that the patient was in lucid period of delirium that is why we need to have clear picture and observe the patient for at least 24 hours. PLAN: As this teletypewriter operator mentioned above, the patient most likely was in delirium stage, was keep calling to the gas operations superintendent. At the same time, this teletypewriter operator evaluated the patient and most likely at the lucid periods of delirium. The patient presented very well during that period, but this teletypewriter operator cannot exclude that the patient might have worsening of her mental status because the patient is prone to have delirium due to multiple medical issues. This teletypewriter operator is not sure why Risperdal was started for her. We will follow up and advise accordingly. Thank you very much for letting me participate in the care of your patient. The patient reported that she has good support in the community. The patient is ordering food from the [employer] delivering services. The patient said that Selma Serrano is her power of family law attorney. The patient also said that she has friends in the community and neighbors who are checking up on the patient. The patient reported that she was able to manage her finances as well as denied feeling depressed, suicidal ideation, homicidal ideation and the patient does not present to be psychotic. Social work evaluation is recommended to make sure that it will be safe discharge plan, but from this teletypewriter operator's perspective, the patient deemed to be at her baseline of functioning. Thank you very much for letting me participate in the care of your patient. Should you have any questions, give me a call back. Breanne Eckert MD
[2017-06-24] MEDS: Insulin Lispro (humaLOG) LOW Coverage SC SCH ×2 (17:20→22:54)
--- NOTE | 2017-06-24 19:24 | CON ---
DATE: HISTORY OF PRESENT ILLNESS: This is a 86-year-old female with past medical history of hypertension, atrial fibrillation, COPD, seizure, diabetes, status post radicular mastectomy for breast CA, dementia, and came to the emergency room with altered mental status, and building engineer said she was calling repeatedly and brought to the hospital. PAST MEDICAL HISTORY: As above. SOCIAL HISTORY: Does not smoke, does not drink. ALLERGIES: FISH AND SULFA DRUGS. REVIEW OF SYSTEMS: A 10-point review of systems was negative. PHYSICAL EXAMINATION: VITAL SIGNS: Blood pressure 169/84. HEENT: Normocephalic, atraumatic. NECK: Supple. NEUROLOGIC: Awake, oriented to self and place. Cranial nerves II to XII are tested. Pupils reactive. EOM intact. Visual field full. No facial asymmetry. Tongue midline. Motor examination, spontaneous movement of the extremities noted. Deep tendon reflexes 1+. Both plantars are downgoing. Sensory appears intact. Cerebellar, gait deferred. IMPRESSION: Intermittent confusional state superimposed on dementia, and workup in progress, CAT scan of the head was negative, and continue present management. We will follow up. Mehrdad Suarez MD
--- NOTE | 2017-06-25 08:21 | HP ---
CHIEF COMPLAINT: Altered mental status with aggressiveness. HISTORY OF PRESENT ILLNESS: Ms. Lee Ann Bella is an 86-year-old female with past medical history of hypertension, atrial fibrillation, COPD, CVA, seizure, diabetes mellitus, breast cancer status post radical mastectomy, dementia, noncompliant, multiple falls, came to the Emergency Department by EMS for altered mental status. As per EMS, they were notified by the patient's building insulation supervisor who states that the patient was calling him, speaking tonight. The patient denies any chest pain. According to the patient, her kitchen room water tap closet was open. She was trying to close. She could not, then she closed, but still she want to make sure that it is fine. She called multiple times building insulation supervisor, but at the time of examination, no abdominal pain, no vomiting or diarrhea. Discussion done with the patient's friend, Ivonne and the patient's friend, Shavon. PAST MEDICAL HISTORY: As above, atrial fibrillation, on Coumadin, but very noncompliant, INR is not within normal limit, COPD, cerebrovascular accident, hard of hearing, diabetes mellitus type 2, breast cancer, status post surgery and chemotherapy, right ankle fracture, fall, osteoarthritis, poor appetite, hysterectomy. FAMILY HISTORY: Father and mother noncontributory. HABITS: Never smoked. No drug, no ethanol. ALLERGIES: THE PATIENT IS ALLERGIC TO FISH AND SULFA. REVIEW OF SYSTEMS: The patient was seen and examined at the bedside, looking comfortable. No shortness of breath, no chest pain, no abdominal pain, no diarrhea, no nausea or vomiting, no back pain, no neck pain, has altered mental status. Sometime, it looks like she is not on her baseline. PHYSICAL EXAMINATION: VITAL SIGNS: Temperature 98.1, pulse 50, blood pressure 88/50, respiratory rate 20. HEENT: Head: Normocephalic and atraumatic. Eyes: PERRLA. Extraocular muscles intact. Conjunctivae clear. Nose, patent. Mucous membrane moist. NECK: Supple. No carotid bruit. No JVD or thyromegaly. CHEST: Bilaterally symmetrical. HEART: S1 and S2 positive. LUNGS: Clear to auscultation. ABDOMEN: Soft. Bowel sounds positive. No organomegaly. EXTREMITIES: No edema, no cyanosis. NEUROLOGIC: Patient is awake, alert. Moving all four extremities. No focal deficit. LABORATORY DATA: White blood cell 8.9, hemoglobin 12.7, hematocrit 37.5, platelets 210. Sodium 143, potassium 4, BUN 25, creatinine 0.7, glucose 39, now it is 193. Liver function test within normal limits. ASSESSMENT AND PLAN: Ms. Lee Ann Bella is an 86-year-old lady with uncontrolled diabetes mellitus, rule out hyperthyroidism, toxicology negative, came with altered mental status, seen by Dr. Breanne Eckert. The patient has multiple medical problems, atrial fibrillation, on Coumadin, but INR is not within normal limits. It means, she is not taking Coumadin regularly, noncompliant, urged to be compliant, chronic obstructive pulmonary disease, cerebrovascular accident, seizure,diabetes, history of breast cancer, status post right radical mastectomy and chemotherapy, history of multiple falls. Actually, the patient is not able to live alone by herself, but she is insisting that she wants to go her home by herself, talked to her 2 friends, Ivonne and Shavon. The patient has power of county attorney brother, but he lives far away and he is even older than her. The patient is noncompliant, not listening to anybody, but we will put a consult with Dr. Breanne Eckert and neurologist, giving high dose of Coumadin. Repeat labs. We will follow up. Diana Najera MD
[2017-06-25] MEDS: Insulin Lispro (humaLOG) LOW Coverage SC SCH ×3 (08:29→17:23)
[2017-06-25] MEDS: POLYETHYLENE GLYCOL 3350 17 GM/Dose PACKET PO SCH (09:22)
[2017-06-25] MEDS: Pantoprazole 40 mg EC Tab PO SCH (09:23)
[2017-06-25 15:46] VITALS: BP 122/62; PULSE 60; RESP 18; TEMP 98; O2SAT 97
== END 2017-06-25 22:00 | disposition home or self-care (01) ==
LOC: ED 19:35 → ERH 06-24 00:14 → 5RSO 06-24 04:02
PROVIDERS: ADMIT Internal Medicine; ATTEND Internal Medicine
DX: F03.90 Unspecified dementia, unspecified severity, without behavioral disturbance, psychotic disturbance, mood disturbance, and anxiety (principal); J44.9 Chronic obstructive pulmonary disease, unspecified; I48.91 Unspecified atrial fibrillation; I10 Essential (primary) hypertension; E11.9 Type 2 diabetes mellitus without complications; R56.9 Unspecified convulsions; R29.6 Repeated falls; H91.90 Unspecified hearing loss, unspecified ear; Z79.01 Long term (current) use of anticoagulants; Z91.19 Patient's noncompliance with other medical treatment and regimen; Z86.73 Personal history of transient ischemic attack (TIA), and cerebral infarction without residual deficits; Z85.3 Personal history of malignant neoplasm of breast; Z90.11 Acquired absence of right breast and nipple; Z91.81 History of falling
CPT/HCPCS: 70450; 71045; 80053; 82550; 82948; 83615; 83735; 84100; 84443; 84484; 85025; 85610; 85730; 87040; 93005; 96374; 97116; 97161; 99285; G0378; G0480; G8978; G8979; J7040; J7042

== ENCOUNTER 2017-09-14 12:14 | Observation (INO) | payer MEDICARE, BC ==
[2017-09-14 12:15] VITALS: PULSE 64
[2017-09-14] MEDS ORDERED: Dextrose 50% SYRINGE Inj (50 ml) IVP STA ×2 (12:28)
[2017-09-14 12:51] LABS: BASO # 0.05 K/mm3 (0.0-2.0); BASO % 0.7 % (0.0-3.0); EOS # 0.2 (0.0-0.7); EOS % 2.6 % (1.5-5.0); GRAN # 4.52 (1.4-6.5); GRAN % 65.9 % (50.0-68.0); HEMOGLOBIN 13.5 g/dL (12.0-16.0); LYMPH # 1.4 (1.2-3.4); MEAN CELL VOLUME 89.3 fl (80.0-105.0); MEAN CORPUSCULAR HEMOGLOBIN 30.6 pg (25.0-35.0); MEAN CORPUSCULAR HGB CONC 34.3 g/dl (31.0-37.0); MEAN PLATELET VOLUME 10.1 fl (7.0-11.0); MONO # 0.7 (0.1-0.6); MONO % 10.8 % (1.0-6.0); RBC 4.41 10^6/uL (3.5-6.1); RED CELL DISTRIBUTION WIDTH 12.5 % (11.5-14.5); WHITE BLOOD COUNT 6.9 10^3/ul (4.5-11.0)
[2017-09-14 13:00] LABS: INR 1.69 (0.93-1.08); PARTIAL THROMBOPLASTIN TIME 37.8 Seconds (25.1-36.5); PROTHROMBIN TIME 19.7 SECONDS (9.4-12.5)
--- NOTE | 2017-09-14 13:01 | CT ---
PROCEDURE: CT HEAD WITHOUT CONTRAST. HISTORY: r/o ICH COMPARISON: Comparison made with prior CT scan brain dated 06/23/2017. TECHNIQUE: Axial computed tomography images were obtained through the head/brain without intravenous contrast. Radiation dose: Total exam DLP = 844.18 mGy-cm. This CT exam was performed using one or more of the following dose reduction techniques: Automated exposure control, adjustment of the mA and/or kV according to patient size, and/or use of iterative reconstruction technique. FINDINGS: HEMORRHAGE: No intracranial hemorrhage. BRAIN: Significant diffuse and confluent chronic periventricular white matter ischemic changes are again seen extending peripherally into the deep and subcortical white matter both cerebral hemispheres. There is extension of these changes into the white matter tracts of both basal nuclei. Additionally, there also appear to be a few scattered chronic bilateral basal nuclei lacunar type infarcts. . Note that the possibility of a small hyperacute infarct cannot be excluded on this study and if there is any concern, consider followup MRI brain. Moderate generalized volume loss. Mild vascular calcifications both carotid siphons and vertebral arteries. VENTRICLES: No obstructive hydrocephalus. CALVARIUM: Calvarium intact PARANASAL SINUSES: Minimal mucosal thickening seen within a few ethmoid air cells. MASTOID AIR CELLS: Unremarkable as visualized. No inflammatory changes. OTHER FINDINGS: Orbits and contents unremarkable. IMPRESSION: No acute intracranial hemorrhage. Moderate to significant chronic white matter ischemic changes with extension into the white matter tracts both basal ganglia. There also appears to be a few scattered chronic bilateral basal nuclei lacunar type infarcts. Moderate generalized volume loss.
[2017-09-14 13:02] LABS: ALB/GLOB RATIO 1.4 (1.1-1.8); ALBUMIN 4.2 g/dL (3.0-4.8); ALT/SGPT 26 U/L (7-56); AST/SGOT 31 U/L (14-36); BLOOD UREA NITROGEN 18 mg/dL (7-21); CALCIUM 9.1 mg/dL (8.4-10.5); GFR AFRICAN-AMERICAN > 60; GFR NON-AFRICAN AMERICAN > 60
[2017-09-14 13:04] LABS: B-TYPE NATRIURETIC PEPTIDE 1170 pg/mL (0-450); TROPONIN I < 0.01 ng/mL
--- NOTE | 2017-09-14 13:24 | ED PDOC ---
Arrival/HPI - General Chief Complaint: Altered Mental Status Time Seen by Provider: 09/14/17 12:20 Historian: Patient, Caregiver, EMS - History of Present Illness Narrative History of Present Illness (Text): 09/14/17 13:12 A 86 year old female brought into the emergency department by EMS for evaluation. As per caregiver, patient was found to be more lethargic at home. On evaluation, patient reports she has not drank or eaten anything today. Patient notes mild neck discomfort but denies any fever, chills, nausea, vomiting, abdominal pain, chest pain, shortness of breath or any other complaints. PMD: Dr. Najera Time/Duration: Prior to Arrival Symptom Course: Improving Context: Home Past Medical History - Provider Review Nursing Documentation Reviewed: Yes - Infectious Disease Hx of Infectious Diseases: None - Tetanus Immunization Tetanus Immunization: Unknown - Cardiac Hx Cardiac Disorders: Yes (Afib (on Coumadin)) Hx Hypertension: Yes - Pulmonary Hx Chronic Obstructive Pulmonary Disease (COPD): Yes - Neurological HX Cerebrovascular Accident: Yes - HEENT Hx HEENT Disorder: Yes (Hard of hearing) - Renal Hx Renal Disorder: No - Endocrine/Metabolic Hx Diabetes Mellitus Type 2: Yes - Hematological/Oncological Hx Cancer: Yes (Breast CA) Hx Chemotherapy: Yes - Integumentary Hx Dermatological Disorder: No - Musculoskeletal/Rheumatological Hx Falls: Yes Hx Fractures: Yes (Right ankle) Hx Osteoarthritis: Yes - Gastrointestinal Hx Gastrointestinal Disorders: Yes (POOR APPETTITE,) - Genitourinary/Gynecological Hx Urinary Tract Infection: Yes - Psychiatric Hx Psychophysiologic Disorder: No Hx Substance Use: No - Surgical History Hx Mastectomy: Yes - Anesthesia Hx Anesthesia: Yes Hx Anesthesia Reactions: No Hx Malignant Hyperthermia: No - Suicidal Assessment Feels Threatened In Home Enviroment: No Family/Social History - Physician Review Nursing Documentation Reviewed: Yes Family/Social History: No Known Family HX Smoking Status: Never Smoked Hx Alcohol Use: No Hx Substance Use: No Hx Substance Use Treatment: No Allergies/Home Meds Allergies/Adverse Reactions: Allergies FISH Allergy (Verified 10/08/16 17:07) NAUSEA Sulfa (Sulfonamide Antibiotics) Allergy (Verified 10/08/16 17:07) HEADACHE Review of Systems - Physician Review All systems were reviewed & negative as marked: Yes - Review of Systems Constitutional: Other (lethargy). absent: Fevers, Night Sweats Respiratory: absent: SOB Cardiovascular: absent: Chest Pain Gastrointestinal: absent: Abdominal Pain, Nausea, Vomiting Musculoskeletal: Neck Pain Physical Exam Vital Signs Reviewed: Yes Vital Signs Temp Pulse Resp BP Pulse Ox 09/14/17 14:00 76 18 155/78 H 98 09/14/17 12:32 97.6 F 71 18 175/77 H 97 Temperature: Afebrile Blood Pressure: Hypertensive Pulse: Regular Respiratory Rate: Normal Appearance: Positive for: Well-Appearing, Non-Toxic, Comfortable Pain Distress: None Mental Status: Positive for: Alert and Oriented X 3 - Systems Exam Head: Present: Atraumatic, Normocephalic Pupils: Present: PERRL Extroacular Muscles: Present: EOMI Conjunctiva: Present: Normal Mouth: Present: Dry Neck: Present: Normal Range of Motion Respiratory/Chest: Present: Clear to Auscultation, Good Air Exchange. No: Respiratory Distress, Accessory Muscle Use Cardiovascular: Present: Regular Rate and Rhythm, Normal S1, S2. No: Murmurs Abdomen: Present: Normal Bowel Sounds. No: Tenderness, Distention, Peritoneal Signs Breast/Axillary: Present: Other (bilateral mastectomy) Back: Present: Normal Inspection Upper Extremity: Present: Normal Inspection. No: Cyanosis, Edema Lower Extremity: Present: Normal Inspection. No: Edema Neurological: Present: GCS=15, CN II-XII Intact, Speech Normal Skin: Present: Warm, Dry, Normal Color. No: Rashes Psychiatric: Present: Alert, Oriented x 3, Normal Insight, Normal Concentration Medical Decision Making ED Course and Treatment: 09/14/17 13:12 Impression: A 86 year old female with increased lethargy Plan: -- Head CT -- Chest xray -- EKG -- Labs -- Urine culture -- Urinalysis -- Dextrose -- Reassess and disposition Progress Notes: EKG shows NSR at 80 BPM with 1st degree AV block, LAD. Interpreted by me. Report Date : 09/14/2017 13:00:19 PROCEDURE: CT HEAD WITHOUT CONTRAST. Dictator : Aldo Rios MD IMPRESSION: No acute intracranial hemorrhage. Moderate to significant chronic white matter ischemic changes with extension into the white matter tracts both basal ganglia. There also appears to be a few scattered chronic bilateral basal nuclei lacunar type infarcts. Moderate generalized volume loss. Report Date : 09/14/2017 13:47:01 Procedure: Chest xray Dictator : Aldo Rios MD IMPRESSION: There appears to be some mild left basilar atelectasis. Again noted though less well seen are calcifications of the trachea, lobar, segmental and proximal subsegmental bronchi. - Lab Interpretations Lab Results: 09/14/17 12:30 09/14/17 12:30 Lab Results 09/14/17 15:01: Urine Color Yellow, Urine Appearance Clear, Urine pH 6.0, Ur Specific [place] 1.025, Urine Protein Trace H, Urine Glucose (UA) 500 H, Urine Ketones 15 H, Urine Blood Negative, Urine Nitrate Negative, Urine Bilirubin Negative, Urine Urobilinogen 0.2, Ur Leukocyte Esterase Negative, Urine RBC Negative, Urine WBC 1 - 3, Ur Epithelial Cells 3 - 4, Urine Bacteria Few 09/14/17 12:30: Sodium 143, Potassium 4.1, Chloride 105, Carbon Dioxide 26, Anion Gap 16, BUN 18, Creatinine 0.5 L, Est GFR ( Amer) > 60, Est GFR ( Non-Af Amer) > 60, Random Glucose 42 L* D, Calcium 9.1, Magnesium 1.8, Total Bilirubin 0.6, AST 31, ALT 26, Alkaline Phosphatase 58, Lactate Dehydrogenase 670, Total Creatine Kinase 45, Troponin I < 0.01, NT-Pro-B Natriuret Pep 1170 H , Total Protein 7.2, Albumin 4.2, Globulin 3.0, Albumin/Globulin Ratio 1.4 09/14/17 12:30: PT 19.7 H, INR 1.69 H, APTT 37.8 H 09/14/17 12:30: WBC 6.9 D, RBC 4.41, Hgb 13.5, Hct 39.4, MCV 89.3, MCH 30.6, MCHC 34.3, RDW 12.5, Plt Count 216, MPV 10.1, Gran % 65.9, Lymph % (Auto) 20.0 L , Roberts % (Auto) 10.8 H, Eos % (Auto) 2.6, Baso % (Auto) 0.7, Gran # 4.52, Lymph # (Auto) 1.4, Roberts # (Auto) 0.7 H, Eos # (Auto) 0.2, Baso # (Auto) 0.05 - RAD Interpretation Radiology Orders: 09/14/17 12:27 CHEST PORTABLE [RAD] Stat 09/14/17 12:28 HEAD W/O CONTRAST [CT] Stat - Medication Orders Current Medication Orders: Discontinued Medications Dextrose (Dextrose 50% Inj) 50 ml IVP STAT STA Stop: 09/14/17 12:29 Last Admin: 09/14/17 12:35 Dose: 50 ml IVP Administration Document 09/14/17 12:35 EQ (Rec: 09/14/17 12:35 EQ [id number]) Charges for Administration # of IVP Administrations 1 Dextrose (Dextrose 50% Inj) 50 ml IVP STAT STA Stop: 09/14/17 12:29 Last Admin: 09/14/17 12:35 Dose: 50 ml IVP Administration Document 09/14/17 12:35 EQ (Rec: 09/14/17 12:35 EQ [id number]) Charges for Administration # of IVP Administrations 1 - Scribe Statement The provider has reviewed the documentation as recorded by the Mario Bahena Provider Scribe Attestation: All medical record entries made by the Scribe were at my direction and personally dictated by me. I have reviewed the chart and agree that the record accurately reflects my personal performance of the history, physical exam, medical decision making, and the department course for this patient. I have also personally directed, reviewed, and agree with the discharge instructions and disposition. Disposition/Present on Arrival - Present on Arrival Any Indicators Present on Arrival: No History of DVT/PE: No History of Uncontrolled Diabetes: No Urinary Catheter: No History of Decub. Ulcer: No History Surgical Site Infection Following: None - Disposition Have Diagnosis and Disposition been Completed?: Yes Diagnosis: Hypoglycemia associated with diabetes Disposition: HOSPITALIZED Disposition Time: 15:00 Condition: STABLE
--- NOTE | 2017-09-14 13:48 | RAD ---
HISTORY: r/o infiltrate COMPARISON: No prior. FINDINGS: LUNGS: There appears to be some mild left basilar atelectasis. Again noted though less well seen are calcifications of the trachea, lobar, segmental and proximal subsegmental bronchi. PLEURA: No significant pleural effusion identified, no pneumothorax apparent. CARDIOVASCULAR: Sternotomy wires. Heart appears borderline enlarged. OSSEOUS STRUCTURES: No significant abnormalities. VISUALIZED UPPER ABDOMEN: Normal. OTHER FINDINGS: Calcifications left breast with apparent right mastectomy. . Questionable right mastectomy. With IMPRESSION: There appears to be some mild left basilar atelectasis. Again noted though less well seen are calcifications of the trachea, lobar, segmental and proximal subsegmental bronchi.
--- NOTE | 2017-09-14 15:11 | CARD ---
APPROVED REPORT EKG Measurement Heart [id number] <Conclusion> Sinus rhythm with 1st degree AV block Left axis deviation ST & T wave abnormality c/w ischemia Prolonged QT
[2017-09-14 15:25] LABS: URINE BILIRUBIN NEGATIVE (NEGATIVE); URINE BLOOD NEGATIVE (NEGATIVE); URINE GLUCOSE (UA) 500 mg/dL (NEGATIVE); URINE LEUKOCYTE ESTERASE NEGATIVE Leu/uL (NEGATIVE); URINE PROTEIN TRACE mg/dL (<30 mg/dL); URINE UROBILINOGEN 0.2 E.U./dL (<1 E.U./dL)
[2017-09-14 15:31] LABS: URINE APPEARANCE CLEAR (CLEAR); URINE COLOR YELLOW (YELLOW)
[2017-09-14 15:33] LABS: URINE BACTERIA FEW (NEG); URINE RBC NEGATIVE /hpf (0-2)
--- NOTE | 2017-09-15 02:53 | HP ---
LOCATION: The patient was seen and examined on the bedside in her room on 09/14/2017. CHIEF COMPLAINTS: Altered mental status. HISTORY OF PRESENT ILLNESS: Ms. Lee Ann Ledezma, 86-year-old female with past medical history of atrial fibrillation, dementia, hypertension, hypercholesterolemia. Brought to the emergency department by EMS for evaluation. As per caregiver, the patient was found to be more lethargic at home. On evaluation, the patient reports she has not drank or eaten anything today. The patient noticed mild discomfort, but denies any fever, chills. No nausea, vomiting, diarrhea. No hematuria or hematochezia. No swelling of the legs. No chest pain. No palpitation. No shortness of breath. PAST MEDICAL HISTORY: Atrial fibrillation, on Coumadin; hypertension; COPD; hard of hearing, diabetes mellitus; history of breast cancer; right ankle fracture; poor appetite; history of mastectomy. FAMILY HISTORY: Father and mother, noncontributory. HABITS: Never smoked. No drugs. No ethanol. ALLERGIES: THE PATIENT IS ALLERGIC WITH AND SULFA. REVIEW OF SYSTEMS: The patient was seen and examined on the bedside in her room, looking comfortable that moment. No shortness of breath. No chest pain. No abdominal pain. No nausea, vomiting, diarrhea. No fever. No chills, but was feeling lethargic. PHYSICAL EXAMINATION: VITAL SIGNS: Temperature 97.6, pulse 71, respiratory rate 18, blood pressure 175/77, pulse oximetry 97. HEENT: Head normocephalic, atraumatic. Eyes PERRLA. Extraocular muscles intact. Conjunctivae clear. Nose patent. Mucous membrane moist. NECK: Supple. No carotid bruit. No JVD or thyromegaly. CHEST: Bilaterally symmetrical. HEART: S1 and S2 positive. LUNGS: Clear to auscultation. ABDOMEN: Soft. Bowel sounds positive. No organomegaly. EXTREMITIES: No edema. No cyanosis. NEUROLOGICAL: The patient is awake and alert. Moving all 4 extremities. No focal deficits. LABORATORY DATA: White blood cells 6.9, hemoglobin 13.5, hematocrit 39.4, platelets 216. Sodium 143, potassium 4.1, BUN 18, creatinine 0.5, glucose 42. ASSESSMENT AND PLAN: Ms. Lee Ann Ledezma, 86-year-old lady with hypoglycemia associated with diabetes, altered mental status, was found on the floor, history of atrial fibrillation, getting Coumadin, chronic obstructive pulmonary disease, hard of hearing, diabetes mellitus type 2, history of breast cancer, history of mastectomy, poor appetite, had multiple admissions, noncompliant with her medications and office visits. Lives alone. Multiple time tried to send the patient to assisted living, but still she wants to live alone by herself. Discussion done with the nursing staff. INR is 1.69, getting Coumadin, we will continue that. We will follow up. Diana Najera MD
[2017-09-15 07:40] LABS: INR 1.69 (0.93-1.08); PROTHROMBIN TIME 19.7 SECONDS (9.4-12.5)
[2017-09-15 07:48] LABS: IRON 55 ug/dL (45-180)
[2017-09-15 07:54] LABS: TOTAL IRON BINDING CAPACITY 285 ug/dL (265-497)
[2017-09-15 09:39] VITALS: BP 147/75
[2017-09-15 09:42] VITALS: RESP 20; TEMP 97.4; O2SAT 93
[2017-09-15] MEDS ORDERED: Pantoprazole 40 mg EC Tab PO SCH (10:00)
[2017-09-15] MEDS ORDERED: POLYETHYLENE GLYCOL 3350 17 GM/Dose PACKET PO SCH (10:00)
[2017-09-15 10:15] LABS: % IRON SATURATION 19 % (20-55)
--- NOTE | 2017-09-15 14:31 | CP.PCM.PCO ---
Physician Communication Note - Physician Communication Note Physician Communication Note: ams sec to transient hypoglycemia. c/w to monitor BS.
[2017-09-15 14:36] VITALS: PULSE 80
--- NOTE | 2017-09-16 00:04 | CON ---
DATE: 09/15/2017 HISTORY OF PRESENT ILLNESS: This is an 86-year-old female with past medical history of dementia, hypertension, atrial fibrillation, high cholesterol, came to the emergency room being more lethargic, and called to evaluate the patient. PAST MEDICAL HISTORY: Hypertension, COPD, diabetes and atrial fibrillation. ALLERGIES: ALLERGIC TO SULFA. REVIEW OF SYSTEMS: Ten-point review of systems was negative except altered mental status. PHYSICAL EXAMINATION VITAL SIGNS: Blood pressure 175/77. HEENT: Normocephalic, atraumatic. NECK: Supple. NEUROLOGIC: Awake and oriented to self, a little bit confused at times, and follows simple commands. No facial asymmetry. Tongue midline. Motor examination: Spontaneous movement of the extremities noted. Deep tendon reflexes 1+. Plantars are downgoing. Sensory appears intact. Cerebellar, gait deferred. IMPRESSION: An 86-year-old white female with past medical history of diabetes, admitted with altered mental status secondary to hypoglycemia, was found on the floor. The patient is doing better, and continue present medication. We will follow up. Mehrdad Suarez MD
== END 2017-09-15 14:43 | disposition home or self-care (01) ==
LOC: ED 12:14 → ERH 16:22 → 3RSO 19:06
PROVIDERS: ADMIT Internal Medicine; ATTEND Internal Medicine
DX: E11.649 Type 2 diabetes mellitus with hypoglycemia without coma (principal); I48.91 Unspecified atrial fibrillation; I10 Essential (primary) hypertension; F03.90 Unspecified dementia, unspecified severity, without behavioral disturbance, psychotic disturbance, mood disturbance, and anxiety; E78.00 Pure hypercholesterolemia, unspecified; J44.9 Chronic obstructive pulmonary disease, unspecified; H91.90 Unspecified hearing loss, unspecified ear; Z90.10 Acquired absence of unspecified breast and nipple; Z85.3 Personal history of malignant neoplasm of breast; Z79.01 Long term (current) use of anticoagulants; Z91.14 Patient's other noncompliance with medication regimen; Z88.2 Allergy status to sulfonamides
CPT/HCPCS: 36415; 70450; 71045; 80053; 80061; 81001; 82550; 82607; 82746; 82948; 83036; 83540; 83550; 83615; 83735; 83880; 84484; 85025; 85610; 85730; 87086; 93005; 96374; 97116; 97162; 99285; G0378; G8978; G8979

== ENCOUNTER 2017-12-30 16:07 | Inpatient (IN) | payer MEDICARE, BC ==
--- NOTE | 2017-12-30 16:14 | EDPD ---
HPI Stroke - General Time Seen by Provider: 12/30/17 16:09 Historian: EMS - History of Present Illness Narrative History of Present Illness (Free Text): 12/30/17 16:11 87 year old female, with past medical history of hypertension, atrial fibrillation, COPD, CVA, seizures, diabetes, breast cancer s/p radical mastectomy, dementia, and multiple falls, presents to the Emergency Department via EMS for evaluation of slurred speech since 20 minutes. As per EMS, family noticed slurred speech and inability to write her name 20 minutes ago and subsequently called EMS for evaluation. Upon arrival to the Emergency Department, patient is mildly confused and expresses speech aphasia. HPI and ROS limited secondary to dementia. Onset:: Gradual Timing: Currently Symptomatic Context: Home Exacerbated by: Nothing Relieved by: Nothing - Location Location: Mental Status, Speech - Pain Assessment/Levels Maximum Severity: None Severity Current: None rTPA Inclusion/Exclusion - Refusal of Treatment Patient Refused Treatment: No - Inclusion Criteria for Altepase Patient is 18 years or Older: Yes The Clinical Diagnosis of Ischemic Stroke That is Causing a Potentially Disabling Neurological Deficit: No Time of Onset is Well Established to be Less Than 270 Minute Before Treatment Would Begin: Yes Risk/Benefit Discussed With Patient/Family Member Present: No Past Medical History - Provider Review Nursing Documentation Reviewed: Yes - Infectious Disease Hx of Infectious Diseases: None - Tetanus Immunization Tetanus Immunization: Unknown - Cardiac Hx Cardiac Disorders: Yes (Afib (on Coumadin)) Hx Hypertension: Yes - Pulmonary Hx Chronic Obstructive Pulmonary Disease (COPD): Yes - Neurological HX Cerebrovascular Accident: Yes - HEENT Hx HEENT Disorder: Yes (Hard of hearing) - Renal Hx Renal Disorder: No - Endocrine/Metabolic Hx Diabetes Mellitus Type 2: Yes - Hematological/Oncological Hx Cancer: Yes (Breast CA) Hx Chemotherapy: Yes - Integumentary Hx Dermatological Disorder: No - Musculoskeletal/Rheumatological Hx Falls: No - Gastrointestinal Hx Gastrointestinal Disorders: No - Genitourinary/Gynecological Hx Urinary Tract Infection: Yes - Psychiatric Hx Psychophysiologic Disorder: No Hx Substance Use: No - Surgical History Hx Mastectomy: Yes - Anesthesia Hx Anesthesia: Yes Hx Anesthesia Reactions: No Hx Malignant Hyperthermia: No - Suicidal Assessment Feels Threatened In Home Enviroment: No Family/Social History - Family/Social History Family History: Non-Contributory Allergies/Home Meds Allergies/Adverse Reactions: Allergies FISH Allergy (Verified 12/30/17 22:04) NAUSEA Sulfa (Sulfonamide Antibiotics) Allergy (Verified 12/30/17 22:04) HEADACHE Review of Systems - Review of Systems Systems not reviewed;Unavailable: Dementia Neurological: Speech Changes, Other (Mild confusion) Medical Decision Making ED Course and Treatment: 12/30/17 16:11 Impression: 87 year old female presents to the Emergency Department for evaluation of speech changes. Differential Diagnosis included but are not limited to: CVA Plan: -- Labs -- CT of Head -- EKG -- Chest X-ray -- IV Fluids -- Urinalysis -- Reassess and disposition Prior Visits: Notes and results from previous visits were reviewed. Progress Notes: 12/30/17 16:08 CODE STROKE ACTIVATED. 12/30/17 16:08 EKG: Ordered, reviewed, and independently interpreted the EKG. Rate : 58 BPM Rhythm : Sinus bradycardia Interpretation : Non-specific ST/T wave changes. 12/30/17 16:42 12/30/17 16:14 CT of head reviewed by radiologist, shows: FINDINGS: HEMORRHAGE: No intracranial hemorrhage. BRAIN: No mass effect or edema. Cortical and cerebellar atrophy, periventricular small vessel disease. Small basal ganglia infarct on the left unchanged. VENTRICLES: Unremarkable. No hydrocephalus. CALVARIUM: Unremarkable. PARANASAL SINUSES: Unremarkable as visualized. No significant inflammatory changes. MASTOID AIR CELLS: Unremarkable as visualized. No inflammatory changes. OTHER FINDINGS: None. IMPRESSION: No acute intracranial abnormalities. No significant findings to account for the clinical presentation. No significant interval change compared to the prior examination(s). 12/30/17 16:47 Patient expresses significantly improved symptoms with resolved dysarthria. Patient is recognizing objects appropriately and answering to questions. Due to rapidly improving symptoms, patient is no longer a candidate for tPA. Dr. Montalvo was updated, who agrees and recommends 12/31/17 11:20 - Critical Care Critical Care Minutes: 45 minutes - RAD Interpretation Phlebotomy Instructor: Radiologist - Scribe Statement The provider has reviewed the documentation as recorded by the Scribe Thuan Archibald. All medical record entries made by the Zainibe were at my direction and personally dictated by me. I have reviewed the chart and agree that the record accurately reflects my personal performance of the history, physical exam, medical decision making, and the department course for this patient. I have also personally directed, reviewed, and agree with the discharge instructions and disposition. NIHSS Scale ([place]) Time Performed: 16:21 - How Severe is the Stoke Baseline Level of Consciousness: 1=Drowsy LOC to Questions: 2=Neither correct LOC to commands: 0=Obeys both correctly Best Gaze: 0=Normal Visual: 0=No visual loss Facial: 0=Normal Motor Arm - Left: 0=No drift Motor Arm - Right: 0=No drift Motor Leg - Left: 0=No drift Motor Leg - Right: 0=No drift Limb Ataxia: 0=Absent Sensory: 0=Normal Best Language: 2=Severe aphasia Dysarthia: 1=Mild to moderate slurring Extinction & Inattention (Neglect): 0=Normal, no object Score: 6 Risk Level: Mod Stroke Risk Disposition/Present on Arrival - Present on Arrival Any Indicators Present on Arrival: No History of DVT/PE: No History of Uncontrolled Diabetes: No Urinary Catheter: No History of Decub. Ulcer: No History Surgical Site Infection Following: None - Disposition Have Diagnosis and Disposition been Completed?: Yes Diagnosis: Weakness, Altered mental status, Slurred speech, Aphagia Disposition: HOSPITALIZED Disposition Time: 03:00 Patient Problems: Current Active Problems Problem Status Onset Altered mental status Acute Aphagia Acute Slurred speech Acute Weakness Acute Condition: FAIR
[2017-12-30] MEDS ORDERED: Sodium Chloride 0.9% 1,000 ML IV SCH (16:15)
[2017-12-30 16:20] LABS: BASO # 0.07 K/mm3 (0.0-2.0); BASO % 0.9 % (0.0-3.0); EOS # 0.2 (0.0-0.7); EOS % 2.2 % (1.5-5.0); GRAN # 4.78 (1.4-6.5); GRAN % 62.8 % (50.0-68.0); HEMOGLOBIN 12.9 g/dL (12.0-16.0); LYMPH # 1.9 (1.2-3.4); LYMPH % 24.9 % (22.0-35.0); MEAN CELL VOLUME 89.3 fl (80.0-105.0); MEAN CORPUSCULAR HEMOGLOBIN 29.9 pg (25.0-35.0); MEAN CORPUSCULAR HGB CONC 33.5 g/dl (31.0-37.0); MEAN PLATELET VOLUME 9.8 fl (7.0-11.0); MONO # 0.7 (0.1-0.6); MONO % 9.2 % (1.0-6.0); RBC 4.31 10^6/uL (3.5-6.1); RED CELL DISTRIBUTION WIDTH 12.3 % (11.5-14.5); WHITE BLOOD COUNT 7.6 10^3/ul (4.5-11.0)
[2017-12-30 16:30] LABS: ALB/GLOB RATIO 1.3 (1.1-1.8); ALBUMIN 4.2 g/dL (3.0-4.8); ALT/SGPT 29 U/L (7-56); AST/SGOT 40 U/L (14-36); BLOOD UREA NITROGEN 18 mg/dL (7-21); CALCIUM 9.1 mg/dL (8.4-10.5); GFR NON-AFRICAN AMERICAN > 60; HDL CHOLESTEROL 37 mg/dL (29-60)
--- NOTE | 2017-12-30 16:38 | CT ---
Date of service: 12/30/2017 PROCEDURE: CT HEAD WITHOUT CONTRAST. HISTORY: Code Stroke COMPARISON: 09/14/2017 TECHNIQUE: Axial computed tomography images were obtained through the head/brain without intravenous contrast. Supplemental Coronal and Sagittal projections created and reviewed. Radiation dose: Total exam DLP = 833.91 mGy-cm. This CT exam was performed using one or more of the following dose reduction techniques: Automated exposure control, adjustment of the mA and/or kV according to patient size, and/or use of iterative reconstruction technique. FINDINGS: HEMORRHAGE: No intracranial hemorrhage. BRAIN: No mass effect or edema. Cortical and cerebellar atrophy, periventricular small vessel disease. Small basal ganglia infarct on the left unchanged. VENTRICLES: Unremarkable. No hydrocephalus. CALVARIUM: Unremarkable. PARANASAL SINUSES: Unremarkable as visualized. No significant inflammatory changes. MASTOID AIR CELLS: Unremarkable as visualized. No inflammatory changes. OTHER FINDINGS: None. IMPRESSION: No acute intracranial abnormalities. No significant findings to account for the clinical presentation. No significant interval change compared to the prior examination(s). Code stroke protocol: Study completed 16:18 Results conveyed verbally at 16:33 discussed findings directly with the attending in the emergency department Dr. Romero Nickerson. Interpretation finalized and available for review 16:36
[2017-12-30 16:41] LABS: LDL CHOLESTEROL 120 mg/dL (0-129)
[2017-12-30 16:44] LABS: TROPONIN I 0.07 ng/mL
[2017-12-30 16:48] LABS: INR 1.85; PARTIAL THROMBOPLASTIN TIME 38.5 Seconds (25.1-36.5); PROTHROMBIN TIME 21.3 SECONDS (9.4-12.5)
--- NOTE | 2017-12-30 17:03 | CT ---
Date of service: 12/30/2017 PROCEDURE: CT Angiography of the neck with contrast HISTORY: code stroke COMPARISON: None. TECHNIQUE: Contiguous axial images of the neck were obtained from the level of the skull-base to the superior mediastinum in the arteriographic phase of enhancement. Coronal and sagittal reformats or also generated. IV contrast dose: 146 cc of Omni 350 Radiation dose: Total exam DLP = 207.87 mGy-cm. This CT exam was performed using one or more of the following dose reduction techniques: Automated exposure control, adjustment of the mA and/or kV according to patient size, and/or use of iterative reconstruction technique. FINDINGS: RIGHT CAROTID ARTERIES: Common Carotid Artery: Normal. Carotid Bifurcation: Normal. Internal Carotid Artery:Tortuous. No stenosis External Carotid Artery (proximal branches): Normal. LEFT CAROTID ARTERIES: Common Carotid Artery: Normal. Carotid Bifurcation: Normal. Internal Carotid Artery:Tortuous. No stenosis External Carotid Artery (proximal branches): Normal. VERTEBRAL ARTERIES: Right Vertebral Artery: Normal. Left Vertebral Artery: Normal. OTHER FINDINGS: None. No atherosclerotic calcification or mural plaque present. IMPRESSION: No significant stenosis PROCEDURE: CT Angiography of the Brain. HISTORY: code stroke COMPARISON: None available. TECHNIQUE: CT angiography of the intracranial arteries was performed. Coronal and sagittal maximum intensity projection reformated images were generated. Radiation dose: Total exam DLP = 207.87 mGy-cm. This CT exam was performed using one or more of the following dose reduction techniques: Automated exposure control, adjustment of the mA and/or kV according to patient size, and/or use of iterative reconstruction technique. FINDINGS: INTERNAL CEREBRAL ARTERIES: Unremarkable. The skull base, petrous, cavernous and supraclinoid segments are bilaterally widely patent. ANTERIOR CEREBRAL ARTERIES: Unremarkable. A1 and A2 segments are widely patent. Smaller distal branches unremarkable, as visualized. MIDDLE CEREBRAL ARTERIES: Unremarkable. M1 and M2 segments are widely patent. Perisylvian branches grossly symmetric. POSTERIOR CIRCULATION: Basilar Artery: Unremarkable. Distal Vertebral Arteries: Unremarkable. Posterior Cerebral Arteries: Unremarkable. Posterior Inferior Cerebellar Arteries: Unremarkable. ANEURYSM/ VASCULAR MALFORMATIONS: None. OTHER FINDINGS: None. IMPRESSION: Unremarkable CT Angiography of the Brain.
--- NOTE | 2017-12-30 17:10 | RAD ---
Date of service: 12/30/2017 HISTORY: Code Stroke COMPARISON: 09/14/2017 FINDINGS: LUNGS: The right lung is clear. Redemonstration of ill-defined calcification in the left lower lobe which could be related to chronic aspiration or bronchial calcifications. PLEURA: No pleural effusions or pneumothorax. CARDIOVASCULAR: There is mild cardiomegaly. Status post CABG. Atherosclerotic aortic arch calcifications are present. OSSEOUS STRUCTURES: Within normal limits for the patient's age. VISUALIZED UPPER ABDOMEN: Normal. OTHER FINDINGS: None. IMPRESSION: No acute findings.
[2017-12-30 18:14] LABS: URINE BILIRUBIN NEGATIVE (NEGATIVE); URINE BLOOD NEGATIVE (NEGATIVE); URINE GLUCOSE (UA) NEGATIVE (NEGATIVE); URINE LEUKOCYTE ESTERASE NEGATIVE Leu/uL (NEGATIVE); URINE PROTEIN NEGATIVE mg/dL (<30 mg/dL); URINE UROBILINOGEN 0.2 E.U./dL (<1 E.U./dL)
[2017-12-30 18:19] LABS: URINE APPEARANCE CLEAR (CLEAR); URINE COLOR LIGHT YELLOW (YELLOW)
[2017-12-30] MEDS: Sodium Chloride 0.9% 1,000 ML IV SCH (20:58)
[2017-12-30 23:06] VITALS: BMI 18.2
[2017-12-30] MEDS ORDERED: Influenza Vaccine 60 mcg/0.5 mL SYR (4YR UP) IM ONE (23:06)
[2017-12-30] MEDS ORDERED: Pneumococcal 23-Valent Vaccine IM ONE (23:06)
[2017-12-31] MEDS: Pantoprazole 40 mg EC Tab PO SCH (06:05)
[2017-12-31 07:26] LABS: HEMOGLOBIN 12.2 g/dL (12.0-16.0); MEAN CELL VOLUME 88.8 fl (80.0-105.0); MEAN CORPUSCULAR HEMOGLOBIN 29.7 pg (25.0-35.0); MEAN CORPUSCULAR HGB CONC 33.4 g/dl (31.0-37.0); MEAN PLATELET VOLUME 9.8 fl (7.0-11.0); RBC 4.11 10^6/uL (3.5-6.1); RED CELL DISTRIBUTION WIDTH 12.2 % (11.5-14.5); WHITE BLOOD COUNT 6.5 10^3/ul (4.5-11.0)
[2017-12-31 07:28] LABS: INR 1.99; PROTHROMBIN TIME 23.2 SECONDS (9.4-12.5)
[2017-12-31 08:01] LABS: BLOOD UREA NITROGEN 15 mg/dL (7-21); CALCIUM 8.8 mg/dL (8.4-10.5); GFR NON-AFRICAN AMERICAN > 60; HDL CHOLESTEROL 33 mg/dL (29-60)
[2017-12-31 08:11] LABS: LDL CHOLESTEROL 103 mg/dL (0-129)
--- NOTE | 2017-12-31 10:29 | CARD ---
APPROVED REPORT Date of service: 12/30/2017 EKG Measurement Heart [id number] [id number] <Conclusion> Sinus bradycardia with sinus arrhythmia Left anterior fascicular block Left ventricular hypertrophy Cannot rule out Septal infarct, age undetermined Abnormal ECG
[2017-12-31] MEDS: POLYETHYLENE GLYCOL 3350 17 GM/Dose PACKET PO SCH (10:53)
--- NOTE | 2017-12-31 10:59 | CP.PCM.CON ---
History of Present Illness - History of Present Illness History of Present Illness: Awake, alert, no arm drift, able to move legs, able to talk, slow but able to understand Reason for consultation: Cardiac evaluation of Atrial fibrillation, Brief history of present illness: A 87 year old female who was brought to the ER due to slurred speech and inability to write her name. History of hypertension, atrial fibrillation (on coumadin) COPD, CVA, seizures, diabetes, breast cancer s/p radical mastectomy, dementia, and multiple falls, hard of hearing. Seen and examined by me and Dr. Ruelas Review of Systems - Review of Systems All systems: reviewed and no additional remarkable complaints except Review of Systems: as per HPI Past Patient History - Infectious Disease Hx of Infectious Diseases: None - Tetanus Immunizations Tetanus Immunization: Unknown - Past Social History Smoking Status: Never Smoked - CARDIAC Hx Cardiac Disorders: Yes (Afib (on Coumadin)) Hx Hypertension: Yes - PULMONARY Hx Respiratory Disorders: Yes Hx Chronic Obstructive Pulmonary Disease (COPD): Yes - NEUROLOGICAL Hx Neurological Disorder: Yes HX Cerebrovascular Accident: Yes - HEENT Hx HEENT Problems: Yes (Hard of hearing) - RENAL Hx Chronic Kidney Disease: No - ENDOCRINE/METABOLIC Hx Endocrine Disorders: Yes Hx Diabetes Mellitus Type 2: Yes - HEMATOLOGICAL/ONCOLOGICAL Hx Blood Disorders: Yes Hx Cancer: Yes (Breast CA) Hx Chemotherapy: Yes - INTEGUMENTARY Hx Dermatological Problems: Yes Other/Comment: RADICAL MASTECTOMY. LEFT CHEST WITH A THICKENED PLETHORA OF SKIN. RIGHT CHEST WITH SCABBED REDDENED AREA. - MUSCULOSKELETAL/RHEUMATOLOGICAL Hx Musculoskeletal Disorders: Yes Hx Falls: No Hx Unsteady Gait: Yes ([place]ALK[place]) - GASTROINTESTINAL Hx Gastrointestinal Disorders: Yes (CONSTIPATION) - GENITOURINARY/GYNECOLOGICAL Hx Genitourinary Disorders: Yes Hx Incontinence: Yes Hx Urinary Tract Infection: Yes - PSYCHIATRIC Hx Psychophysiologic Disorder: No Hx Substance Use: No - SURGICAL HISTORY Hx Surgeries: Yes Hx Mastectomy: Yes - ANESTHESIA Hx Anesthesia: Yes Hx Anesthesia Reactions: No Hx Malignant Hyperthermia: No Meds Allergies/Adverse Reactions: Allergies Allergy/AdvReac Type Severity Reaction Status Date / Time FISH Allergy NAUSEA Verified 12/30/17 22:04 Sulfa (Sulfonamide Allergy HEADACHE Verified 12/30/17 22:04 Antibiotics) - Medications Medications: Current Medications Atorvastatin Calcium (Lipitor) 10 mg PO DIN [facility] Donepezil HCl (Aricept) 5 mg PO HS REGGIE Sodium Chloride (Sodium Chloride 0.9%) 1,000 mls @ 40 mls/hr IV .Q24H REGGIE Last Admin: 12/30/17 20:58 Dose: 40 mls/hr Levetiracetam (Keppra) 500 mg PO BID [facility] Last Admin: 12/31/17 10:53 Dose: 500 mg Losartan Potassium (Cozaar) 100 mg PO DAILY [facility] Last Admin: 12/31/17 10:51 Dose: 100 mg Pantoprazole Sodium (Protonix Ec Tab) 40 mg PO 0600 [facility] Last Admin: 12/31/17 06:05 Dose: Not Given Polyethylene Glycol (Miralax) 17 gm PO DAILY [facility] Last Admin: 12/31/17 10:53 Dose: 17 gm Risperidone (Risperdal Tab) 0.5 mg PO 1000,2200 REGG[facility]; Protocol Warfarin Sodium (Coumadin) 3 mg PO 1800 REGGIE; Protocol Physical Exam - Constitutional Appears: Non-toxic, No Acute Distress - Head Exam Head Exam: NORMAL INSPECTION, NORMOCEPHALIC - ENT Exam ENT Exam: Mucous Membranes Dry Additional comments: hard of hearing, uses hearing aide - Respiratory Exam Respiratory Exam: Decreased Breath Sounds, Clear to Auscultation Bilateral, NORMAL BREATHING PATTERN - Cardiovascular Exam Cardiovascular Exam: Bradycardia, +S1, +S2 Additional comments: Telemetry- Sinus bradycardia 50's denies chest pain no JVD - GI/Abdominal Exam GI & Abdominal Exam: Normal Bowel Sounds, Soft - Extremities Exam Extremities exam: Positive for: normal capillary refill, normal inspection - Neurological Exam Neurological exam: Alert - Psychiatric Exam Psychiatric exam: Normal Affect, Normal Mood - Skin Skin Exam: Dry, Normal Color, Warm Results - Vital Signs Recent Vital Signs: Last Vital Signs Temp 98.1 F 12/31/17 06:00 Pulse 69 12/31/17 06:00 Resp 18 12/31/17 06:00 BP 140/79 12/31/17 06:00 Pulse Ox 95 12/31/17 00:01 - Labs Result Diagrams: 12/31/17 07:00 12/31/17 07:00 Labs: Laboratory Results - last 24 hr 12/30/17 12/30/17 12/30/17 16:11 16:11 16:11 WBC 7.6 RBC 4.31 Hgb 12.9 Hct 38.5 MCV 89.3 MCH 29.9 MCHC 33.5 RDW 12.3 Plt Count 201 MPV 9.8 Gran % 62.8 Lymph % (Auto) 24.9 [place] % (Auto) 9.2 H Eos % (Auto) 2.2 Baso % (Auto) 0.9 Gran # 4.78 Lymph # (Auto) 1.9 [place] # (Auto) 0.7 H Eos # (Auto) 0.2 Baso # (Auto) 0.07 PT 21.3 H INR 1.85 APTT 38.5 H Sodium 138 Potassium 4.5 Chloride 102 Carbon Dioxide 27 Anion Gap 14 BUN 18 Creatinine 0.6 L Est GFR ( Amer) > 60 Est GFR (Non-Af Amer) > 60 POC Glucose (mg/dL) Random Glucose 135 H Hemoglobin A1c Calcium 9.1 Total Bilirubin 0.5 AST 40 H D ALT 29 Alkaline Phosphatase 61 Troponin I 0.07 D Total Protein 7.4 Albumin 4.2 Globulin 3.3 Albumin/Globulin Ratio 1.3 Triglycerides 147 Cholesterol 186 LDL Cholesterol Direct 120 HDL Cholesterol 37 TSH 3rd Generation Urine Color Urine Appearance Urine pH Ur Specific [place] Urine Protein Urine Glucose (UA) Urine Ketones Urine Blood Urine Nitrate Urine Bilirubin Urine Urobilinogen Ur Leukocyte Esterase Blood Type Antibody Screen BBK History Checked 12/30/17 12/30/17 12/30/17 16:11 17:50 21:10 WBC RBC Hgb Hct MCV MCH MCHC RDW Plt Count MPV Gran % Lymph % (Auto) [place] % (Auto) Eos % (Auto) Baso % (Auto) Gran # Lymph # (Auto) [place] # (Auto) Eos # (Auto) Baso # (Auto) PT INR APTT Sodium Potassium Chloride Carbon Dioxide Anion Gap BUN Creatinine Est GFR ( Amer) Est GFR (Non-Af Amer) POC Glucose (mg/dL) 94 Random Glucose Hemoglobin A1c 5.5 Calcium Total Bilirubin AST ALT Alkaline Phosphatase Troponin I Total Protein Albumin Globulin Albumin/Globulin Ratio Triglycerides Cholesterol LDL Cholesterol Direct HDL Cholesterol TSH 3rd Generation Urine Color Light yellow Urine Appearance Clear Urine pH 7.0 Ur Specific [place] <= 1.005 Urine Protein Negative Urine Glucose (UA) Negative Urine Ketones Negative Urine Blood Negative Urine Nitrate Negative Urine Bilirubin Negative Urine Urobilinogen 0.2 Ur Leukocyte Esterase Negative Blood Type Antibody Screen BBK History Checked 12/31/17 12/31/17 12/31/17 07:00 07:00 07:00 WBC 6.5 RBC 4.11 Hgb 12.2 Hct 36.5 MCV 88.8 MCH 29.7 MCHC 33.4 RDW 12.2 Plt Count 226 MPV 9.8 Gran % Lymph % (Auto) [place] % (Auto) Eos % (Auto) Baso % (Auto) Gran # Lymph # (Auto) [place] # (Auto) Eos # (Auto) Baso # (Auto) PT 23.2 H INR 1.99 APTT Sodium 139 Potassium 3.8 Chloride 102 Carbon Dioxide 30 Anion Gap 10 BUN 15 Creatinine 0.6 L Est GFR ( Amer) > 60 Est GFR (Non-Af Amer) > 60 POC Glucose (mg/dL) Random Glucose 81 Hemoglobin A1c Calcium 8.8 Total Bilirubin AST ALT Alkaline Phosphatase Troponin I Total Protein Albumin Globulin Albumin/Globulin Ratio Triglycerides 121 Cholesterol 170 LDL Cholesterol Direct 103 HDL Cholesterol 33 TSH 3rd Generation Urine Color Urine Appearance Urine pH Ur Specific [place] Urine Protein Urine Glucose (UA) Urine Ketones Urine Blood Urine Nitrate Urine Bilirubin Urine Urobilinogen Ur Leukocyte Esterase Blood Type Antibody Screen BBK History Checked 12/31/17 12/31/17 12/31/17 07:00 07:12 08:50 WBC RBC Hgb Hct MCV MCH MCHC RDW Plt Count MPV Gran % Lymph % (Auto) [place] % (Auto) Eos % (Auto) Baso % (Auto) Gran # Lymph # (Auto) [place] # (Auto) Eos # (Auto) Baso # (Auto) PT INR APTT Sodium Potassium Chloride Carbon Dioxide Anion Gap BUN Creatinine Est GFR ( Amer) Est GFR (Non-Af Amer) POC Glucose (mg/dL) 73 Random Glucose Hemoglobin A1c Calcium Total Bilirubin AST ALT Alkaline Phosphatase Troponin I Total Protein Albumin Globulin Albumin/Globulin Ratio Triglycerides Cholesterol LDL Cholesterol Direct HDL Cholesterol TSH 3rd Generation 0.65 Urine Color Urine Appearance Urine pH Ur Specific [place] Urine Protein Urine Glucose (UA) Urine Ketones Urine Blood Urine Nitrate Urine Bilirubin Urine Urobilinogen Ur Leukocyte Esterase Blood Type A POSITIVE Antibody Screen Negative BBK History Checked Patient has bt Assessment & Plan - Assessment and Plan (Free Text) Assessment: A 87 year old female admitted due to slurred speech and inability to write her name. History of hypertension, atrial fibrillation (on coumadin) COPD, CVA, seizures, diabetes, breast cancer s/p radical mastectomy, dementia, and multiple falls, hard of hearing. CT of head, negative for bleeding. Will order echo to evaluate LV function and valve status. [place] [facility] [place]- Carotid Ultrasound- Bilateral 20-39% proximal ICA stenosis 07/07/16- ECHO- LV size normal,Mild aortic stenosis, aortic valve is mildly calcified 12/23/2011- Cardiac catheterization done by Dr. Diop Left main normal Proximal LAD 50-60% stenosis Mid LAD 70% stenosis Mid circumflex 80% stenosis, OM1- 80 % stenosis Proximal RCA 95 % stenosis Severe aortic stenosis, Aortic valve gradient 69 mmHg, LING 0.43 cm2 Recommendation was to have open heart surgery. Plan: Denies chest pain, hard of hearing Able to talk, slow, minimal slurring, able to understand words No arm drifting Heart rate and blood pressure controlled Echo to evaluate LV function Telemetry sinus bradycardia Continue Coumadin Normal TSH level On Lipitor 10 mg daily,Keppra 500 mg BID, Cozaar 100 mg daily,Protonix 40 mg daily. Continue current treatment Continue current medications Neuro on consult Chart reviewed Will follow up Further recommendation during hospital course Plan and treatment discussed with Dr. Ruelas Thank you Dr. Najera for the opportunity of taking care of Ms. alejandra Ledezma - Date & Time Date: 12/31/17 Time: 06:30
--- NOTE | 2017-12-31 15:15 | CP.PCM.CON ---
History of Present Illness - History of Present Illness History of Present Illness: Neurology Consultation Note: Mrs. Ledezma is an 87-year-old woman with a past medical history of hypertension, atrial fibrillation, COPD, CVA, seizures, diabetes, breast cancer s/p radical mastectomy, dementia, and multiple falls, who presented to the ED yesterday with an episode of expressive aphasia that resolved spontaneously. S he was not a candidate for IV tPA due to resolution of symptoms. Currently, she is asymptomatic. Today, there were a few reported pauses on telemetry lasting about 2.5-3 seconds. Review of Systems - Constitutional Constitutional: As Per HPI - EENT Eyes: absent: As Per HPI, Blind Spots, Blurred Vision, Change in Vision, Decreased Night Vision, Diplopia, Discharge, Dry Eye, Exophthalmos, Floaters, Irritation, Itchy Eyes, Loss of Peripheral Vision, Pain, Photophobia, Requires Corrective Lenses, Sees Flashes, Spots in Vision, Tunnel Vision, Other Visual Disturbances, Loss of Vision, Other Ears: absent: As Per HPI, Decreased Hearing, Ear Discharge, Ear Pain, Tinnitus, Abnormal Hearing, Disequilibrium, Dizziness, Other Nose/Mouth/Throat: absent: As Per HPI, Epistaxis, Nasal Congestion, Nasal Discharge, Nasal Obstruction, Nasal Trauma, Nose Pain, Post Nasal Drip, Sinus Pain, Sinus Pressure, Bleeding Gums, Change in Voice, Dental Pain, Dry Mouth, Dysphagia, Halitosis, Hoarsness, Lip Swelling, Mouth Lesions, Mouth Pain, Odynophagia, Sore Throat, Throat Swelling, Tongue Swelling, Facial Pain, Neck Pain, Neck Mass, Other - Breasts Breasts: absent: As Per HPI, Change in Shape, Mass, Pain, Nipple Discharge, Nipple Inversion, Skin Changes, Swelling, Other - Cardiovascular Cardiovascular: As Per HPI - Respiratory Respiratory: absent: As Per HPI, Cough, Dyspnea, Hemoptysis, Dyspnea on Exertion, Wheezing, Snoring, Stridor, Pain on Inspiration, Chest Congestion, Excessive Mucous Production, Change in Mucous Color, Pain with Coughing, Other - Gastrointestinal Gastrointestinal: absent: As Per HPI, Abdominal Pain, Belching, Bloating, Change in Bowel Habits, Change in Stool Character, Coffee Ground Emesis, Constipation, Cramping, Diarrhea, Dyspepsia, Dysphagia, Early Satiety, Excessive Flatus, Fecal Incontinence, Heartburn, Hematemesis, Hematochezia, Loose Stools, Melena, Naus ea, Odynophagia, Temesmus, Vomiting, Other - Genitourinary Genitourinary: absent: As Per HPI, Change in Urinary Stream, Difficulty Urinating, Dysuria, Flank Pain, Hematuria, Pyuria, Nocturia, Urinary Incontinence, Urinary Frequency, Urinary Hesitance, Urinary Urgency, Voiding Freq/Small Amts, Freq UTI, Hx Renal/Bladder Calculi, Hx /Renal Surgery, Bladder Distension, Other - Musculoskeletal Musculoskeletal: absent: As Per HPI, Abnormal Gait, Arthralgias, Atrophy, Back Pain, Deformity, Joint Swelling, Limited Range of Motion, Loss of Height, Muscle Cramps, Muscle Weakness, Myalgias, Neck Pain, Numbness, Radiating Pain into Limb, Stiffness, Tingling, Other - Integumentary Integumentary: absent: As Per HPI, Acne, Alopecia, Bleeding Lesions, Change in Hair, Change in Nails, Change in Pigmentation, Changing Lesions, Dry Skin, Erythema, Furuncle, Hirsutism, Lesions, New Lesions, Non-Healing Lesions, Photosensitivity, Pruritus, Rash, Skin Pain, Skin Ulcer, Sores, Striae, Swe lling, Unusual Bruising, Wounds, Jaundice, Other - Psychiatric Psychiatric: absent: As Per HPI, Abnormal Sleep Pattern, Anhedonia, Anxiety, Auditory Hallucinations, Behavioral Changes, Change in Appetite, Change in Libido, Confusion, Depression, Difficulty Concentrating, Hallucinations, Homicidal Ideation, Hopelessness, Irritability, Memory Loss, Mood Swings, Panic Attacks, Paranoia, Suicidal Ideation, Visual Hallucinations, Tactile Hallucinations, Other - Endocrine Endocrine: absent: As Per HPI, Change in Body Appearance, Change in Libido, Cold Intolorance, Deepening of Voice, Excessive Sweating, Fatigue, Flushing, Heat Intolorance, Increase in Ring/Shoe/Hat Size, Palpitations, Polydipsia, Polyphagia, Polyuria, Other - Hematologic/Lymphatic Hematologic: absent: As Per HPI, Easy Bleeding, Easy Bruising, Lymphadenopathy, Other Past Patient History - Infectious Disease Hx of Infectious Diseases: None - Tetanus Immunizations Tetanus Immunization: Unknown - Past Social History Smoking Status: Never Smoked - CARDIAC Hx Cardiac Disorders: Yes (Afib (on Coumadin)) Hx Hypertension: Yes - PULMONARY Hx Chronic Obstructive Pulmonary Disease (COPD): Yes - NEUROLOGICAL HX Cerebrovascular Accident: Yes - HEENT Hx HEENT Problems: Yes (Hard of hearing) - RENAL Hx Chronic Kidney Disease: No - ENDOCRINE/METABOLIC Hx Diabetes Mellitus Type 2: Yes - HEMATOLOGICAL/ONCOLOGICAL Hx Blood Disorders: Yes Hx Cancer: Yes (Breast CA) Hx Chemotherapy: Yes - INTEGUMENTARY Hx Dermatological Problems: Yes Other/Comment: RADICAL MASTECTOMY. LEFT CHEST WITH A THICKENED PLETHORA OF SKIN. RIGHT CHEST WITH SCABBED REDDENED AREA. - MUSCULOSKELETAL/RHEUMATOLOGICAL Hx Musculoskeletal Disorders: Yes Hx Falls: No Hx Unsteady Gait: Yes (WALKER) - GASTROINTESTINAL Hx Gastrointestinal Disorders: Yes (CONSTIPATION) - GENITOURINARY/GYNECOLOGICAL Hx Genitourinary Disorders: Yes Hx Incontinence: Yes Hx Urinary Tract Infection: Yes - PSYCHIATRIC Hx Psychophysiologic Disorder: No Hx Substance Use: No - SURGICAL HISTORY Hx Surgeries: Yes Hx Mastectomy: Yes - ANESTHESIA Hx Anesthesia: Yes Hx Anesthesia Reactions: No Hx Malignant Hyperthermia: No Meds Allergies/Adverse Reactions: Allergies Allergy/AdvReac Type Severity Reaction Status Date / Time FISH Allergy NAUSEA Verified 12/30/17 22:04 Sulfa (Sulfonamide Allergy HEADACHE Verified 12/30/17 22:04 Antibiotics) - Medications Medications: Current Medications Atorvastatin Calcium (Lipitor) 10 mg PO DIN REGGIE Donepezil HCl (Aricept) 5 mg PO HS REGGIE Hydralazine HCl (Apresoline) 10 mg IVP Q6 PRN PRN Reason: Hypertension Sodium Chloride (Sodium Chloride 0.9%) 1,000 mls @ 40 mls/hr IV .Q24H [facility] Last Admin: 12/30/17 20:58 Dose: 40 mls/hr Levetiracetam (Keppra) 500 mg PO BID [facility] Last Admin: 12/31/17 10:53 Dose: 500 mg Losartan Potassium (Cozaar) 100 mg PO DAILY [facility] Last Admin: 12/31/17 10:51 Dose: 100 mg Pantoprazole Sodium (Protonix Ec Tab) 40 mg PO 0600 [facility] Last Admin: 12/31/17 06:05 Dose: Not Given Polyethylene Glycol (Miralax) 17 gm PO DAILY [facility] Last Admin: 12/31/17 10:53 Dose: 17 gm Risperidone (Risperdal Tab) 0.5 mg PO 1000,2200 REGGIE; Protocol Warfarin Sodium (Coumadin) 3 mg PO 1800 REGGIE; Protocol Physical Exam - Constitutional Appears: No Acute Distress, Cachectic - Head Exam Head Exam: ATRAUMATIC, NORMAL INSPECTION, NORMOCEPHALIC - Eye Exam Eye Exam: EOMI, Normal appearance, PERRL - ENT Exam ENT Exam: Mucous Membranes Moist, Normal Exam - Neck Exam Neck exam: Positive for: Normal Inspection - Respiratory Exam Respiratory Exam: Clear to Auscultation Bilateral, NORMAL BREATHING PATTERN - Cardiovascular Exam Cardiovascular Exam: REGULAR RHYTHM, +S1, +S2 - GI/Abdominal Exam GI & Abdominal Exam: Normal Bowel Sounds, Soft. absent: Tenderness - Rectal Exam Rectal Exam: Deferred - Extremities Exam Extremities exam: Positive for: normal inspection - Back Exam Back exam: NORMAL INSPECTION - Neurological Exam Neurological exam: Alert, CN II-XII Intact, Normal Gait, Oriented x3, Reflexes Normal Additional comments: NIHSS = 0 - Psychiatric Exam Psychiatric exam: Normal Affect, Normal Mood - Skin Skin Exam: Dry, Intact, Normal Color, Rash, Warm Results - Vital Signs Recent Vital Signs: Last Vital Signs Temp 97.4 F L 12/31/17 12:10 Pulse 65 12/31/17 12:10 Resp 18 12/31/17 12:10 BP 145/63 12/31/17 12:10 Pulse Ox 93 L 12/31/17 10:00 - Labs Result Diagrams: 12/31/17 07:00 12/31/17 07:00 Labs: Laboratory Results - last 24 hr 12/30/17 12/30/17 12/30/17 16:11 16:11 16:11 WBC 7.6 RBC 4.31 Hgb 12.9 Hct 38.5 MCV 89.3 MCH 29.9 MCHC 33.5 RDW 12.3 Plt Count 201 MPV 9.8 Gran % 62.8 Lymph % (Auto) 24.9 Boundary % (Auto) 9.2 H Eos % (Auto) 2.2 Baso % (Auto) 0.9 Gran # 4.78 Lymph # (Auto) 1.9 Boundary # (Auto) 0.7 H Eos # (Auto) 0.2 Baso # (Auto) 0.07 PT 21.3 H INR 1.85 APTT 38.5 H Sodium 138 Potassium 4.5 Chloride 102 Carbon Dioxide 27 Anion Gap 14 BUN 18 Creatinine 0.6 L Est GFR ( Amer) > 60 Est GFR (Non-Af Amer) > 60 POC Glucose (mg/dL) Random Glucose 135 H Hemoglobin A1c Calcium 9.1 Total Bilirubin 0.5 AST 40 H D ALT 29 Alkaline Phosphatase 61 Troponin I 0.07 D Total Protein 7.4 Albumin 4.2 Globulin 3.3 Albumin/Globulin Ratio 1.3 Triglycerides 147 Cholesterol 186 LDL Cholesterol Direct 120 HDL Cholesterol 37 Vitamin B12 Folate TSH 3rd Generation Urine Color Urine Appearance Urine pH Ur Specific [place] Urine Protein Urine Glucose (UA) Urine Ketones Urine Blood Urine Nitrate Urine Bilirubin Urine Urobilinogen Ur Leukocyte Esterase Blood Type Antibody Screen BBK History Checked 12/30/17 12/30/17 12/30/17 16:11 17:50 21:10 WBC RBC Hgb Hct MCV MCH MCHC RDW Plt Count MPV Gran % Lymph % (Auto) Boundary % (Auto) Eos % (Auto) Baso % (Auto) Gran # Lymph # (Auto) Boundary # (Auto) Eos # (Auto) Baso # (Auto) PT INR APTT Sodium Potassium Chloride Carbon Dioxide Anion Gap BUN Creatinine Est GFR ( Amer) Est GFR (Non-Af Amer) POC Glucose (mg/dL) 94 Random Glucose Hemoglobin A1c 5.5 Calcium Total Bilirubin AST ALT Alkaline Phosphatase Troponin I Total Protein Albumin Globulin Albumin/Globulin Ratio Triglycerides Cholesterol LDL Cholesterol Direct HDL Cholesterol Vitamin B12 Folate TSH 3rd Generation Urine Color Light yellow Urine Appearance Clear Urine pH 7.0 Ur Specific [place] <= 1.005 Urine Protein Negative Urine Glucose (UA) Negative Urine Ketones Negative Urine Blood Negative Urine Nitrate Negative Urine Bilirubin Negative Urine Urobilinogen 0.2 Ur Leukocyte Esterase Negative Blood Type Antibody Screen BBK History Checked 12/31/17 12/31/17 12/31/17 07:00 07:00 07:00 WBC RBC Hgb Hct MCV MCH MCHC RDW Plt Count MPV Gran % Lymph % (Auto) Boundary % (Auto) Eos % (Auto) Baso % (Auto) Gran # Lymph # (Auto) Boundary # (Auto) Eos # (Auto) Baso # (Auto) PT 23.2 H INR 1.99 APTT Sodium 139 Potassium 3.8 Chloride 102 Carbon Dioxide 30 Anion Gap 10 BUN 15 Creatinine 0.6 L Est GFR ( Amer) > 60 Est GFR (Non-Af Amer) > 60 POC Glucose (mg/dL) Random Glucose 81 Hemoglobin A1c 5.4 Calcium 8.8 Total Bilirubin AST ALT Alkaline Phosphatase Troponin I Total Protein Albumin Globulin Albumin/Globulin Ratio Triglycerides 121 Cholesterol 170 LDL Cholesterol Direct 103 HDL Cholesterol 33 Vitamin B12 > 1000 H Folate 11.0 TSH 3rd Generation Urine Color Urine Appearance Urine pH Ur Specific [place] Urine Protein Urine Glucose (UA) Urine Ketones Urine Blood Urine Nitrate Urine Bilirubin Urine Urobilinogen Ur Leukocyte Esterase Blood Type Antibody Screen BBK History Checked 12/31/17 12/31/17 12/31/17 07:00 07:00 07:12 WBC 6.5 RBC 4.11 Hgb 12.2 Hct 36.5 MCV 88.8 MCH 29.7 MCHC 33.4 RDW 12.2 Plt Count 226 MPV 9.8 Gran % Lymph % (Auto) Bound[place] % (Auto) Eos % (Auto) Baso % (Auto) Gran # Lymph # (Auto) Boundary # (Auto) Eos # (Auto) Baso # (Auto) PT INR APTT Sodium Potassium Chloride Carbon Dioxide Anion Gap BUN Creatinine Est GFR ( Amer) Est GFR (Non-Af Amer) POC Glucose (mg/dL) 73 Random Glucose Hemoglobin A1c Calcium Total Bilirubin AST ALT Alkaline Phosphatase Troponin I Total Protein Albumin Globulin Albumin/Globulin Ratio Triglycerides Cholesterol LDL Cholesterol Direct HDL Cholesterol Vitamin B12 Folate TSH 3rd Generation 0.65 Urine Color Urine Appearance Urine pH Ur Specific [place] Urine Protein Urine Glucose (UA) Urine Ketones Urine Blood Urine Nitrate Urine Bilirubin Urine Urobilinogen Ur Leukocyte Esterase Blood Type Antibody Screen BBK History Checked 12/31/17 12/31/17 08:50 09:33 WBC RBC Hgb Hct MCV MCH MCHC RDW Plt Count MPV Gran % Lymph % (Auto) Bound[place] % (Auto) Eos % (Auto) Baso % (Auto) Gran # Lymph # (Auto) Boundary # (Auto) Eos # (Auto) Baso # (Auto) PT INR APTT Sodium Potassium Chloride Carbon Dioxide Anion Gap BUN Creatinine Est GFR ( Amer) Est GFR (Non-Af Amer) POC Glucose (mg/dL) 69 Random Glucose Hemoglobin A1c Calcium Total Bilirubin AST ALT Alkaline Phosphatase Troponin I Total Protein Albumin Globulin Albumin/Globulin Ratio Triglycerides Cholesterol LDL Cholesterol Direct HDL Cholesterol Vitamin B12 Folate TSH 3rd Generation Urine Color Urine Appearance Urine pH Ur Specific [place] Urine Protein Urine Glucose (UA) Urine Ketones Urine Blood Urine Nitrate Urine Bilirubin Urine Urobilinogen Ur Leukocyte Esterase Blood Type A POSITIVE Antibody Screen Negative BBK History Checked Patient has bt Assessment & Plan (1) Slurred speech Status: Resolved (2) Transient ischemic attack (TIA) Assessment and Plan: The patient has multiple risk factors for stroke. She is on coumadin and the most recent INR is 1.99. I recommend the followin. Telemetry 2. MRI brain without contrast 3. Echocardiogram 4. Cardiology consult for pauses/possible pacing 5. HbA1c, B12, folate, lipid panel 6. Continue Lipitor to keep LDL < 70; Continue coumadin for INR 2-3 7. PT/OT eval 8. Fluids with NS at 100 mL/hr 9. Case management consult Thank you for this consultation. Status: Acute
--- NOTE | 2017-12-31 16:52 | CARD ---
APPROVED REPORT Date of service: 12/31/2017 EKG Measurement Heart [id number] <Conclusion> Sinus bradycardia with marked sinus arrhythmia with 1st degree AV block Left anterior fascicular block Left ventricular hypertrophy with repolarization abnormality Cannot rule out Septal infarct, age undetermined Abnormal ECG
--- NOTE | 2017-12-31 17:10 | MRI ---
Date of service: 12/31/2017 PROCEDURE: MRI BRAIN WITHOUT CONTRAST HISTORY: tia COMPARISON: 10/09/2016 MRI TECHNIQUE: Multiplanar, multisequence MR images of the brain were obtained without intravenous contrast enhancement. FINDINGS: HEMORRHAGE: None DWI: No evidence of an acute or early subacute infarction. BRAIN PARENCHYMA: No mass effect or edema. Chronic microvascular changes are seen in the periventricular white matter. There is mild atrophy VENTRICLES: Unremarkable. No hydrocephalus. CRANIUM: Unremarkable. ORBITS: Grossly unremarkable. PARANASAL SINUSES/MASTOIDS: Clear VASCULAR SYSTEM: Skull base flow voids intact. OTHER FINDINGS: None. IMPRESSION: No acute intracranial findings
[2017-12-31] MEDS: Sodium Chloride 0.9% 1,000 ML IV SCH (21:38)
[2018-01-01] MEDS: Pantoprazole 40 mg EC Tab PO SCH (06:15)
--- NOTE | 2018-01-01 06:44 | HP ---
DATE OF EXAM: 12/30/2017 CHIEF COMPLAINT: Altered mental status. HISTORY OF PRESENT ILLNESS: Ms. Lee Ann Ledezma is an 87-year-old female with past medical history of hypertension, atrial fibrillation, COPD, CVA, seizure, diabetes mellitus, breast cancer, status post radical mastectomy, dementia, multiple falls, came to the Emergency Department via EMS for evaluation of slurred speech since 20 minutes ago as per EMS. Family noticed her slurred speech and inability to write her name 20 minutes ago and subsequently called EMS for evaluation. On arrival to the Emergency Department, the patient is mildly confused and expressed speech aphasia. I did examine the patient in the telemetry; at that time, she was moving all four extremities. Power is good. She recognized me, but still lethargic, PAST MEDICAL HISTORY: As above. Hypertension; COPD, CVA, seizure; history of multiple times falls, history of atrial fibrillation, on Coumadin; hard of hearing, diabetes mellitus type 2, breast cancer, she had mastectomy. FAMILY HISTORY: Father and mother, noncontributory. ALLERGIES: THE PATIENT IS ALLERGIC WITH FISH AND SULFA. REVIEW OF SYSTEMS: The patient is seen and examined on the bedside in the telemetry. The patient is lethargic, but still responding to questions, moving all four extremities. No fevers. No chills. No hematuria or hematochezia. No headache. No dizziness. She is a poor historian. PHYSICAL EXAMINATION VITAL SIGNS: Temperature 98.0, pulse 71, blood pressure 154/76, and respiratory rate 18. HEENT: Head normocephalic, atraumatic. Eyes PERRLA. Extraocular muscles intact. Conjunctivae clear. Nose patent. NECK: Supple. No carotid bruit. No JVD or thyromegaly. CHEST: Bilaterally symmetrical. HEART: S1 and S2 positive. LUNGS: Clear to auscultation. ABDOMEN: Soft. Bowel sounds positive. No organomegaly. EXTREMITIES: No edema. No cyanosis. Moving all 4 extremities. Power is equal. LABORATORY DATA: White blood cells 7.6, hemoglobin 12.9. hematocrit 38.5, platelets 201. Sodium 138, potassium 4.5, BUN 18, creatinine 0.6, glucose 135, AST 40. IMPRESSION: Ms. Lee Ann Ledezma is an 87-year-old lady with hyperglycemia, abnormal liver function test. Urinalysis within normal limits. INR is 1.85. The patient is noncompliant with Coumadin, came with altered mental status. CAT scan of the head and neck done showed unremarkable CT angio of the brain. CAT scan of the head was reviewed by me. Electrocardiograph and chest x-ray reviewed. History of hypertension, atrial fibrillation, chronic obstructive pulmonary disease, cerebrovascular disease, seizure, diabetes, history of breast cancer, radical mastectomy, dementia, came with transient ischemic attack, admitted in the hospital. Neurology consult called. RTPA inclusion and exclusion criteria protocol reviewed. The patient failed swallowing evaluation in the emergency room and lethargic. We will hold all p.o. medications. Tomorrow we will do another swallowing evaluation if possible. We will start her back to her regular floor. We will repeat labs, under observation. We will follow up. Diana Najera MD
--- NOTE | 2018-01-01 09:55 | CARD ---
APPROVED REPORT Date of service: 12/31/2017 EXAM: Two-dimensional and M-mode echocardiogram with Doppler and color Doppler. Other Information Quality : Technically LimitedRhythm : INDICATION R/O STROKE; LV FX 2D DIMENSIONS IVSd1.2 (0.7-1.1cm)LVDd4.1 (3.9-5.9cm) PWd1.1 (0.7-1.1cm)LVDs2.7 (2.5-4.0cm) FS (%) 33.7 %LVEF (%)63.0 (>50%) M-Mode DIMENSIONS Aortic Root2.70 (2.2-3.7cm)Aortic Cusp Exc.0.90 (1.5-2.0cm) Aortic Valve AoV Peak Lwgzolvp639.0cm/Claudia Peak GR.12mmHg Mitral Valve MV E Bxffsevj474.0cm/sMV E Peak Gr.15mmHgMV A Mvprbjba521.0cm/s MV E Mean Gr.6mmHgMV XUS301unV/A ratio0.7 MVA (PHT)1.79cm2 TDI Lateral E' Peak V7.90cm/sMedial E' Peak V4.09cm/sE/Lateral E'13.5 E/Medial E'26.2 Pulmonary Valve PV Peak Djcjugws20.5cm/sPV Peak Grad.2mmHg Tricuspid Valve TR Peak [id number]/sRAP [id number] Peak Gr.14mmHg POYI02miTc LEFT VENTRICLE The left ventricle is normal size. There is mild concentric left ventricular hypertrophy. The left ventricular function is normal. The left ventricular ejection fraction is within the normal range. There is normal LV segmental wall motion. RIGHT VENTRICLE The right ventricle is not well visualized. ATRIA The left atrium is mildly dilated. The right atrium is not well visualized. AORTIC VALVE The aortic valve is moderately calcified. MITRAL VALVE The mitral valve is moderately thickened but opens well. Mitral annular calcification is severe. The subvalvular structures are calcified. TRICUSPID VALVE The tricuspid valve is not well visualized. There is trace to mild tricuspid regurgitation. PULMONIC VALVE The pulmonic valve is not well visualized. GREAT VESSELS The aortic root is normal in size. PERICARDIAL EFFUSION There is no pericardial effusion. <Conclusion> This is a limited study. The left ventricle is normal size. There is mild concentric left ventricular hypertrophy. The left ventricular function is normal. The aortic valve is moderately calcified. Aortic sclerosis vs. mild . The MV leaflets, annulus and subvalvular structures are calcified. Possible mild functional mitral stenosis.
[2018-01-01] MEDS: POLYETHYLENE GLYCOL 3350 17 GM/Dose PACKET PO SCH (10:12)
--- NOTE | 2018-01-01 10:40 | PN ---
DATE: 12/31/2017 SUBJECTIVE: Patient is an 87-year-old female. Patient was seen and examined on the bedside, looking comfortable, sitting, having her dinner, disoriented x3. No nausea, vomiting, or diarrhea. No hematuria or hematochezia. No swelling of the leg. No chest pain. No palpitation. No headache. No dizziness. Patient was at that time asymptomatic. Patient has few reported pauses on telemetry lasting about 2.5 to 3 seconds. PHYSICAL EXAMINATION: VITAL SIGNS: Temperature 98.6, pulse 50, respiratory rate 18, blood pressure 150/80. HEENT: Head: Normocephalic, atraumatic. Eyes: PERRLA. Extraocular muscles intact. Conjunctivae clear. Nose patent. Mucous membranes moist. NECK: Supple. No carotid bruit. No JVD or thyromegaly. CHEST: Bilaterally symmetrical. HEART: S1 and S2 positive. LUNGS: Clear to auscultation. ABDOMEN: Soft. Bowel sounds present. No organomegaly. EXTREMITIES: No edema. No cyanosis. NEUROLOGIC: Patient is awake and alert. Moving all 4 extremities. No focal deficit. MEDICATIONS: Lipitor, hydralazine, NS, Keppra, Cozaar. LABORATORY DATA: White blood cells 7.6, hemoglobin 12.9, hematocrit 38.5, platelets 226. Sodium 139, potassium 3.8, BUN 15, creatinine 0.6, 81. ASSESSMENT AND KRYS an 87-year-old female with multiple medical problems, came with altered mental status and multiple risk factors for stroke. She has atrial fibrillation. She was on Coumadin and most recent MRI is done, Neurology suggested observing the patient on Telemetry. Repeat MRI without contrast, echocardiogram. Instructor Private on the consult for possibly repeating . Lipitor, hemoglobin A1c, B12 and folic acid panel, NS. Patient has a history of atrial fibrillation, and for that she was on sotalol. With sotalol, when she came, she had bradycardia, heart rate in 50s. We will hold sotalol now. Last night, she had pauses. History of dementia, hypertension, hypercholesterolemia, depression, came with slurring speech and inability to write name, but right now, patient is better at baseline. History of chronic obstructive pulmonary disease; cerebrovascular accident; seizures; history of breast cancer, status post radical mastectomy; multiple falls; hard of hearing. In 2011, patient's cardiac catheterization was done with Dr. Diop. Denies chest pain. Able to talk. We will continue present treatment. Monitoring patient on the telemetry. Physical therapy. We will follow up. Diana Najera MD MTDD
--- NOTE | 2018-01-01 10:41 | CON ---
ADDENDUM TO THE CONSULT ALREADY DONE BY [facility] TO [facility] DATE OF CONSULTATION: 12/31/2017 The patient in Room 277, Bed 2. REASON FOR CONSULTATION: Atrial fibrillation. The patient had episodes where she could not write her name and questionable slurring of speech. The patient was at home on sotalol and Coumadin. The patient also has COPD, seizure, diabetes, history of dementia. I reviewed the chart and examined the patient now. The patient also has some pauses on the monitor and the patient's Sotalol is on hold. In reviewing through the charts, I found that Dr. Goins had seen the patient last year, so I am going to discuss with Dr. Goins in the morning. In the meantime, sotalol is on hold. TSH still has been always down at 0.65. Mynor Ruelas MD
[2018-01-01] MEDS: Sodium Chloride 0.9% 1,000 ML IV SCH (21:20)
[2018-01-02] MEDS: Pantoprazole 40 mg EC Tab PO SCH (05:02)
--- NOTE | 2018-01-02 08:51 | PN ---
DATE: 01/01/2018 SUBJECTIVE: The patient is 87-year-old female. The patient was seen and examined on the bedside, looking comfortable. No fevers. No chills. No nausea, vomiting, or diarrhea. No hematuria or hematochezia. No swelling of the leg. No chest pain. No palpitation. PHYSICAL EXAMINATION: VITAL SIGNS: Temperature 97.7, pulse 67, blood pressure 157/71, respiratory rate 18. HEENT: Head: Normocephalic, atraumatic. Eyes: PERRLA. Extraocular muscles intact. Conjunctivae clear. Nose patent. Mucous membranes moist. NECK: Supple. No carotid bruit. No JVD or thyromegaly. CHEST: Bilaterally symmetrical. HEART: S1 and S2 positive. LUNGS: Clear to auscultation. ABDOMEN: Soft. Bowel sounds present. No organomegaly. EXTREMITIES: No edema. No cyanosis. NEUROLOGIC: The patient is awake and alert. Moving all 4 extremities. No focal deficit. MEDICATIONS: Hydralazine, Aricept, Coumadin, Cozaar, Keppra, Lipitor, MiraLax, pantoprazole, Risperdal, NS. LABORATORY DATA: White blood cells 6.5, hemoglobin 12.2, hematocrit 36.5, platelets 226. INR is 1.99. Glucose 209, 227, 133. ASSESSMENT AND PLAN: Ms. Lee Ann Ledezma is an 87-year-old female with diabetes mellitus, came with altered mental status. The patient had atrial fibrillation, was on sotalol, was on Coumadin. History of chronic obstructive pulmonary disease, seizures, diabetes mellitus, history of dementia. The patient had pauses on the monitor and the patient's sotalol is on hold. History of dementia, multiple falls. Optometry Doctor is on the case. Continue present treatment. Gastric and deep venous thrombosis prophylaxis, fall precautions. The patient is back to her baseline. We will follow up. Diana Najera MD
[2018-01-02] MEDS: POLYETHYLENE GLYCOL 3350 17 GM/Dose PACKET PO SCH (11:01)
--- NOTE | 2018-01-02 20:09 | CON ---
DATE OF CONSULTATION: 01/02/2018 REQUESTING PHYSICIAN: Diana Najera MD REASON FOR CONSULTATION: Transient heart block. HISTORY: This is an 87-year-old woman, well known to us with a history of aortic stenosis and coronary artery disease, status post cardiac bypass surgery and aortic valve replacement as well as a history of atrial flutter, who was admitted with altered mental status. She reportedly had slurred speech and confusion. She was brought to the emergency room and was apparently lethargic. Her neurologic symptoms have improved and she has returned to her baseline. An MRI showed no acute findings. On telemetry, she was noted to have sinus pauses of up to 4 seconds. She had previously been on sotalol and this has just been placed on hold. She has continued to have brief pauses of 2 to 2.5 seconds. She denies any lightheadedness. PAST HISTORY: Notable for a history of prior breast cancer, for which she underwent mastectomy, history of COPD, hypertension, diabetes, seizure disorder, prior cerebrovascular accidents. She has had falls in the past. Despite this, she has been maintained on Coumadin therapy. FAMILY HISTORY: Both parents have from age-related illness. SOCIAL HISTORY She does not smoke or drink. CURRENT MEDICATIONS: Coumadin, Cozaar 100 mg daily, Keppra 5 mg b.i.d., Lipitor 10 mg daily, Protonix 40 mg daily, Risperdal 0.5 mg b.i.d., and Aricept 5 mg daily. ALLERGIES: SHE HAS HAD REACTION TO SULFAS IN THE PAST. REVIEW OF SYSTEMS: A 10-point review of systems is notable mainly for problems in the HPI. PHYSICAL EXAMINATION: She is a very elderly woman, who appears comfortable at the present time. Her blood pressure is 126/80 with a pulse of 60 in sinus, respirations are 14. She is currently afebrile. HEENT: Normocephalic, atraumatic. NECK: Supple. No JVD noted. CHEST: Bilateral rhonchi heard. HEART: PMI displaced laterally with a systolic murmur present in the left sternal border. ABDOMEN: Soft, nontender. Normoactive bowel sounds. EXTREMITIES: No edema. SKIN: Warm and dry. PSYCHIATRIC: Affect appears normal. Alert and oriented x3. No gross motor or sensory defects appreciable. DIAGNOSTIC DATA: White count 6.5, hemoglobin and hematocrit 12.2 and 36.5, with platelet count 226,000. INR is 1.99. Potassium 3.8, BUN and creatinine 15 and 0.6. TSH 0.65. Electrocardiogram reveals sinus bradycardia with LVH and left anterior hemiblock. Chest x-ray reveals post sternotomy changes with mildly enlarged cardiac silhouette. Haziness is noted at the left base. IMPRESSION: 1. Altered mental status and aphasia on admission, appears to have resolved. 2. Coronary artery disease status post cardiac bypass surgery and aortic valve replacement, stable at present. 3. Transient sinus pauses possibly due to sotalol administration as well as Aricept, which can also cause conduction disturbances. 4. History of paroxysmal atrial fibrillation. 5. Rest of problems as noted. RECOMMENDATIONS: In addition to her sotalol, Aricept will be placed on hold for now. Continued observation on telemetry is advised. If she develops rapid atrial fibrillation, consideration may need to be given to a pacemaker implant to prevent excessive bradycardia and allow resumption of rate control therapy. In the interim, conservative management will be attempted. Thank you for this consultation. I will be happy to follow along with you throughout the hospital course. Jose Antonio Diop MD
[2018-01-02] MEDS: Sodium Chloride 0.9% 1,000 ML IV SCH (21:40)
[2018-01-03] MEDS: Pantoprazole 40 mg EC Tab PO SCH (05:03)
[2018-01-03] MEDS: POLYETHYLENE GLYCOL 3350 17 GM/Dose PACKET PO SCH (10:22)
--- NOTE | 2018-01-03 11:43 | PN ---
DATE: 01/02/2018 SUBJECTIVE: Patient is 87-year-old female. Patient was seen and examined at the bedside on 01/02/2018, looking comfortable. No nausea. No vomiting. No diarrhea. No hematuria or hematochezia. No swelling of the leg. No chest pain. No palpitation. No headache. No dizziness. PHYSICAL EXAMINATION: VITAL SIGNS: Blood pressure 126/80, pulse 60 in sinus rhythm, respiratory rate 14, temperature at present afebrile. HEENT: Head: Normocephalic, atraumatic. Eyes: PERRLA. Extraocular muscles intact. Conjunctivae clear. Nose patent. NECK: Supple. No carotid bruit. No JVD or thyromegaly. CHEST: Bilaterally symmetrical. HEART: S1 and S2 positive. LUNGS: Clear to auscultation. ABDOMEN: Soft. Bowel sounds present. No organomegaly. EXTREMITIES: No edema. No cyanosis. NEUROLOGICAL: The patient is awake and alert. Moving all 4 extremities. No focal deficit. LABORATORY DATA: White blood cells 6.5, hemoglobin 12.2, hematocrit 36.5, platelets 226,000. INR 1.99. Potassium 3.8, BUN 15, creatinine 0.60 to 0.65. ASSESSMENT AND PLAN: Ms. Lee Ann Ledezma came with altered mental status and aphasia on admission, appears to have resolved, looks like transient ischemic attack, coronary artery disease, status post cardiac bypass surgery and aortic valve replacement. Transient sinus pauses possibly due to Sotalol administration as well as Aricept, which can cause conduction disturbances, history of paroxysmal atrial fibrillation. Appreciated Dr. Jose Antonio Diop's input and Dr. Diop hold both Sotalol and Aricept. Continue observing the patient on telemetry. If develops rapid atrial fibrillation, consideration may need to given to the pacemaker implant to prevent excessive bradycardia and allow resumption of rate control therapy. In the interim, conservative management will be attempted. Gastrointestinal and deep vein thrombosis prophylaxis. Repeat labs. We will follow up. Diana Najera MD
--- NOTE | 2018-01-03 14:57 | PN ---
DATE: 01/03/2018 SUBJECTIVE: The patient is seen lying in bed on telemetry. She is currently comfortable. She is anxious to go home. She has had no further evidence of conduction disruption. CURRENT MEDICATIONS: Include hydralazine p.r.n., Coumadin, Cozaar, Keppra, Lipitor, MiraLax, Protonix, Risperdal. OBJECTIVE: GENERAL: She is a very elderly woman who appears comfortable at rest. VITAL SIGNS: Blood pressure is 128/68 with pulse 76 and sinus, respirations are 16. She is afebrile. HEENT: No JVD. CHEST: Few scattered rhonchi. HEART: Systolic murmur at left sternal border. ABDOMEN: Soft, nontender. Normoactive bowel sounds. EXTREMITIES: No edema. DIAGNOSTIC DATA: Morning blood work is pending. IMPRESSION: 1. Altered mental status and aphasia on admission, appears resolved. 2. Coronary artery disease status post prior bypass surgery and aortic valve replacement, stable. 3. Transient sinus pauses while on sotalol and Aricept with no recurrence since discontinuation. 4. History of paroxysmal atrial fibrillation. 5. Rest of problems as noted. RECOMMENDATIONS: Aricept and sotalol will continue to be withheld for now. If she has further sinus pause of significance then permanent pacemaker implant may need to be considered. In addition, she has recurrent rapid atrial fibrillation. Rate control therapy will need to be resumed and permanent pacemaker maybe necessary at that time as well. In the interim, we will continue to monitor on telemetry. We will continue to follow and make further recommendations as appropriate. Jose Antonio Diop MD
[2018-01-03] MEDS: Insulin Reg-LOW-Coverage SC SCH ×2 (18:26→22:00)
[2018-01-03 18:52] LABS: INR 1.44; PROTHROMBIN TIME 16.5 SECONDS (9.4-12.5)
[2018-01-03] MEDS ORDERED: Insulin Reg-LOW-Coverage SC SCH (22:00)
--- NOTE | 2018-01-03 23:17 | PN ---
DATE: 01/03/2018 SUBJECTIVE: The patient is an 87-year-old female. The patient was seen and examined at the bedside on 01/03/2018. Looking comfortable, fully awake and alert. No fever. No chills. No headache. No nausea, vomiting, or diarrhea. No chest pain or palpitation. PHYSICAL EXAMINATION: VITAL SIGNS: Temperature 98.6, blood pressure 120/68, pulse rate 76, sinus rhythm, respiratory rate 16. HEENT: Head: Normocephalic, atraumatic. Eyes: PERRLA. Extraocular muscles intact. Conjunctivae clear. Nose patent. Mucous membrane moist. NECK: Supple. No carotid bruit. No JVD or thyromegaly. CHEST: Bilaterally symmetrical. HEART: S1 and S2 positive. LUNGS: Clear to auscultation. ABDOMEN: Soft. Bowel sounds present. No organomegaly. EXTREMITIES: No edema. No cyanosis. NEUROLOGICAL: The patient is awake and alert. Follows simple commands. MEDICATIONS: Hydralazine, Coumadin, Cozaar, Keppra, Lipitor, MiraLax, Protonix, and Risperdal. LABORATORY DATA: We do not have recent labs today, but I ordered just stat PT, INR now. ASSESSMENT AND PLAN: Ms. Lee Ann Ledezma is an 87-year-old lady came with altered mental status and aphasia on admission, resolved later on, looks like transient ischemic attack. Coronary artery disease, status post prior bypass surgery and aortic valve replacement, stable. Transient sinus pauses while on Sotalol and Aricept with no recurrence since discontinuation of Sotalol. History of paroxysmal atrial fibrillation, that is why she was on Sotalol. Risk of fall, living alone, not able to do her activities of daily living. According to technical program manager, we will continue Aricept and Sotalol. If the patient will have further sinus pauses of significance, then permanent pacemaker implant may need to be considered. In addition, she has recurrent rapid atrial fibrillation, rate control therapy will need to be resumed or place the pacemaker. In the interim, we will continue present treatment and monitoring the patient on the telemetry. Out of bed, physical therapy. Repeat labs. We will follow up. Diana Najera MD [facility] # [id number]
[2018-01-04] MEDS: Sodium Chloride 0.9% 1,000 ML IV SCH (00:47)
[2018-01-04] MEDS: Pantoprazole 40 mg EC Tab PO SCH (05:15)
[2018-01-04 06:36] LABS: HEMOGLOBIN 12.3 g/dL (12.0-16.0); MEAN CELL VOLUME 89.5 fl (80.0-105.0); MEAN CORPUSCULAR HEMOGLOBIN 29.4 pg (25.0-35.0); MEAN CORPUSCULAR HGB CONC 32.8 g/dl (31.0-37.0); MEAN PLATELET VOLUME 9.6 fl (7.0-11.0); RBC 4.19 10^6/uL (3.5-6.1); RED CELL DISTRIBUTION WIDTH 12.6 % (11.5-14.5); WHITE BLOOD COUNT 7.8 10^3/ul (4.5-11.0)
[2018-01-04 06:46] LABS: BLOOD UREA NITROGEN 20 mg/dL (7-21); CALCIUM 8.7 mg/dL (8.4-10.5); GFR NON-AFRICAN AMERICAN > 60
--- NOTE | 2018-01-04 08:02 | CP.PCM.PN ---
Subjective - Date & Time of Evaluation Date of Evaluation: 01/04/18 Time of Evaluation: 07:00 - Subjective Subjective: Stable on 2R. Brief run of SVT note. No CP or SOB V/S noted. RSR PE: Lungs: clear Cor.: S1S2, [place] Abd.: soft Ext.: no edema Neuro.: alert I/O= 2623/400 recorded Labs: BMP today OK. 01/03 INR = 1.44 Echo noted: Nl LV with LVH, Nl appearing AVR, Possible mild functional MS due to calcification of the MV annulus and subvalvular structures. Objective - Vital Signs/Intake and Output Vital Signs (last 24 hours): Temp Pulse Resp BP Pulse Ox 98 F 86 18 148/79 98 01/04/18 06:00 01/04/18 06:00 01/04/18 06:00 01/04/18 06:00 01/04/18 06:00 Intake and Output: 01/04/18 01/04/18 06:59 18:59 Intake Total 1503 Output Total 400 Balance 1103 - Medications Medications: Current Medications Atorvastatin Calcium (Lipitor) 10 mg PO DIN [facility] Last Admin: 01/03/18 18:25 Dose: 10 mg Hydralazine HCl (Apresoline) 10 mg IVP Q6 PRN PRN Reason: Hypertension Last Admin: 01/03/18 05:12 Dose: 10 mg Sodium Chloride (Sodium Chloride 0.9%) 1,000 mls @ 40 mls/hr IV .Q24H [facility] Last Admin: 01/04/18 00:47 Dose: 40 mls/hr Insulin Human Regular (Humulin R Low) 0 units SC ACHS [facility]; Protocol Last Admin: 01/03/18 22:00 Dose: Not Given Levetiracetam (Keppra) 500 mg PO BID [facility] Last Admin: 01/03/18 18:25 Dose: 500 mg Losartan Potassium (Cozaar) 100 mg PO DAILY [facility] Last Admin: 01/03/18 10:21 Dose: 100 mg Pantoprazole Sodium (Protonix Ec Tab) 40 mg PO 0600 [facility] Last Admin: 01/04/18 05:15 Dose: 40 mg Polyethylene Glycol (Miralax) 17 gm PO DAILY [facility] Last Admin: 01/03/18 10:22 Dose: 17 gm Risperidone (Risperdal Tab) 0.5 mg PO 1000,2200 [facility]; Protocol Last Admin: 01/03/18 22:04 Dose: 0.5 mg Warfarin Sodium (Coumadin) 3 mg PO 1800 [facility]; Protocol Last Admin: 01/03/18 20:04 Dose: 3 mg Warfarin Sodium (Coumadin) 5 mg PO 1800 [facility]; Protocol - Labs Labs: 01/04/18 05:50 01/04/18 05:50 PT 16.5 SECONDS (9.4-12.5) H 01/03/18 18:37 INR 1.44 01/03/18 18:37 APTT 38.5 Seconds (25.1-36.5) H 12/30/17 16:11 Assessment and Plan - Assessment and Plan (Free Text) Assessment: AMS/Aphasia, resolved, possible TIA Sinus pauses while on sotolol and aricept Brief SVT last night CD/CABG/AVR Diabetes HBP PAF COPD Breast cancer, s/p mastectomy Seixure CVA Plan: Continue to hold sotolol, aricept If PAF, SVT, may need PPM to allow rate control Warfarin 5 mg today. Monitor INRs daily OOB as wilbur./PT As per Neuro. and Dr. Najera.
--- NOTE | 2018-01-04 09:16 | CP.PCM.PN ---
<YemiYang - Last Filed: 01/04/18 12:36> Subjective - Date & Time of Evaluation Date of Evaluation: 01/04/18 Time of Evaluation: 09:00 - Subjective Subjective: [facility] Resident- Progress Note on Behalf of Neurology Team Subjective: Patient seen and examined. No acute events overnight. Offers no new complaints at this time. Denies fever, chills, dizziness, acute visual/auditory changes, chest pain, shortness of breath, abdominal pain, and weakness. 12 point ROS negative except as indicated in the HPI Physical Examination: - Constitutional Appears: No Acute Distress, Cachectic - Head Exam Head Exam: ATRAUMATIC, NORMAL INSPECTION, NORMOCEPHALIC - Eye Exam Eye Exam: EOMI, Normal appearance, PERRL - ENT Exam ENT Exam: Mucous Membranes Moist, Normal Exam - Neck Exam Neck exam: Positive for: Normal Inspection - Respiratory Exam Respiratory Exam: Clear to Auscultation Bilateral, NORMAL BREATHING PATTERN - Cardiovascular Exam Cardiovascular Exam: REGULAR RHYTHM, +S1, +S2 - GI/Abdominal Exam GI & Abdominal Exam: Normal Bowel Sounds, Soft. absent: Tenderness - Extremities Exam Extremities exam: Positive for: normal inspection - Back Exam Back exam: NORMAL INSPECTION - Neurological Exam Neurological exam: Patient is alert, awake, oriented x 3, CN II-XII Intact, Motor Strength: RUE and RLE 5/5 and LUE and LLE 5/5, Sensation intact throughout, NIHSS 0 - Psychiatric Exam Psychiatric exam: Normal Affect, Normal Mood - Skin Skin Exam: Dry, Intact, Normal Color, Rash, Warm Assessment and Plan: Patient is a 87-year-old woman with a past medical history of hypertension, atrial fibrillation, COPD, CVA, seizures, diabetes, breast cancer s/p radical mastectomy, dementia, and multiple falls, who was admitted for an episode of expressive aphasia that resolved spontaneously. Transient Ischemic Attack - Continue to monitor on telemetry -12/31/2017 MRI brain without contrast- no acute intracranial findings. Unremarkable. A1 and A2 segments are widely patent. Smaller distal branches unremarkable, as visualized. Unremarkable. M1 and M2 segments are widely patent. Perisylvian branches grossly symmetric. -12/30/2017 CT Head without Contrast- No acute intracranial abnormalities. No significant findings to account for the clinical presentation. No significant interval change compared to the prior examination(s) -12/30/2017 CT Angiography of the neck with contrast- unremarkable -12/31/2017 Echocardiogram- LVEF 63%, aortic valve moderately calcified, MV leaflets annulus and subvalvular structures are calcified -Cardiology consult for pauses/possible pacing -Continue Lipitor to keep LDL < 70; Continue coumadin for INR 2-3 -Continue secondary stroke prevention measures: consider starting aspirin and/or plavix, continue adequate blood pressure control, maintain euglycemia, avoid tobacco use, continue appropriate heart healthy diet and physical activity as tolerated - PT/OT eval- Will benefit from a short term rehab stay to improve her mobility Hx of Seizure - continue home dose of keppra 500mg PO BID - seizure precautions Patient case discussed with attending physician, Dr. Chowdhury. Objective - Vital Signs/Intake and Output Vital Signs (last 24 hours): Temp Pulse Resp BP Pulse Ox 98 F 86 18 148/79 98 01/04/18 06:00 01/04/18 06:00 01/04/18 06:00 01/04/18 06:00 01/04/18 06:00 Intake and Output: 01/04/18 01/04/18 06:59 18:59 Intake Total 1503 Output Total 400 Balance 1103 - Medications Medications: Current Medications Atorvastatin Calcium (Lipitor) 10 mg PO DIN [facility] Last Admin: 01/03/18 18:25 Dose: 10 mg Hydralazine HCl (Apresoline) 10 mg IVP Q6 PRN PRN Reason: Hypertension Last Admin: 01/03/18 05:12 Dose: 10 mg Insulin Human Regular (Humulin R Low) 0 units SC ACHS [facility]; Protocol Last Admin: 01/03/18 22:00 Dose: Not Given Levetiracetam (Keppra) 500 mg PO BID [facility] Last Admin: 01/03/18 18:25 Dose: 500 mg Losartan Potassium (Cozaar) 100 mg PO DAILY [facility] Last Admin: 01/03/18 10:21 Dose: 100 mg Pantoprazole Sodium (Protonix Ec Tab) 40 mg PO 0600 [facility] Last Admin: 01/04/18 05:15 Dose: 40 mg Polyethylene Glycol (Miralax) 17 gm PO DAILY [facility] Last Admin: 01/03/18 10:22 Dose: 17 gm Risperidone (Risperdal Tab) 0.5 mg PO 1000,2200 [facility]; Protocol Last Admin: 01/03/18 22:04 Dose: 0.5 mg Warfarin Sodium (Coumadin) 3 mg PO 1800 [facility]; Protocol Last Admin: 01/03/18 20:04 Dose: 3 mg Warfarin Sodium (Coumadin) 5 mg PO 1800 [facility]; Protocol - Labs Labs: 01/04/18 05:50 01/04/18 05:50 PT 16.5 SECONDS (9.4-12.5) H 01/03/18 18:37 INR 1.44 01/03/18 18:37 APTT 38.5 Seconds (25.1-36.5) H 12/30/17 16:11 <Nathaly Chowdhury - Last Filed: 01/05/18 11:04> Objective - Vital Signs/Intake and Output Vital Signs (last 24 hours): Temp Pulse Resp BP Pulse Ox 98 F 88 14 107/60 98 01/05/18 05:42 01/05/18 05:44 01/05/18 05:42 01/05/18 05:42 01/05/18 05:42 Intake and Output: 01/05/18 01/05/18 06:59 18:59 Intake Total 2420 Output Total 1850 Balance 570 - Medications Medications: Current Medications Atorvastatin Calcium (Lipitor) 10 mg PO DIN [facility] Last Admin: 01/04/18 17:21 Dose: 10 mg Hydralazine HCl (Apresoline) 10 mg IVP Q6 PRN PRN Reason: Hypertension Last Admin: 01/03/18 05:12 Dose: 10 mg Insulin Human Regular (Humulin R Low) 0 units SC ACHS [facility]; Protocol Last Admin: 01/05/18 08:04 Dose: 1 units Levetiracetam (Keppra) 500 mg PO BID [facility] Last Admin: 01/05/18 10:08 Dose: 500 mg Losartan Potassium (Cozaar) 100 mg PO DAILY [facility] Last Admin: 01/05/18 10:08 Dose: 100 mg Pantoprazole Sodium (Protonix Ec Tab) 40 mg PO 0600 [facility] Last Admin: 01/05/18 10:08 Dose: 40 mg Polyethylene Glycol (Miralax) 17 gm PO DAILY [facility] Last Admin: 01/05/18 10:08 Dose: 17 gm Risperidone (Risperdal Tab) 0.5 mg PO 1000,2200 [facility]; Protocol Last Admin: 01/05/18 10:08 Dose: 0.5 mg Warfarin Sodium (Coumadin) 3 mg PO 1800 [facility]; Protocol Last Admin: 01/03/18 20:04 Dose: 3 mg Warfarin Sodium (Coumadin) 5 mg PO 1800 [facility]; Protocol Last Admin: 01/04/18 17:21 Dose: 5 mg - Labs Labs: 01/04/18 05:50 01/04/18 05:50 PT 14.5 SECONDS (9.4-12.5) H 01/05/18 06:00 INR 1.26 01/05/18 06:00 APTT 38.5 Seconds (25.1-36.5) H 12/30/17 16:11 Assessment and Plan - Assessment and Plan (Free Text) Assessment: Patient is an outpatient of DR Mason and he will see patient. IN brief, her stroke workup is completed and she will see him on an outpatient basis. All medical record entries made by the resident were at my direction and personally dictated by me. I have reviewed the chart and agree that the record accurately reflects my personal performance of the history, physical exam, medical decision making, and the department course for this patient. I have also personally directed, reviewed, and agree with the discharge instructions and disposition.
[2018-01-04] MEDS: Insulin Reg-LOW-Coverage SC SCH ×4 (09:22→22:28)
[2018-01-04] MEDS: POLYETHYLENE GLYCOL 3350 17 GM/Dose PACKET PO SCH (09:23)
--- NOTE | 2018-01-04 15:41 | PN ---
DATE: 01/04/2018 NEUROLOGY FOLLOWUP CHIEF COMPLAINT: Follow up for transient aphasia. SUBJECTIVE: The patient is seen and examined at the bedside. She is hard of hearing at baseline. She is sitting in the chair with no acute deficit. Currently, Cardiology is on board for underlying sinus pauses and possible thinking of a pacemaker. No acute events overnight. PAST MEDICAL HISTORY: History of hypertension, hyperlipidemia, AFib, COPD, CVA, seizures, diabetes, breast cancer, status post radical mastectomy, dementia, multiple falls, deconditioned. SOCIAL HISTORY: No illicit drug use, smoking or EtOH abuse. ALLERGIES: ALLERGIC TO FISH, SULFA ANTIBIOTICS. MEDICATIONS: Reviewed by nurses' reconciliation sheet. FAMILY HISTORY: Noncontributory. LABORATORY DATA: Sodium is 137, potassium 4.5, chloride 104, carbon dioxide 27, BUN of 20, creatinine 0.6. Random glucose 184. PHYSICAL EXAMINATION: GENERAL: Patient is sitting up in the chair, in no acute distress. VITAL SIGNS: Temperature 97.5, pulse rate of 91, blood pressure 142/70, respiratory rate of 18, oxygen saturation 98% by room air. HEENT: Atraumatic, normocephalic. PERRLA. Extraocular muscles intact. NECK: Supple. No JVD, no adenopathy noted. LUNGS: Clear to auscultation. No adventitious sounds. HEART: S1, S2. Normal rate and rhythm. No murmurs, rubs or gallops. ABDOMEN: Soft, nontender and nondistended. Bowel sounds are present. EXTREMITIES: No clubbing. No cyanosis. Peripheral pulses 2+ felt bilaterally. NEUROLOGICAL: Patient is alert and oriented to person and place. Hard of hearing. Recall after 5 minutes is 0/3. Poor attention span. Slow thought process. Cranial nerves II through XII intact. Motor: Moves all extremities equally. No pronator drift seen. Sensory exam: Light touch, pinprick, proprioception and vibration are intact. DTRs are 2+ throughout, 1 at both knees and ankles. Coordination: [id number] intact. No dysmetria noted. ASSESSMENT AND PLAN: This is an 87-year-old woman with past medical history of hypertension, hyperlipidemia, atrial fibrillation, chronic obstructive pulmonary disease, cerebrovascular accident, seizures, diabetes, breast cancer, status post radical mastectomy, dementia, was admitted for transient slurred speech, which resolved spontaneously. MRI of the brain showed no acute intracranial abnormalities and old small left basal ganglia infarct, which is unchanged. MRI of the brain failed to show any acute infarcts. CT angio of the head and neck was unremarkable. Echocardiogram with left ejection fraction 62% with aortic valve moderately calcified. Cardiology is on follow up for sinus pauses likely causing symptoms. At this time, her overall symptoms were secondary to transient ischemic attack from possible underlying sinus pauses. At this time, continue with secondary stroke prevention measures. Continue with aspirin 81, Plavix 75 and adequate blood pressure control. Maintain euglycemia and avoid tobacco use. Continue proper healthy heart diet and physical activity as tolerated, will benefit from subacute rehab to improve her mobility. Thank you for this follow up. Jovan Suarez MD
--- NOTE | 2018-01-05 00:50 | PN ---
DATE: 01/04/2018 SUBJECTIVE: Patient is 87-year-old female. Patient was seen and examined at the bedside on 01/04/2018, looking comfortable. No nausea, vomiting, or diarrhea. No hematuria or hematochezia. No swelling of the leg. No chest pain. No palpitation. No headache. No dizziness. PHYSICAL EXAMINATION: VITAL SIGNS: Temperature 97.5, pulse 91, respiratory rate 18, blood pressure 140/70. HEENT: Head: Normocephalic, atraumatic. Eyes: PERRLA. Extraocular muscles intact. Conjunctivae clear. Nose patent. NECK: Supple. No carotid bruit. No JVD or thyromegaly. CHEST: Bilaterally symmetrical. HEART: S1 and S2 positive. LUNGS: Clear to auscultation. ABDOMEN: Soft. Bowel sounds present. No organomegaly. EXTREMITIES: No edema. No cyanosis. NEUROLOGICAL: The patient is awake and alert, oriented to person and place, hard of hearing. Poor attention span. Cranial nerves II through XII are intact. LABORATORY DATA: Sodium 137, potassium 4.5, BUN 20, creatinine 0.6, glucose 184, carbon dioxide 27. ASSESSMENT AND PLAN: Ms. Lee Ann Ledezma is an 87-year-old lady with past medical history of hypertension, hypercholesterolemia, atrial fibrillation, chronic obstructive pulmonary disease, cerebrovascular accident, seizures, diabetes mellitus, history of breast cancer status post radical mastectomy, dementia, has a transient ischemic attack that resolved spontaneously. Process Line Operator and neurologist is on the case. According to fiber worker, there are sinus pauses likely causing the symptoms. Overall symptoms were secondary to transient ischemic attack or possibly underlying sinus pauses. Continue aspirin, Plavix, and Coumadin. Continue proper healthy heart diet, physical activity. Waiting from the fiber worker about pacemaker. Physical Therapy will follow up. Diana Najera MD
[2018-01-05 01:50] LABS: INR 1.27; PROTHROMBIN TIME 14.6 SECONDS (9.4-12.5)
--- NOTE | 2018-01-05 06:34 | CP.PCM.PN ---
Subjective - Date & Time of Evaluation Date of Evaluation: 01/05/18 Objective - Vital Signs/Intake and Output Vital Signs (last 24 hours): Temp Pulse Resp BP Pulse Ox 98 F 88 14 107/60 98 01/05/18 05:42 01/05/18 05:44 01/05/18 05:42 01/05/18 05:42 01/05/18 05:42 Intake and Output: 01/04/18 01/05/18 18:59 06:59 Intake Total 40 2420 Output Total 1850 Balance 40 570 - Medications Medications: Current Medications Atorvastatin Calcium (Lipitor) 10 mg PO DIN [facility] Last Admin: 01/04/18 17:21 Dose: 10 mg Hydralazine HCl (Apresoline) 10 mg IVP Q6 PRN PRN Reason: Hypertension Last Admin: 01/03/18 05:12 Dose: 10 mg Insulin Human Regular (Humulin R Low) 0 units SC ACHS [facility]; Protocol Last Admin: 01/04/18 22:28 Dose: Not Given Levetiracetam (Keppra) 500 mg PO BID [facility] Last Admin: 01/04/18 17:21 Dose: 500 mg Losartan Potassium (Cozaar) 100 mg PO DAILY [facility] Last Admin: 01/04/18 09:23 Dose: 100 mg Pantoprazole Sodium (Protonix Ec Tab) 40 mg PO 0600 [facility] Last Admin: 01/04/18 05:15 Dose: 40 mg Polyethylene Glycol (Miralax) 17 gm PO DAILY [facility] Last Admin: 01/04/18 09:23 Dose: 17 gm Risperidone (Risperdal Tab) 0.5 mg PO 1000,2200 [facility]; Protocol Last Admin: 01/04/18 22:12 Dose: 0.5 mg Warfarin Sodium (Coumadin) 3 mg PO 1800 [facility]; Protocol Last Admin: 01/03/18 20:04 Dose: 3 mg Warfarin Sodium (Coumadin) 5 mg PO 1800 [facility]; Protocol Last Admin: 01/04/18 17:21 Dose: 5 mg - Labs Labs: 01/04/18 05:50 01/04/18 05:50 PT 14.6 SECONDS (9.4-12.5) H 01/05/18 01:10 INR 1.27 01/05/18 01:10 APTT 38.5 Seconds (25.1-36.5) H 12/30/17 16:11
[2018-01-05 06:55] LABS: INR 1.26; PROTHROMBIN TIME 14.5 SECONDS (9.4-12.5)
--- NOTE | 2018-01-05 07:35 | CP.PCM.PN ---
Subjective - Date & Time of Evaluation Date of Evaluation: 01/05/18 Time of Evaluation: 07:00 - Subjective Subjective: Stable on 2R. No CP or SOB V/S noted. RSR. No pauses or AF noted on tel. PE: Lungs: clear Cor.: S1S2, [place] Abd.: soft Ext.: no edema Neuro.: alert I/O= 2460/850 recorded Labs 01/04 noted. INR today = 1.26 Echo noted: Nl LV with LVH, Nl appearing AVR, Possible mild functional MS due to calcification of the MV annulus and subvalvular structures. Objective - Vital Signs/Intake and Output Vital Signs (last 24 hours): Temp Pulse Resp BP Pulse Ox 98 F 88 14 107/60 98 01/05/18 05:42 01/05/18 05:44 01/05/18 05:42 01/05/18 05:42 01/05/18 05:42 Intake and Output: 01/05/18 01/05/18 06:59 18:59 Intake Total 2420 Output Total 1850 Balance 570 - Medications Medications: Current Medications Atorvastatin Calcium (Lipitor) 10 mg PO DIN [facility] Last Admin: 01/04/18 17:21 Dose: 10 mg Hydralazine HCl (Apresoline) 10 mg IVP Q6 PRN PRN Reason: Hypertension Last Admin: 01/03/18 05:12 Dose: 10 mg Insulin Human Regular (Humulin R Low) 0 units SC ACHS [facility]; Protocol Last Admin: 01/04/18 22:28 Dose: Not Given Levetiracetam (Keppra) 500 mg PO BID [facility] Last Admin: 01/04/18 17:21 Dose: 500 mg Losartan Potassium (Cozaar) 100 mg PO DAILY [facility] Last Admin: 01/04/18 09:23 Dose: 100 mg Pantoprazole Sodium (Protonix Ec Tab) 40 mg PO 0600 [facility] Last Admin: 01/04/18 05:15 Dose: 40 mg Polyethylene Glycol (Miralax) 17 gm PO DAILY [facility] Last Admin: 01/04/18 09:23 Dose: 17 gm Risperidone (Risperdal Tab) 0.5 mg PO 1000,2200 [facility]; Protocol Last Admin: 01/04/18 22:12 Dose: 0.5 mg Warfarin Sodium (Coumadin) 3 mg PO 1800 [facility]; Protocol Last Admin: 01/03/18 20:04 Dose: 3 mg Warfarin Sodium (Coumadin) 5 mg PO 1800 [facility]; Protocol Last Admin: 01/04/18 17:21 Dose: 5 mg Warfarin Sodium (Coumadin) 7.5 mg PO ONCE ONE; Protocol Stop: 01/05/18 10:01 - Labs Labs: 01/04/18 05:50 01/04/18 05:50 PT 14.5 SECONDS (9.4-12.5) H 01/05/18 06:00 INR 1.26 01/05/18 06:00 APTT 38.5 Seconds (25.1-36.5) H 12/30/17 16:11 Assessment and Plan - Assessment and Plan (Free Text) Assessment: AMS/Aphasia, resolved, possible TIA Sinus pauses while on sotolol and aricept Brief SVT on tel. CAD/CABG/AVR Diabetes HBP PAF COPD Breast cancer, s/p mastectomy Seixure CVA Plan: Continue to hold sotolol, aricept If PAF, SVT, may need PPM to allow rate control Warfarin 7.5 mg today. Monitor INRs daily OOB as wilbur./PT As per Neuro. and Dr. Najera.
[2018-01-05] MEDS: Insulin Reg-LOW-Coverage SC SCH ×4 (08:04→21:28)
[2018-01-05] MEDS: POLYETHYLENE GLYCOL 3350 17 GM/Dose PACKET PO SCH (10:08)
[2018-01-05] MEDS: Pantoprazole 40 mg EC Tab PO SCH (10:08)
[2018-01-06] MEDS ORDERED: Digoxin 250 mcg (0.25 mg) Tab PO STA (04:03)
[2018-01-06] MEDS ORDERED: Digoxin 500 mcg/2ml (0.5 mg/2ml) Inj IVP ONE (04:09)
[2018-01-06] MEDS ORDERED: Sodium Chloride 0.9% 1,000 ML IV SCH (04:15)
--- NOTE | 2018-01-06 04:15 | CP.PCM.PN ---
<Alethea Smith - Last Filed: 01/06/18 06:15> Subjective - Date & Time of Evaluation Date of Evaluation: 01/06/18 Time of Evaluation: 04:10 - Subjective Subjective: This is an 87 year old female with PMH of afib on coumadin who initially presented to hospital for CVA. Night resident paged by staff for atrial fib with RVR at rate of 150bpm and BP of 140s/80s. Patient was sleeping and had to be woken up to get EKG which showed irregular rhythm at rate of 130s with no ST changes. Patient denied any symptoms including CP and SOB. Patient given 5mg of cardizem but continued to have HR in the 150s with BP of 110/60. Patient subs equently started on NS @ 60cc/hr and give 0.25mg digoxin IVP. Objective - Vital Signs/Intake and Output Vital Signs (last 24 hours): Temp Pulse Resp BP Pulse Ox 97.6 F 140 H 18 125/71 95 01/05/18 23:38 01/06/18 03:36 01/05/18 23:38 01/06/18 03:36 01/05/18 23:38 Intake and Output: 01/05/18 01/06/18 18:59 06:59 Intake Total 240 1920 Output Total 600 1500 Balance -360 420 - Medications Medications: Current Medications Atorvastatin Calcium (Lipitor) 10 mg PO DIN [facility] Last Admin: 01/05/18 17:32 Dose: 10 mg Hydralazine HCl (Apresoline) 10 mg IVP Q6 PRN PRN Reason: Hypertension Last Admin: 01/03/18 05:12 Dose: 10 mg Sodium Chloride (Sodium Chloride 0.9%) 1,000 mls @ 100 mls/hr IV .Q10H [facility] Insulin Human Regular (Humulin R Low) 0 units SC ACHS [facility]; Protocol Last Admin: 01/05/18 21:28 Dose: Not Given Levetiracetam (Keppra) 500 mg PO BID [facility] Last Admin: 01/05/18 17:33 Dose: 500 mg Losartan Potassium (Cozaar) 100 mg PO DAILY [facility] Last Admin: 01/05/18 10:08 Dose: 100 mg Pantoprazole Sodium (Protonix Ec Tab) 40 mg PO 0600 [facility] Last Admin: 10/23/18 10:08 Dose: 40 mg Polyethylene Glycol (Miralax) 17 gm PO DAILY [facility] Last Admin: 01/05/18 10:08 Dose: 17 gm Risperidone (Risperdal Tab) 0.5 mg PO 1000,2200 [facility]; Protocol Last Admin: 01/05/18 21:25 Dose: 0.5 mg Warfarin Sodium (Coumadin) 3 mg PO 1800 [facility]; Protocol Last Admin: 01/03/18 20:04 Dose: 3 mg Warfarin Sodium (Coumadin) 5 mg PO 1800 [facility]; Protocol Last Admin: 01/05/18 17:32 Dose: 5 mg - Labs Labs: 01/04/18 05:50 01/04/18 05:50 PT 14.5 SECONDS (9.4-12.5) H 01/05/18 06:00 INR 1.26 01/05/18 06:00 APTT 38.5 Seconds (25.1-36.5) H 12/30/17 16:11 - Constitutional Appears: No Acute Distress - Head Exam Head Exam: ATRAUMATIC, NORMAL INSPECTION - Eye Exam Eye Exam: EOMI Pupil Exam: PERRL - Respiratory Exam Respiratory Exam: Clear to Ausculation Bilateral. absent: Rales, Rhonchi, Respiratory Distress - Cardiovascular Exam Cardiovascular Exam: Tachycardia, +S1, +S2 - GI/Abdominal Exam GI & Abdominal Exam: absent: Guarding, Rigid - Extremities Exam Extremities Exam: Normal Inspection. absent: Calf Tenderness - Neurological Exam Neurological Exam: Alert - Skin Skin Exam: Normal Color, Warm <Jorge,Lian - Last Filed: 01/06/18 09:19> Objective - Vital Signs/Intake and Output Vital Signs (last 24 hours): Temp Pulse Resp BP Pulse Ox 97 F L 141 H 19 125/71 95 01/06/18 06:00 01/06/18 06:00 01/06/18 06:00 01/06/18 03:36 01/05/18 23:38 Intake and Output: 01/06/18 01/06/18 06:59 18:59 Intake Total 2460 Output Total 2400 Balance 60 - Medications Medications: Current Medications Atorvastatin Calcium (Lipitor) 10 mg PO DIN [facility] Last Admin: 01/05/18 17:32 Dose: 10 mg Hydralazine HCl (Apresoline) 10 mg IVP Q6 PRN PRN Reason: Hypertension Last Admin: 01/03/18 05:12 Dose: 10 mg Sodium Chloride (Sodium Chloride 0.9%) 1,000 mls @ 60 mls/hr IV .[id number] [facility] Last Admin: 01/06/18 04:41 Dose: 60 mls/hr Insulin Human Regular (Humulin R Low) 0 units SC ACHS [facility]; Protocol Last Admin: 01/05/18 21:28 Dose: Not Given Levetiracetam (Keppra) 500 mg PO BID [facility] Last Admin: 01/05/18 17:33 Dose: 500 mg Losartan Potassium (Cozaar) 100 mg PO DAILY [facility] Last Admin: 01/05/18 10:08 Dose: 100 mg Pantoprazole Sodium (Protonix Ec Tab) 40 mg PO 0600 [facility] Last Admin: 01/06/18 05:20 Dose: 40 mg Polyethylene Glycol (Miralax) 17 gm PO DAILY [facility] Last Admin: 01/05/18 10:08 Dose: 17 gm Risperidone (Risperdal Tab) 0.5 mg PO 1000,2200 [facility]; Protocol Last Admin: 01/05/18 21:25 Dose: 0.5 mg Warfarin Sodium (Coumadin) 3 mg PO 1800 [facility]; Protocol Last Admin: 01/03/18 20:04 Dose: 3 mg Warfarin Sodium (Coumadin) 5 mg PO 1800 [facility]; Protocol Last Admin: 01/05/18 17:32 Dose: 5 mg - Labs Labs: 01/04/18 05:50 01/04/18 05:50 PT 14.5 SECONDS (9.4-12.5) H 01/05/18 06:00 INR 1.26 01/05/18 06:00 APTT 38.5 Seconds (25.1-36.5) H 12/30/17 16:11 Attending/Attestation - Attestation I have personally seen and examined this patient.: Yes I have fully participated in the care of the patient.: Yes I have reviewed all pertinent clinical information, including history, physical exam and plan: Yes Notes (Text): 01/06/18 09:13 Pt seen,Case discussed with the resident. Pt is asymptomatic O/E HR is in the 140s,it is irregular Lungs Clear IMP Afib with RVR Plan: Digoxin to be repeated in 20 mins if HR remains high.
[2018-01-06] MEDS: Sodium Chloride 0.9% 1,000 ML IV SCH ×2 (04:41→21:27)
[2018-01-06] MEDS ORDERED: Digoxin 500 mcg/2ml (0.5 mg/2ml) Inj IVP STA (05:05)
[2018-01-06] MEDS: Pantoprazole 40 mg EC Tab PO SCH (05:20)
--- NOTE | 2018-01-06 08:10 | CARD ---
APPROVED REPORT Date of service: 01/06/2018 EKG Measurement Heart [id number] <Conclusion> Atrial fibrillation with rapid ventricular response, new Left axis deviation Anteroseptal infarct, age undetermined STTW changes c/w ischemia Prolonged QTc
[2018-01-06] MEDS: Insulin Reg-LOW-Coverage SC SCH ×4 (09:38→23:52)
[2018-01-06] MEDS: POLYETHYLENE GLYCOL 3350 17 GM/Dose PACKET PO SCH (09:39)
[2018-01-06] MEDS ORDERED: Metoprolol 1 mg/ml Inj IVP PRN (10:51)
[2018-01-06 10:55] VITALS: PULSE 140
--- NOTE | 2018-01-06 11:39 | PN ---
DATE: 01/06/2018 SUBJECTIVE: The patient is seen lying in bed on telemetry. She is comfortable at the present time. She developed rapid atrial fibrillation early this morning and was given IV diltiazem. She is currently in the sinus rhythm. CURRENT MEDICATIONS: Include hydralazine p.r.n., losartan 100 mg daily, Keppra 500 mg b.i.d., Lipitor 10 mg daily, Protonix, Risperdal 0.5 mg b.i.d. Her Coumadin has been placed on hold. OBJECTIVE: GENERAL: She is a very elderly woman, who is comfortable at rest. VITAL SIGNS: The blood pressure is 126/70 with a pulse of 60 and sinus, respirations are 14. She is afebrile. HEENT: No JVD. CHEST: A few scattered rhonchi heard. HEART: PMI displaced laterally with systolic murmur in the left sternal border. ABDOMEN: Soft, nontender, normoactive bowel sounds. EXTREMITIES: No edema. DIAGNOSTIC DATA: INR yesterday was 1.26. IMPRESSION: 1. Bradycardia tachycardia syndrome with recurrent rapid atrial fibrillation after discontinuation of sotalol. Given profound sinus pauses of up to 4-5 seconds earlier on the admission, permanent pacemaker implant appears appropriate. Arrangements will be made for transfer to [facility] to have this performed tomorrow. Repeat INR is drawn. Coumadin remains on hold. 2. Coronary artery disease, status post remote bypass surgery and aortic valve replacement. 3. Rest of problems as noted. RECOMMENDATIONS: IV metoprolol will be given as needed for tachycardia. Long-acting agents will be avoided given her previous sinus pauses. After pacemaker implant, sotalol will be resumed. We will follow along as needed. Jose Antonio Diop MD
[2018-01-06 12:08] LABS: INR 1.81; PROTHROMBIN TIME 21.1 SECONDS (9.4-12.5)
[2018-01-07 00:02] VITALS: RESP 18; O2SAT 97
--- NOTE | 2018-01-07 03:44 | PN ---
DATE: 01/06/2018 SUBJECTIVE: The patient is 87-year-old female. The patient was seen and examined at bedside on 01/06/2018. No fever, no chills. No nausea, vomiting, diarrhea. No hematuria, no hematochezia. The patient developed rapid atrial fibrillation last night and early this morning. A house physician speech correction consultant was called, got IV diltiazem and she is currently in sinus rhythm. PHYSICAL EXAMINATION: VITAL SIGNS: Temperature 98.6, blood pressure 120/70, pulse oximetry noted , respiatory rate 14. HEENT: Head normocephalic, atraumatic. Eyes: PERRLA. Extraocular muscles intact. Conjunctivae clear. Nose patent. Mucous membrane moist. NECK: Supple. No carotid bruit. No JVD, thyromegaly. CHEST: Bilaterally symmetrical. HEART: S1, S2 positive. LUNGS: Clear to auscultation. ABDOMEN: Soft, nontender, no organomegaly. EXTREMITIES: No edema, no cyanosis. NEUROLOGICAL: The patient is awake, alert. Moving all 4 extremities. No focal deficit. LABORATORY DATA: We do not have labs today, but I reviewed old labs. INR is 1.6. MEDICATIONS: Hydralazine, losartan, Keppra, Lipitor, Protonix, Risperdal, Coumadin is on hold because the patient had to go for pacemaker. ASSESSMENT AND PLAN: Ms. Lee Ann Ledezma is an 87-year-old lady who has sharri-tachycardia syndrome with recurrent rapid atrial fibrillation after discontinuing sotalol given profound sinus pauses of up to 4 to 5 seconds earlier on the admission, permanent pacemaker implant appears appropriate. Arrangements will be made for transfer to [facility] to have this performed tomorrow as per manager school. Repeat INR in the morning. Coumadin is on hold by the manager school. Coronary artery disease, status post remote bypass surgery and aortic valve replacement. Rest of problem is hypertension, hypercholesterolemia and dementia. Recommended IV metoprolol to be given immediate for tachycardia. Long-acting agent will be avoided given her previous sinus pauses, after pacemaker implant sotalol will be resumed. I reviewed Dr. Jose Antonio Diop's notes. Reviewed Lian Patel notes also. Repeat labs. We will follow up. Diana Najera MD [facility] # [id number] MARCELINA
[2018-01-07 06:19] VITALS: BP 152/85; TEMP 98
[2018-01-07 07:47] LABS: INR 1.94; PROTHROMBIN TIME 22.6 SECONDS (9.4-12.5)
--- NOTE | 2018-01-07 07:48 | CP.PCM.PN ---
Subjective - Date & Time of Evaluation Date of Evaluation: 01/07/18 Time of Evaluation: 07:00 - Subjective Subjective: Stable on 2R. No CP or SOB V/S noted. RSR. PE: Lungs: clear Cor.: S1S2, [place] Abd.: soft Ext.: no edema Neuro.: alert I/O= [id number] recorded Labs: INR pending today. BSs = 186 - 313. Echo noted: Nl LV with LVH, Nl appearing AVR, Possible mild functional MS due to calcification of the MV annulus and subvalvular structures. Objective - Vital Signs/Intake and Output Vital Signs (last 24 hours): Temp Pulse Resp BP Pulse Ox 98.0 F 105 H 18 152/85 H 97 01/07/18 06:00 01/07/18 06:00 01/07/18 00:01 01/07/18 06:00 01/07/18 00:01 Intake and Output: 01/07/18 01/07/18 06:59 18:59 Intake Total 840 Output Total 1200 Balance -360 - Medications Medications: Current Medications Atorvastatin Calcium (Lipitor) 10 mg PO DIN [facility] Last Admin: 01/06/18 17:48 Dose: 10 mg Hydralazine HCl (Apresoline) 10 mg IVP Q6 PRN PRN Reason: Hypertension Last Admin: 01/03/18 05:12 Dose: 10 mg Sodium Chloride (Sodium Chloride 0.9%) 1,000 mls @ 60 mls/hr IV .[id number] [facility] Last Admin: 01/06/18 21:27 Dose: 60 mls/hr Insulin Human Regular (Humulin R Low) 0 units SC ACHS [facility]; Protocol Last Admin: 01/06/18 23:52 Dose: 2 units Levetiracetam (Keppra) 500 mg PO BID [facility] Last Admin: 01/06/18 17:48 Dose: 500 mg Losartan Potassium (Cozaar) 100 mg PO DAILY [facility] Last Admin: 01/06/18 09:37 Dose: 100 mg Metoprolol Tartrate (Lopressor) 5 mg IVP Q6H PRN PRN Reason: Heart rate Pantoprazole Sodium (Protonix Ec Tab) 40 mg PO 0600 [facility] Last Admin: 01/06/18 05:20 Dose: 40 mg Polyethylene Glycol (Miralax) 17 gm PO DAILY [facility] Last Admin: 01/06/18 09:39 Dose: 17 gm Risperidone (Risperdal Tab) 0.5 mg PO 1000,2200 [facility]; Protocol Last Admin: 01/06/18 21:26 Dose: 0.5 mg Warfarin Sodium (Coumadin) 3 mg PO 1800 [facility]; Protocol Last Admin: 01/03/18 20:04 Dose: 3 mg - Labs Labs: 01/04/18 05:50 01/04/18 05:50 PT 21.1 SECONDS (9.4-12.5) H 01/06/18 11:50 INR 1.81 01/06/18 11:50 APTT 38.5 Seconds (25.1-36.5) H 12/30/17 16:11 Assessment and Plan - Assessment and Plan (Free Text) Assessment: AMS/Aphasia, resolved, possible TIA Sinus pauses while on sotolol and aricept B-T Syndrome CAD/CABG/AVR Diabetes HBP PAF COPD Breast cancer, s/p mastectomy Seixure CVA Plan: Continue to hold sotolol, aricept Await INR today. To [facility] for EP Evaluation and possible PPM today Additional recs to follow.
[2018-01-07] MEDS: Insulin Reg-LOW-Coverage SC SCH (08:08)
[2018-01-07] MEDS: POLYETHYLENE GLYCOL 3350 17 GM/Dose PACKET PO SCH (09:41)
[2018-01-07 11:15] VITALS: PULSE 88
== END 2018-01-07 11:18 | disposition short-term general hospital (02) | DRG 309 ==
LOC: ED 16:07 → ERH 17:04 → 2RSO 18:56
PROVIDERS: ADMIT Internal Medicine; ATTEND Internal Medicine
DX: I49.5 Sick sinus syndrome (principal); G45.9 Transient cerebral ischemic attack, unspecified; R47.01 Aphasia; I47.1 Supraventricular tachycardia; J44.9 Chronic obstructive pulmonary disease, unspecified; I10 Essential (primary) hypertension; F03.90 Unspecified dementia, unspecified severity, without behavioral disturbance, psychotic disturbance, mood disturbance, and anxiety; Z85.3 Personal history of malignant neoplasm of breast; Z79.01 Long term (current) use of anticoagulants; I25.10 Atherosclerotic heart disease of native coronary artery without angina pectoris; G40.909 Epilepsy, unspecified, not intractable, without status epilepticus; R29.6 Repeated falls; I48.0 Paroxysmal atrial fibrillation; E11.65 Type 2 diabetes mellitus with hyperglycemia; I45.9 Conduction disorder, unspecified; Z91.14 Patient's other noncompliance with medication regimen; E78.00 Pure hypercholesterolemia, unspecified; E78.5 Hyperlipidemia, unspecified; H91.90 Unspecified hearing loss, unspecified ear; I35.0 Nonrheumatic aortic (valve) stenosis; Z86.73 Personal history of transient ischemic attack (TIA), and cerebral infarction without residual deficits; Z87.440 Personal history of urinary (tract) infections; Z90.10 Acquired absence of unspecified breast and nipple; Z91.81 History of falling; Z95.1 Presence of aortocoronary bypass graft; Z95.2 Presence of prosthetic heart valve; Z88.2 Allergy status to sulfonamides; Z91.013 Allergy to seafood